=== PATIENT | female | born 1960 | race Caucasian/White ===

== ENCOUNTER 2024-12-25 13:05 | Outpatient (AMB) | payer OTHER, SELFPAY ==
--- OUTSIDE RECORDS SUMMARY | 2024-12-25 13:39 | XMS_ITS ---
Author Organization [facility] Address [address] [place] [address] Care Team Providers Care Screening Technician Name Role Phone Mirian Richey MD Primary Care Provider Active Problems Problem Noted Date Diagnosed Date Abdominal pain 04/21/2019 Serum potassium elevated 01/09/2019 Elevated serum creatinine 01/09/2019 Acute renal failure (ARF) 01/09/2019 Malignant neoplasm of cervix 05/06/2018 Overview (05/06/2018): Added automatically from request for surgery [id number] Dyspareunia in female 09/11/2017 Hypomagnesemia 10/26/2015 Impaired renal function 10/26/2015 Pre-op testing 08/31/2015 Cancer of cervix 07/29/2015 Cancer Staging:Clinical stage from 06/17/2015:FIGO Stage IIIB- Signed by Chelly White MD on 09/11/2017 Bilateral hydronephrosis 07/29/2015 Current Oncology Plans No current plan information found. Past Plans No past plan information found. Radiation Treatments * No radiation treatments are documented for this patient in [facility]. Treatments may have been administered in another system. Lifetime Dose Tracking * Chemical Lifetime Dose Automatic Entry Manual Entr y Fluoro Time 6 minutes 6 minutes 0 minutes Radiation - mGy 254.974 mGy 254.974 mGy 0 mGy
--- OUTSIDE RECORDS SUMMARY | 2024-12-25 13:39 | XMS_ITS | Referral Summary ---
Author Organization [facility] Address [address] [place] [address] Care Team Providers Care Genetic Supervisor Name Role Phone Mirian Richey MD Primary Care Provider [phone]- [phone] Encounters Date Type Department Care Team Description 12/22/2024 Refill [facility] [address] [place] [address] Meat Stock Clerk: Mirian Kent MD 11/22/2024 Refill [facility] [address] [place] [address] Meat Stock Clerk: Mirian Kent MD 09/27/2024 Refill [facility] [address] [place] [address] Meat Stock Clerk: Mirian Kent MD from Last 3 Months Allergies No known active allergies Medications MULTIVITAMIN (MULTIPLE VITAMINS ORAL) Activ e FLUoxetine (PROzac) 20 mg capsule Take 20 mg by mouth daily. 9 Active amLODIPine (NORVASC) 5 mg tablet Take 5 mg by mouth once a day. 2 Active rosuvastatin (CRESTOR) 40 mg tablet Take 40 mg by mouth once a day. 2 Active chlorthalidone (HYGROTEN) 25 mg tablet TAKE 1 TABLET BY MOUTH ONCE DAILY DIRECTED 3 Active oxybutynin XL (DITROPAN XL) 10 mg tablet Take 1 tablet by mouth once daily 30 tablet 5 Active oxybutynin XL (DITROPAN XL) 10 mg tablet Take 1 tablet by mouth once daily 30 tablet 5 025 Discontinued Active Problems Problem Noted Date Diagnosed Date Abdominal pain 04/21/2019 Serum potassium elevated 01/09/2019 Elevated serum creatinine 01/09/2019 Acute renal failure (ARF) 01/09/2019 Malignant neoplasm of cervix 05/06/2018 Overview (05/06/2018): Added automatically from request for surgery [id number] Dyspareunia in female 09/11/2017 Hypomagnesemia 10/26/2015 Impaired renal function 10/26/2015 Pre-op testing 08/31/2015 Cancer of cervix 07/29/2015 Cancer Staging:Clinical stage from 06/17/2015:FIGO Stage IIIB- Signed by Chelly White MD on 09/11/2017 Bilateral hydronephrosis 07/29/2015 Social History Tobacco Use Types Packs/Day Years Used Date Smoking Tobacco: Never Smokeless Tobacco: Never Tobacco Cessation:Counseling Given: Not Answered Alcohol Use Standard Drinks/Week Comments No 0 (1 standard drink = 0.6 oz pur e alcohol) Comments No Sex and Gender Information Value Date Recorded Sex Assigned at Female 07/01/2018 9:58 AM EDT Legal Sex Female 6:52 PM EDT Gender Identity Female 02/19/2022 2:16 PM EDT Sexual Orientation Straight 02/19/2022 2: 16 PM EDT Last Filed Vital Signs Vital Sign Reading Time Taken Comments Blood Pressure 146/88 08/24/2024 2:57 PM EDT Pulse 80 08/24/2024 2:57 PM EDT Temperature 36.6 ??C (97.8 ??F) 08/24/2024 2:57 PM ED T Respiratory Rate 16 06/11/2019 1:28 PM EDT Oxygen Saturation 94% 08/24/2024 2:57 PM EDT Inhaled Oxygen Concentration - - Weight 83.9 kg (185 lb) 08/24/2024 2:57 PM EDT Height 157.5 cm (5' 2 ) 03/21/2022 2:06 PM EDT Body Mass Index 33.84 03/21/2022 2:06 PM EDT Plan of Treatment Upcoming Encounters Date Type Department Care Team (Late st Contact Info) Description 02/11/2025 4:30 PM EDT Telehealth [facility] [address] [place] [phone] Meat Stock Clerk: Priscilla Saez NP [address] [place] [address] [phone] 09/01/2025 4:00 PM EDT Follow-Up [facility] DINING SERVICE SUPERVISOR Oncology [address] [place] [address] Meat Stock Clerk: Chelly Teixeira MD [address] [place] [phone] Medical Devices Implanted Type Area Rug Cutter Device Identifier Shelf Expiration Date Model / Serial / Lot Stent Ureteral Firm Hydroplus Coating 7fr 26cm Percuflex Plus - [id number] Implanted:Qty: 1 on 10/09/2017 by Crissy Pierce MD at [facility] Stent Ureter [employer] 01/28/2020 175-273 / / [id number] Stent Ureteral Firm Hydroplus Coating 6fr 26cm Percuflex Plus - [id number] Implanted:Qty: 1 on 03/20/2018 by Mirian Richey MD at [facility] Stent Left: Ureter [employer] 09/10/2020 175-263 / / [id number] Stent Ureteral Firm Hydroplus Coating 6fr 26cm Percuflex Plus - [id number] Implanted:Qty: 1 on 03/20/2018 by Mirian Richey MD at [facility] Stent Right: Ureter [employer] 09/10/2020 175-263 / / [id number] Stent Ureteral Firm Hydroplus Coating 6fr 26cm Percuflex Plus - [id number] Implanted:Qty: 1 on 07/02/2018 by Mirian Richey MD at [facility] Stent [employer] 04/09/2021 175-263 / / [id number] Stent Ureteral Firm Hydroplus Coating 6fr 26cm Percuflex Plus - [id number] Implanted:Qty: 1 on 07/02/2018 by Mirian Richey MD at [facility] Stent [employer] 03/25/2021 175-263 / / [id number] Stent Ureteral Firm Hydroplus Coating 6fr 26cm Percuflex Plus - [id number] - [id number] Implanted:Qty: 1 on 10/31/2018 by Mirian Richey MD at [facility] Stent Left: Ureter [employer] 09/01/2021 175-263 / [id number] / [id number] Stent Ureteral Firm Hydroplus Coating 6fr 26cm Percuflex Plus - [id number] - [id number] Implanted:Qty: 1 on 10/31/2018 by Mirian Richey MD at [facility] Stent Right: Ureter [employer] 09/01/2021 175-263 / [id number] / [id number] Stent Ureteral Firm Hydroplus Coating 6fr 26cm Percuflex Plus - [id number] Implanted:Qty: 1 on 01/10/2019 by Golden Perry MD at [facility] Stent Right: Ureter [employer] 08/03/2021 175-263 / / [id number] Stent Ureteral Firm Hydroplus Coating 6fr 26cm Percuflex Plus - [id number] Implanted:Qty: 1 on 01/10/2019 by Golden Perry MD at [facility] Stent Left: Ureter [employer] 08/03/2021 175-263 / / [id number] Stent Ureteral Firm Hydroplus Coating 6fr 26cm Percuflex Plus - [id number] - [id number] Implanted:Qty: 1 on 04/09/2019 by Mirian Richey MD at [facility] Stent [employer] 02/01/2022 175-263 / [id number] / Stent Ureteral Firm Hydroplus Coating 6fr 26cm Percuflex Plus - [id number] Implanted:Qty: 1 on 04/16/2019 by Mirian Richey MD at [facility] Stent Left: Ureter [employer] 02/08/2022 175-263 / / [id number] Stent Ureteral Firm Hydroplus Coating 6fr 26cm Percuflex Plus - [id number] Implanted:Qty: 1 on 04/16/2019 by Mirian Richey MD at [facility] Stent Right: Ureter [employer] 02/01/2022 175-956 / / [id number] Procedures * Due to [place] law, this organization might not be sharing negative HIV tests. Procedure Name Priority Date/Time Associated Diagnosis Comments PAP W/HPV, CONVERSION Routine 07/15/2017 10:42 AM EDT from Last 3 Months or Most Recently Relevant to Health Maintenance Results * Due to [place] law, this organization might not be sharing negative HIV tests. * Pap w/HPV (07/15/2017 10:42 AM EDT) Path Procedure TPGS (388708) 1 ?? HPVHR(335191) 1 ?? Edited by: [id number] - 7084 MAHAMED ?? [id number] - 3297 TRISTEN ?? [id number] - 5563 [facility] ANATOMIC PATHOLOGY - BIOTECH THREE Specimen Labeled As: 1 CERVICAL/ENDOCERVI LM CYTO MATERIAL - Edited by: [id number] - 1043 ENRRIQUE [facility] ANATOMIC PATHOLOGY - BIOTECH THREE Additional Test Information Specimens were tested for high risk HPV using the FDA approved Digene Hybrid ?? Capture II kit, in the Diagnostic Molecular Oncology Lab at [facility] ?? Health Care. ??This test can detect HPV high risk types 16, 18, 31, 33, 35, 39, ?? 45, 51, 52, 56, 58, 59 and 68. ? High-risk subtypes of HPV are found in 96% of patients with high grade squamous ?? intraepithelial lesions and cervical squamous cell carcinoma. ??Additional ?? studies may be indicated in spite of a negative HPV test, e.g. in patients with ?? a friable cervix or multiple previous abnormal pap tests. ??HPV testing is not ?? recommended for managing patients with atypical glandular cells. ??Not all ?? high-risk HPV infections are associated with a histologic or cytologic ?? abnormality. ??We endorse the recommendations of the [place] Society for ?? Colposcopy and Cervical Pathology for management of pap test results, available ?? at www.asccp.org. ? ASCCP guidelines also recommend HPV 16/18 genotyping in patients over the age ?? of 30 who have had positive high risk HPV testing, but have a negative ?? morphologic Pap test (http://www.asccp. org/consensus.shtm l). ? The performance characteristics of this test have been validated by the ?? Laboratory of Diagnostic Molecular Oncology. ??They have not been cleared or ?? approved by the U.S. ??Food and Drug Administration (FDA). ??The FDA has ?? determined that such clearance or approval is not necessary. ??The laboratory is ?? certified (CLIA-88) to perform high complexity clinical laboratory testing. ?? Edited by: [id number] STCYRM ?? [id number] STCYRM ?? [id number] STCYRM [facility] ANATOMIC PATHOLOGY - BIOTECH THREE Diagnosis ThinPrep Pap Test ?Adequacy: Specimen processed and examined but unsatisfactory for evaluation ?of epithelial cell abnormalities because of scant epithelial ?cellularity and obscuring blood. ? This Pap test could not be examined by the ThinPrep Imaging System, [employer] [facility] [employer], [place], [place], and required a full manual screening. ? This case was screened and diagnosed by the Cytology Laboratory at [facility] ?? Diagnostics, [place], [place] ?- High risk HPV DNA subtypes: NEGATIVE ?? Edited by: [id number] STCYRM ?? [id number] STCYRM ?? [id number] 160 STCYRM ?? [id number] - 1700 [facility] ANATOMIC PATHOLOGY - BIOTECH THREE Gynecologic Clinical Data Specimen source:, THINPREP (CERVICAL AND ENDOCERVICAL) [facility] ANATOMIC PATHOLOGY - BIOTECH THREE Gynecologic Clinical Data First date of LMP:, NOT GIVEN [facility] ANATOMIC PATHOLOGY - BIOTECH THREE Pathology Codes Client Order Code:, TPHS3 [facility] ANATOMIC PATHOLOGY - BIOTECH THREE Pathology Codes Bill Type:, 3RD DEMOCRAT BILLING [facility] ANATOMIC PATHOLOGY - BIOTECH THREE Completed Report [id number] HPV, HIGH RISK TYPES 1 [facility] ANATOMIC PATHOLOGY - BIOTECH THREE Marker 1 MD LAURA NEGATIVE [facility] ANATOMIC PATHOLOGY - BIOTECH THREE Marker 2 MSTITOARAM [facility] ANATOMIC PATHOLOGY - BIOTECH THREE Marker 3 OMRPT,MOLECULAR REPEAT [facility] ANATOMIC PATHOLOGY - BIOTECH THREE Marker 4 RIM,RECEIVED IN MOLECULAR [facility] ANATOMIC PATHOLOGY - BIOTECH THREE Marker 5 STQ,SENT TO [facility] ANATOMIC PATHOLOGY - BIOTECH THREE Marker 6 UNSAT,Unsatisfacto ry [facility] ANATOMIC PATHOLOGY - BIOTECH THREE Cc Results To HALLIE Queen DINING SERVICE SUPERVISOR ??[id number] ?? MACIEL Goyal DINING SERVICE SUPERVISOR ??[id number] [facility] ANATOMIC PATHOLOGY - BIOTECH THREE Signature REPORT SIGNED: PAMELA SOLER 08/01/17 [facility] ANATOMIC PATHOLOGY - BIOTECH THREE Sign Out Audit PAMELA SOLER [id number] FINAL NEW RYDER [id number] [facility] ANATOMIC PATHOLOGY - BIOTECH THREE Cytology / Unknown 7 10:42 AM EDT 07/16/2017 10:42 AM EDT us Susana Fernandez MD LAB HISTORICAL RESULTS Fin al Result [facility] ANATOMIC PATHOLOGY - BIOTECH THREE [address] [place] [address] from Last 3 Months or Most Recently Relevant to Health Maintenance Insurance Advance Directives Documents on File Type Date Recorded Patient Security Manager Expl [facility] Health Care Proxy 01/10/2019 8:18 AM 2018 Health Care Proxy 08/08/2017 1:34 PM Health Care Proxy 08/08/2017 8:14 AM Health Care Proxy 01/09/2017 12:00 AM Heal th Care Proxy Healthcare Agents on File Name Relationship Healthcare Agent Relationshi p Communication Leon Jean Baptiste Spouse Next of Kin [phone] ( Home) Care Teams Genetic Supervisor Relationship Specialty Start Date End Date Mirian Richey MD [address] [place] [id number] PCP - General Urology 01/31/24
--- OUTSIDE RECORDS SUMMARY | 2024-12-25 13:39 | XMS_ITS | Clinical Summary ---
Author Organization [facility] Address [address] [place] [address] Care Team Providers Care Cardio Clinician Name Role Phone Mirian Richey MD Primary Care Provider +1- [phone] Allergies No known active allergies Medications MULTIVITAMIN [...] (05/06/2018): Added automatically from request for surgery [id number] Dyspareunia in female 09/11/2017 Hypomagnesemia 10/26/2015 Impaired renal function 10/26/2015 Pre-op testing 08/31/2015 Cancer of cervix 07/29/2015 Cancer Staging:Clinical stage from 06/17/2015:FIGO Stage IIIB- Signed by Chelly White MD on 09/11/2017 Bilateral hydronephrosis 07/29/2015 Encounters Date Type Department Care Team Description 12/22/2024 Refill [facility] [address] [place] [address] Windows Architect: Mirian Kent MD 11/22/2024 Refill [facility] [address] [place] [address] Windows Architect: Mirian Kent MD 09/27/2024 Refill [facility] Urology [address] [address] Windows Architect: Mirian Kent MD from Last 3 Months Family History Medical History Relation Name Comments Heart disease Brother Cancer Father Spinal cancer p er patient No Known Problems Mother No Known Problems Sister No Known Problems Son Relation Name Status Comments Brother Alive Daughter Father Mother Alive Sister Alive Son Alive Social History Tobacco Use Types Packs/Day Years [...] Info) Description 02/11/2025 4:30 PM EDT Telehealth [facility] [address] [place] [address] Windows Architect: Priscilla Saez NP [address] [place] [phone] 09/01/2025 4:00 PM EDT Follow-Up [facility] BEAN SNIPPER Oncology [address] [place] [phone] Windows Architect: Chelly Teixeira MD [address] [place] [phone] Health Maintenance Due Date Last Done Comments Cologuard 1961 Colon Cancer Screening 1961 Colonoscopy 1961 FOBT / Fit Test 1961 HIV Screening 1961 Hepatitis C Screening 1961 Sigmoidoscopy 1961 Pneumococcal Vaccine: Pediatric (0-5 Years) and At-Risk Patients (6-64 Years) (1 of 2 - PCV) 1967 Zoster Vaccines (1 of 2) 1980 Mammogram 2001 DTaP,Tdap,and Td Vaccines (2 - Td or Tdap) 02/21/2019 02/21/2009 Pap Smear 07/15/2020 07/15/2017 Cervical Cancer Screening 07/15/2022 HPV and Pap Smear 07/15/2022 07/15/2017 COVID-19 Vaccine (2023-2 5 season) 2024 11/28/2021, 02/25/2021, 02/04/2021 Influenza Vaccine (#1) 2024 Alcohol/Substance Use Screening 11/18/2024 Depression Screening and Follow-Up 11/18/2024 Social Drivers of Health Annual Screening 11/18/2024 RSV Vaccine (60+ years old a nd patients) (1 - 1-dose 75+ series) 2036 Hepatitis B Vaccines Aged Out No long er eligible based on patient's age to complete this topic Medical Devices Implanted Type Area Claims Correspondence Clerk Device Identifier Shelf Expiration Date Model / Serial / Lot Stent Ureteral Firm Hydroplus Coating 7fr 26cm Percuflex Plus - [id number] Implanted:Qty: 1 on 10/09/2017 by Crissy Pierce MD at [facility] Stent Ureter [employer] 01/28/2020 175-273 / / [id number] Stent Ureteral Firm Hydroplus Coating 6fr 26cm Percuflex Plus - [id number] Implanted:Qty: 1 on 03/20/2018 by Mirian Richey MD at [facility] Stent Left: Ureter [employer] 09/10/2020 175-263 / / [id number] Stent Ureteral Firm Hydroplus Coating 6fr 26cm Percuflex Plus - [id number] Implanted:Qty: 1 on 03/20/2018 by Mirian Richey MD at [facility] Stent Right: Ureter [employer] 09/10/2020 175-263 / / [id number] Stent Ureteral Firm Hydroplus Coating 6fr 26cm Percuflex Plus - [id number] Implanted:Qty: 1 on 07/02/2018 by Mirian Richey MD at [facility] Stent [employer] 04/09/2021 175-263 / / [id number] Stent Ureteral Firm Hydroplus Coating 6fr 26cm Percuflex Plus - [id number] Implanted:Qty: 1 on 07/02/2018 by Mirian Richey MD at [facility] Stent [employer] 03/25/2021 175-263 / / [id number] Stent Ureteral Firm Hydroplus Coating 6fr 26cm Percuflex Plus - [id number] - [id number] Implanted:Qty: 1 on 10/31/2018 by Mirian Richey MD at [facility] Stent Left: Ureter [employer] 09/01/2021 175-263 / [id number] / [id number] Stent Ureteral Firm Hydroplus Coating 6fr 26cm Percuflex Plus - [id number] - [id number] Implanted:Qty: 1 on 10/31/2018 by Mirian Richey MD at [facility] Stent Right: Ureter [employer] 09/01/2021 175-263 / [id number] / [id number] Stent Ureteral Firm Hydroplus Coating 6fr 26cm Percuflex Plus - [id number] Implanted:Qty: 1 on 01/10/2019 by Golden Perry MD at [facility] Stent Right: Ureter [employer] 08/03/2021 175-263 / / [id number] Stent Ureteral Firm Hydroplus Coating 6fr 26cm Percuflex Plus - [id number] Implanted:Qty: 1 on 01/10/2019 by Golden Perry MD at [facility] Stent Left: Ureter [employer] 08/03/2021 175-263 / / [id number] Stent Ureteral Firm Hydroplus Coating 6fr 26cm Percuflex Plus - [id number] - [id number] Implanted:Qty: 1 on 04/09/2019 by Mirian Richey MD at [facility] Stent [employer] 02/01/2022 175-263 / [id number] / Stent Ureteral Firm Hydroplus Coating 6fr 26cm Percuflex Plus - [id number] Implanted:Qty: 1 on 04/16/2019 by Mirian Richey MD at [facility] Stent Left: Ureter [employer] 02/08/2022 175-263 / / [id number] Stent Ureteral Firm Hydroplus Coating 6fr 26cm Percuflex Plus - [id number] Implanted:Qty: 1 on 04/16/2019 by Mirian Richey MD at [facility] Stent Right: Ureter [employer] 02/01/2022 175-263 / / [id number] Procedures * Due to [place] state law, this organization might not be sharing negative HIV tests. Procedure Name Priority Date/Time Associated Diagnosis Comments PAP W/HPV, CONVERSION Routine 07/15/2017 10:42 AM EDT from Last 3 Months or Most Recently Relevant to Health Maintenance Results * Due to [place] state law, this organization might not be sharing negative HIV tests. * Pap w/HPV (07/15/2017 10:42 AM EDT) Path Procedure TPGS ([id number]) 1 ?? HPVHR([id number]) 1 ?? Edited by: [id number] MAHAMED ?? [id number] - 2330 TRISTEN ?? [id number] - 5790 STCYRM [facility] ANATOMIC PATHOLOGY - BIOTECH THREE Specimen Labeled As: 1 CERVICAL/ENDOCERVI LM CYTO MATERIAL - Edited by: [id number] ENRRIQUE [facility] ANATOMIC PATHOLOGY - BIOTECH THREE Additional Test Information Specimens were tested for high risk HPV using the FDA approved Digene Hybrid ?? Capture II kit, in the Diagnostic Molecular Oncology Lab at [facility] ?? Health Care. ??This test can [...] abnormality. ??We endorse the recommendations of the [place] Society for ?? Colposcopy and Cervical Pathology [...] complexity clinical laboratory testing. ?? Edited by: [id number] STCYRM ?? [id number] - 145 STCYRM ?? [id number] - 1605 STCYRM [facility] ANATOMIC PATHOLOGY - BIOTECH THREE Diagnosis ThinPrep Pap Test ?Adequacy: Specimen processed and examined but unsatisfactory for evaluation ?of epithelial cell abnormalities because of scant epithelial ?cellularity and obscuring blood. ? This Pap test could not be examined by the ThinPrep Imaging System, [email or web address], [place], [place], and required a full manual screening. ? This case was screened and diagnosed by the Cytology Laboratory at [facility] ?? Diagnostics, [place], [place] ?- High risk HPV DNA subtypes: NEGATIVE ?? Edited by: [id number] STCYRM ?? [id number] 145 STCYRM ?? [id number] 160 STCYRM ?? [id number] - 170 [facility] ANATOMIC PATHOLOGY - BIOTECH THREE Gynecologic Clinical Data Specimen source:, THINPREP (CERVICAL AND ENDOCERVICAL) [facility] ANATOMIC PATHOLOGY - BIOTECH THREE Gynecologic Clinical Data First date of LMP:, NOT GIVEN [facility] ANATOMIC PATHOLOGY - BIOTECH THREE Pathology Codes Client Order Code:, TPHS3 [facility] ANATOMIC PATHOLOGY - BIOTECH THREE Pathology Codes Bill Type:, 3RD [employer]EN [employer]Y BILLING [facility] ANATOMIC PATHOLOGY - BIOTECH THREE Completed Report [id number] HPV, HIGH RISK TYPES 1 [facility] ANATOMIC PATHOLOGY - BIOTECH THREE Marker 1 LAURA, NEGATIVE [facility] ANATOMIC PATHOLOGY - BIOTECH THREE Marker [address] ANATOMIC PATHOLOGY - BIOTECH THREE Marker 3 OMRPT,MOLECULAR REPEAT [facility] ANATOMIC PATHOLOGY - BIOTECH THREE Marker 4 RIM,RECEIVED IN MOLECULAR [facility] ANATOMIC PATHOLOGY - BIOTECH THREE Marker 5 STQ,SENT TO [employer] [facility] ANATOMIC PATHOLOGY - BIOTECH THREE Marker 6 UNSAT,Unsatisfacto ry [facility] ANATOMIC PATHOLOGY - BIOTECH THREE Cc Results To HALLIE GARCES S BEAN SNIPPER ??[id number] ?? MACIEL Goyal BEAN SNIPPER ??[id number] [facility] ANATOMIC PATHOLOGY - BIOTECH THREE Signature REPORT SIGNED: PAMELA SOLER 08/01/17 [facility] ANATOMIC PATHOLOGY - BIOTECH THREE Sign Out Audit ABHILASH SOLERSERGIO [id number] FINAL NEW TRISTEN [id number] [facility] ANATOMIC PATHOLOGY - BIOTECH THREE Cytology / Unknown 7 10:42 AM EDT 07/16/2017 10:42 AM EDT us Susana Fernandez MD LAB HISTORICAL RESULTS Fin al Result [facility] ANATOMIC PATHOLOGY - BIOTECH THREE [address] [place] [address] from Last 3 Months or Most Recently Relevant to Health Maintenance Insurance Advance Directives Documents on File Type Date Recorded Patient Printed Circuit Boards Stripper Etcher Expl anation Health Care Proxy 01/10/2019 8:18 AM 2018 Health Care Proxy 08/08/2017 1:34 PM Health Care Proxy 08/08/2017 8:14 AM Health Care Proxy 01/09/2017 12:00 AM Heal th Care Proxy Healthcare Agents on File Name Relationship Healthcare Agent Relationshi p Communication Leon Jean Baptiste Spouse Next of Kin [phone] ( Home) Care Teams Cardio Clinician Relationship Specialty Start Date End Date Mirian Richey MD [address] [place] [address] PCP - General Urology 01/31/24
--- OUTSIDE RECORDS SUMMARY | 2024-12-25 13:39 | XMS_ITS | Encounter Summary ---
Author Organization [facility] Address [address] [place] [address] Care Team Providers Care Medical Sales Name Role Phone Mirian Richey MD Primary Care Provider +1- [phone] Encounter Details Date Type Department Care Team (Late st Contact Info) Description 07/08/2020 Orders Only [facility] Interventional Radiology [address] [place] [phone] Finn Manley MD [address] [place] [phone] Social History Tobacco Use Types Packs/Day Years Used Date Smoking Tobacco: Never Smokeless Tobacco: Never Alcohol Use Standard Drinks/Week Comments No 0 (1 standard drink = 0.6 oz pur e alcohol) Comments No Sex and Gender Information Value Date Recorded Sex Assigned at Female 07/01/2018 9:58 AM EDT Legal Sex Female 6:52 PM EDT Gender Identity Female 02/19/2022 2:16 PM EDT Sexual Orientation Straight 02/19/2022 2: 16 PM EDT documented as of this encounter Plan of Treatment Upcoming Encounters Date Type Department Care Team (Late st Contact Info) Description 02/11/2025 4:30 PM EDT Telehealth [facility] Urology Clinic [address] [place] [address] [phone] Chocolate Temperer: Priscilla Saez NP [address] [place] [address] [phone] 09/01/2025 4:00 PM EDT Follow-Up [facility] RECONCILIATION ACCOUNTANT Oncology [address] [place] [address] - [place], [place] [phone] Chocolate Temperer: Chelly Teixeira MD [address] [place] [address] [phone] documented as of this encounter Visit Diagnoses Not on filedocumented in this encounter Care Teams Medical Sales Relationship Specialty Start Date End Date Mirian Richey MD [address] [place] [address] [phone] PCP - General Urology 01/31/24 documented as of this encounter
--- OUTSIDE RECORDS SUMMARY | 2024-12-25 13:39 | XMS_ITS | Encounter Summary ---
Author Organization [facility] Address [address] [place] [address] Care Team Providers Care Medical Concierge Name Role Phone Mirian Richey MD Primary Care Provider [phone]- [phone] Reason for Visit * Reason Comments Med Refill Encounter Details Date Type Department Care Team (Late Contact Info) Description 12/22/2024 Refill [facility] Urology Clinic [address] [place] [address] [phone] Statistical Secretary: Mirian Kent MD [address] [place] [address] [phone] Social History Tobacco Use Types Packs/Day Years [...] Encounters Date Type Department Care Team (Late Contact Info) Description 02/11/2025 4:30 PM EDT Telehealth [facility] Urology Clinic [address] [place] [address] [phone] Statistical Secretary: Priscilla Saez NP [address] [place] [address] [phone] 09/01/2025 4:00 PM EDT Follow-Up [facility] LEGAL AIDE Oncology [address] [place] [address] [place] [address] Statistical Secretary: Chelly Teixeira MD [address] [place] [address] [phone] documented as of this encounter Visit Diagnoses Not on filedocumented in this encounter Care Teams Medical Concierge Relationship Specialty Start Date End Date Mirian Richey MD [address] [place] [address] [phone] PCP - General Urology 01/31/24 documented as of this encounter
--- OUTSIDE RECORDS SUMMARY | 2024-12-25 13:39 | XMS_ITS | Encounter Summary ---
Author Organization [facility] Address [address] [place] [address] Care Team Providers Care Threading Machine Setter Name Role Phone Mirian Richey MD Primary Care Provider [phone]- [phone] Encounter Details Date Type Department Care Team (Late st Contact Info) Description 07/27/2020 Orders Only [facility] Nuclear Medicine [address] [place] [address] [phone] Alfredo Cedeno MD PhD [address] [place] [address] Social History Tobacco Use Types Packs/Day Years [...] EDT Telehealth [facility] Urology Clinic [address] [place] [phone] Overlock Collar Setter: Priscilla Saez NP [address] [place] [phone] 09/01/2025 4:00 PM EDT Follow-Up [facility] COMMERCIAL LOAN PROCESSOR Oncology [address] [place] [address] - First [place], [place] [phone] Overlock Collar Setter: Chelly Teixeira MD [address] [place] [address] [phone] documented as of this encounter Visit Diagnoses Not on filedocumented in this encounter Care Teams Threading Machine Setter Relationship Specialty Start Date End Date Mirian Richey MD [address] [place] [phone] PCP - General Urology 01/31/24 documented as of this encounter
--- NOTE | 2024-12-25 13:40 | MHC.PC.OV ---
Vital Signs 12/25/24 13:43 Height 5 ft 3 in Weight 185 lb BMI 32.8 BP 136/88 Blood Pressure Location Lt brachial Position Sitting Pulse 77 Pulse Source Pulse Oximeter Temp 96.4 F L Temp Source Temporal Artery Scan Pulse Oximetry (%) 97 Oxygen Delivery Method Room Air Intake Visit Reasons: establish care Intake Note: Patient is a new patient here to establish care for HTN. Transferring care from Dr. Vinita Villegas from [facility]. Medical records have been received. Malted Milk Supervisor Required: No Accompanied by: Spouse Is last menstrual period known: Yes (has not had for years.) Last menstrual period: 11/22/22 Allergies No Known Allergies Allergy (Verified 12/25/24 14:03) Medication List - Last Reconciled 12/25/24 by Catrachita Jenkins PA-C amlodipine 5 mg PO DAILY chlorthalidone 25 mg PO DAILY fluoxetine 20 mg PO DAILY oxybutynin chloride ER 10 mg PO DAILY rosuvastatin 40 mg PO DAILY Tobacco use date assessed: 12/25/24 Dental Screening Dental Screen Date: 12/25/24 Did you have a dental visit in the last 12 months?: No Did you have a dental problem in the last 6 months where you did not have access to dental care?: No Was dental information given to patient?: Patient has dentist HPI establish care HPI Details 64-year-old female coming to the office for the 1st time. Patient is not known to [place]. Patient was last seen by [facility] in [place] by nurse practitioner Vinita villegas. She follows with through [facility] in [place] twice yearly for history of cervical cancer. Patient underwent reconstructive surgery for her history of cervical cancer and had to have her fallopian tubes reconstructed. She has been on fluoxetine for several years and does not feel it was helpful for her depression and anxiety and would like to try something else. She has not taken her fluoxetine in several months because she was out of the medication. She is interested in weight loss medication. She has not had a mammogram or colonoscopy and does not want to have this testing done. [facility] Medical History Cervical cancer Impaired fasting glucose Renal failure syndrome Chronic kidney disease, stage 3 Essential hypertension Retinal artery occlusion Mixed hyperlipidemia Social History Housing: House Patient Tobacco Use Status: Never used Tobacco e-Cigarette/Vaping Use: Never Used service: No Current occupational status: employed Cognitive needs: No Hearing needs: No Vision needs: Yes Female Reproductive History Menstrual Date of last menstrual period: 11/22/22 Total pregnancies: 2 Full term: 2 Questionnaire PHQ-9 Over the last 2 weeks, how often have you been bothered by any of the following problems? 1. Little interest or pleasure in doing things: not at all 2. Feeling down, depressed, or hopeless: not at all 3. Trouble falling or staying asleep, or sleeping too much: not at all 4. Feeling tired or having little energy: not at all 5. Poor appetite or overeating: not at all 6. Feeling bad about yourself - or that you are a failure or have let yourself or your family down: not at all 7. Trouble concentrating on things, such as reading the newspaper or watching television: not at all 8. Moving or speaking so slowly that other people could have noticed. Or the opposite - being so fidgety or restless that you have been moving around a lot more than usual: not at all 9. Thoughts that you would be better off or of hurting yourself in some way: not at all Total score: 0 Depression Screening Interpretation: Negative Depression Screening Done: Yes 93910 - PHQ-9 Billing: Yes Source: Developed by Drs. Nigel Ramirez, Jaz Bass, Mannie Zimmerman and colleagues, with an educational pool from [employer]. Thrive Questionnaire Date Thrive assessed: 12/25/24 I am a: Patient What is your living situation today?: I have a steady place to live Within the past 12 months, did the food you bought not last and you didn't have the money to get more?: Never true Within the past 12 months, did you worry whether your food would run out before you got money to buy more?: Never true Do you have trouble paying for medicines?: No Do you have trouble getting transportation to medical appointments?: No Do you have trouble paying your heating and electricity bill?: No Do you have trouble taking care of your child, family member or friend?: No Do you have trouble with day-to-day activities such as bathing, preparing meals, shopping, managing finances, etc.?: No Are you currently unemployed and looking for a job?: No Are you interested in more education?: No Please select the resources that you would like help with: None Currently or been in a relationship where the following occur: No concerns reported THRIVE Score: 0 AUDIT C Alcohol Use Questionnaire (AUDIT-C) 1. How often do you have a drink containing alcohol?: 2-3 times a week 2. How many drinks containing alcohol do you have on a typical day when you are drinking?: 1 or 2 3. How often do you have six or more drinks on one occasion?: Never Total Score: 3 LIBORIO-7 AMB Questionnaire LIBORIO-7 Date LIBORIO - 7 assessed: 12/25/24 Feeling nervous, anxious, or on edge: 0 = Not at all Not being able to stop or control worryin = Not at all Worrying too much about different things: 0 = Not at all Trouble relaxin = Not at all Being so restless that it is hard to sit still: 0 = Not at all Becoming easily annoyed or irritable: 0 = Not at all Feeling afraid as if something awful might happen: 0 = Not at all Total LIBORIO-7 score (0-4 normal; 5-9 mild; 10-14 moderate; 15-21 severe): 0 Source: Developed by Drs. Nigel Ramirez, Jaz Bass, Mannie Zimmerman and colleagues, with an educational pool from [employer]. LIBORIO-7 Assessment Billing LIBORIO-7 Assessment Tool: LIBORIO-7 Assessment 62836 Review of Systems Const Denies body aches, Denies chills, Denies fever(s), Denies headache(s) and Denies poor appetite Eyes Reports no additional complaints ENT Denies dysphagia, Denies dizziness, Denies headache(s) and Denies odynophagia Card Denies chest pain, Denies syncope, Denies edema, Denies irregular heart rhythm, Denies lightheadedness and Denies dyspnea Resp Denies cough and Denies dyspnea GI Denies abdominal pain, Denies constipation, Denies dysphagia, Denies diarrhea, Denies nausea, Denies odynophagia and Denies vomiting Reports no additional complaints Musc Reports no additional complaints and Denies abnormal gait Skin/Breast Reports system reviewed and no additional complaints, except as documented Neuro Denies abnormal gait, Denies dizziness, Denies syncope and Denies headache(s) Psych Reports no additional complaints Physical exam (Primary Care) Vital Signs: Last Vital Signs Temp 96.4 F L 12/25/24 13:43 Pulse 77 12/25/24 13:43 BP 136/88 12/25/24 13:43 Pulse Ox 97 12/25/24 13:43 Oxygen Delivery Method Room Air 12/25/24 13:43 BMI result Body Mass Index 32.8 Tobacco/Smoking Status: Tobacco use Status Tobacco use date assessed 12/25/24 12/25/24 13:54 Patient Tobacco Use Status Never used Tobacco 12/25/24 13:54 e-Cigarette/Vaping Use Never Used 12/25/24 13:54 PHQ-9: PHQ-9 Score PHQ-9: Total score 0 12/25/24 13:47 Depression Screening Interpretation: Negative Thrive Assessment: Date of Thrive Assessment Date Thrive assessed 12/25/24 12/25/24 13:41 Currently or been in a relationship where the following occur: No concerns reported Const General: cooperative, healthy appearing, comfortable and no acute distress Orientation/consciousness: patient oriented x3 HENMT Head: Yes normocephalic Ears: hearing grossly normal bilaterally General nose exam: Normal external nose present Eyes General: appearance normal, both eyes and all related structures Conjunctivae: conjunctivae normal Neck Neck: Yes full ROM and Yes no lymphadenopathy Resp Effort & Inspection: normal respiratory effort Auscultation: clear to auscultation bilaterally, no crackles, no rales, no rhonchi and no wheezes Cardio Rate: regular rate Rhythm: regular rhythm Skin General skin exam: no rashes or lesions noted Neuro General: patient oriented x3 Gait exam (Neuro): Normal gait present Extrem General: Yes normal to inspection, Yes full ROM and No edema Psych Affect: normal affect Attitude: cooperative Insight: Good insight present (Psych) Judgement: Good judgement present (Psych) Office Procedures Flu Questionnaire Does the patient have a severe egg allergy?: No Does the patient have severe life threatening allergies?: No Does the patient have a fever or illness today?: No Has the patient ever had Guillain-Mcalpin Syndrome?: No Has the patient ever had any past reaction to a flu shot?: No Immunizations Fluarix Triv [id number] (PF) 45 mcg (15 mcg x 3)/0.5 mL IM syringe Performing Provider: Catrachita Jenkins PA-C Performing Location: [facility] Documented (not given) by: HERB Fenton on 12/25/24 13:55 Reason Not Given: Patient Refused Coding Level of Care Code New Pt Level 4 (92215) Diagnoses Impaired fasting glucose R73.01 Chronic kidney disease, stage 3 N18.30 Mixed hyperlipidemia E78.2 Essential hypertension I10 Overactive bladder N32.81 Colonoscopy refused Z53.20 Obesity (BMI 30.0-34.9) E66.811 Depression F32.A Additional Codes LIBORIO-7 Assessment Billing - LIBORIO-7 Assessment Tool: LIBORIO-7 Assessment 44426 ([id number]) PHQ-9 - 44171 - PHQ-9 Billing: Yes ([id number]) Assessment & Plan Assessment & Plan (1) Impaired fasting glucose: Code(s): R73.01 - Impaired fasting glucose Category: Medical Plan: Decrease the amount of carbohydrates such as pasta, bread, rice, and potatoes and limit the amount of sweets. Although fruits are generally healthy they should be eaten in moderation as they are still high in sugar. Ordered for updated A1c (2) Chronic kidney disease, stage 3: Comment: onset: 10/15/2022- GFR=51.8, 04/19/22 Code(s): N18.30 - Chronic kidney disease, stage 3 unspecified Category: Medical Plan: Ordered for repeat kidney function testing. Advised patient to stay well hydrated and avoid kidney irritants such as NSAIDs (3) Mixed hyperlipidemia: Comment: onset:04/19/2022 Code(s): E78.2 - Mixed hyperlipidemia Category: Medical Plan: Avoid foods that are high in cholesterol such as red meat, fried foods, eggs and baked goods. Triglyceride goal of less than 150 and LDL goal of less than 130. On rosuvastatin 40 mg ordered for updated cholesterol labs. (4) Essential hypertension: Comment: onset: 03/03/2021 Code(s): I10 - Essential (primary) hypertension Category: Medical Plan: Continue on current blood pressure medication. Avoid salt intake and encourage healthy diet and regular exercise. (5) Overactive bladder: Code(s): N32.81 - Overactive bladder Category: Medical Plan: Currently on oxybutynin given by her oncologist Dr. Richey through [facility] (6) Colonoscopy refused: Code(s): Z53.20 - Procedure and treatment not carried out because of patient's decision for unspecified reasons Category: Medical Plan: Patient states she has not had a colonoscopy and is refusing colonoscopy or Cologuard testing. She states she has not wish to have this testing done. I strongly advised patient to undergo this testing as it can detect cancer very early on and patient understands the risk of not having this procedure. I will discuss again at next appointment. (7) Obesity (BMI 30.0-34.9): Code(s): E66.811 - Obesity, class 1 Category: Medical Plan: Healthy diet and regular exercise is encouraged. Patient interested in injections advised that she would have to have blood work done prior to starting these injections and blood work ordered. Patient was counseled today on the risks and benefits of GLP-1 injections as well as the dosing schedule. She has no family history or personal history of thyroid disease and no gallbladder disease. Discussed with the patient the potential GI side effects of this medication. Plan to have repeat blood work after one month of therapy to monitor kidney and liver function before increasing the dose of this medication. Follow up in 2 months. (8) Depression: Comment: Declines counseling 12/2024 Code(s): F32.A - Depression, unspecified Category: Medical Plan: Patient states she struggles with anxiety and depression primarily depression. She was previously on fluoxetine and did not find this helpful. Counseled on side effects of citalopram and we will trial this medication and follow up in 2 months. Declines counseling referral Plan This note was constructed using voice recognition software. While every effort has been made to ensure accuracy and community fundraiser, still areas may have been included sometimes these areas may affect the content or meeting of the given symptoms. Total time spent caring for the patient today was 30 minutes. This includes time spent before the visit reviewing the chart, time spent during the visit, and time spent after the visit and documentation. Orders: Orders Influenza [id number] Immunization Today Z23 - Encounter for immunization Complete Blood Count Auto Diff Today Z00.00 - Encounter for general adult medical examination without abnormal findings Lipid Panel Today E78.00 - Pure hypercholesterolemia, unspecified TSH reflex Free T4 Today Z00.00 - Encounter for general adult medical examination without abnormal findings Hemoglobin A1c Today E78.2 - Mixed hyperlipidemia Free T4 (Free Thyroxine) Today Z00.00 - Encounter for general adult medical examination without abnormal findings Comprehensive Met. Panel Today Z00.00 - Encounter for general adult medical examination without abnormal findings Vitamin B12 and Folate Today Z00.00 - Encounter for general adult medical examination without abnormal findings Vitamin D 25-OH Total Today Z00.00 - Encounter for general adult medical examination without abnormal findings Medications: New rosuvastatin 40 mg PO DAILY 90 tabs 1RF chlorthalidone 25 mg PO DAILY 90 tabs 2RF citalopram 10 mg PO DAILY 90 tabs 0RF amlodipine 5 mg PO DAILY 90 tabs 0RF
[2024-12-25 13:43] VITALS: BP 136/88; PULSE 77; TEMP 35.8; O2SAT 97; BMI 32.8
== END 2024-12-25 14:27 | disposition home or self-care (01) ==
DX: R73.01 Impaired fasting glucose (principal); N18.30 Chronic kidney disease, stage 3 unspecified; E78.2 Mixed hyperlipidemia; I10 Essential (primary) hypertension; N32.81 Overactive bladder; Z53.20 Procedure and treatment not carried out because of patient's decision for unspecified reasons; E66.811 Obesity, class 1; Z68.32 Body mass index [BMI] 32.0-32.9, adult; F32.A Depression, unspecified

== ENCOUNTER → 2024-12-25 13:05 | Outpatient (BNVA) | payer OTHER, SELFPAY | DX: R73.01 Impaired fasting glucose (principal); I12.9 Hypertensive chronic kidney disease with stage 1 through stage 4 chronic kidney disease, or unspecified chronic kidney disease; N18.30 Chronic kidney disease, stage 3 unspecified; E78.2 Mixed hyperlipidemia; N32.81 Overactive bladder; E66.811 Obesity, class 1; Z68.32 Body mass index [BMI] 32.0-32.9, adult; F32.A Depression, unspecified; Z79.899 Other long term (current) drug therapy | CPT/HCPCS: 96127 ==

== ENCOUNTER 2025-01-09 07:40 | Outpatient (REF) | payer OTHER, SELFPAY ==
--- OUTSIDE RECORDS SUMMARY | 2025-01-09 07:42 | XMS_ITS | Encounter Summary ---
Author Organization [facility] Address [address] [place] [address] Care Team Providers Care Assistant Director Name Role Phone Mirian Richey MD Primary Care Provider +1- [phone] Reason for Visit * Reason Comments Med Refill Encounter Details Date Type Department Care Team (Late Contact Info) Description 12/22/2024 Refill [facility] Urology Clinic [address] [place] [phone] Risk And Insurance Consultant: Mirian Kent MD [address] [place] [address] [phone] Social History Tobacco Use Types Packs/Day Years [...] Info) Description 02/11/2025 4:30 PM EDT Telehealth [facility] Urology Clinic [address] [place] [phone] Risk And Insurance Consultant: Priscilla aSez NP [address] [place] [address] [phone] 09/01/2025 4:00 PM EDT Follow-Up [facility] PETROL TANKER DRIVER Oncology [address] [place] [address] [place] [address] Risk And Insurance Consultant: Chelly Teixeira MD [address] [place] [phone] documented as of this encounter Visit Diagnoses Not on filedocumented in this encounter Care Teams Assistant Director Relationship Specialty Start Date End Date Mirian Richey MD [address] [place] [phone] PCP - General Urology 01/31/24 documented as of this encounter
--- OUTSIDE RECORDS SUMMARY | 2025-01-09 07:42 | XMS_ITS | Referral Summary ---
Author Organization [facility] Address [address] [place] [address] Care Team Providers Care Lumber Kiln Operator Name Role Phone Mirian Richey MD Primary Care Provider +1- [phone] Encounters Date Type Department Care Team Description 12/22/2024 Refill [facility] [address] [place] [address] 09488 Terrazzo Tile Setter: Mirian Kent MD 11/22/2024 Refill [facility] [address] [place] [address] 17278 Terrazzo Tile Setter: Mirian Kent MD from Last 3 Months [...] tablet by mouth once daily 30 tablet 025 Discontinued Active Problems Problem Noted Date Diagnosed Date Abdominal pain 04/21/2019 Serum potassium elevated 01/09/2019 Elevated serum creatinine 01/09/2019 Acute renal failure (ARF) 01/09/2019 Malignant neoplasm of cervix 05/06/2018 Overview (05/06/2018): Added automatically from request for surgery [id number] Dyspareunia in female 09/11/2017 Hypomagnesemia 10/26/2015 Impaired [...] Info) Description 02/11/2025 4:30 PM EDT Telehealth [facility] [address] [place] [address] 84579 Terrazzo Tile Setter: Priscilla Saez NP [address] [place] [address] 66644 09/01/2025 4:00 PM EDT Follow-Up [facility] WOOD MACHINE CARVER Oncology [address] [place] [address] 18324 Terrazzo Tile Setter: Chelly Teixeira MD [address] [place] [address] [phone] Medical Devices Implanted Type Area Radiology Tech Device Identifier Shelf Expiration Date Model / Serial / Lot Stent Ureteral Firm Hydroplus Coating 7fr 26cm Percuflex Plus - [id number] Implanted:Qty: 1 on 10/09/2017 by Crissy Pierce MD at [facility] Stent Ureter [employer] 01/28/2020 175-273 / / [id number] Stent Ureteral Firm Hydroplus Coating 6fr 26cm Percuflex Plus - [id number] Implanted:Qty: 1 on 03/20/2018 by Mirian Richey MD at [facility] Stent Left: Ureter [employer] 09/10/2020 175-263 / / [id number] Stent Ureteral Firm Hydroplus Coating 6fr 26cm Percuflex Plus - [id number] Implanted:Qty: 1 on 03/20/2018 by Mirian Richey MD at [facility] Stent Right: Ureter [employer] 09/10/2020 175-263 / / [id number] Stent Ureteral Firm Hydroplus Coating 6fr 26cm Percuflex Plus - [id number] Implanted:Qty: 1 on 07/02/2018 by Mirian Richey MD at [facility] Stent [employer] 04/09/2021 175-263 / / [id number] Stent Ureteral Firm Hydroplus Coating 6fr 26cm Percuflex Plus - [id number] Implanted:Qty: 1 on 07/02/2018 by Mirian Richey MD at [facility] Stent [employer] 03/25/2021 175-263 / / [id number] Stent Ureteral Firm Hydroplus Coating 6fr 26cm Percuflex Plus - [id number] - [id number] Implanted:Qty: 1 on 10/31/2018 by Mirian Richey MD at [facility] Stent Left: Ureter [employer] 09/01/2021 175-263 / [id number] / [id number] Stent Ureteral Firm Hydroplus Coating 6fr 26cm Percuflex Plus - [id number] - [id number] Implanted:Qty: 1 on 10/31/2018 by Mirian Richey MD at [facility] Stent Right: Ureter [employer] 09/01/2021 175-263 / [id number] / [id number] Stent Ureteral Firm Hydroplus Coating 6fr 26cm Percuflex Plus - [id number] Implanted:Qty: 1 on 01/10/2019 by Golden Perry MD at [facility] Stent Right: Ureter [employer] 08/03/2021 175-263 / / [id number] Stent Ureteral Firm Hydroplus Coating 6fr 26cm Percuflex Plus - [id number] Implanted:Qty: 1 on 01/10/2019 by Golden Perry MD at [facility] Stent Left: Ureter [employer] 08/03/2021 175-263 / / [id number] Stent Ureteral Firm Hydroplus Coating 6fr 26cm Percuflex Plus - [id number] - [id number] Implanted:Qty: 1 on 04/09/2019 by Mirian Richey MD at [facility] Stent [employer] 02/01/2022 175-263 / [id number] / Stent Ureteral Firm Hydroplus Coating 6fr 26cm Percuflex Plus - [id number] Implanted:Qty: 1 on 04/16/2019 by Mirian Richey MD at [facility] Stent Left: Ureter [employer] 02/08/2022 175-263 / / [id number] Stent Ureteral Firm Hydroplus Coating 6fr 26cm Percuflex Plus - [id number] Implanted:Qty: 1 on 04/16/2019 by Mirian Richey MD at [facility] Stent Right: Ureter [employer] 02/01/2022 175-263 / / [id number] Procedures * Due to [place] state law, this organization might not be sharing negative HIV tests. Procedure Name Priority Date/Time Associated Diagnosis Comments PAP W/HPV, CONVERSION Routine 07/15/2017 10:42 AM EDT from Last 3 Months or Most Recently Relevant to Health Maintenance Results * Due to [facility] law, this organization might not be sharing negative HIV tests. * Pap w/HPV (07/15/2017 10:42 AM EDT) Path Procedure TPGS (663457) 1 ?? HPVHR(678165) 1 ?? Edited by: [id number] - 1043 MAHAMED ?? [id number] - 6967 TRISTEN ?? [id number] - 3476 [facility] ANATOMIC PATHOLOGY - BIOTECH THREE Specimen Labeled As: 1 CERVICAL/ENDOCERVI LM CYTO MATERIAL - Edited by: [id number] - 1043 ENRRIQUE [facility] ANATOMIC PATHOLOGY - BIOTECH THREE Additional Test Information Specimens were tested for high risk HPV using the FDA approved Digene Hybrid ?? Capture II kit, in the Diagnostic Molecular Oncology Lab at [facility] ?? Health Care. ??This test can detect [...] abnormality. ??We endorse the recommendations of the [place] Society for ?? Colposcopy and Cervical Pathology [...] complexity clinical laboratory testing. ?? Edited by: [id number] 1446 STCYRM ?? [id number] 145 STCYRM ?? [id number] 160 STCYRM [facility] ANATOMIC PATHOLOGY - BIOTECH THREE Diagnosis ThinPrep Pap Test ?Adequacy: Specimen processed and examined but unsatisfactory for evaluation ?of epithelial cell abnormalities because of scant epithelial ?cellularity and obscuring blood. ? This Pap test could not be examined by the ThinPrep Imaging System, [email or web address], [place], [place], and required a full manual screening. ? This case was screened and diagnosed by the Cytology Laboratory at [facility] ?? Diagnostics, [place], [place] ?- High risk HPV DNA subtypes: NEGATIVE ?? Edited by: [id number] 1446 STCYRM ?? [id number] 145 STCYRM ?? [id number] 160 STCYRM ?? [id number] - 1700 [facility] ANATOMIC PATHOLOGY - BIOTECH THREE Gynecologic Clinical Data Specimen source:, THINPREP (CERVICAL AND ENDOCERVICAL) [facility] ANATOMIC PATHOLOGY - BIOTECH THREE Gynecologic Clinical Data First date of LMP:, NOT GIVEN [facility] ANATOMIC PATHOLOGY - BIOTECH THREE Pathology Codes Client Order Code:, TPHS3 [facility] ANATOMIC PATHOLOGY - BIOTECH THREE Pathology Codes Bill Type:, 3RD [employer] BILLING [facility] ANATOMIC PATHOLOGY - BIOTECH THREE Completed Report [id number] HPV, HIGH RISK TYPES 1 [facility] ANATOMIC PATHOLOGY - BIOTECH THREE Marker 1 MDNEG,MD NEGATIVE [facility] ANATOMIC PATHOLOGY - BIOTECH THREE Marker [address] ANATOMIC PATHOLOGY - BIOTECH THREE Marker 3 OMRPT,MOLECULAR REPEAT [facility] ANATOMIC PATHOLOGY - BIOTECH THREE Marker 4 RIM,RECEIVED IN MOLECULAR [facility] ANATOMIC PATHOLOGY - BIOTECH THREE Marker 5 STQ,SENT TO [facility] ANATOMIC PATHOLOGY - BIOTECH THREE Marker 6 UNSAT,Unsatisfacto ry [facility] ANATOMIC PATHOLOGY - BIOTECH THREE Cc Results To HALLIE Queen WOOD MACHINE CARVER ??[id number] ?? MACIEL Goyal WOOD MACHINE CARVER ??[id number] [facility] ANATOMIC PATHOLOGY - BIOTECH THREE Signature REPORT SIGNED: PAMELA SOLER 08/01/17 [facility] ANATOMIC PATHOLOGY - BIOTECH THREE Sign Out Audit PAMELA SOLER [id number] FINAL NEW TRISTEN [id number] [facility] ANATOMIC PATHOLOGY - BIOTECH THREE Cytology / Unknown 10:42 AM EDT 07/16/2017 10:42 AM EDT us Susana Fernandez MD LAB HISTORICAL RESULTS Fin al Result [facility] ANATOMIC PATHOLOGY - BIOTECH THREE [address] [place] [address] from Last 3 Months or Most Recently Relevant to Health Maintenance Insurance Advance Directives Documents on File Type Date Recorded Patient Environmental Specialist Expl anation Health Care Proxy 01/10/2019 8:18 AM 2018 Health Care Proxy 08/08/2017 1:34 PM Health Care Proxy 08/08/2017 8:14 AM Health Care Proxy 01/09/2017 12:00 AM Heal th Care Proxy Healthcare Agents on File Name Relationship Healthcare Agent Relationshi p Communication Leon Jean Baptiste Spouse Next of Kin [phone] ( Home) Care Teams Lumber Kiln Operator Relationship Specialty Start Date End Date Mirian Richey MD [address] [place] [address] PCP - General Urology 01/31/24
--- OUTSIDE RECORDS SUMMARY | 2025-01-09 07:42 | XMS_ITS | Encounter Summary ---
Author Organization [facility] Address [address] [place] [address] Care Team Providers Care Veterans Service Representative Name Role Phone Mirian Richey MD Primary Care Provider +1- [phone] Encounter Details Date Type Department Care Team (Late st Contact Info) Description 07/08/2020 Orders Only [facility] Interventional Radiology [address] [place] [address] 14981 Finn Manley MD [address] [place] [address] 79703 Social History Tobacco Use Types Packs/Day Years [...] Info) Description 02/11/2025 4:30 PM EDT Telehealth [facility] Urology Clinic [address] [place] [address] 6[address]20 Dock Or Pier Laborer: Priscilla Saez NP [address] [place] [address] 70560 09/01/2025 4:00 PM EDT Follow-Up [facility] ADVANCED QUALITY ENGINEER Oncology [address] [place] [address] - [place], [place] [phone] Dock Or Pier Laborer: Chelly Teixeira MD [address] [place] [address] [phone] documented as of this encounter Visit Diagnoses Not on filedocumented in this encounter Care Teams Veterans Service Representative Relationship Specialty Start Date End Date Mirian Richey MD [address] [place] [address] [phone] PCP - General Urology 01/31/24 documented as of this encounter
--- OUTSIDE RECORDS SUMMARY | 2025-01-09 07:42 | XMS_ITS | Encounter Summary ---
Author Organization [facility] Address [address] [place] [address] Care Team Providers Care Vest Busheler Name Role Phone Mirian Richey MD Primary Care Provider +1- [phone] Encounter Details Date Type Department Care Team (Late st Contact Info) Description 07/27/2020 Orders Only [facility] Nuclear Medicine [address] [place] [address] 11550 Alfredo Cedeno MD PhD [address] [place] [address] 57165 Social History Tobacco Use Types Packs/Day Years [...] Info) Description 02/11/2025 4:30 PM EDT Telehealth [facility] Urology Clinic [address] [place] [address] 24919 Well Control Instructor: Priscilla Saez NP [address] [place] [address] 63092 09/01/2025 4:00 PM EDT Follow-Up [facility] WAIST CUTTER Oncology [address] [place] [address] - First floor [place], [place] [phone] Well Control Instructor: Chelly Teixeira MD [address] [place] [address] [phone] documented as of this encounter Visit Diagnoses Not on filedocumented in this encounter Care Teams Vest Busheler Relationship Specialty Start Date End Date Mirian Richey MD [address] [place] [address] 04680 PCP - General Urology 01/31/24 documented as of this encounter
--- OUTSIDE RECORDS SUMMARY | 2025-01-09 07:42 | XMS_ITS | Clinical Summary ---
Author Organization [facility] Address [address] [place] [address] Care Team Providers Care Developing Machine Operator Name Role Phone Mirian Richey MD Primary Care Provider +1- [phone] Allergies No known active allergies Medications MULTIVITAMIN [...] (05/06/2018): Added automatically from request for surgery [id number] Dyspareunia in female 09/11/2017 Hypomagnesemia 10/26/2015 Impaired renal function 10/26/2015 Pre-op testing 08/31/2015 Cancer of cervix 07/29/2015 Cancer Staging:Clinical stage from 06/17/2015:FIGO Stage IIIB- Signed by Chelly White MD on 09/11/2017 Bilateral hydronephrosis 07/29/2015 Encounters Date Type Department Care Team Description 12/22/2024 Refill [facility] Clinic [address] [place] [address] 04105 Metallurgical Laboratory Assistant: Mirian Kent MD 11/22/2024 Refill [facility] [address] [place] [address] 11282 Metallurgical Laboratory Assistant: Mirian Kent MD from Last 3 Months [...] Info) Description 02/11/2025 4:30 PM EDT Telehealth [facility]rology [facility] [address] [place] [address] 03768 Metallurgical Laboratory Assistant: Priscilla Saez NP [address] [place] [address] 78329 09/01/2025 4:00 PM EDT Follow-Up [facility] KICK PRESS OPERATOR Oncology [address] [place] [address] [phone] Metallurgical Laboratory Assistant: Chelly Teixeira MD [address] [place] [address] 26888 Health Maintenance Due Date Last Done Comments Cologuard 1961 Colon Cancer Screening 1961 Colonoscopy 1961 FOBT / Fit Test 1961 HIV Screening 1961 Hepatitis C Screening 1961 Sigmoidoscopy 1961 Pneumococcal Vaccine: 50+ Years (1 of 2 - PCV) 1980 Zoster Vaccines (1 of 2) 1980 Mammogram 2001 DTaP,Tdap,and Td Vaccines (2 - Td or Tdap) 02/21/2019 02/21/2009 Pap Smear 07/15/2020 07/15/2017 Cervical Cancer Screening 07/15/2022 HPV and Pap Smear 07/15/2022 07/15/2017 COVID-19 Vaccine (4 - 2023-2 5 season) 2024 11/28/2021, 02/25/2021, 02/04/2021 Influenza Vaccine (#1) 2024 Alcohol/Substance Use Screening 11/18/2024 Depression Screening and Follow-Up 11/18/2024 Social Drivers of Health Annual Screening 11/18/2024 RSV Vaccine (60+ years old a nd patients) (1 - 1-dose 75+ series) 2036 Hepatitis B Vaccines Aged Out No long er eligible based on patient's age to complete this topic Medical Devices Implanted Type Area Hydrochloric Area Supervisor Device Identifier Shelf Expiration Date Model / Serial / Lot Stent Ureteral Firm Hydroplus Coating 7fr 26cm Percuflex Plus - [id number] Implanted:Qty: 1 on 10/09/2017 by Crissy Pierce MD at [facility] Stent Ureter [employer] 01/28/2020 175-273 / / [id number] Stent Ureteral Firm Hydroplus Coating 6fr 26cm Percuflex Plus - [id number] Implanted:Qty: 1 on 03/20/2018 by Mirian Richey MD at [facility] Stent Left: Ureter [employer] 09/10/2020 175-263 / / [id number] Stent Ureteral Firm Hydroplus Coating 6fr 26cm Percuflex Plus - [id number] Implanted:Qty: 1 on 03/20/2018 by Mirian Richey MD at [facility] Stent Right: Ureter [employer] 09/10/2020 175-263 / / [id number] Stent Ureteral Firm Hydroplus Coating 6fr 26cm Percuflex Plus - [id number] Implanted:Qty: 1 on 07/02/2018 by Mirian Richey MD at [facility] Stent [employer] 04/09/2021 175-263 / / [id number] Stent Ureteral Firm Hydroplus Coating 6fr 26cm Percuflex Plus - [id number] Implanted:Qty: 1 on 07/02/2018 by Mirian Richey MD at [facility] Stent [employer] 03/25/2021 175-263 / / [id number] Stent Ureteral Firm Hydroplus Coating 6fr 26cm Percuflex Plus - [id number] - [id number] Implanted:Qty: 1 on 10/31/2018 by Mirian Richey MD at [facility] Stent Left: Ureter [employer] 09/01/2021 175-263 / [id number] / [id number] Stent Ureteral Firm Hydroplus Coating 6fr 26cm Percuflex Plus - [id number] - [id number] Implanted:Qty: 1 on 10/31/2018 by Mirian Richey MD at [facility] Stent Right: Ureter [employer] 09/01/2021 175-263 / [id number] / [id number] Stent Ureteral Firm Hydroplus Coating 6fr 26cm Percuflex Plus - [id number] Implanted:Qty: 1 on 01/10/2019 by Golden Perry MD at [facility] Stent Right: Ureter [employer] 08/03/2021 175-263 / / [id number] Stent Ureteral Firm Hydroplus Coating 6fr 26cm Percuflex Plus - [id number] Implanted:Qty: 1 on 01/10/2019 by Golden Perry MD at [facility] Stent Left: Ureter [employer] 08/03/2021 175-263 / / [id number] Stent Ureteral Firm Hydroplus Coating 6fr 26cm Percuflex Plus - [id number] - [id number] Implanted:Qty: 1 on 04/09/2019 by Mirian Richey MD at [facility] Stent [employer] 02/01/2022 175-263 / [id number] / Stent Ureteral Firm Hydroplus Coating 6fr 26cm Percuflex Plus - [id number] Implanted:Qty: 1 on 04/16/2019 by Mirian Richey MD at [facility] Stent Left: Ureter [employer] 02/08/2022 175-263 / / [id number] Stent Ureteral Firm Hydroplus Coating 6fr 26cm Percuflex Plus - [id number] Implanted:Qty: 1 on 04/16/2019 by Mirian Richey MD at [facility] Stent Right: Ureter [employer] 02/01/2022 175-263 / / [id number] Procedures * Due to [place] state law, this organization might not be sharing negative HIV tests. Procedure Name Priority Date/Time Associated Diagnosis Comments PAP W/HPV, CONVERSION Routine 07/15/2017 10:42 AM EDT from Last 3 Months or Most Recently Relevant to Health Maintenance Results * Due to [place] state law, this organization might not be sharing negative HIV tests. * Pap w/HPV (07/15/2017 10:42 AM EDT) Path Procedure TPGS ([id number]) 1 ?? HPVHR(129932) 1 ?? Edited by: [id number] - 5702 MAHAMED ?? [id number] - 0178 TRISTEN ?? [id number] 2109 [facility] ANATOMIC PATHOLOGY - BIOTECH THREE Specimen Labeled As: 1 CERVICAL/ENDOCERVI LM CYTO MATERIAL - Edited by: [id number] - 1731 CHRISTIANOLADYLetty [facility] ANATOMIC PATHOLOGY - BIOTECH THREE Additional Test Information Specimens were tested for high risk HPV using the FDA approved Digene Hybrid ?? Capture II kit, in the Diagnostic Molecular Oncology Lab at [facility] ?? Health Care. ??This test can detect [...] abnormality. ??We endorse the recommendations of the [place] Society for ?? Colposcopy and Cervical Pathology [...] complexity clinical laboratory testing. ?? Edited by: [id number] - 9263 [facility] ?? [id number] - 1296 STCOUNT INCLUDES [facility] ?? [id number] - 3226 [facility] AN[facility] - BIOTECH THREE Diagnosis ThinPrep Pap Test ?Adequacy: Specimen processed and examined but unsatisfactory for evaluation ?of epithelial cell abnormalities because of scant epithelial ?cellularity and obscuring blood. ? This Pap test could not be examined by the ThinPrep Imaging System, [employer] ?? [employer], [place], [place], and required a full manual screening. ? This case was screened and diagnosed by the Cytology Laboratory at [facility] ?? Diagnostics, [place], [place] ?- High risk HPV DNA subtypes: NEGATIVE ?? Edited by: [id number] - 9165 STCYRM ?? [id number] - 2416 STCYRM ?? [id number] - 8163 STCYRM ?? [id number] - 9321 TRISTEN [facility] ANATOMIC PATHOLOGY - BIOTECH THREE Gynecologic Clinical Data Specimen source:, THINPREP (CERVICAL AND ENDOCERVICAL) [facility] ANATOMIC PATHOLOGY - BIOTECH THREE Gynecologic Clinical Data First date of LMP:, NOT GIVEN [facility] ANATOMIC PATHOLOGY - BIOTECH THREE Pathology Codes Client Order Code:, TPHS3 [facility] ANATOMIC PATHOLOGY - BIOTECH THREE Pathology Codes Bill Type:, 3RD [employer] BILL[employer] [facility] ANATOMIC PATHOLOGY - BIOTECH THREE Completed Report [id number] HPV, HIGH RISK TYPES 1 [facility] ANATOMIC PATHOLOGY - BIOTECH THREE Marker 1 MD LAURA NEGATIVE [facility] ANATOMIC PATHOLOGY - BIOTECH THREE Marker [address] ANATOMIC PATHOLOGY - BIOTECH THREE Marker 3 OMRPT,MOLECULAR REPEAT [facility] ANATOMIC PATHOLOGY - BIOTECH THREE Marker 4 RIM,RECEIVED IN MOLECULAR [facility] ANATOMIC PATHOLOGY - BIOTECH THREE Marker 5 STQ,SENT TO [employer] ANATOMIC PATHOLOGY - BIOTECH THREE Marker 6 UNSAT,Unsatisfacto ry [facility] ANATOMIC PATHOLOGY - BIOTECH THREE Cc Results To HALLIE Queen KICK PRESS OPERATOR ??[id number] ?? MACIEL Goyal KICK PRESS OPERATOR ??[phone] [facility] ANATOMIC PATHOLOGY - BIOTECH THREE Signature REPORT SIGNED: PAMELA SOLER 08/01/17 [facility] ANATOMIC PATHOLOGY - BIOTECH THREE Sign Out Audit PAMELA SOLER [id number] FINAL [place] [id number] [facility] ANATOMIC PATHOLOGY - BIOTECH THREE Cytology / Unknown 7 10:42 AM EDT 07/16/2017 10:42 AM EDT us Susana Fernandez MD LAB HISTORICAL RESULTS Fin al Result [facility] ANATOMIC PATHOLOGY - BIOTECH THREE [address] [place] [address], [place] from Last 3 Months or Most Recently Relevant to Health Maintenance Insurance [id number] Advance Directives Documents on File Type Date Recorded Patient Digital Sales Planner Expl anation Health Care Proxy 01/10/2019 8:18 AM 2018 Health Care Proxy 08/08/2017 1:34 PM Health Care Proxy 08/08/2017 8:14 AM Health Care Proxy 01/09/2017 12:00 AM [facility] th Care Proxy Healthcare Agents on File Name Relationship Healthcare Agent Relationshi p Communication Leon Jean Baptiste Spouse Next of Kin [phone] ( Home) Care Teams Developing Machine Operator Relationship Specialty Start Date End Date Mirian Richey MD [address] [place] [address] 80367 PCP - General Urology 01/31/24
--- OUTSIDE RECORDS SUMMARY | 2025-01-09 07:42 | XMS_ITS ---
Author Organization [facility] Address [address] [place] [address] Care Team Providers Care Dynamometer Repairer Name Role Phone Mirian Richey MD Primary Care Provider +1- [phone] Active Problems Problem Noted Date Diagnosed Date Abdominal pain 04/21/2019 Serum potassium elevated 01/09/2019 Elevated serum creatinine 01/09/2019 Acute renal failure (ARF) 01/09/2019 Malignant neoplasm of cervix 05/06/2018 Overview (05/06/2018): Added automatically from request for surgery [id number] Dyspareunia in female 09/11/2017 Hypomagnesemia 10/26/2015 Impaired renal function 10/26/2015 Pre-op testing 08/31/2015 Cancer of cervix 07/29/2015 Cancer Staging:Clinical stage from 06/17/2015:FIGO Stage IIIB- Signed by Chelly White MD on 09/11/2017 Bilateral hydronephrosis 07/29/2015 Current Treatment and Therapy Plans No current plan information found. Past Treatment and Therapy Plans No past plan information found. Lifetime Dose Tracking * Chemical Lifetime Dose Automatic Entry Manual Entr y Fluoro Time 6 minutes 6 minutes 0 minutes Radiation - mGy 254.974 mGy 254.974 mGy 0 mGy
[2025-01-09 11:18] LABS: MANUAL DIFF FLAG NO
[2025-01-09 11:25] LABS: Basophils Percent Auto 0.4 % (0-2); Eosinophils Absolute Auto 0.1 X10*3/uL (0.0-0.4); Eosinophils Percent Auto 1.7 % (0-4); Hematocrit 40.8 % (37.0-47.0); Hemoglobin 13.9 g/dl (12.0-16.0); Imm Gran Abs Auto 0.01 X10*3/uL (0.00-0.03); Imm Gran Pct Auto 0.2 % (0.0-0.4); Lymphocytes Absolute Auto 1.3 X10*3/uL (1.2-4.9); Lymphocytes Percent Auto 23.3 % (20-40); Mean Corpuscular HGB Conc 34.1 g/dl (31.0-35.0); Mean Corpuscular Hemoglobin 29.6 pg (27.0-33.0); Mean Corpuscular Volume 86.8 fL (80.0-98.0); Mean Platelet Volume 9.5 fL (9.4-12.3); Monocytes Absolute Auto 0.4 X10*3/uL (0.1-1.2); Monocytes Percent Auto 7.2 % (2-11); Neutrophils Absolute Auto 3.6 x10*3/uL (2.0-8.3); Neutrophils Percent Auto 67.2 % (45-73); Platelet Count 239 X10*3/uL (160-400); Red Cell Distribution Width 12.6 % (11.0-16.0); White Blood Count 5.4 X10*3/uL (4.8-10.8)
[2025-01-09 11:39] LABS: Estimated Average Glucose 111 mg/dL; Hemoglobin A1C 132.4589 umol/L; Hemoglobin A1c % 5.5 % (<6.0); Total Hemoglobin (HGBA1C) 3621.3414 umol/L
[2025-01-09 11:59] LABS: Alanine Aminotransferase 17 U/L (0-31); Albumin Level 4.4 g/dL (3.5-5.0); Alkaline Phosphatase 65 U/L (39-117); Anion Gap 15 (12-20); Aspartate Amino Transferase 26 U/L (5-31); Bilirubin Total 0.4 mg/dL (0.0-1.0); Blood Urea Nitrogen 24 mg/dL (9-16); Calcium 9.9 mg/dL (8.4-10.2); Carbon Dioxide 27 mmol/L (22-29); Chloride 104 mmol/L (96-108); Cholesterol 184 mg/dL (<200); Estimated Glomerular Filt Rate 55; Glucose Random 91 mg/dL (60-115); HDL Cholesterol 85 mg/dL (>40); LDL Cholesterol Calculated 89 mg/dL (<100); Potassium 3.5 mmol/L (3.3-5.1); Sodium 142 mmol/L (135-145); Total Protein 7.9 g/dL (6.5-8.0); Triglycerides 54 mg/dL (<150)
[2025-01-09 12:01] LABS: Free T4 (Free Thyroxine) 1.17 ng/dL (0.71-1.85); TSH reflex Free T4 0.62 uIU/mL (0.32-4.0); Vitamin D 25-OH Total 18.9 ng/mL (>30)
[2025-01-09 12:10] LABS: Folate 14.4 ng/mL (> or = 4.0); Vitamin B12 394 pg/mL (200-900)
== END 2025-01-09 07:41 | disposition home or self-care (01) ==
LOC: HO.HMGCLDS 07:40
DX: Z00.00 Encounter for general adult medical examination without abnormal findings (principal); E78.2 Mixed hyperlipidemia; E78.00 Pure hypercholesterolemia, unspecified; Z13.1 Encounter for screening for diabetes mellitus
CPT/HCPCS: 36415; 80053; 80061; 82306; 82607; 82746; 83036; 84439; 84443; 85025

== ENCOUNTER 2025-02-22 15:36 | Outpatient (AMB) | payer OTHER, SELFPAY ==
--- NOTE | 2025-02-22 15:43 | A.OFFPC_ITS ---
Vital Signs 02/22/25 15:54 Height 5 ft 3 in Weight 173 lb BMI 30.6 BP 120/70 Blood Pressure Location Lt brachial Position Sitting Pulse 83 Pulse Source Pulse Oximeter Temp 97.1 F Temp Source Temporal Artery Scan Pulse Oximetry (%) 96 Oxygen Delivery Method Room Air Intake Visit Reasons: f/u obesity and lab work Intake Note: Patient is here to follow up on Obesity and lab results. Mangle Feeder Required: No Metal Drilling Machine Operator: Present Accompanied by: Spouse Allergies No Known Allergies Allergy (Verified 02/22/25 15:54) Medication List - Last Reconciled 02/22/25 by Catrachita Jenkins PA-C amlodipine 5 mg PO DAILY chlorthalidone 25 mg PO DAILY cholecalciferol (vitamin D3) 25 mcg PO DAILY citalopram 20 mg PO DAILY oxybutynin chloride ER 10 mg PO DAILY rosuvastatin 40 mg PO DAILY Tobacco use date assessed: 02/22/25 Dental Screening Dental Screen Date: 12/25/24 HPI f/u obesity and lab work HPI Details 64-year-old female with past medical his tory of impaired glucose tolerance, chronic kidney disease, hypertension, hyperlipidemia, overactive bladder, obesity and depression last seen 12/2024 coming in for follow up. Presenting with a follow-up on blood work and medication management. She presented with satisfactory blood work results; HbA1c at 5.5, excluding diabetes, and acceptable triglyceride, LDL, and HDL cholesterol levels. Essential hypertension and hyperlipidemia are well managed on rosuvastatin, amlodipine, and chlorthalidone. The patient's depressive symptoms were not alleviated by citalopram 10 mg; she expresses a desire to increase dosage. She previously tolerated fluoxetine well. Weight loss due to Ozempic is 12 lbs. She seeks further psoriasis management with a service or work dispatcher for age spots, having had successful cryotherapy previously. [facility] Medical History Cervical cancer Impaired fasting glucose Renal failure syndrome Chronic kidney disease, stage 3 Essential hypertension Retinal artery occlusion Mixed hyperlipidemia Social History Housing: House Patient Tobacco Use Status: Never used Tobacco e-Cigarette/Vaping Use: Never Used Second Hand Smoke Exposure: No service: No Current occupational status: employed Cognitive needs: No Hearing needs: No Vision needs: Yes Questionnaire Thrive Questionnaire Date Thrive assessed: 12/25/24 I am a: Patient What is your living situation today?: I have a steady place to live Within the past 12 months, did the food you bought not last and you didn't have the money to get more?: Never true Within the past 12 months, did you worry whether your food would run out before you got money to buy more?: Never true Do you have trouble paying for medicines?: No Do you have trouble getting transportation to medical appointments?: No Do you have trouble paying your heating and electricity bill?: No Do you have trouble taking care of your child, family member or friend?: No Do you have trouble with day-to-day activities such as bathing, preparing meals, shopping, managing finances, etc.?: No Are you currently unemployed and looking for a job?: No Are you interested in more education?: No Please select the resources that you would like help with: None Currently or been in a relationship where the following occur: No concerns reported THRIVE Score: 0 LIBORIO-7 AMB Questionnaire LIBORIO-7 Date LIBORIO - 7 assessed: 12/25/24 Source: Developed by Drs. Nigel Ramirez, Jaz Bass, Mannie Zimmerman and colleagues, with an educational pool from [employer]. Review of Systems Const Denies body aches, Denies chills, Denies fever(s), Denies headache(s) and Denies poor appetite Eyes Reports no additional complaints ENT Denies dysphagia, Denies dizziness, Denies headache(s) and Denies odynophagia Card Denies chest pain, Denies syncope, Denies edema, Denies irregular heart rhythm, Denies lightheadedness and Denies dyspnea Resp Denies cough and Denies dyspnea GI Denies abdominal pain, Denies constipation, Denies dysphagia, Denies diarrhea, Denies nausea, Denies odynophagia and Denies vomiting Reports no additional complaints Musc Reports no additional complaints and Denies abnormal gait Skin/Breast Reports system reviewed and no additional complaints, except as documented Neuro Denies abnormal gait, Denies dizziness, Denies syncope and Denies headache(s) Psych Reports no additional complaints Physical exam (Primary Care) Vital Signs: Last Vital Signs Temp 97.1 F 02/22/25 15:54 Oxygen Delivery Method Room Air 02/22/25 15:54 BMI result Body Mass Index 30.6 Tobacco/Smoking Status: Tobacco use Status Tobacco use date assessed 12/25/24 02/22/25 15:44 Patient Tobacco Use Status Never used Tobacco 02/22/25 15:44 e-Cigarette/Vaping Use Never Used 02/22/25 15:44 Thrive Assessment: Date of Thrive Assessment Date Thrive assessed 12/25/24 02/22/25 15:44 Currently or been in a relationship where the following occur: No concerns reported Const General: cooperative, healthy appearing, comfortable and no acute distress Orientation/consciousness: patient oriented x3 HENMT Head: Yes normocephalic Ears: hearing grossly normal bilaterally General nose exam: Normal external nose present Eyes General: appearance normal, both eyes and all related structures Conjunctivae: conjunctivae normal Neck Neck: Yes full ROM and Yes no lymphadenopathy Resp Effort & Inspection: normal respiratory effort Auscultation: clear to auscultation bilaterally, no crackles, no rales, no rhonchi and no wheezes Cardio Rate: regular rate Rhythm: regular rhythm Skin General skin exam: no rashes or lesions noted Neuro General: patient oriented x3 Gait exam (Neuro): Normal gait present Extrem General: Yes normal to inspection, Yes full ROM and No edema Psych Affect: normal affect Attitude: cooperative Insight: Good insight present (Psych) Judgement: Good judgement present (Psych) Coding Level of Care Code Est Pt Level 3 (48732) Diagnoses Obesity (BMI 30.0-34.9) E66.811 Mixed hyperlipidemia E78.2 Essential hypertension I10 Chronic kidney disease, stage 3 N18.30 Impaired fasting glucose R73.01 Depression F32.A Atypical nevi D22.9 Assessment & Plan Assessment & Plan (1) Obesity (BMI 30.0-34.9): Code(s): E66.811 - Obesity, class 1 Category: Medical Plan: Healthy diet and regular exercise is encouraged. Patient has previously been using Ozempic from outside source and has lost 12 lb on this medication. Plan to send prescription for 0.25 mg and increase as tolerated. (2) Mixed hyperlipidemia: Comment: onset:04/19/2022 Code(s): E78.2 - Mixed hyperlipidemia Category: Medical Plan: Avoid foods that are high in cholesterol such as red meat, fried foods, eggs and baked goods. Triglyceride goal of less than 150 and LDL goal of less than 130. Continue on rosuvastatin. Most recent cholesterol at goal (3) Essential hypertension: Comment: onset: 03/03/2021 Code(s): I10 - Essential (primary) hypertension Category: Medical Plan: Continue on current blood pressure medication. Avoid salt intake and encourage healthy diet and regular exercise. (4) Chronic kidney disease, stage 3: Comment: onset: 10/15/2022- GFR=51.8, 04/19/22 Code(s): N18.30 - Chronic kidney disease, stage 3 unspecified Category: Medical Plan: Advised patient to stay well hydrated and avoid kidney irritants such as NSAIDs (5) Impaired fasting glucose: Code(s): R73.01 - Impaired fasting glucose Category: Medical Plan: Decrease the amount of carbohydrates such as pasta, bread, rice, and potatoes and limit the amount of sweets. Although fruits are generally healthy they should be eaten in moderation as they are still high in sugar. Last A1c 5.5% (6) Depression: Comment: Declines counseling 12/2024 Code(s): F32.A - Depression, unspecified Category: Medical Plan: Patient states she struggles with anxiety and depression primarily depression. She was previously on fluoxetine and did not find this helpful. Recently start ed on citalopram did not find this medication beneficial plan to increase to 20 mg advised patient to reach out in 3-4 weeks if symptoms are not well managed and can increase further to 40 mg (7) Atypical nevi: Code(s): D22.9 - Melanocytic nevi, unspecified Category: Medical Plan: Referral placed to Dermatology for further evaluation and possible removal. Plan I will continue current treatment for hyperlipidemia and hypertension. I plan to increase citalopram to 20 mg to enhance therapeutic effects on depressive symptoms, monitoring the patient's progress. I advised obtaining Wegovy for obes ity management due to prior efficacy, pending insurance approval. Dermatological referral for age spot management will be arranged. Patient was informed and verbally consented to the use of an ambient scribe for clinic note documentation during this visit. This note was constructed using voice recognition software. While every effort has been made to ensure accuracy and middle school guidance counselor, still areas may have been included sometimes these areas may affect the content or meeting of the given symptoms. Total time spent caring for the patient today was 30 minutes. This includes time spent before the visit reviewing the chart, time spent during the visit, and time spent after the visit and documentation. Medications: New citalopram 20 mg PO DAILY 30 tabs 1RF semaglutide (weight loss) (Olu) administer weeks 1 through 4 of therapy 0.25 mg (0.5 mL) subcut QWEEK 2 mL 0RF Discontinued citalopram Discontinued Reason: Patient no longer taking 10 mg PO DAILY 90 tabs 0RF
[2025-02-22 15:54] VITALS: BP 120/70; PULSE 83; TEMP 36.2; O2SAT 96; BMI 30.6
--- OUTSIDE RECORDS SUMMARY | 2025-02-22 18:22 | XMS_ITS | Encounter Summary ---
Author Organization [facility] Address [address] [place] [address] Care Team Providers Care Marzipan Molder Name Role Phone Mirian Richey MD Primary Care Provider [phone]- [phone] Encounter Details Date Type Department Care Team (Late st Contact Info) Description 07/08/2020 Orders Only [facility] Interventional Radiology [address] [place] [address] Finn Manley MD [address] [place] [address] Social History Tobacco Use Types Packs/Day Years [...] Care Team (Late st Contact Info) Description 03/22/2025 7:00 PM EDT Appointment [facility] Ultrasound [address] [place] [address] Mirian Richey MD [address] [place] [address] 04/05/2025 4:30 PM EDT Telehealth [facility] Urology Clinic [address] [place] [phone] Police Or Patrol Park Officer: Priscilla Saez NP [address] [place] [address] 09/01/2025 4:00 PM EDT Follow-Up [facility] SUSTAINABILITY MANAGER Oncology [address] [place] [phone] Police Or Patrol Park Officer: Chelly Teixeira MD [address] [place] [address] documented as of this encounter Visit Diagnoses Not on filedocumented in this encounter Care Teams Marzipan Molder Relationship Specialty Start Date End Date Mirian Richey MD [address] [place] [phone] PCP - General Urology 01/31/24 documented as of this encounter
--- OUTSIDE RECORDS SUMMARY | 2025-02-22 18:22 | XMS_ITS ---
Author Organization [facility] Address [address] [place] [address] Care Team Providers Care Car Rental Clerk Name Role Phone Mirian Richey MD Primary Care Provider [phone]- [phone] Active Problems Problem Noted Date Diagnosed Date Abdominal pain 04/21/2019 Serum potassium elevated 01/09/2019 Elevated serum creatinine 01/09/2019 Acute renal failure (ARF) 01/09/2019 Malignant neoplasm of cervix 05/06/2018 Overview (05/06/2018): Added automatically from request for surgery [id number] Dyspareunia in female 09/11/2017 Hypomagnesemia 10/26/2015 Impaired [...]
--- OUTSIDE RECORDS SUMMARY | 2025-02-22 18:22 | XMS_ITS | Referral Summary ---
Author Organization [facility] Address [address] [place] [address] Care Team Providers Care Rn Medication Name Role Phone Mirian Richey MD Primary Care Provider [phone]- [phone] Encounters Date Type Department Care Team Description 02/11/2025 Telephone [facility] Urology Clinic [address] [place] [address] Pool Coordinator: Priscilla Saez NP 01/21/2025 Refill [facility] [address] [place] [address] Pool Coordinator: Mirian Kent MD 12/22/2024 Refill [facility] [address] [place] [address] Pool Coordinator: Mirian Kent MD from Last 3 Months [...] (05/06/2018): Added automatically from request for surgery [id number] Dyspareunia in female 09/11/2017 Hypomagnesemia 10/26/2015 Impaired [...] Info) Description 03/22/2025 7:00 PM EDT Appointment [facility] Ultrasound [address] [place] [address] Mirian Richey MD [address] [place] [address] [phone] 04/05/2025 4:30 PM EDT Telehealth [facility] Urology Clinic [address] [place] [address] Pool Coordinator: Priscilla Saez NP [address] [place] [address] [phone] 09/01/2025 4:00 PM EDT Follow-Up [facility] RETIREMENT MANAGER Oncology [address] [place] [address] Pool Coordinator: Chelly Teixeira MD [address] [place] [address] [id number] Medical Devices Implanted Type Area Seal Extrusion Operator Device Identifier Shelf Expiration Date Model / Serial / Lot Stent Ureteral Firm Hydro[employer] Coating 7fr 26cm Percuflex Plus - [id number] Implanted:Qty: 1 on 10/09/2017 by Crissy Pierce MD at [facility] Stent Ureter [employer] 01/28/2020 175-273 / / [id number] Stent Ureteral Firm Hydroplus Coating 6fr 26cm Percuflex Plus - [id number] Implanted:Qty: 1 on 03/20/2018 by Mirian Richey MD at [facility] Stent Left: Ureter [employer] 09/10/2020 175-263 / / [id number] Stent Ureteral Firm Hydroplus Coating 6fr 26cm Percuflex Plus - [id number] Implanted:Qty: 1 on 03/20/2018 by Mirian Richey MD at [facility] Stent Right: Ureter [employer] 09/10/2020 175-263 / / [id number] Stent Ureteral Firm Hydroplus Coating 6fr 26cm Percuflex Plus - [id number] Implanted:Qty: 1 on 07/02/2018 by Mirian Richey MD at [facility] Stent [employer] 04/09/2021 175-263 / / [id number] Stent Ureteral Firm Hydroplus Coating 6fr 26cm Percuflex Plus - [id number] Implanted:Qty: 1 on 07/02/2018 by Mirian Richey MD at [facility] Stent [employer] 03/25/2021 175-263 / / [id number] Stent Ureteral Firm Hydroplus Coating 6fr 26cm Percuflex Plus - [id number] - [id number] Implanted:Qty: 1 on 10/31/2018 by Mirian Richey MD at [facility] Stent Left: Ureter [employer] 09/01/2021 175-263 / [id number] / [id number] Stent Ureteral Firm Hydroplus Coating 6fr 26cm Percuflex Plus - [id number] - [id number] Implanted:Qty: 1 on 10/31/2018 by Mirian Richey MD at [facility] Stent Right: Ureter [employer] 09/01/2021 175-263 / [id number] / [id number] Stent Ureteral Firm Hydroplus Coating 6fr 26cm Percuflex Plus - [id number] Implanted:Qty: 1 on 01/10/2019 by Golden Perry MD at [facility] Stent Right: Ureter [employer] 08/03/2021 175-263 / / [id number] Stent Ureteral Firm Hydroplus Coating 6fr 26cm Percuflex Plus - [id number] Implanted:Qty: 1 on 01/10/2019 by Golden Perry MD at [facility] Stent Left: Ureter [employer] 08/03/2021 175-263 / / [id number] Stent Ureteral Firm Hydroplus Coating 6fr 26cm Percuflex Plus - [id number] - [id number] Implanted:Qty: 1 on 04/09/2019 by Mirian Richey MD at [facility] Stent [employer] 02/01/2022 175-263 / [id number] / Stent Ureteral Firm Hydroplus Coating 6fr 26cm Percuflex Plus - [id number] Implanted:Qty: 1 on 04/16/2019 by Mirian Richey MD at [facility] Stent Left: Ureter [employer] 02/08/2022 175-263 / / [id number] Stent Ureteral Firm Hydroplus Coating 6fr 26cm Percuflex Plus - [id number] Implanted:Qty: 1 on 04/16/2019 by Mirian Richey MD at [facility] Stent Right: Ureter [employer] 02/01/2022 [id number] / / [id number] Procedures * Due to [facility] law, this organization might not be sharing negative HIV tests. Procedure Name Priority Date/Time Associated Diagnosis Comments PAP W/HPV, CONVERSION Routine 07/15/2017 10:42 AM EDT from Last 3 Months or Most Recently Relevant to Health Maintenance Results * Due to [facility] law, this organization might not be sharing negative HIV tests. * Pap w/HPV (07/15/2017 10:42 AM EDT) Path Procedure TPGS (197500) 1 ?? HPVHR(974500) 1 ?? Edited by: [id number] - 4682 MAHAMED ?? [id number] - 6373 TRISTEN ?? [id number] - 3964 [facility] ANATOMIC PATHOLOGY - BI[facility]CH THREE Specimen Labeled As: 1 CERVICAL/ENDOCERVI LM CYTO MATERIAL - Edited by: [id number] - 9 ENRRIQUE [facility] ANATOMIC PATHOLOGY - [facility] THREE Additional Test Information Specimens were tested for high risk HPV using the FDA approved Digene Hybrid ?? Capture II kit, in the Diagnostic Molecular Oncology Lab at [facility] ?? [facility] Care. ??This test can [...] abnormality. ??We endorse the recommendations of the [place] [employer] for ?? Colposcopy and Cervical Pathology [...] complexity clinical laboratory testing. ?? Edited by: [id number] - 1446 STCYRM ?? [id number] 1450 STCYRM ?? [id number] 160 STCYRM [facility] ANATOMIC PATHOLOGY - [facility] THREE Diagnosis ThinPrep Pap Test ?Adequacy: Specimen processed and examined but unsatisfactory for evaluation ?of epithelial cell abnormalities because of scant epithelial ?cellularity and obscuring blood. ? This Pap test could not be examined by the ThinPrep Imaging System, [employer], [place], [place], and required a full manual screening. ? This case was screened and diagnosed by the Cytology Laboratory at [facility], [place], [place] ?- High risk HPV DNA subtypes: NEGATIVE ?? Edited by: [id number] - 1446 STCYRM ?? [id number] 145 STCYRM ?? [id number] 160 STCYRM ?? [id number] - 1701 [facility] ANATOMIC PATHOLOGY - BI[facility]CH THREE Gynecologic Clinical Data Specimen source:, THINPREP (CERVICAL AND ENDOCERVICAL) [facility] ANATOMIC PATHOLOGY - [facility] Gynecologic Clinical Data First date of LMP:, NOT GIVEN [facility] ANATOMIC PATHOLOGY - [facility] Pathology Codes Client Order Code:, TPHS3 [facility]ATOM[facility] PATHOLOG[facility] - [facility] Pathology Codes Bill Type:, 3RD LIBERTARIAN BILLING [facility] ANATOM[facility] PATHOLOGY - [facility] Completed Report [id number] HPV, HIGH RISK TYPES 1 [facility] ANATOM[facility] PATHOLOGY - [facility] Marker 1 MDNEG,MD NEGATIVE [facility] ANATOMIC PATHOLOGY - BI[facility] THREE Marker [address] ANATOMIC PATHOLOGY - [facility] THREE Marker 3 OMRPT,MOLECULAR REPEAT [facility] ANATOMIC PATHOLOGY - [facility] Marker 4 RIM,RECEIVED IN MOLECULAR [facility] ANATOMIC PATHOLOGY - [facility] Marker 5 STQ,SENT TO [place] ANATOMIC PATHOLOGY - BI[facility]CH THREE Marker 6 UNSAT,Unsatisfacto ry [facility]ATOM[facility] PATHOLOG[facility] - [facility] Cc Results To HALLIE Queen RETIREMENT MANAGER ??[id number] ?? MACIEL Goyal RETIREMENT MANAGER ??[phone] [facility] ANATOMIC PATHOLOG[facility] - [facility] Signature REPORT SIGNED: PAMELA SOLER 08/01/17 [facility]ATOM[facility] PATHOLOG[facility] - [facility] Sign Out Audit PAMELA SOLER [id number] [place] [id number] [facility] ANATOMIC PATHOLOGY - [facility] Cytology / Unknown 7 10:42 AM EDT 07/16/2017 10:42 AM EDT us Susana Fernandez MD LAB HISTORICAL RESULTS Fin al Result [facility] ANATOMIC PATHOLOGY - [facility] [place] [address], from Last 3 Months or Most Recently Relevant to Health Maintenance Insurance Advance Directives Documents on File Type Date Recorded Patient Cement Finisher Helper Expl anation Health Care Proxy 01/10/2019 8:18 AM 2018 Health Care Proxy 08/08/2017 1:34 PM Health Care Proxy 08/08/2017 8:14 AM Health Care Proxy 01/09/2017 12:00 AM Heal th Care Proxy Healthcare Agents on File Name Relationship Healthcare Agent Relationshi p Communication Leon Jean Baptiste Spouse Next of Kin [phone] ( Home) Care Teams Rn Medication Relationship Specialty Start Date End Date Mirian Richey MD [address] [place] [id number] PCP - General Urology 01/31/24
--- OUTSIDE RECORDS SUMMARY | 2025-02-22 18:22 | XMS_ITS | Clinical Summary ---
Author Organization [facility] Address [address] [place] [address] Care Team Providers Care Auto Design Detailer Name Role Phone Mirian Richey MD Primary Care Provider [phone]- [phone] Allergies No known active allergies Medications MULTIVITAMIN [...] (05/06/2018): Added automatically from request for surgery [id number] Dyspareunia in female 09/11/2017 Hypomagnesemia 10/26/2015 Impaired renal function 10/26/2015 Pre-op testing 08/31/2015 Cancer of cervix 07/29/2015 Cancer Staging:Clinical stage from 06/17/2015:FIGO Stage IIIB- Signed by Chelly White MD on 09/11/2017 Bilateral hydronephrosis 07/29/2015 Encounters Date Type Department Care Team Description 02/11/2025 Telephone [facility] [address] [place] [address] Burrer Operator: Priscilla Saez NP 01/21/2025 Refill [facility] [address] [place] [address] Burrer Operator: Mirian Kent MD 12/22/2024 Refill [facility] Urology [address] [address] Burrer Operator: Mirian Kent MD from Last 3 Months [...] Info) Description 03/22/2025 7:00 PM EDT Appointment [facility] Ultrasound [address] [place] [address] Mirian Richey MD [address] [place] [address] 04/05/2025 4:30 PM EDT Telehealth [facility] [address] [place] [address] Burrer Operator: Priscilla Saez NP [address] [place] [address] 09/01/2025 4:00 PM EDT Follow-Up [facility] PIN BALL MACHINE MECHANIC Oncology [address] [place] [address] Burrer Operator: Chelly Teixeira MD [address] [place] [address] Health Maintenance Due Date Last Done Comments [...] (2023-2 5 season) 2024 11/28/2021, 02/25/2021, 02/04/2021 Alcohol/Substance Use Screening 11/18/2024 Depression Screening and Follow-Up 11/18/2024 Social Drivers of Health Annual Screening 11/18/2024 Influenza Vaccine (Season Ended) 2025 RSV Vaccine (60+ years old a nd patients) (1 - 1-dose 75+ series) 2036 Hepatitis B Vaccines Aged Out No long er eligible based on patient's age to complete this topic Medical Devices Implanted Type Area [id number] Armor Crewman Device Identifier Shelf Expiration Date Model / Serial / Lot Stent Ureteral Firm Hydroplus Coating 7fr 26cm Percuflex Plus - [id number] Implanted:Qty: 1 on 10/09/2017 by Crissy Pierce MD at [facility] Stent Ureter [employer] 01/28/2020 175-273 / / [id number] Stent Ureteral Firm Hydroplus Coating 6fr 26cm Percuflex Plus - [id number] Implanted:Qty: 1 on 03/20/2018 by Mirian Richey MD at [facility] Stent Left: Ureter [employer] 09/10/2020 175-263 / / [id number] Stent Ureteral Firm Hydroplus Coating 6fr 26cm Percuflex Plus - [id number] Implanted:Qty: 1 on 03/20/2018 by Mirian Richey MD at [facility] Stent Right: Ureter [employer] 09/10/2020 175-263 / / [id number] Stent Ureteral Firm Hydroplus Coating 6fr 26cm Percuflex Plus - [id number] Implanted:Qty: 1 on 07/02/2018 by Mirian Richey MD at [facility] Stent [employer] 04/09/2021 175-263 / / [id number] Stent Ureteral Firm Hydroplus Coating 6fr 26cm Percuflex Plus - [id number] Implanted:Qty: 1 on 07/02/2018 by Mirian Richey MD at [facility] Stent [employer] 03/25/2021 175-263 / / [id number] Stent Ureteral Firm Hydroplus Coating 6fr 26cm Percuflex Plus - [id number] - [id number] Implanted:Qty: 1 on 10/31/2018 by Mirian Richey MD at [facility] Stent Left: Ureter [employer] 09/01/2021 175-263 / [id number] / [id number] Stent Ureteral Firm Hydroplus Coating 6fr 26cm Percuflex Plus - [id number] - [id number] Implanted:Qty: 1 on 10/31/2018 by Mirian Richey MD at [facility] Stent Right: Ureter [employer] 09/01/2021 175-263 / [id number] / [id number] Stent Ureteral Firm Hydroplus Coating 6fr 26cm Percuflex Plus - [id number] Implanted:Qty: 1 on 01/10/2019 by Golden Perry MD at [facility] Stent Right: Ureter [employer] 08/03/2021 175-263 / / [id number] Stent Ureteral Firm Hydroplus Coating 6fr 26cm Percuflex Plus - [id number] Implanted:Qty: 1 on 01/10/2019 by Golden Perry MD at [facility] Stent Left: Ureter [employer] 08/03/2021 175-263 / / [id number] Stent Ureteral Firm Hydroplus Coating 6fr 26cm Percuflex Plus - [id number] - [id number] Implanted:Qty: 1 on 04/09/2019 by Mirian Richey MD at [facility] Stent [employer] 02/01/2022 175-263 / [id number] / Stent Ureteral Firm Hydroplus Coating 6fr 26cm Percuflex Plus - [id number] Implanted:Qty: 1 on 04/16/2019 by Mirian Richey MD at [facility] Stent Left: Ureter [employer] 02/08/2022 175-263 / / [id number] Stent Ureteral Firm Hydroplus Coating 6fr 26cm Percuflex Plus - [id number] Implanted:Qty: 1 on 04/16/2019 by Mirian Richey MD at [facility] Stent Right: Ureter [employer] 02/01/2022 175-263 / / [id number] Procedures * Due to [place] state law, this organization might not be sharing negative HIV tests. Procedure Name Priority Date/Time Associated Diagnosis Comments PAP W/HPV, CONVERSION Routine 07/15/2017 10:42 AM EDT from Last 3 Months or Most Recently Relevant to Health Maintenance Results * Due to [place] state law, this organization might not be sharing negative HIV tests. * Pap w/HPV (07/15/2017 10:42 AM EDT) Path Procedure TPGS (095006) 1 ?? HPVHR(723366) 1 ?? Edited by: [id number] - 1043 MAHAMED ?? [id number] - 5631 TRISTEN ?? [id number] - 3041 [facility] ANATOMIC PATHOLOGY - BIOTECH THREE Specimen Labeled As: 1 CERVICAL/ENDOCERVI LM CYTO MATERIAL - Edited by: [id number] - 1043 ENRRIQUE [facility] ANATOMIC PATHOLOGY - BIOTECH THREE Additional Test Information Specimens were tested for high risk HPV using the FDA approved Digene Hybrid ?? Capture II kit, in the Diagnostic Molecular Oncology Lab at [facility] ?? Health Care. ??This test can detect [...] abnormality. ??We endorse the recommendations of the [place] Society for ?? Colposcopy and Cervical Pathology [...] complexity clinical laboratory testing. ?? Edited by: [id number] 1446 STCYRM ?? [id number] 145 STCYRM ?? [id number] 160 STCYRM [facility] ANATOMIC PATHOLOGY - BIOTECH THREE Diagnosis ThinPrep Pap Test ?Adequacy: Specimen processed and examined but unsatisfactory for evaluation ?of epithelial cell abnormalities because of scant epithelial ?cellularity and obscuring blood. ? This Pap test could not be examined by the ThinPrep Imaging System, [employer] ?? [place], [place], and required a full manual screening. ? This case was screened and diagnosed by the Cytology Laboratory at [facility] [place] ?- High risk HPV DNA subtypes: NEGATIVE ?? Edited by: [id number] 1446 STCYRM ?? [id number] 145 STCYRM ?? [id number] 160 STCYRM ?? [id number] - 1700 [facility] ANATOMIC PATHOLOGY - BIOTECH THREE Gynecologic Clinical Data Specimen source:, THINPREP (CERVICAL AND ENDOCERVICAL) [facility] ANATOMIC PATHOLOGY - BIOTECH THREE Gynecologic Clinical Data First date of LMP:, NOT GIVEN [facility] ANATOMIC PATHOLOGY - BIOTECH THREE Pathology Codes Client Order Code:, TPHS3 [facility] ANATOMIC PATHOLOGY - BIOTECH THREE Pathology Codes Bill Type:, 3RD [employer] [facility] ANATOMIC PATHOLOGY - BIOTECH THREE Completed Report [id number] HPV, HIGH RISK TYPES 1 [facility] ANATOMIC PATHOLOGY - BIOTECH THREE Marker 1 MD LAURA NEGATIVE [facility] ANATOMIC PATHOLOGY - BIOTECH THREE Marker 2 TITO DURAN.ARAM [facility] ANATOMIC PATHOLOGY - BIOTECH THREE Marker 3 OMRPT,MOLECULAR REPEAT [facility] ANATOMIC PATHOLOGY - BIOTECH THREE Marker 4 RIM,RECEIVED IN MOLECULAR [facility] ANATOMIC PATHOLOGY - BIOTECH THREE Marker 5 STQ,SENT TO [facility] ANATOMIC PATHOLOGY - BIOTECH THREE Marker 6 UNSAT,Unsatisfacto ry [facility] ANATOMIC PATHOLOGY - BIOTECH THREE Cc Results To HALLEI Queen PIN BALL MACHINE MECHANIC ??[id number] ?? MACIEL Goyal PIN BALL MACHINE MECHANIC ??[id number] [facility] ANATOMIC PATHOLOGY - BIOTECH THREE Signature REPORT SIGNED: PAMELA SOLER 08/01/17 [facility] ANATOMIC PATHOLOGY - BIOTECH THREE Sign Out Audit PAMELA SOLER [id number] FINAL NEW TRISTEN [id number] 172 [facility] ANATOMIC PATHOLOGY - BIOTECH THREE Cytology / Unknown 7 10:42 AM EDT 07/16/2017 10:42 AM EDT us Susana Fernandez MD LAB HISTORICAL RESULTS Fin al Result [facility] ANATOMIC PATHOLOGY - BIOTECH THREE [address] [place] [address] from Last 3 Months or Most Recently Relevant to Health Maintenance Insurance Advance Directives Documents on File Type Date Recorded Patient Automation Consultant Expl anation Health Care Proxy 01/10/2019 8:18 AM 2018 Health Care Proxy 08/08/2017 1:34 PM Health Care Proxy 08/08/2017 8:14 AM Health Care Proxy 01/09/2017 12:00 AM [facility] Proxy Healthcare Agents on File Name Relationship Healthcare Agent Relationshi p Communication Leon Jean Baptiste Spouse Next of Kin [phone] ( Home) Care Teams Auto Design Detailer Relationship Specialty Start Date End Date Mirian Richey MD [address] [place] [address] PCP - General Urology 01/31/24
--- OUTSIDE RECORDS SUMMARY | 2025-02-22 18:22 | XMS_ITS | Encounter Summary ---
Author Organization [facility] Address [address] [place] [address] Care Team Providers Care Bevel Face Stoner And Polisher Name Role Phone Mirian Richey MD Primary Care Provider [phone]- [phone] Encounter Details Date Type Department Care Team (Late st Contact Info) Description 07/27/2020 Orders Only [facility] Nuclear Medicine [address] [place] [address] Alfredo Cedeno MD PhD [address] [place] [address] Social History Tobacco Use Types Packs/Day Years [...] Info) Description 03/22/2025 7:00 PM EDT Appointment [facility] Ultrasound [address] [place] [address] Mirian Richey MD [address] [place] [address] 04/05/2025 4:30 PM EDT Telehealth [facility] [address] [place] [address] Principle Industrial Hygienist: Priscilla Saez NP [address] [place] [address] 09/01/2025 4:00 PM EDT Follow-Up [facility] FORM WORKER Oncology [address] [place] [address] Principle Industrial Hygienist: Chelly Teixeira MD [address] [place] [address] documented as of this encounter Visit Diagnoses Not on filedocumented in this encounter Care Teams Bevel Face Stoner And Polisher Relationship Specialty Start Date End Date Mirian Richey MD [address] [place] [address] PCP - General Urology 01/31/24 documented as of this encounter
== END 2025-02-22 16:45 | disposition home or self-care (01) ==
LOC: HO.HMCH 15:36
DX: I12.9 Hypertensive chronic kidney disease with stage 1 through stage 4 chronic kidney disease, or unspecified chronic kidney disease (principal); N18.30 Chronic kidney disease, stage 3 unspecified; E66.811 Obesity, class 1; Z68.30 Body mass index [BMI] 30.0-30.9, adult; E78.2 Mixed hyperlipidemia; R73.01 Impaired fasting glucose; F32.A Depression, unspecified; D22.9 Melanocytic nevi, unspecified

== ENCOUNTER → 2025-02-22 15:36 | Outpatient (BNVA) | payer OTHER, SELFPAY | DX: Z13.89 Encounter for screening for other disorder (principal) ==

== ENCOUNTER 2025-06-02 14:59 | Outpatient (AMB) | payer OTHER, SELFPAY ==
--- NOTE | 2025-06-02 15:07 | AM.OFFWIN_ITS ---
Intake Vital Signs 06/02/25 15:08 Height 5 ft 3 in Weight 174 lb 6 oz BMI 30.9 BP 106/66 Blood Pressure Location Rt brachial Position Sitting Pulse 88 Pulse Source Pulse Oximeter Temp 98.9 F Temp Source Oral Pulse Oximetry (%) 96 Oxygen Delivery Method Room Air Intake Visit Reasons: EP pain on LT leg Intake Note: Patient presents with pain in the left leg times 3 weeks, feels like its getting worse Patient Tobacco Use Status: Never used Tobacco Air Valve Repairer Required: No Is last menstrual period known: No Post menopausal: Yes Patient : No Allergies No Known Allergies Allergy (Verified 06/02/25 15:17) Do you need a note to return to daycare/school/sports/work: No HPI HPI Comments History of Present Illness Details History - The patient is a 64-year-old female pr esenting with left leg pain. - The leg pain began approximately three weeks ago, worsening over time. - Pain is located behind the left knee, extending from the calf to the thigh, with associated swelling. - Numbness is present in the leg, but no weakness or tingling. - Difficulty lifting left leg, takes chica f an hour to get out of the car, hard time walking stairs, needs to put two feet on the same step - Topical analgesics similar to Icy Hot have been used, providing temporary relief. - patient tells me she did have a recent long plane ride when she went to [place], returning March 29 - The patient denies any history of bloo d clots, pulmonary embolism, or osteoarthritis. - The patient has a history of cancer in 2016, does not smoke. Physical Exam General: Cooperative, healthy appearing, comfortable, no acute distress and well developed Orientation: Patient oriented x3 Limitations: none Head: Normal to inspection Ears: Hearing grossly normal bilaterally Nose: Normal External nose present Face and sinus: Normal facial exam Mouth: normal, moist oral mucosa Eyes: Appearance normal, both eyes and all related structures Neck: Normal visual inspection and Yes full ROM Respiratory: Normal respiratory effort and able to speak in complete sentences. Skin: no rashes or lesions noted, no skin color changes in the leg Neuro: Patient oriented x3, limping gait Extremities: Left lower extremity is visibly more edematous than the right lower extremity, no skin color changes when comparing the 2, negative Homans, tenderness to palpation posterior left knee, full range of motion in the left lower extremity [facility] Medical History Cervical cancer Impaired fasting glucose Renal failure syndrome Chronic kidney disease, stage 3 Essential hypertension Retinal artery occlusion Mixed hyperlipidemia Social History Housing: House Patient Tobacco Use Status: Never used Tobacco e-Cigarette/Vaping Use: Never Used Second Hand Smoke Exposure: No service: No Current occupational status: employed Cognitive needs: No Hearing needs: No Vision needs: Yes Review of Systems Const All systems reviewed & are unremarkable except as noted in HPI and below Physical Exam Vital Signs: Last Vital Signs Temp 98.9 F 06/02/25 15:08 Pulse 88 06/02/25 15:08 BP 106/66 06/02/25 15:08 Pulse Ox 96 06/02/25 15:08 Oxygen Delivery Method Room Air 06/02/25 15:08 BMI result Body Mass Index 30.9 Assessment & Plan Assessment & Plan (1) Leg pain, left: Code(s): M79.605 - Pain in left leg Plan: Plan Patient was informed and verbally consented to the use of an ambient scribe for clinic note documentation during this visit - An ultrasound of the left leg is recommended to rule out deep vein thrombosis. - Could be Bakers cyst, management will depend on the underlying cause, likely arthritis. Consider RX for diclofenac if this is found. Orders: Orders US venous duplex LE LT Today M79.605 - Pain in left leg Coding Level of Care Code Est Pt Level 4 (92043) Diagnoses Leg pain, left M79.605
[2025-06-02 15:08] VITALS: BP 106/66; PULSE 88; TEMP 37.2; O2SAT 96; BMI 30.9
--- OUTSIDE RECORDS SUMMARY | 2025-06-02 15:27 | XMS_ITS | Encounter Summary ---
Author Organization [facility] Address [address] [place] [address] Care Team Providers Care Screw Machine Hand Name Role Phone Mirian Richey MD Primary Care Provider [phone] Encounter Details Date Type Department Care Team (Late st Contact Info) Description 07/27/2020 Orders Only [facility] Nuclear Medicine [address] [place] [address] Alfredo Cedeno MD PhD [address] [place] [address] Social History Tobacco Use Types Packs/Day Years [...] Care Team (Late st Contact Info) Description 09/01/2025 4:00 PM EDT Follow-Up [facility] CUFF TURNER Oncology [address] [place] [address] Cable Operator: Chelly Teixeira MD [address] [place] [address] 04/05/2026 10:15 AM EDT Appointment [facility] Ultrasound [address] [place] [address] documented as of this encounter Visit Diagnoses Not on filedocumented in this encounter Care Teams Screw Machine Hand Relationship Specialty Start Date End Date Mirian Richey MD [address] [place] [address] PCP - General Urology 01/31/24 documented as of this encounter
== END 2025-06-02 15:54 | disposition home or self-care (01) ==
PROVIDERS: Visit Provider Physician Assistant
DX: M79.605 Pain in left leg (principal)

== ENCOUNTER 2025-06-03 09:08 | Outpatient (REF) | payer OTHER, SELFPAY ==
--- NOTE | ~2025-06-03 | US_ITS ---
EXAMINATION: US LOWER EXTREMITY VEINS LIMITED FOLLOW UP LEFT HISTORY: M79.605 - Pain in left leg COMPARISON: There are no prior studies available for comparison. TECHNIQUE: Duplex and color Doppler sonographic examination of the deep venous system of the left lower extremity was performed. FINDINGS: The common femoral, superficial femoral, and popliteal veins are patent demonstrating normal compressibility, spontaneous flow, and augmentation. There is a normal color and spectral Doppler waveform appearance of the visualized deep venous system above the knee. The posterior tibial and peroneal veins are patent. US/US venous duplex LE LT IMPRESSION: No evidence of acute DVT in the left lower extremity. Electronically signed by: Nigel Diop MD 06/03/2025 09:29 AM EDT
--- OUTSIDE RECORDS SUMMARY | 2025-06-03 09:29 | XMS_ITS | Encounter Summary ---
Author Organization [facility] Address [address] [place] [address] Care Team Providers Care Director Sanitation Bureau Name Role Phone Mirian Richey MD Primary Care Provider [phone] Encounter Details Date Type Department Care Team (Late st Contact Info) Description 07/27/2020 Orders Only [facility] Nuclear Medicine [address] [place] [address] Alfredo Cedeno MD PhD [address] [place] [address] Social History Tobacco Use Types Packs/Day Years [...] Info) Description 09/01/2025 4:00 PM EDT Follow-Up [facility] TAXATION ACCOUNTANT Oncology [address] [place] [address] Bass Viol Repairer: Chelly Teixeira MD [address] [place] [address] 04/05/2026 10:15 AM EDT Appointment [facility] Ultrasound [address] [place] [address] documented as of this encounter Visit Diagnoses Not on filedocumented in this encounter Care Teams Director Sanitation Bureau Relationship Specialty Start Date End Date Mirian Richey MD [address] [place] [address] PCP - General Urology 01/31/24 documented as of this encounter
== END 2025-06-03 09:09 | disposition home or self-care (01) ==
LOC: HO.HMGCX 09:08
PROVIDERS: Visit Provider Physician Assistant
DX: M79.605 Pain in left leg (principal)
CPT/HCPCS: 93971

== ENCOUNTER → 2025-06-03 09:10 | Outpatient (BNV) | payer OTHER, SELFPAY | PROVIDERS: Visit Provider Radiology Diagnostic Radiology | DX: M79.605 Pain in left leg (principal) | CPT/HCPCS: 93971 ==

== ENCOUNTER 2025-06-21 15:03 | Outpatient (AMB) | payer OTHER, SELFPAY ==
--- OUTSIDE RECORDS SUMMARY | 2025-06-21 15:08 | XMS_ITS | Encounter Summary ---
Author Organization [facility] Address [address] [place] [address] Care Team Providers Care Display Specialist Name Role Phone Mirian Richey MD Primary Care Provider [phone]- [phone] Encounter Details Date Type Department Care Team (Late st Contact Info) Description 07/27/2020 Orders Only [facility] Nuclear Medicine [address] [place] [address] Alfredo Cedeno MD PhD [address] [place] [address] Social History Tobacco Use Types Packs/Day Years [...] Info) Description 09/01/2025 4:00 PM EDT Follow-Up [facility] CONCRETE PAVER Oncology [address] [place] [address] Bank Compliance Officer: Chelly Teixeira MD [address] [place] [address] 04/05/2026 10:15 AM EDT Appointment [facility] Ultrasound [address] [place] [address] documented as of this encounter Visit Diagnoses Not on filedocumented in this encounter Care Teams Display Specialist Relationship Specialty Start Date End Date Mirian Richey MD [address] [place] [address] PCP - General Urology 01/31/24 documented as of this encounter
--- OUTSIDE RECORDS SUMMARY | 2025-06-21 15:08 | XMS_ITS | Encounter Summary ---
Author Organization [facility] Address [address] [facility] [address] [place] [address] Phone Care Team Providers Care Plan Nurse Name Role Phone Dorita Ruiz MD Unavailable [email or web address] Silvia Martin RN Unavailable [phone] Oliva Lopez RN Unavailable [phone] Levi Jones MD Unavailable [phone] Susana Fernandez MD Unavailable [phone] Vinita Dumont NP Unavailable [phone] Hemanth Atkins MD Primary Care Provider + [phone] Encounter Details Date Type Department Care Team (Late st Contact Info) Description 11/10/2020 Procedure Pass Non-Invasive Cardiology [address] [place] [address] Social History Tobacco Use Types Packs/Day Years Used Date Smoking Tobacco: Never Alcohol Use Standard Drinks/Week Comments Yes 0 (1 standard drink = 0.6 oz pur e alcohol) Rare, social Comments No Sex and Gender Information Value Date Recorded Sex Assigned at Not on file Legal Sex Female 9:51 AM EDT Gender Identity Not on file Sexual Orientation Not on file documented as of this encounter Functional Status * Patient is deaf or has serious difficulty with hearing Answer Date of Assessment Author No 10/04/2015 9:24 AM Preethi Andre PA-C * Patient is blind or has serious difficulty with seeing, even when wearing glasses Answer Date of Assessment Author No 10/04/2015 9:24 AM Preethi Andre PA-C * Patient has serious difficulty walking or climbing stairs (5yr old or older) Answer Date of Assessment Author No 10/04/2015 9:24 AM Preethi Andre PA-C * Patient has serious difficulty dressing or bathing (5yr old or older) Answer Date of Assessment Author No 10/04/2015 9:24 AM Preethi Andre PA-C * Patient has serious difficulty doing errands alone such as visiting a doctor???s office or shopping, due to physical, mental, or emotional condition (15 years old or older) Answer Date of Assessment Author Yes 10/04/2015 9:24 AM Preethi Andre PA-C documented as of this encounter Mental Status * Patient has serious difficulty concentrating, remembering, or making decisions due to physical, mental, or emotional condition Answer Entry Date Author No 10/04/2015 9:24 AM Preethi Andre PA-C documented in this encounter Plan of Treatment Not on file documented as of this encounter Visit Diagnoses Not on filedocumented in this encounter Care Teams Plan Nurse Relationship Specialty Start Date End Date Hemanth Atkins MD [address] [place] [address] [email or web address] PCP - General Family Medicine 01/08/19 Dorita Ruiz MD [email or web address] Radiation Oncology 07/11/15 Silvia Martin RN [address] [place] [phone] [email or web address] Registered Nurse 09/22/15 Oliva Lopez RN [address] [place] [phone] [email or web address] Registered Nurse 09/22/15 Levi Jones MD [address] [place] [address] Department of Obstetric[place] [address] [email or web address] Gynecologic Oncology 09/22/15 Susana Fernandez MD [address] [place] [address] Department of Obstetrics [place] [address] Gynecologic Oncology 10/27/15 Vinita Dumont NP [address] [place] [address] Referring Physician Family Medicine 03/02/16 documented as of this encounter Additional Source Comments The information contained in this document represents components of the legal health record. It is not the complete legal health record.[facility]
[2025-06-21 16:10] VITALS: BP 132/74; PULSE 86; TEMP 36.8; O2SAT 97; BMI 31.4
--- NOTE | 2025-06-21 16:10 | AM.OFFWIN_ITS ---
Intake Vital Signs 06/21/25 16:10 Height 5 ft 3 in Weight 177 lb 8 oz BMI 31.4 BP 132/74 Blood Pressure Location Rt brachial Position Sitting Pulse 86 Pulse Source Pulse Oximeter Temp 98.3 F Temp Source Oral Pulse Oximetry (%) 97 Oxygen Delivery Method Room Air Intake Visit Reasons: EP LT leg pain Patient Tobacco Use Status: Never used Tobacco Laboratory Specialist Required: No Allergies No Known Allergies Allergy (Verified 06/21/25 16:16) Do you need a note to return to daycare/school/sports/work: Yes HPI HPI Comments History of Present Illness Details History - The patient is a 64-year-old female pr esenting with left leg pain and swelling. - Left leg pain for six weeks, worsening over time, with swelling and numbness, cramping and fatigue. - Difficulty with leg movement and stair s, minimal to no relief from diclofenac. - Previous ultrasound showed no clot or Berg's cyst a month ago. - History of cancer in 2016, no vascular disease or varicose veins. - Denies PAD Physical Exam General: Cooperative, healthy appearing, comfortable, no acute distress and well developed Orientation: Patient oriented x3 Limitations: Difficulty lifting the left leg Head: Normal to inspection Ears: Hearing grossly normal bilaterally Nose: Normal External nose present Face and sinus: Normal facial exam Mouth: normal, moist oral mucosa Eyes: Appearance normal, both eyes and all related structures Neck: Normal visual inspection and Yes full ROM Respiratory: Normal respiratory effort and able to speak in complete sentences. Skin: No rashes or lesions noted Neuro: Patient oriented x3 Extremities: left leg with edema and ttp posterior left leg, no skin changes, full ROM, no TTP left knee orleft ankle or left foot. [facility] Medical History Cervical cancer Impaired fasting glucose Renal failure syndrome Chronic kidney disease, stage 3 Essential hypertension Retinal artery occlusion Mixed hyperlipidemia Social History Housing: House Patient Tobacco Use Status: Never used Tobacco e-Cigarette/Vaping Use: Never Used Second Hand Smoke Exposure: No service: No Current occupational status: employed Cognitive needs: No Hearing needs: No Vision needs: Yes Review of Systems Const All systems reviewed & are unremarkable except as noted in HPI and below Physical Exam Vital Signs: Last Vital Signs Temp 98.3 F 06/21/25 16:10 Pulse 86 06/21/25 16:10 BP 132/74 06/21/25 16:10 Pulse Ox 97 06/21/25 16:10 Oxygen Delivery Method Room Air 06/21/25 16:10 BMI result Body Mass Index 31.4 Assessment & Plan Assessment & Plan (1) Left leg claudication: Code(s): I73.9 - Peripheral vascular disease, unspecified Plan: Plan Patient was informed and verbally consented to the use of an ambient scribe for clinic note documentation during this visit 1. Left Leg Pain/claudication - Evaluate vascular causes, consult primary care for further testing. - Discontinue ineffective medication. Coding Level of Care Code Est Pt Level 4 (21348) Diagnoses Left leg claudication I73.9
== END 2025-06-21 16:36 | disposition home or self-care (01) ==
PROVIDERS: Visit Provider Physician Assistant
DX: I73.9 Peripheral vascular disease, unspecified (principal)

== ENCOUNTER 2025-07-16 14:56 | Outpatient (AMB) | payer OTHER, SELFPAY ==
--- OUTSIDE RECORDS SUMMARY | 2025-07-16 14:59 | XMS_ITS | Encounter Summary ---
Author Organization [facility] Address [address] [facility] [address] [place] [address] Phone Care Team Providers Care Him Clerk Name Role Phone Vinita Dumont NP Primary Care Provider [phone] Dorita Ruiz MD Unavailable [email or web address] Silvia Martin RN Unavailable [phone] Oliva Lopez RN Unavailable [phone] Levi Jones MD Unavailable [phone] Susana Fernandez MD Unavailable [phone] Vinita Dumont CHOIR SINGER Unavailable [phone] Hemanth Atkins MD Primary Care Provider [phone] Reason for Referral * Outpatient Procedure - Closed Specialty Diagnoses / Procedures Referred By Contac t Referred To Contact Radiology Diagnoses Hydronephrosis, unspecified hydronephrosis type Procedures NM Renal Study with Mirian Akins MD Phone: tel: fax: Referral ID Status Reason Start Date Expiration Date Visits Re quested Visits Authorized [id number] Closed 10/21/2017 10/21/2018 1 1 Encounter Details Date Type Department Care Team (Latest Contact Info) Description 10/21/2017 Ancillary Orders Virtual Department [address] [place] [address] Richey, Mirian Alvarenga MD [address] [place] [address] Hydronephrosis, unspecified hydronephrosis type Social History Tobacco Use Types Packs/Day Years [...] on file documented as of this encounter Results * NM Renal Study with Lasix (11/01/2017 12:17 PM EST) Anatomical Region Laterality Modality Abdomen, Kidney Nuclear Medicine 11/01/2017 12:5 2 PM EST Impressions 11/01/2017 12:59 PM EST Dominant function by the left kidney relative to the right. No evidence of obstruction is seen after Lasix is given. S/S: Follow-up hydronephrosis, status post ureteral stenting POS - [id number] Narrative 11/01/2017 12:59 PM EST DOSE: 10.6 mCi technetium 9M labeled MAG3, 39.4 mg Lasix COMPARISON: Renal ultrasound October 14, 2017 FINDINGS: On flow images there is increased relative flow to the left kidney with a diminutive right kidney. Bilateral renal function is evident. On initial imaging there is 72% function in the left and 28% function in the right kidney. Washout of activity occurs bilaterally into the ureters. After Lasix is given there is normal washout of activity present bilaterally without evidence of obstruction. Procedure Note Ramin Suh MD - 11/01/2017 DOSE: 10.6 mCi technetium 9M labeled MAG3, 39.4 mg Lasix COMPARISON: Renal ultrasound October 14, 2017 FINDINGS: On flow images there is increased relative flow to the left kidney with adiminutive right kidney. Bilateral renal function is evident. On initial imaging there is 72% function in the left and 28% function inthe right kidney. Washout of activity occurs bilaterally into theureters. After Lasix is given there is normal washout of activity presentbilaterally without evidence of obstruction. IMPRESSION: Dominant function by the left kidney relative to the right. No evidence ofobstruction is seen after Lasix is given. S/S: Follow-up hydronephrosis, status post ureteral stenting POS - [id number] Mirian Richey MD IMG NM ABDOMEN Final Result documented in this encounter Visit Diagnoses Diagnosis Hydronephrosis, unspecified hydronephrosis type Hydronephrosis, unspecified hydronephrosis type documented in this encounter Care Teams Him Clerk Relationship Specialty Start Date End Date Vinita Dumont NP [address] [place] [address] PCP - General Family Medicine 07/01/15 01/07/19 Hemanth Atkins MD [address] [place] [address] [email or web address] PCP - General Family Medicine 01/08/19 Dorita Ruiz MD [email or web address] Radiation Oncology 07/11/15 Silvia Martin, RN [address] [place] [phone] [email or web address] Registered Nurse 09/22/15 Oliva Lopez, JANNA [address] [place] [phone] [email or web address] Registered Nurse 09/22/15 Levi Jones MD [address] [place] [address] [email or web address] Gynecologic Oncology 09/22/15 Susana Fernandez MD [address] [place] [address] Gynecologic Oncology 10/27/15 Vinita Dumont NP [address] [place] [address] Referring Physician Family Medicine 03/02/16 documented as of this encounter Additional Source Comments The information contained in this document represents components of the legal health record. It is not the complete legal health record.[facility]
--- OUTSIDE RECORDS SUMMARY | 2025-07-16 14:59 | XMS_ITS | Encounter Summary ---
Author Organization [facility] Address [address] [facility] [address] [place] [address] Phone Care Team Providers Care International Marketing Manager Name Role Phone Dorita Ruiz MD Unavailable [email or web address] Silvia Martin RN Unavailable [phone] Oliva Lopez RN Unavailable [phone] Levi Jones MD Unavailable [phone] Susana Fernandez MD Unavailable [phone] Vinita Dumont NP Unavailable [phone] Hemanth Atkins MD Primary Care Provider [phone] Encounter Details Date Type Department Care Team (Late st Contact Info) Description 11/09/2020 Procedure Pass [facility] [address] [place] [address] Social History Tobacco Use Types Packs/Day Years [...] Yes 10/04/2015 9:24 AM Preethi Andre PA-C * Calculated C-SSRS Risk Score (Lifetime/Recent) Answer Date of Assessment Author No Risk Indicated 11/09/2020 2:30 PM Abdi Denson, JANNA * [place] Suicide Severity Rating Scale (Screener/Recent Self-Report) Question Answer Date of Assessment Author 1. Wish to be (Past 1 Month) No 11/09/2020 2:30 PM Abdi Quiros, JANNA 2. Non-Specific Active Suicidal Thoughts (Past 1 Month) No 11/09/2020 2:30 PM Abdi Quiros, JANNA 6. Suicidal Behavior (Lifetime) No 11/09/2020 2:30 PM Abdi Quiros, JANNA documented as of this encounter Mental Status * Patient has serious difficulty concentrating, remembering, or making decisions due to physical, mental, or emotional condition Answer Entry Date Author No 10/04/2015 9:24 AM Preethi Andre PA-C documented in this encounter Plan of Treatment Not on file documented as of this encounter Visit Diagnoses Not on filedocumented in this encounter Care Teams International Marketing Manager Relationship Specialty Start Date End Date Hemanth Atkins MD [address] [place] [address] [email or web address] PCP - General Family Medicine 01/08/19 Dorita Ruiz MD [email or web address] Radiation Oncology 07/11/15 Silvia Martin RN [address] [place] [address] [email or web address] Registered Nurse 09/22/15 Oliva Lopez RN [address] [place] [phone] [email or web address] U Registered Nurse 09/22/15 Levi Jones MD [address] [place] [address] [email or web address] Gynecologic Oncology 09/22/15 Susana Fernandez MD [address] [place] [address] Gynecologic Oncology 10/27/15 Vinita Dumont NP [address] [place] [address] Referring Physician Family Medicine 03/02/16 documented as of this encounter Additional Source Comments The information contained in this document represents components of the legal health record. It is not the complete legal health record.[facility]
--- OUTSIDE RECORDS SUMMARY | 2025-07-16 14:59 | XMS_ITS | Encounter Summary ---
Author Organization [facility] Address [address] [facility] [address] [place] [address] Phone Care Team Providers Care Damper Fitter Name Role Phone Vinita Dumont NP Primary Care Provider [phone] Dorita Ruiz MD Unavailable [email or web address] Silvia Martin RN Unavailable [phone] Oliva Lopez RN Unavailable [phone] Levi Jones MD Unavailable [phone] Susana Fernandez MD Unavailable [phone] Vinita Dumont SAND BLASTER Unavailable [phone] Hemanth Atkins MD Primary Care Provider [phone] Encounter Details Date Type Department Care Team (Latest Contact Info) Description 12/24/2017 Ancillary Orders [facility] External Provider Virtual Department [address] [place] [address] Mirian Richey MD [address] [place] [address] Malignant neoplasm of cervix, unspecified site; Hydronephrosis, unspecified hydronephrosis type Social History Tobacco [...] documented as of this encounter Results * US Kidneys (12/30/2017 4:06 PM EST) Anatomical Region Laterality Modality Abdomen, Kidney Ultrasound 12/30/2017 4:08 PM EST Impressions 12/30/2017 4:11 PM EST Chronic and grossly stable left hydroureteronephrosis. No renal parenchymal pathology, right-sided hydronephrosis, or other significant interval change from 10/14/2017. POS [id number] Narrative 12/30/2017 4:11 PM EST COMPARISON: 10/14/2017 FINDINGS: The right kidney is again noted to be smaller than the left currently measuring 9.6 x 3.8 cm versus 11.9 x 6.5 cm in a longitudinal plane. There is chronic left hydroureteronephrosis with the proximal ureter measuring approximately 7 mm in diameter. No right-sided hydronephrosis apparent. No solid or cystic parenchymal lesions or shadowing intrarenal calculi are demonstrated. Procedure Note Haritha Romano MD - 12/30/2017 COMPARISON: 10/14/2017 FINDINGS: The right kidney is again noted to be smaller than the left currentlymeasuring 9.6 x 3.8 cm versus 11.9 x 6.5 cm in a longitudinal plane.There is chronic left hydroureteronephrosis with the proximal uretermeasuring approximately 7 mm in diameter. No right-sided hydronephrosisapparent. No solid or cystic parenchymal lesions or shadowing intrarenalcalculi are demonstrated. IMPRESSION: Chronic and grossly stable left hydroureteronephrosis. No renalparenchymal pathology, right-sided hydronephrosis, or other significantinterval change from 10/14/2017. POS [id number] Mirian Colette Richey MD [facility] Final Result documented in this encounter Visit Diagnoses Diagnosis Malignant neoplasm of cervix, unspecified site Hydronephrosis, unspecified hydronephrosis type Malignant neoplasm of cervix, unspecified site Hydronephrosis, unspecified hydronephrosis type documented in this encounter Care Teams Damper Fitter Relationship Specialty Start Date End Date Vinita Dumont NP [address] [place] [address] PCP - General Family Medicine 07/01/15 01/07/19 Hemanth Atkins MD [address] [place] [address] [email or web address] PCP - General Family Medicine 01/08/19 Dorita Ruiz MD [email or web address] Radiation Oncology 07/11/15 Silvia Martin, RN [address] [place] [phone] [email or web address] Registered Nurse 09/22/15 Oliva Lopez RN [address] [place] [phone] [email or web address] U Registered Nurse 09/22/15 Levi Jones MD [address] [place] [address] [email or web address] Gynecologic Oncology 09/22/15 Susana Fernandez MD [address] [place] [address] Gynecologic Oncology 10/27/15 Vinita Dumont NP [address] [place] [address] Referring Physician Family Medicine 03/02/16 documented as of this encounter Additional Source Comments The information contained in this document represents components of the legal health record. It is not the complete legal health record.[facility]
--- OUTSIDE RECORDS SUMMARY | 2025-07-16 14:59 | XMS_ITS | Encounter Summary ---
Author Organization [facility] Address [address] [facility] [address] [place] [address] Phone Care Team Providers Care Agriculture Laborer Name Role Phone Dorita Ruiz MD Unavailable [email or web address] Silvia Martin RN Unavailable [phone] Oliva Lopez RN Unavailable [phone] Levi Jones MD Unavailable [phone] Susana Fernandez MD Unavailable [phone] Vinita Dumont NP Unavailable [phone] Hemanth Atkins MD Primary Care Provider + [phone] Encounter Details Date Type Department Care Team (Late st Contact Info) Description 11/09/2020 Procedure Pass [facility], Ct Scan - [address] [address] Social History Tobacco Use Types Packs/Day Years [...] No Risk Indicated 11/09/2020 2:30 PM Abdi Denson RN * [place] Suicide Severity Rating Scale (Screener/Recent Self-Report) Question [...] on filedocumented in this encounter Care Teams Agriculture Laborer Relationship Specialty Start Date End Date Hemanth Atkins MD [address] [place] [address] [email or web address] PCP - General Family Medicine 2/21/19 Dorita Ruiz MD [email or web address] Radiation Oncology 07/11/15 Silvia Martin RN [address] [place] [address] [email or web address] Registered Nurse 09/22/15 Oliva Lopez RN [address] [place] [phone] [email or web address] Registered Nurse 09/22/15 Levi Jones MD [address] [place] [address] [email or web address] Gynecologic Oncology 09/22/15 Susana Fernandez MD [address] [place] [address] Gynecologic Oncology 10/27/15 Vinita Dumont NP [address] [place] [address] Referring Physician Family Medicine 03/02/16 documented as of this encounter Additional Source Comments The information contained in this document represents components of the legal health record. It is not the complete legal health record.[facility]
--- OUTSIDE RECORDS SUMMARY | 2025-07-16 14:59 | XMS_ITS | Encounter Summary ---
Author Organization [facility] Address [address] [facility] [address] [place] [address] Phone Care Team Providers Care Staff Rn Name Role Phone Dorita Ruiz MD Unavailable [email or web address] Silvia Martin RN Unavailable [phone] Oliva Lopez RN Unavailable [phone] Levi Jones MD Unavailable [phone] Susana Fernandez MD Unavailable [phone] Vinita Dumont NP Unavailable [phone] Hemanth Atkins MD Primary Care Provider + [phone] Encounter Details Date Type Department Care Team (Latest Contact Info) Description 01/08/2019 Ancillary Orders Virtual Department [address] [place] [address] Mirian Richey MD [address] [place] [address] Hydronephrosis, unspecified hydronephrosis type Social History Tobacco [...] of this encounter Results * US Kidneys and Bladder (10/29/2019 8:43 AM EST) Anatomical Region Laterality Modality Abdomen, Kidney Ultrasound 10/29/2019 4:45 PM EST Impressions 10/29/2019 4:57 PM EST Compared with 12/30/2017 ultrasound, slight interval decrease in chronic LEFT hydronephrosis. No renal calculi. RIGHT kidney is significantly smaller than the LEFT. POS - [id number] Narrative 10/29/2019 4:57 PM EST EXAM: US KIDNEYS AND BLADDER HISTORY: STENTS REMOVED 01/07/19 H/O & R/O HYDRONEPHROSIS TECHNIQUE: Ultrasound imaging of the kidneys and bladder, grayscale and color Doppler. COMPARISON: 12/30/2017. FINDINGS: RIGHT KIDNEY: Measures 8.0 x 2.9 cm, appears even smaller than on the to 12/30/2017 ultrasound. There is diffuse thinning of the cortex and increased cortical echogenicity. There is no hydronephrosis or calculus. Interpolar anechoic cysts measure 1.1 x 0.9 x 0.7 cm and 1.2 x 0.7 x 0.9 cm. LEFT KIDNEY: Measures 12.2 x 5.9 cm. Normal cortical thickness. Mildly increased cortical echogenicity. Compared with 12/30/2017, slight interval decrease in chronic LEFT hydronephrosis. Hydronephrosis now appears mild. BLADDER: Prevoid bladder volume is 485.5 mL. Post void bladder residual is 66.3 mL (14 % PVR). There is no bladder wall thickening or mass. URETERAL JETS: Not visualized. Procedure Note Susana Durham MD - 10/29/2019 EXAM: US KIDNEYS AND BLADDER HISTORY: STENTS REMOVED 01/07/19 H/O & R/O HYDRONEPHROSIS TECHNIQUE: Ultrasound imaging of the kidneys and bladder, grayscale andcolor Doppler. COMPARISON: 12/30/2017. FINDINGS: RIGHT KIDNEY: Measures 8.0 x 2.9 cm, appears even smaller than on the to12/30/2017 ultrasound. There is diffuse thinning of the cortex andincreased cortical echogenicity. There is no hydronephrosis or calculus.Interpolar anechoic cysts measure 1.1 x 0.9 x 0.7 cm and 1.2 x 0.7 x 0.9cm. LEFT KIDNEY: Measures 12.2 x 5.9 cm. Normal cortical thickness. Mildlyincreased cortical echogenicity. Compared with 12/30/2017, slight intervaldecrease in chronic LEFT hydronephrosis. Hydronephrosis now appearsmild. BLADDER: Prevoid bladder volume is 485.5 mL. Post void bladder residualis 66.3 mL (14 % PVR). There is no bladder wall thickening or mass. URETERAL JETS: Not visualized. IMPRESSION: Compared with 12/30/2017 ultrasound, slight interval decrease in chronicLEFT hydronephrosis. No renal calculi. RIGHT kidney is significantly smaller than the LEFT. POS - [id number] Mirian Richey MD [facility] Final Result documented in this encounter Visit Diagnoses Diagnosis Hydronephrosis, unspecified hydronephrosis type Hydronephrosis, unspecified hydronephrosis type documented in this encounter Care Teams Staff Rn Relationship Specialty Start Date End Date Hemanth Atkins MD [address] [place] [address] [email or web address] PCP - General Family Medicine 01/08/19 Dorita Ruiz MD [email or web address] Radiation Oncology 07/11/15 Silvia Martin RN [address] [place] [phone] [email or web address] Registered Nurse 09/22/15 Oliva Lopez RN [address] [place] [phone] [email or web address] U Registered Nurse 09/22/15 Levi Jones MD [address] [place] [address] [email or web address] Gynecologic Oncology 09/22/15 Susana Fernandez MD [address] [place] [address] Gynecologic Oncology 10/27/15 Vinita Dumont NP [address] [place] [address] Referring Physician Family Medicine 03/02/16 documented as of this encounter Additional Source Comments The information contained in this document represents components of the legal health record. It is not the complete legal health record.[facility]
--- OUTSIDE RECORDS SUMMARY | 2025-07-16 14:59 | XMS_ITS | Encounter Summary ---
Author Organization [facility] Address [address] [place] [address] Care Team Providers Care Site Physician Name Role Phone Mirian Richey MD Primary Care Provider [phone] Encounter Details Date Type Department Care Team (Late st Contact Info) Description 07/08/2020 Orders Only [facility] Interventional Radiology [address] [place] [address] Finn Manley MD [address] [place] [address] Social History Tobacco Use Types Packs/Day Years [...] Info) Description 09/01/2025 4:00 PM EDT Follow-Up [facility] FULLER BRUSH WORKER Oncology [address] [place] [address] Human Resource Intern: Chelly Teixeira MD [address] [place] [address] 04/05/2026 10:15 AM EDT Appointment [facility] Ultrasound [address] [place] [address] documented as of this encounter Visit Diagnoses Not on filedocumented in this encounter Care Teams Site Physician Relationship Specialty Start Date End Date Mirian Richey MD [address] [place] [address] PCP - General Urology 01/31/24 documented as of this encounter
--- OUTSIDE RECORDS SUMMARY | 2025-07-16 14:59 | XMS_ITS | Encounter Summary ---
Author Organization [facility] Address [address] [facility] [address] [place] [address] Phone Care Team Providers Care Tip Puncher Name Role Phone Vinita Dumont NP Primary Care Provider [phone] Dorita Ruiz MD Unavailable [email or web address] Silvia Martin RN Unavailable [phone] Oliva Lopez RN Unavailable [phone] Levi Jones MD Unavailable [phone] Susana Fernandez MD Unavailable [phone] Vinita Dumont PRINT PRODUCER Unavailable [phone] Hemanth Atkins MD Primary Care Provider [phone]- [phone] Encounter Details Date Type Department Care Team (Late st Contact Info) Description 09/27/2015 Transcribe Orders [facility] [address] [place] [address] Princess Olmedo [address] [place] [address] [email or web address] Social History Tobacco Use Types Packs/Day Years [...] on file documented as of this encounter Plan of Treatment Not on file documented as of this encounter Results * MRI Abdomen Outside (No Interpretation) (09/27/2015 3:50 PM EST) Narrative ANYA - 09/27/2015 3:49 PM EST This study is for PACS storage only and not for interpretation. us Doirta Ruiz MD IMG OUTSIDE IMAGING W/OUT INTER PRETATION Final Result ANYA documented in this encounter Visit Diagnoses Not on filedocumented in this encounter Care Teams Tip Puncher Relationship Specialty Start Date End Date Vinita Dumont NP [address] [place] [address] PCP - General Family Medicine 07/01/15 01/07/19 Hemanth Atkins MD [address] [place] [address] [email or web address] PCP - General Family Medicine 01/08/19 Dorita Ruiz MD [email or web address] Radiation Oncology 07/11/15 Silvia Martin RN [address] [place] [address] [phone] KERA@[email or web address] Registered Nurse 09/22/15 Oliva Lopez RN [address] [place] [phone] [email or web address] U Registered Nurse 09/22/15 Levi Jones MD [address] [place] [address] [email or web address] Gynecologic Oncology 09/22/15 Susana Fernandez MD [address] [place] [address] Gynecologic Oncology 10/27/15 Vinita Dumont NP [address] [place] [address] Referring Physician Family Medicine 03/02/16 documented as of this encounter Additional Source Comments The information contained in this document represents components of the legal health record. It is not the complete legal health record.[facility]
--- OUTSIDE RECORDS SUMMARY | 2025-07-16 14:59 | XMS_ITS | Encounter Summary ---
Author Organization [facility] Address [address] [facility] [address] [place] [address] Phone Care Team Providers Care Campaign Associate Name Role Phone Dorita Ruiz MD Unavailable [email or web address] Silvia Martin RN Unavailable [phone] Oliva Lopez RN Unavailable [phone] Levi Jones MD Unavailable [phone] Susana Fernandez MD Unavailable [phone] Vinita Dumont NP Unavailable [phone] Hemanth Atkins MD Primary Care Provider + [phone] Encounter Details Date Type Department Care Team (Late st Contact Info) Description 11/10/2020 Procedure Pass Non-Invasive Cardiology [address] [place] [address] Social History Tobacco Use Types Packs/Day Years [...] on filedocumented in this encounter Care Teams Campaign Associate Relationship Specialty Start Date End Date Hemanth Atkins MD [address] [place] [address] [email or web address] PCP - General Family Medicine 01/08/19 Dorita Ruiz MD [email or web address] Radiation Oncology 07/11/15 Silvia Martin RN [address] [place] [phone] KERA@[facility] Registered Nurse 09/22/15 Oliva Lopez RN [address] [place] [phone] [email or web address] U Registered Nurse 09/22/15 Levi Jones MD [address] [place] [address] [email or web address] Gynecologic Oncology 09/22/15 Susana Fernandez MD [address] [place] [address] Gynecologic Oncology 10/27/15 Vinita Dumont NP [address] [place] [address] Referring Physician Family Medicine 03/02/16 documented as of this encounter Additional Source Comments The information contained in this document represents components of the legal health record. It is not the complete legal health record.[facility]
--- OUTSIDE RECORDS SUMMARY | 2025-07-16 14:59 | XMS_ITS ---
Author Organization [facility] Address [address] [place] [address] Care Team Providers Care Federal District Clerk Name Role Phone Mirian Richey MD Primary Care Provider [phone] Active Problems Problem Noted Date Diagnosed Date Abdominal pain 04/21/2019 Serum potassium elevated 01/09/2019 Elevated serum creatinine 01/09/2019 Acute renal failure (ARF) 01/09/2019 Malignant neoplasm of cervix 05/06/2018 Overview (05/06/2018): Added automatically from request for surgery [id number] Dyspareunia in female 09/11/2017 Hypomagnesemia 10/26/2015 Impaired [...]
--- OUTSIDE RECORDS SUMMARY | 2025-07-16 14:59 | XMS_ITS | Encounter Summary ---
Author Organization [facility] Address [address] [facility] [address] [place] [address] Phone Care Team Providers Care Behavioral Health Specialist Name Role Phone Vinita Dumont NP Primary Care Provider [phone] Dorita Ruiz MD Unavailable [email or web address] Silvia Martin RN Unavailable [phone] Oliva Lopez RN Unavailable [phone] Levi Jones MD Unavailable [phone] Susana Fernandez MD Unavailable [phone] Vinita Dumont PAPER CONTROL CLERK Unavailable [phone] Hemanth Atkins MD Primary Care Provider [phone] Encounter Details Date Type Department Care Team (Late st Contact Info) Description 03/14/2018 Ancillary Orders Virtual Department [address] [place] [address] Mirian Richey MD [address] [place] [address] Other hydronephrosis Social History Tobacco Use Types Packs/Day Years [...] documented as of this encounter Visit Diagnoses Diagnosis Other hydronephrosis documented in this encounter Care Teams Behavioral Health Specialist Relationship Specialty Start Date End Date Vinita Dumont NP [address] [place] [address] PCP - General Family Medicine 07/01/15 01/07/19 Hemanth Atkins MD [address] [place] [address] [email or web address] PCP - General Family Medicine 01/08/19 Dorita Ruiz MD [email or web address] Radiation Oncology 07/11/15 Silvia Martin, RN [address] [place] [phone] [email or web address] Registered Nurse 09/22/15 Oliva Lopez RN [address] [place] [phone] [email or web address] U Registered Nurse 09/22/15 Levi Jones MD [address] [place] [address] [email or web address] u Gynecologic Oncology 09/22/15 Susana Fernandez MD [address] [place] [address] Gynecologic Oncology 10/27/15 Vinita Dumont NP [address] [place] [address] Referring Physician Family Medicine 03/02/16 documented as of this encounter Additional Source Comments The information contained in this document represents components of the legal health record. It is not the complete legal health record.[facility]
--- OUTSIDE RECORDS SUMMARY | 2025-07-16 14:59 | XMS_ITS | Encounter Summary ---
Author Organization [facility] Address [address] [facility] [address] [place] [address] Phone Care Team Providers Care White Mixing Operator Name Role Phone Dorita Ruiz MD Unavailable [email or web address] Silvia Martin RN Unavailable [phone] Oliva Lopez RN Unavailable [phone] Levi Jones MD Unavailable [phone] Susana Fernandez MD Unavailable [phone] Vinita Dumont NP Unavailable [phone] Hemanth Atkins MD Primary Care Provider + [phone] Encounter Details Date Type Department Care Team (Late st Contact Info) Description 02/05/2023 Procedure Pass [facility], Ct Scan - [address] [address] Social History Tobacco Use Types Packs/Day Years [...] Assessment Author No 10/04/2015 9:24 AM Preethi nAdre PA-C * Patient is blind or has [...] on filedocumented in this encounter Care Teams White Mixing Operator Relationship Specialty Start Date End Date Hemanth Atkins MD [address] [place] [address] [email or web address] PCP - General Family Medicine 01/08/19 Dorita Ruiz MD ANGELICA@[email or web address] Radiation Oncology 07/11/15 Silvia Martin RN [address] [place] [phone] KERA@[facility] Registered Nurse 09/22/15 Oliva Lopez RN [address] [place] [phone] [email or web address]. U Registered Nurse 09/22/15 Levi Jones MD [address] [place] [address] [email or web address] u Gynecologic Oncology 09/22/15 Susana Fernandez MD [address] [place] [address] Gynecologic Oncology 10/27/15 Vinita Dumont NP [address] [place] [address] Referring Physician Family Medicine 03/02/16 documented as of this encounter Additional Source Comments The information contained in this document represents components of the legal health record. It is not the complete legal health record.[facility]
--- OUTSIDE RECORDS SUMMARY | 2025-07-16 14:59 | XMS_ITS | Encounter Summary ---
Author Organization [facility] Address [address] [facility] [address] [place] [address] Phone Care Team Providers Care Wood Shingle Roofer Name Role Phone Vinita Dumont NP Primary Care Provider [phone] Dorita Ruiz MD Unavailable [email or web address] Silvia Martin RN Unavailable [phone] Oliva Lopez RN Unavailable [phone] Levi Jones MD Unavailable [phone] Susana Fernandez MD Unavailable [phone] Vinita Dumont TARIFF PUBLISHING AGENT Unavailable [phone] Hemanth Atkins MD Primary Care Provider + [phone] Encounter Details Date Type Department Care Team (Latest Contact Info) Description 03/03/2018 Ancillary Orders Virtual Department [address] [place] [address] Mirian Richey MD [address] [place] [address] Hydronephrosis, unspecified hydronephrosis type Social History Tobacco [...] as of this encounter Visit Diagnoses Diagnosis Hydronephrosis, unspecified hydronephrosis type documented in this encounter Care Teams Wood Shingle Roofer Relationship Specialty Start Date End Date Vinita Dumont NP [address] [place] [address] PCP - General Family Medicine 07/01/15 01/07/19 Hemanth Atkins MD [address] [place] [address] [email or web address] PCP - General Family Medicine 01/08/19 Dorita Ruiz MD [email or web address] Radiation Oncology 07/11/15 Silvia Martin, RN [address] [place] [phone] [email or web address] Registered Nurse 09/22/15 Oliva Lopez RN [address] [place] [phone] [email or web address] U Registered Nurse 09/22/15 Levi Jones MD [address] [place] [address] [email or web address] u Gynecologic Oncology 09/22/15 Susana Fernandez MD [address] [place] [address] Gynecologic Oncology 10/27/15 Vinita Dumont NP [address] [place] [address] Referring Physician Family Medicine 03/02/16 documented as of this encounter Additional Source Comments The information contained in this document represents components of the legal health record. It is not the complete legal health record.[facility]
--- OUTSIDE RECORDS SUMMARY | 2025-07-16 14:59 | XMS_ITS | Encounter Summary ---
Author Organization [facility] Address [address] [facility] [address] [place] [address] Phone Care Team Providers Care Nuclear Design Engineer Name Role Phone Vinita Dumont NP Primary Care Provider [phone] Dorita Ruiz MD Unavailable [email or web address] Silvia Martin RN Unavailable [phone] Oliva Lopez RN Unavailable [phone] Levi Jones MD Unavailable [phone] Susana Fernandez MD Unavailable [phone] Vinita Dumont CERTIFIED ALCOHOL DRUG COUNSELOR Unavailable [phone] Hemanth Atkins MD Primary Care Provider + [phone] Encounter Details Date Type Department Care Team (Latest Contact Info) Description 10/09/2017 Ancillary Orders Virtual Department [address] [place] [address] Mirian Richey MD [address] [place] [address] Hydronephrosis, unspecified hydronephrosis type Social History Tobacco [...] of this encounter Results * US Kidneys (10/14/2017 8:27 AM EST) Anatomical Region Laterality Modality Abdomen, Kidney Ultrasound 10/14/2017 9:15 AM EST Impressions 10/14/2017 9:26 AM EST 1. Moderate chronic left pelvocaliectasis. Status post removal of left ureteral stent. 2. No evidence of significant pelvocaliectasis/obstructive uropathy on the right. A right ureteral stent remains in place. POS [id number] Narrative 10/14/2017 9:26 AM EST HISTORY: Renal insufficiency, previous hydronephrosis on left, abnormal previous ultrasound. According to the patient there has been very recent removal of a left ureteral stent. COMPARISON: CT abdomen 10/02/2016 and ultrasound kidneys 01/13/2016. FINDINGS: Right kidney: Kidney essentially stable in size measuring 10.4 cm in the long axis. Proximal portion of a stent is visible within the region of the renal pelvis. No significant caliectasis. The proximal ureter and renal pelvis are mildly dilated. Mild diffuse cortical thinning appears very similar. No new masses. No visible calculi. Left kidney: Kidney is mildly larger than the right but essentially stable in size measuring 12.8 cm in the long axis. Moderate degree of pelvocaliectasis which appears very similar to ultrasound of 01/13/2016. It is likely similar to the degree of pelvocaliectasis demonstrated on CT of 10/02/2016. Dilated extra-renal pelvis is very similar in appearance. Proximal left ureter appears mildly dilated. No visible masses or calculi. Procedure Note Ten Robledo MD - 10/14/2017 HISTORY: Renal insufficiency, previous hydronephrosis on left, abnormalprevious ultrasound. According to the patient there has been very recentremoval of a left ureteral stent. COMPARISON: CT abdomen 10/02/2016 and ultrasound kidneys 01/13/2016. FINDINGS: Right kidney: Kidney essentially stable in size measuring 10.4 cm in thelong axis. Proximal portion of a stent is visible within the region ofthe renal pelvis. No significant caliectasis. The proximal ureter andrenal pelvis are mildly dilated. Mild diffuse cortical thinning appearsvery similar. No new masses. No visible calculi. Left kidney: Kidney is mildly larger than the right but essentiallystable in size measuring 12.8 cm in the long axis. Moderate degree ofpelvocaliectasis which appears very similar to ultrasound of 01/13/2016.It is likely similar to the degree of pelvocaliectasis demonstrated on CTof 10/02/2016. Dilated extra-renal pelvis is very similar in appearance.Proximal left ureter appears mildly dilated. No visible masses orcalculi. IMPRESSION: 1. Moderate chronic left pelvocaliectasis. Status post removal of leftureteral stent. 2. No evidence of significant pelvocaliectasis/obstructive uropathy onthe right. A right ureteral stent remains in place. POS [id number] Mirian Richey MD [facility] Final Result documented in this encounter Visit Diagnoses Diagnosis Hydronephrosis, unspecified hydronephrosis type Hydronephrosis, unspecified hydronephrosis type documented in this encounter Care Teams Nuclear Design Engineer Relationship Specialty Start Date End Date Vinita Dumont NP [address] [place] [address] PCP - General Family Medicine 07/01/15 01/07/19 Hemanth Atkins MD [address] [place] [address] [email or web address] PCP - General Family Medicine 01/08/19 Dorita Ruiz MD [email or web address] Radiation Oncology 07/11/15 Silvia Martin RN [address] [place] [phone] [email or web address]@[email or web address] Registered Nurse 09/22/15 Oliva Lopez RN [address] [place] [phone] [email or web address] U Registered Nurse 09/22/15 Levi Jones MD [address] [place] [address] [email or web address] u Gynecologic Oncology 09/22/15 Susana Fernandez MD [address] [place] [address] Gynecologic Oncology 10/27/15 Vinita Dumont NP [address] [place] [address] Referring Physician Family Medicine 03/02/16 documented as of this encounter Additional Source Comments The information contained in this document represents components of the legal health record. It is not the complete legal health record.[facility]
--- OUTSIDE RECORDS SUMMARY | 2025-07-16 14:59 | XMS_ITS | Clinical Summary ---
Author Organization [facility] Address [address] [place] [address] Care Team Providers Care Prestressed Concrete Laborer Name Role Phone Mirian Richey MD Primary Care Provider [phone] Allergies No known active allergies Medications FLUoxetine (PROzac) 20 mg capsule Take 20 [...] (05/06/2018): Added automatically from request for surgery [id number] Dyspareunia in female 09/11/2017 Hypomagnesemia 10/26/2015 Impaired renal function 10/26/2015 Pre-op testing 08/31/2015 Cancer of cervix 07/29/2015 Cancer Staging:Clinical stage from 06/17/2015:FIGO Stage IIIB- Signed by Chelly White MD on 09/11/2017 Bilateral hydronephrosis 07/29/2015 Encounters Date Type Department Care Team Description 06/21/2025 Refill [facility] [address] [place] [address] Sampler Ovens: Priscilla Saez NP 05/25/2025 Refill [facility] [address] [place] [address] Sampler Ovens: Mirian Kent MD from Last 3 Months [...] 80 08/24/2024 2:57 PM EDT Temperature 36.6 C (97.8 F) 08/24/2024 2:57 PM EDT Respiratory Rate 16 06/11/2019 1:28 PM EDT [...] Info) Description 09/01/2025 4:00 PM EDT Follow-Up [facility] PUPPY TRAINER Oncology [address] [facility] [place] [address] Sampler Ovens: Chelly Teixeira MD [address] [place] [address] 04/05/2026 10:15 AM EDT Appointment [facility] Ultrasound [address] [place] [address] Health Maintenance Due Date Last Done Comments [...] 2023-2 5 season) 2024 11/28/2021, 02/25/2021, 02/04/2021 Alcohol/Substance Use Screening 11/18/2024 Depression Screening and Follow-Up 11/18/2024 Social Drivers of Health Annual Screening 11/18/2024 Influenza Vaccine (#1) 2025 RSV Vaccine (60+ years old a nd patients) (1 - 1-dose 75+ series) 2036 Hepatitis B Vaccines Aged Out No long er eligible based on patient's age to complete this topic Medical Devices Implanted Type Area Reservoir Engineering Advisor Device Identifier Shelf Expiration Date Model / Serial / Lot Stent Ureteral Firm Hydroplus Coating 7fr 26cm Percuflex Plus - [id number] Implanted:Qty: 1 on 10/09/2017 by Crissy Pierce MD at [facility] Stent Ureter [employer] 01/28/2020 175-273 / / [id number] Stent Ureteral Firm Hydroplus Coating 6fr 26cm Percuflex Plus - [id number] Implanted:Qty: 1 on 03/20/2018 by Mirian Richey MD at [facility] Stent Left: Ureter [employer] 09/10/2020 175-263 / / [id number] Stent Ureteral Firm Hydroplus Coating 6fr 26cm Percuflex Plus - [id number] Implanted:Qty: 1 on 03/20/2018 by Mirian Richey MD at [facility] Stent Right: Ureter [employer] 09/10/2020 175-263 / / [id number] Stent Ureteral Firm Hydroplus Coating 6fr 26cm Percuflex Plus - [id number] Implanted:Qty: 1 on 07/02/2018 by Mirian Richey MD at [facility] Stent [employer] 04/09/2021 175-263 / / [id number] Stent Ureteral Firm Hydroplus Coating 6fr 26cm Percuflex Plus - [id number] Implanted:Qty: 1 on 07/02/2018 by Mirian Richey MD at [facility] Stent [employer] 03/25/2021 175-263 / / [id number] Stent Ureteral Firm Hydroplus Coating 6fr 26cm Percuflex Plus - [id number] - [id number] Implanted:Qty: 1 on 10/31/2018 by Mirian Richey MD at [facility] Stent Left: Ureter [employer] 09/01/2021 175-263 / [id number] / [id number] Stent Ureteral Firm Hydroplus Coating 6fr 26cm Percuflex Plus - [id number] - [id number] Implanted:Qty: 1 on 10/31/2018 by Mirian Richey MD at [facility] Stent Right: Ureter [employer] 09/01/2021 175-263 / [id number] / [id number] Stent Ureteral Firm Hydroplus Coating 6fr 26cm Percuflex Plus - [id number] Implanted:Qty: 1 on 01/10/2019 by Golden Perry MD at [facility] Stent Right: Ureter [employer] 08/03/2021 175-263 / / [id number] Stent Ureteral Firm Hydroplus Coating 6fr 26cm Percuflex Plus - [id number] Implanted:Qty: 1 on 01/10/2019 by Golden Perry MD at [facility] Stent Left: Ureter [employer] 08/03/2021 175-263 / / [id number] Stent Ureteral Firm Hydroplus Coating 6fr 26cm Percuflex Plus - [id number] - [id number] Implanted:Qty: 1 on 04/09/2019 by Miiran Richey MD at [facility] Stent [employer] 02/01/2022 175-263 / [id number] / Stent Ureteral Firm Hydroplus Coating 6fr 26cm Percuflex Plus - [id number] Implanted:Qty: 1 on 04/16/2019 by Mirian Richey MD at [facility] Stent Left: Ureter [employer] 02/08/2022 175-263 / / [id number] Stent Ureteral Firm Hydroplus Coating 6fr 26cm Percuflex Plus - [id number] Implanted:Qty: 1 on 04/16/2019 by Mirian Richey MD at [facility] Stent Right: Ureter [employer] 02/01/2022 175-263 / / [id number] Procedures * Due to [place] [employer] law, this organization might not be sharing negative HIV tests. Procedure Name Priority Date/Time Associated Diagnosis Comments PAP W/HPV, CONVERSION Routine 07/15/2017 10:42 AM EDT from Last 3 Months or Most Recently Relevant to Health Maintenance Results * Due to [place] [employer] law, this organization might not be sharing negative HIV tests. * Pap w/HPV (07/15/2017 10:42 AM EDT) Path Procedure TPGS (653867) 1 HPVHR(291675) 1 Edited by: [id number] - 5223 MAHAMED [id number] - 6706 TRISTEN [id number] - 0533 [facility] ANATOMIC PATHOLOG[facility] - [facility] Specimen Labeled As: 1 CERVICAL/ENDOCERVI LM CYTO MATERIAL - Edited by: [id number] ENRRIQUE [facility] - [facility] Additional Test Information Specimens were tested for high risk HPV using the FDA approved Digene Hybrid Capture II kit, in the Diagnostic Molecular Oncology Lab at [facility]. This test can detect HPV high risk types 16, 18, 31, 33, 35, 39, 45, 51, 52, 56, 58, 59 and 68. High-risk subtypes of HPV are found in 96% of patients with high grade squamous intraepithelial lesions and cervical squamous cell carcinoma. Additional studies may be indicated in spite of a negative HPV test, e.g. in patients with a friable cervix or multiple previous abnormal pap tests. HPV testing is not recommended for managing patients with atypical glandular cells. Not all high-risk HPV infections are associated with a histologic or cytologic abnormality. We endorse the recommendations of the [place] Society for Colposcopy and Cervical Pathology for management of pap test results, available at www.asccp.org. ASCCP guidelines also recommend HPV 16/18 genotyping in patients over the age of 30 who have had positive high risk HPV testing, but have a negative morphologic Pap test (http://www.asccp. org/consensus.shtm l). The performance characteristics of this test have been validated by the Laboratory of Diagnostic Molecular Oncology. They have not been cleared or approved by the U.S. Food and Drug Administration (FDA). The FDA has determined that such clearance or approval is not necessary. The laboratory is certified (CLIA-88) to perform high complexity clinical laboratory testing. Edited by: [id number] - 1447 [facility] [id number] - 145 [facility] [id number] - 160 [facility] - [facility] Diagnosis ThinPrep Pap Test Adequacy: Specimen processed and examined but unsatisfactory for evaluation of epithelial cell abnormalities because of scant epithelial cellularity and obscuring blood. This Pap test could not be examined by the ThinPrep Imaging System, [facility], [place], [place], and required a full manual screening. This case was screened and diagnosed by the Cytology Laboratory at [facility], [place], [place] - High risk HPV DNA subtypes: NEGATIVE Edited by: [id number] - 1447 [facility] [id number] - 145 [facility] [id number] - 160 [facility] [id number] - 1701 [facility] ANATOMIC PATHOLOGY - [facility] THREE Gynecologic Clinical Data Specimen source:, THINPREP (CERVICAL AND ENDOCERVICAL) [facility] Gynecologic Clinical Data First date of LMP:, NOT GIVEN [facility] Pathology Codes Client Order Code:, TPHS3 [facility] Pathology Codes Bill Type:, 3RD REPUBLICAN BILLING [facility] Completed Report [id number] HPV, HIGH RISK TYPES 1 [facility] Marker 1 MDLISA,MD NEGATIVE [facility] ANATOMIC PATHOLOGY - [facility] THREE Marker 2 MSTITO.ARAM [facility] ANATOMIC PATHOLOGY - [facility] THREE Marker 3 OMRPT,MOLECULAR REPEAT [facility] Marker 4 RIM,RECEIVED IN MOLECULAR [facility] Marker 5 STQ,SENT TO [facility] ANATOMIC PATHOLOGY - [facility] THREE Marker 6 UNSAT,Unsatisfacto ry [facility] Cc Results To HALLIE Queen PUPPY TRAINER [phone] MACIEL Goyal PUPPY TRAINER [phone] [facility] Signature REPORT SIGNED: PAMELA SOLER 08/01/17 [facility] Sign Out Audit PAMELA SOLER [id number] [place] [place] [id number] [facility] Cytology / Unknown 10:42 AM EDT 07/16/2017 10:42 AM EDT us Susana Fernandez MD LAB HISTORICAL RESULTS Fin al Result [facility] [address] [place] [address] from Last 3 Months or Most Recently Relevant to Health Maintenance Insurance Advance Directives Documents on File Type Date Recorded Patient Clinical Technician Expl anation Health Care Proxy 01/10/2019 8:18 AM 2018 Health Care Proxy 08/08/2017 1:34 PM Health Care Proxy 08/08/2017 8:14 AM Health Care Proxy 01/09/2017 12:00 AM Heal th Care Proxy Healthcare Agents on File Name Relationship Healthcare Agent Relationshi p Communication Leon Jean Baptiste Spouse Next of Kin [phone] ( Home) Care Teams Prestressed Concrete Laborer Relationship Specialty Start Date End Date Mirian Richey MD [address] [place] [address] PCP - General Urology 01/31/24
--- OUTSIDE RECORDS SUMMARY | 2025-07-16 14:59 | XMS_ITS | Encounter Summary ---
Author Organization [facility] Address [address] [place] [address] Care Team Providers Care Facilities Planner Name Role Phone Mirian Richey MD Primary Care Provider [phone] Encounter Details Date Type Department Care Team (Late st Contact Info) Description 07/27/2020 Orders Only [facility] Nuclear Medicine [address] [place] [address] Alfredo Cedeno MD PhD [address] [place] [address] Social History Tobacco Use Types Packs/Day Years [...] Info) Description 09/01/2025 4:00 PM EDT Follow-Up [facility] MANUFACTURING PROCESS ENGINEER Oncology [address] [place] [address] Sole Stainer: Chelly Teixeira MD [address] [place] [address] 04/05/2026 10:15 AM EDT Appointment [facility] Ultrasound [address] [place] [address] documented as of this encounter Visit Diagnoses Not on filedocumented in this encounter Care Teams Facilities Planner Relationship Specialty Start Date End Date Mirian Richey MD [address] [place] [address] PCP - General Urology 01/31/24 documented as of this encounter
--- OUTSIDE RECORDS SUMMARY | 2025-07-16 14:59 | XMS_ITS | Clinical Summary ---
Author Organization [facility] Address [address] [facility] [address] [place] [address] Phone Care Team Providers Care Palliative Medicine Physician Name Role Phone Dorita Ruiz MD Unavailable [email or web address] Silvia Martin RN Unavailable [phone] Oliva Lopez RN Unavailable [phone] Levi Jones MD Unavailable [phone] Susana Fernandez MD Unavailable [phone] Vinita Dumont NP Unavailable [phone] Hemanth Atkins MD Primary Care Provider + [phone] Allergies No known active allergies Medications amLODIPine (NORVASC) 2.5 MG tablet Take 1 tablet (2.5 mg total) by mouth daily. 30 tablet 11/11/2020 Active atorvastatin (LIPITOR) 80 MG tablet Take 1 tablet (80 mg total) by mouth every evening. 30 tablet 11/10/2020 Active clopidogrel (PLAVIX) 75 mg tablet Take 1 tablet (75 mg total) by mouth daily. 21 tablet 11/11/2020 Active aspirin 81 mg chewable tablet Take 1 tablet (81 mg total) by mouth daily. 11/11/2020 Active Active Problems Problem Noted Date Diagnosed Date Central retinal artery occlusion of right eye Assessment & Plan (11/09/2020 7:47 PM EST): Risk factors for CVA include hypertension. She denies any history of hyperlipidemia or diabetes. No significant family history. Currently she states her vision in the right eye has improved, and she does not have any other focal neurologic deficits. NIHSS score 0. CT of the head without acute pathology, and CT angiogram without any large vessel stenosis or thrombus. No significant elevated inflammatory markers. 1. Observation on the medical floor, continuous EKG monitoring, neurochecks every 4 hours 2. MRI of the brain to evaluate for acute ischemia 3. Echocardiogram with bubble study to evaluate for thrombus, cardiomyopathy, or PFO 4. Continue aspirin 81 mg daily, Plavix 75 mg daily 5. Start atorvastatin 80 mg nightly, check lipid panel 6. Monitor blood pressure, goal systolic blood pressure less than 180 7. Check TSH, troponin, and hemoglobin A1c 8. The patient has passed a nursing bedside swallow evaluation and will be allowed to have a cardiac prudent diet 9. PT/OT evaluations prior to discharge Cervical cancer 07/11/2015 Hypertension Overview (11/09/2020): controlled off medication currently Assessment & Plan (11/09/2020 7:38 PM EST): Goal systolic blood pressure less than 180 per neurology. We will monitor blood pressure trend, patient states her blood pressure at her PCPs office has been well controlled recently. Family History Medical History Relation Comments Cancer Father Spine cancer NOS Relation Status Comments Father Social History Tobacco Use Types Packs/Day Years Used Date Smoking Tobacco: Never Alcohol Use Standard Drinks/Week Comments Yes 0 (1 standard drink = 0.6 oz pur e alcohol) Rare, social Education Answer Date Recorded Are you interested in more education? Not on sapna e 03/15/2023 Are you concerned about learning? Not on file 03/15/2023 No 03/15/2023 No 03/15/2023 Digital Access Answer Date Recorded No 04/15/2023 No 04/15/2023 No 04/15/2023 Reliable internet access at home? Not on file 04/15/2023 Device with a working camera? Not on file Comments No Sex and Gender Information Value Date Recorded Sex Assigned at Not on file Legal Sex Female 9:51 AM EDT Gender Identity Not on file Sexual Orientation Not on file Last Filed Vital Signs Vital Sign Reading Time Taken Comments Blood Pressure 175/103 11/10/2020 4:18 PM EST Pulse 84 11/10/2020 4:18 PM EST Temperature 37.1 C (98.8 F) 11/10/2020 4:18 PM EST Respiratory Rate 16 11/10/2020 4:18 PM EST Oxygen Saturation 93% 11/10/2020 4:18 PM EST Inhaled Oxygen Concentration - - Weight 83.2 kg (183 lb 6.8 oz) 11/09/2020 8:44 P M EST Height 160 cm (5' 3 ) 11/09/2020 8:44 PM EST Body Mass Index 32.49 11/09/2020 8:44 PM EST Plan of Treatment Health Maintenance Due Date Last Done Comments Adult Td,Tdap Booster 1961 BLOOD PRESSURE 1961 DEPRESSION SCREENING 1973 HEPATITIS C SCREENING 1979 HIV ONE-TIME SCREENING (18-6 5 YEARS) 1979 PNEUMOCOCCAL VACCINES (50+ years) (1 of 2 - PCV) 1980 ZOSTER VACCINES (1 of 2) 1980 PAP SMEAR 1982 MAMMOGRAM 2001 COLOGUARD 2006 COLONOSCOPY 2006 COLORECTAL CANCER SCREENING 2006 FIT TEST 2006 FOBT 2006 SIGMOIDOSCOPY 2006 VIRTUAL COLONOSCOPY 2006 COVID-19 VACCINE (4 - 2023-2 5 season) 2024 11/28/2021, 02/25/2021, 02/04/2021 LIPID PANEL 11/10/2025 11/10/2020 RSV VACCINE (1 - 1-dose 75+ series) 2036 SMOKING STATUS SCREENING (On ce After 26 Yrs) Completed 10/05/2015 HEPATITIS A VACCINES Aged Out No long er eligible based on patient's age to complete this topic HIB VACCINES Aged Out No longer eligi ble based on patient's age to complete this topic MENINGOCOCCAL VACCINES (ACWY) Aged Out No longer eligible based on patient's age to complete this topic MENINGOCOCCAL VACCINES (B) Aged Out N o longer eligible based on patient's age to complete this topic Medical Devices Not on file Procedures Procedure Name Priority Date/Time Associated Diagnosis Comments LIPID PANEL Routine 11/10/2020 5:45 AM EST from Last 3 Months or Most Recently Relevant to Health Maintenance Results * (ABNORMAL) Lipid panel (11/10/2020 5:45 AM EST) HDL 96 mg/dL [facility] Comment: Interpretation <40 mg/dL: Low HDL cholesterol (major risk factor for CHD) Greater than or equal to 60 mg/dL: High HDL cholesterol ( negative risk factor for CHD) HDL - cholesterol is affected by a number of factors, e.g. smoking, excerise, hormones, sex and age. CHOLESTEROL 290(H) 0 - 240 mg/dL [facility] TRIGLYCERIDES 94 30 - 160 mg/dL [facility] LDL 175(H) 50 - 129 mg/dL [facility] Comment: LDL levels in terms of risk for coronary heart disease: <100 mg/dL: Optimal 100-129 mg/dL: Near or above optimal 130-159 mg/dL: Borderline high 160-189 mg/dL: High >190 mg/dL: Very High CARDIAC RISK RATIO 3.0(L) 3.3 - 4.4 C [facility] Blood 11/10/2020 5:45 AM EST 11/10/2020 6:32 AM EST us Asaf Robles MD LAB BLOOD ORDERABLES Fin al Result Performing Organization Address City/State/[facility] Co de Phone Number [facility] [address] [place] [address] from Last 3 Months or Most Recently Relevant to Health [place] [phone] [facility] [address] [place] [address] [facility] Advance Directives For more information, please contact: [phone] (9AM - 5PM [place], Saturday-Saturday) * Full Code (Latest Code Status on File) Date Activated Date Inactivated Comments 11/09/2020 8:49 PM Question Answer Comments Code Status Confirmed With: Patient * Full Code (Presumed) Date Activated Date Inactivated Comments 10/03/2015 3:47 PM 10/06/2015 12:44 PM Care Teams Palliative Medicine Physician Relationship Specialty Start Date End Date Hemanth Atkins MD [address] [place] [address] [email or web address] PCP - General Family Medicine 01/08/19 Dorita Ruiz MD [email or web address] [email or web address] Oncology 07/11/15 Silvia Martin, RN [address] [place] [phone] [email or web address] Registered Nurse 09/22/15 Oliva Lopez RN [address] [place] [phone] [email or web address] Registered Nurse 09/22/15 Levi oJnes MD [address] [place] [address] [email or web address] Gynecologic Oncology 09/22/15 Susana Fernandez MD [address] [place] [address] Gynecologic Oncology 10/27/15 Vinita Dumont NP [address] [place] [address] Referring Physician Family Medicine 03/02/16 Additional Source Comments The information contained in this document represents components of the legal health record. It is not the complete legal health record.[facility]
--- OUTSIDE RECORDS SUMMARY | 2025-07-16 14:59 | XMS_ITS | Encounter Summary ---
Author Organization [facility] Address [address] [facility] [address] [place] [phone] Phone Care Team Providers Care Mathematics Faculty Member Name Role Phone Dorita Ruiz MD Unavailable [email or web address] Silvia Martin RN Unavailable [phone] Oliva Lopez RN Unavailable [phone] Levi Jones MD Unavailable [phone] Susana Fernandez MD Unavailable [phone] Vinita Dumont NP Unavailable [phone] Hemanth Atkins MD Primary Care Provider [phone] Reason for Referral * MRI/CAT Scan - Closed Specialty Diagnoses / Procedures Referred By Contac t Referred To Contact Radiology Diagnoses Pelvic and perineal pain Procedures CT Abdomen/Pelvis CHG CT SCAN,ABDOMENT AND PELVIS,W CONTRAST Lenore Posadas PA Phone: tel: fax: [email or web address] Referral ID Status Reason Start Date Expiration Date Visits Re quested Visits Authorized [id number] Closed 02/05/2023 04/06/2023 1 1 Encounter Details Date Type Department Care Team (Latest Contact Info) Description 02/05/2023 Transcribe Orders Virtual Department [address] [place] [address] Lenore Posadas PA [address] [place] [address] [email or web address] Pelvic and perineal pain (Primary Dx) Social History Tobacco Use Types Packs/Day Years [...] documented as of this encounter Results * CT ABDOMEN/PELVIS WITH CONTRAST (02/07/2023 12:41 PM EDT) Anatomical Region Laterality Modality Abdomen, Pelvis Computed Tomogra phy 02/07/2023 4:34 PM EDT Impressions 02/07/2023 10:41 PM EDT No cause for the reported symptoms identified in the abdomen/pelvis. No evidence of abdominopelvic metastasis. Narrative 02/07/2023 10:[address] ABDOMEN/PELVIS WITH CONTRAST TECHNIQUE: Multidetector-row CT of the abdomen and pelvis was performed after administration of intravenous contrast using tailored dose modulation techniques. Images were reconstructed in the axial, coronal, and sagittal planes. COMPARISON: CT abdomen/pelvis 10/02/2016. FINDINGS: Lower Chest: Normal. No consolidation or pleural effusions. Liver: No suspicious focal liver lesion. Biliary: No biliary ductal dilatation. Spleen: Normal. No splenomegaly or focal lesions. Pancreas: Normal. No masses or ductal dilatation. Adrenal Glands: Normal. No nodules. Kidneys/Ureters: Multiple subcentimeter renal hypodensities are too small to characterize but most likely benign. No solid renal mass or hydronephrosis. Multifocal bilateral renal cortical scarring, with diffuse asymmetric volume loss on the right. Evidence of prior bilateral ureteral reimplantation. Bowel: No bowel obstruction or wall thickening. Peritoneum/Retroperitoneum: Normal. No masses, pneumoperitoneum, or fluid. Lymph Nodes: Normal. No lymphadenopathy. Pelvic Organs/Bladder: Normal. No mass. Vessels: No abdominal aortic aneurysm. Bones/Soft Tissues: No suspicious focal osseous lesion. Procedure Note Joseph West MD - 02/07/2023 CT ABDOMEN/PELVIS WITH CONTRAST TECHNIQUE: Multidetector-row CT of the abdomen and pelvis was performedafter administration of intravenous contrast using tailored dosemodulation techniques. Images were reconstructed in the axial, coronal,and sagittal planes. COMPARISON: CT abdomen/pelvis 10/02/2016. FINDINGS: Lower Chest: Normal. No consolidation or pleural effusions. Liver: No suspicious focal liver lesion. Biliary: No biliary ductal dilatation. Spleen: Normal. No splenomegaly or focal lesions. Pancreas: Normal. No masses or ductal dilatation. Adrenal Glands: Normal. No nodules. Kidneys/Ureters: Multiple subcentimeter renal hypodensities are too smallto characterize but most likely benign. No solid renal mass orhydronephrosis. Multifocal bilateral renal cortical scarring, with diffuseasymmetric volume loss on the right. Evidence of prior bilateral ureteralreimplantation. Bowel: No bowel obstruction or wall thickening. Peritoneum/Retroperitoneum: Normal. No masses, pneumoperitoneum, orfluid. Lymph Nodes: Normal. No lymphadenopathy. Pelvic Organs/Bladder: Normal. No mass. Vessels: No abdominal aortic aneurysm. Bones/Soft Tissues: No suspicious focal osseous lesion. IMPRESSION: No cause for the reported symptoms identified in the abdomen/pelvis. No evidence of abdominopelvic metastasis. Lenore SAWYER IMG CT ABD/PELVIS Final Result documented in this encounter Visit Diagnoses Diagnosis Pelvic and perineal pain- Primary Pelvic and perineal pain documented in this encounter Care Teams Mathematics Faculty Member Relationship Specialty Start Date End Date Hemanth Atkins MD [address] [place] [id number] [email or web address] PCP - General Family Medicine 01/08/19 Dorita Ruiz MD [email or web address] Radiation Oncology 07/11/15 Silvia Martin RN [address] [place] [phone] [email or web address] Registered Nurse 09/22/15 Oliva Lopez RN [address] [place] [phone] [email or web address] Registered Nurse 09/22/15 Levi Jones MD [address] [place] [phone] [email or web address] Gynecologic Oncology 09/22/15 Susana Fernandez MD [address] [place] [phone] Gynecologic Oncology 10/27/15 Vinita Dumont NP [address] [place] [phone] Referring Physician Family Medicine 03/02/16 documented as of this encounter Additional Source Comments The information contained in this document represents components of the legal health record. It is not the complete legal health record.[facility]
--- OUTSIDE RECORDS SUMMARY | 2025-07-16 14:59 | XMS_ITS | Encounter Summary ---
Author Organization [facility] Address [address] [facility] [address] [place] [address] Phone Care Team Providers Care Predatory Animal Hunter Name Role Phone Vinita Dumont NP Primary Care Provider [phone] Dorita Ruiz MD Unavailable [email or web address] Silvia Martin RN Unavailable [phone] Oliva Lopez RN Unavailable [phone] Levi Jones MD Unavailable [phone] Susana Fernandez MD Unavailable [phone] Vinita Dumont SR ACCOUNT EXECUTIVE Unavailable [phone] Hemanth Atkins MD Primary Care Provider [phone] Encounter Details Date Type Department Care Team (Late st Contact Info) Description 07/29/2015 Transcribe Orders [facility] [address] [place] [phone] Ryanne Lee [email or web address] Social History Tobacco Use Types Packs/Day Years Used Date Smoking Tobacco: Never Alcohol Use Standard Drinks/Week Comments No 0 (1 standard drink = 0.6 oz pur e alcohol) Comments Unknown Sex and Gender Information Value Date Recorded Sex Assigned at Not on file Legal Sex Female 9:51 AM EDT Gender Identity Not on file Sexual Orientation Not on file documented as of this encounter Plan of Treatment Not on file documented as of this encounter Results * MRI Abdomen Outside (No Interpretation) (07/29/2015 3:04 PM EDT) Narrative ANYA - 07/29/2015 3:04 PM EDT This study is for PACS storage only and not for interpretation. us Dorita Ruiz MD IMG OUTSIDE IMAGING W/OUT INTER PRETATION Final Result ANYA documented in this encounter Visit Diagnoses Not on filedocumented in this encounter Care Teams Predatory Animal Hunter Relationship Specialty Start Date End Date Vinita Dumont NP [address] [place] [phone] PCP - General Family Medicine 07/01/15 01/07/19 Hemanth Atkins MD [address] [place] [phone] [email or web address] PCP - General Family Medicine 01/08/19 Dorita Ruiz MD [email or web address] Radiation Oncology 07/11/15 Silvia Martin RN [address] [place] [phone] [email or web address] Registered Nurse 09/22/15 Oliva Lopez RN [address] [place] [phone] [email or web address] Registered Nurse 09/22/15 Levi Jones MD [address] [place] [phone] [email or web address] Gynecologic Oncology 09/22/15 Susana Fernandez MD [address] [place] [phone] Gynecologic Oncology 10/27/15 Vinita Dumont NP [address] [place] [address] Referring Physician Family Medicine 03/02/16 documented as of this encounter Additional Source Comments The information contained in this document represents components of the legal health record. It is not the complete legal health record.[facility]
[2025-07-16 15:07] VITALS: BP 112/70; PULSE 86; O2SAT 95; BMI 31.0
--- NOTE | 2025-07-16 15:07 | MHC.PC.OV ---
Vital Signs 07/16/25 15:07 Height 5 ft 3 in Weight 175 lb 4 oz BMI 31.0 BP 112/70 Blood Pressure Location Lt brachial Pulse 86 Pulse Oximetry (%) 95 Intake Visit Reasons: 3 month f/u Clinical Informatics Physician Required: No Accompanied by: Spouse Allergies No Known Allergies Allergy (Verified 07/16/25 15:36) Medication List - Last Reconciled 07/16/25 by Catrachita Jenkins PA-C amlodipine 5 mg PO DAILY chlorthalidone 25 mg PO DAILY cholecalciferol (vitamin D3) 25 mcg PO DAILY citalopram 20 mg PO DAILY oxybutynin chloride ER 10 mg PO DAILY rosuvastatin 40 mg PO DAILY Tobacco use date assessed: 07/16/25 Dental Screening Dental Screen Date: 07/16/25 Did you have a dental visit in the last 12 months?: No Did you have a dental problem in the last 6 months where you did not have access to dental care?: No Was dental information given to patient?: No HPI 3 month f/u HPI Details 64 year old female with past medical history of impaired fasting glucose, CKD, hypertension, hyperlipidemia, depression, and claudication last seen 02/2025 coming in for follow up. Patient tells us today she continues to have left lower extremity swelling and DVT was ruled out at that time. She also mentions her depression is not well managed on escitalopram at this time and is looking for a change in medication. [facility] Medical History Cervical cancer Impaired fasting glucose Renal failure syndrome Chronic kidney disease, stage 3 Essential hypertension Retinal artery occlusion Mixed hyperlipidemia Social History Housing: House Patient Tobacco Use Status: Never used Tobacco e-Cigarette/Vaping Use: Never Used Second Hand Smoke Exposure: No service: No Current occupational status: employed Cognitive needs: No Hearing needs: No Vision needs: Yes Questionnaire PHQ-9 Over the last 2 weeks, how often have you been bothered by any of the following problems? 1. Little interest or pleasure in doing things: not at all 2. Feeling down, depressed, or hopeless: not at all 3. Trouble falling or staying asleep, or sleeping too much: not at all 4. Feeling tired or having little energy: not at all 5. Poor appetite or overeating: not at all 6. Feeling bad about yourself - or that you are a failure or have let yourself or your family down: not at all 7. Trouble concentrating on things, such as reading the newspaper or watching television: not at all 8. Moving or speaking so slowly that other people could have noticed. Or the opposite - being so fidgety or restless that you have been moving around a lot more than usual: not at all 9. Thoughts that you would be better off or of hurting yourself in some way: not at all Total score: 0 Depression Screening Interpretation: Negative Depression Screening Done: Yes Source: Developed by Drs. Nigel Ramirez, Jaz Bass, Mannie Zimmerman and colleagues, with an educational pool from [employer]. Thrive Questionnaire Date Thrive assessed: 12/25/24 I am a: Patient What is your living situation today?: I have a steady place to live Within the past 12 months, did the food you bought not last and you didn't have the money to get more?: Never true Within the past 12 months, did you worry whether your food would run out before you got money to buy more?: Never true Do you have trouble paying for medicines?: No Do you have trouble getting transportation to medical appointments?: No Do you have trouble paying your heating and electricity bill?: No Do you have trouble taking care of your child, family member or friend?: No Do you have trouble with day-to-day activities such as bathing, preparing meals, shopping, managing finances, etc.?: No Are you currently unemployed and looking for a job?: No Are you interested in more education?: No Please select the resources that you would like help with: None Currently or been in a relationship where the following occur: No concerns reported THRIVE Score: 0 AUDIT C Alcohol Use Questionnaire (AUDIT-C) 1. How often do you have a drink containing alcohol?: 2-3 times a week 2. How many drinks containing alcohol do you have on a typical day when you are drinking?: 1 or 2 3. How often do you have six or more drinks on one occasion?: Never Total Score: 3 LIBORIO-7 AMB Questionnaire LIBORIO-7 Date LIBORIO - 7 assessed: 12/25/24 Feeling nervous, anxious, or on edge: 0 = Not at all Not being able to stop or control worryin = Not at all Worrying too much about different things: 0 = Not at all Trouble relaxin = Not at all Being so restless that it is hard to sit still: 0 = Not at all Becoming easily annoyed or irritable: 0 = Not at all Feeling afraid as if something awful might happen: 0 = Not at all Total LIBORIO-7 score (0-4 normal; 5-9 mild; 10-14 moderate; 15-21 severe): 0 Source: Developed by Drs. Nigel Ramirez, Jaz Bass, Mannie Zimmerman and colleagues, with an educational pool from [employer]. LIBORIO-7 Assessment Billing LIBORIO-7 Assessment Tool: LIBORIO-7 Assessment 01756 Review of Systems Const Denies body aches, Denies chills, Denies fever(s), Denies headache(s) and Denies poor appetite Eyes Reports no additional complaints ENT Denies dizziness and Denies headache(s) Card Denies chest pain, Denies syncope, Denies lightheadedness and Denies dyspnea Resp Denies cough and Denies dyspnea GI Denies abdominal pain, Denies nausea and Denies vomiting Reports no additional complaints Musc Reports no additional complaints and Denies abnormal gait Skin/Breast Reports system reviewed and no additional complaints, except as documented Neuro Denies abnormal gait, Denies dizziness, Denies syncope and Denies headache(s) Psych Reports no additional complaints Physical exam (Primary Care) Vital Signs: Last Vital Signs Pulse 86 07/16/25 15:07 BP 112/70 07/16/25 15:07 Pulse Ox 95 07/16/25 15:07 BMI result Body Mass Index 31.0 Tobacco/Smoking Status: Tobacco use Status Tobacco use date assessed 07/16/25 07/16/25 15:12 Patient Tobacco Use Status Never used Tobacco 07/16/25 15:12 e-Cigarette/Vaping Use Never Used 07/16/25 15:12 PHQ-9: PHQ-9 Score PHQ-9: Total score 0 07/16/25 16:07 Depression Screening Interpretation: Negative Thrive Assessment: Date of Thrive Assessment Date Thrive assessed 02/07/25 08/29/25 15:12 Currently or been in a relationship where the following occur: No concerns reported Const General: cooperative, healthy appearing, comfortable and no acute distress Orientation/consciousness: patient oriented x3 HENMT Head: Yes normocephalic Ears: hearing grossly normal bilaterally General nose exam: Normal external nose present Eyes General: appearance normal, both eyes and all related structures Conjunctivae: conjunctivae normal Neck Neck: Yes full ROM and Yes no lymphadenopathy Resp Effort & Inspection: normal respiratory effort Auscultation: clear to auscultation bilaterally, no crackles, no rales, no rhonchi and no wheezes Cardio Rate: regular rate Rhythm: regular rhythm Skin General skin exam: no rashes or lesions noted Neuro General: patient oriented x3 Gait exam (Neuro): Normal gait present Extrem Other: Mild left lower extremity swelling with intact pulses without overlying skin changes or erythema. Very mild tenderness to palpation over lateral aspect of left lower leg General: Yes normal to inspection, Yes full ROM and No edema Psych Affect: normal affect Attitude: cooperative Insight: Good insight present (Psych) Judgement: Good judgement present (Psych) Coding Level of Care Code Est Pt Level 3 (86297) Diagnoses Obesity (BMI 30.0-34.9) E66.811 Mixed hyperlipidemia E78.2 Essential hypertension I10 Impaired fasting glucose R73.01 Depression F32.A Left leg claudication I73.9 Additional Codes LIBORIO-7 Assessment Billing - LIBORIO-7 Assessment Tool: LIBORIO-7 Assessment 83847 ([id number]) Assessment & Plan Assessment & Plan (1) Obesity (BMI 30.0-34.9): Code(s): E66.811 - Obesity, class 1 Category: Medical Plan: Healthy diet and regular exercise is encouraged. Wegovy was denied by insurance and patient will continue with exercise and dietary changes. (2) Mixed hyperlipidemia: Comment: onset:04/19/2022 Code(s): E78.2 - Mixed hyperlipidemia Category: Medical Plan: Avoid foods that are high in cholesterol such as red meat, fried foods, eggs and baked goods. Triglyceride goal of less than 150 and LDL goal of less than 130. Continue on rosuvastatin. Most recent cholesterol at goal (3) Essential hypertension: Comment: onset: 03/03/2021 Code(s): I10 - Essential (primary) hypertension Category: Medical Plan: Continue on current blood pressure medication. Avoid salt intake and encourage healthy diet and regular exercise. Plan to discontinue amlodipine at this time as she is having leg swelling and blood pressure is mildly low at 112/70. She agrees to take the blood pressure daily for the next week and send log through the portal. Consider different medication if blood pressure becomes elevated. (4) Impaired fasting glucose: Code(s): R73.01 - Impaired fasting glucose Category: Medical Plan: Decrease the amount of carbohydrates such as pasta, bread, rice, and potatoes and limit the amount of sweets. Although fruits are generally healthy they should be eaten in moderation as they are still high in sugar. Last A1c 5.5% (5) Depression: Comment: Declines counseling 12/2024 Code(s): F32.A - Depression, unspecified Category: Medical Plan: Patient is currently on citalopram and does not find it helpful at this time. Plan to start on Wellbutrin 100 mg daily and taper up to b.i.d. after 2 weeks if tolerated well. She will slowly taper the citalopram and this was discussed with the visit. (6) Left leg claudication: Code(s): I73.9 - Peripheral vascular disease, unspecified Category: Medical Plan: Patient has suspected left leg claudication in his awaiting vascular surgery referral at this time. Discussed red flag symptoms and when to present for re-evaluation advised good control of blood pressure at this time. DVT was ruled out by walk-in clinic Plan During the visit, we discussed the suspected claudication and the upcoming vascular surgery consultation. I explained the potential causes of the leg swelling and the plan to discontinue amlodipine to assess its impact on the edema. We also reviewed the patient's current hypertension management and the decision to monitor blood pressure at home after stopping amlodipine. For depression, we discussed transitioning from citalopram to Wellbutrin, including the tapering process and initiation of the new medication. The patient's cholesterol management with rosuvastatin was also reviewed, confirming that levels are well-controlled. Patient was informed and verbally consented to the use of an ambient scribe for clinic note documentation during this visit. This note was constructed using voice recognition software. While every effort has been made to ensure accuracy and cogeneration operator, still areas may have been included sometimes these areas may affect the content or meeting of the given symptoms. Total time spent caring for the patient today was 20 minutes. This includes time spent before the visit reviewing the chart, time spent during the visit, and time spent after the visit and documentation. Medications: New bupropion HCl 100 mg PO BID 60 tabs 1RF Discontinued amlodipine Discontinued Reason: Patient no longer taking 5 mg PO DAILY 90 tabs 0RF citalopram Discontinued Reason: Patient no longer taking 20 mg PO DAILY 30 tabs 1RF
== END 2025-07-16 16:11 | disposition home or self-care (01) ==
LOC: HO.HMCH 14:57
DX: E78.2 Mixed hyperlipidemia (principal); I10 Essential (primary) hypertension; E66.811 Obesity, class 1; Z68.31 Body mass index [BMI] 31.0-31.9, adult; R73.01 Impaired fasting glucose; F32.A Depression, unspecified; I73.9 Peripheral vascular disease, unspecified

== ENCOUNTER → 2025-07-16 14:56 | Outpatient (BNVA) | payer OTHER, SELFPAY | DX: I12.9 Hypertensive chronic kidney disease with stage 1 through stage 4 chronic kidney disease, or unspecified chronic kidney disease (principal); E66.811 Obesity, class 1; E78.2 Mixed hyperlipidemia; R73.01 Impaired fasting glucose; N18.30 Chronic kidney disease, stage 3 unspecified; F32.A Depression, unspecified; I73.9 Peripheral vascular disease, unspecified; Z68.31 Body mass index [BMI] 31.0-31.9, adult | CPT/HCPCS: 96127 ==

== ENCOUNTER 2025-08-10 13:55 | Outpatient (AMB) | payer OTHER, SELFPAY ==
--- NOTE | 2025-08-10 13:59 | MHC.OFFVIS ---
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 Left LE cramping. 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 She is a nonsmoker nondiabetic. Over the past month or so she has been experiencing significant pain left more so than right. It has been a persistent pain often causing pain at night. Of note she works as a assembly machine operator at [employer] and it has been affecting her work. Also she has a prior history of cervical cancer dating back to 2016 and she was treated by Dr. Richey at [facility]. She now presents to us for evaluation of this lower extremity pain. [facility] Medical History Cervical cancer Impaired fasting glucose Renal failure syndrome Chronic kidney disease, stage 3 Essential hypertension Retinal artery occlusion Mixed hyperlipidemia Social History Housing: House Patient Tobacco Use Status: Never used Tobacco e-Cigarette/Vaping Use: Never Used Second Hand Smoke Exposure: No service: No Current occupational status: employed Cognitive needs: No Hearing needs: No Vision needs: Yes Review of Systems Const All systems reviewed & are unremarkable except as noted in HPI and below Reports no additional complaints ENT Reports Normal hearing present Card Denies chest pain, Denies chest pain at rest, Denies chest pain with activity and Denies pedal edema Resp Denies cough GI Denies abdominal pain Musc Denies abnormal gait, Denies muscle cramps and Denies radiating pain into limb Skin/Breast Denies skin ulcer and Denies wounds Neuro Reports Normal hearing present and Denies abnormal gait Psych Reports no additional complaints Physical Exam Vital Signs: BMI result Body Mass Index 31.0 Const General: cooperative, healthy appearing and comfortable Orientation/consciousness: oriented to person, oriented to place and oriented to time HEENT Head: Yes normal to inspection Neck Neck: Yes normal visual inspection Carotids: no bruits Chest Chest palpation & inspection: normal inspection of the chest Resp Effort & Inspection: normal respiratory effort and able to speak in complete sentences Auscultation: clear to auscultation bilaterally, no crackles, no rales, no rhonchi and no wheezes Cardio Other: Faintly palpable dorsalis pedis pulses Rate: regular rate Rhythm: regular rhythm Heart sounds: S1 normal heart sound present and S2 normal heart sound present Bruits: no carotid bruits Peripheral pulses: Peripheral pulses 2+ throughout GI Inspection: Yes normal to inspection Skin Wounds: no wounds Hair: normal Neuro General: oriented to person, oriented to place and oriented to time Cranial nerves: Yes CN's II-XII intact bilaterally and Yes Normal hearing present Cognition (Neuro): normal cognition Motor exam (neuro): 5/5 motor strength present throughout Extrem Other: venous exam: +1 edema General: No clubbing, No cyanosis and No edema Psych Appearance: grossly normal Mental Status: mental status grossly normal Speech and movement: Normal speech and movement present Assessment & Plan Assessment & Plan (1) PAD (peripheral artery disease): Code(s): I73.9 - Peripheral vascular disease, unspecified Category: Medical Plan: In short patient has lower extremity pain. Unclear etiology of this it does not appear to be vascular in nature. I have taken the liberty of ordering noninvasive arterial testing to rule that out. Should this prove to be negative would begin extensive workup of the abdomen pelvis and lower extremities as this may be neurogenic in nature. In addition she does have a prior history of cancer. Thank you for allowing us to assist in her care. If there are any questions or concerns please do not hesitate to contact us. (2) Lymphedema: Code(s): I89.0 - Lymphedema, not elsewhere classified Category: Medical Plan: Patient does have a mild element of lymphedema. Stands to reason as she does have significant prior abdominal surgery. In addition the history of cancer. We will workup her lower extremity pain and should it be required we will workup for lymphedema as well. Thank you for allowing us to assist in her care. Coding Level of Care Code Est Pt Level 4 (05418) Diagnoses PAD (peripheral artery disease) I73.9 Lymphedema I89.0
[2025-08-10 14:01] VITALS: BMI 31.0
--- OUTSIDE RECORDS SUMMARY | 2025-08-10 17:09 | XMS_ITS | Encounter Summary ---
Author Organization [facility] Address [address] [facility] [address] [place] [address] Phone Care Team Providers Care Elementary School Professional Name Role Phone Dorita Ruiz MD Unavailable [email or web address] Silvia Martin RN Unavailable [phone] Oliva Loepz RN Unavailable [phone] Levi Jones MD Unavailable [phone] Susana Fernandez MD Unavailable [phone] Vinita Dumont NP Unavailable [phone] Hemanth Atkins MD Primary Care Provider [phone] Reason for Referral * MRI/CAT Scan - Closed Specialty Diagnoses / Procedures Referred By Contac t Referred To Contact Radiology Diagnoses Pelvic and perineal pain Procedures CT Abdomen/Pelvis CHG CT SCAN,ABDOMENT AND PELVIS,W CONTRAST Lenore Posadas PA Phone: tel: fax: mailto:[email or web address] Referral ID Status Reason Start Date Expiration Date Visits Re quested Visits Authorized [id number] Closed 02/05/2023 04/06/2023 1 1 Encounter Details Date Type Department Care Team (Latest Contact Info) Description 02/05/2023 Transcribe Orders Virtual Department [address] [place] [address] Lenore Posadas PA [address] [place] [address] [email or web address] Pelvic and perineal pain (Primary Dx) Social [...] pain documented in this encounter Care Teams Elementary School Professional Relationship Specialty Start Date End Date Hemanth Atkins MD [address] [place] [address] [email or web address] PCP - General Family Medicine 01/08/19 Dorita Ruiz MD [email or web address] Radiation Oncology 07/11/15 Silvia Martin RN [address] [place] [phone] KERA@[email or web address] Registered Nurse 09/22/15 Oliva Lopez RN [address] [place] [phone] [email or web address] U Registered Nurse 09/22/15 Levi Jones MD [address] [place] [address] Department of Obstetric[place] [address] [email or web address] u Gynecologic Oncology 09/22/15 Susana Fernandez MD [address] [place] [address] Department of Obstetric[place] [address] Gynecologic Oncology 10/27/15 Vinita Dumont NP [address] [place] [address] Referring Physician Family Medicine 03/02/16 documented as of this encounter Additional Source Comments The information contained in this document represents components of the legal health record. It is not the complete legal health record.[facility]
--- OUTSIDE RECORDS SUMMARY | 2025-08-10 17:09 | XMS_ITS | Encounter Summary ---
Author Organization [facility] Address [address] [facility] [address] [place] [address] Phone Care Team Providers Care Sexologist Name Role Phone Dorita Ruiz MD Unavailable [email or web address] Silvia Martin RN Unavailable [phone] Oliva Lopez RN Unavailable [phone] Levi Jones MD Unavailable [phone] Susana Fernandez MD Unavailable [phone] Vinita Dumont NP Unavailable [phone] Hemanth Atkins MD Primary Care Provider + [phone] Encounter Details Date Type Department Care Team (Late st Contact Info) Description 11/10/2020 Procedure Pass Non-Invasive Cardiology [address] [place] [address] Social History Tobacco Use Types Packs/Day Years [...] on filedocumented in this encounter Care Teams Sexologist Relationship Specialty Start Date End Date Hemanth Atkins MD [address] [place] [address] [email or web address] PCP - General Family Medicine 01/08/19 Dorita Ruiz MD [email or web address] Radiation Oncology 07/11/15 Silvia Martin RN [address] [place] [phone] [email or web address] Registered Nurse 09/22/15 Oliva Lopez RN [address] [place] [phone] [email or web address] U Registered Nurse 09/22/15 Levi Jones MD [address] [place] [address] Department of Obstetrics [place] [address] [email or web address] u Gynecologic Oncology 09/22/15 Susana Fernandez MD [address] [place] [address] Department of Obstetrics [place] [address] Gynecologic Oncology 10/27/15 Vinita Dumont NP [address] [place] [address] Referring Physician Family Medicine 03/02/16 documented as of this encounter Additional Source Comments The information contained in this document represents components of the legal health record. It is not the complete legal health record.[facility]
--- OUTSIDE RECORDS SUMMARY | 2025-08-10 17:09 | XMS_ITS | Encounter Summary ---
Author Organization [facility] Address [address] [facility] [address] [place] [address] Phone Care Team Providers Care Lab Systems Analyst Name Role Phone Dorita Ruiz MD Unavailable [email or web address] Silvia Martin RN Unavailable [phone] Oliva Lopez RN Unavailable [phone] Levi Jones MD Unavailable [phone] Susana Fernandez MD Unavailable [phone] Vinita Dumont NP Unavailable [phone] Hemanth Atkins MD Primary Care Provider + [phone] Encounter Details Date Type Department Care Team (Late st Contact Info) Description 11/09/2020 Procedure Pass [facility], Ct Scan - [address] [address] Social History Tobacco Use Types Packs/Day Years [...] 11/09/2020 2:30 PM Abdi Denson RN * [place] Suicide Severity Rating Scale (Screener/Recent Self-Report) Question [...] on filedocumented in this encounter Care Teams Lab Systems Analyst Relationship Specialty Start Date End Date Hemanth Atkins MD [address] [place] [address] [email or web address] PCP - General Family Medicine 01/08/19 Dorita Ruiz MD [email or web address] Radiation Oncology 07/11/15 Silvia Martin RN [address] [place] [phone] KERA@[facility] Registered Nurse 09/22/15 Oliva Lopez RN [address] [place] [phone] [email or web address] U Registered Nurse 09/22/15 Levi Jones MD [address] [place] [address] Department of Obstetrics [place] [address] [email or web address] u Gynecologic Oncology 09/22/15 Susana Fernandez MD [address] [place] [address] Department of Obstetrics [place] [address] Gynecologic Oncology 10/27/15 Vinita Dumont NP [address] [place] [address] Referring Physician Family Medicine 03/02/16 documented as of this encounter Additional Source Comments The information contained in this document represents components of the legal health record. It is not the complete legal health record.[facility]
--- OUTSIDE RECORDS SUMMARY | 2025-08-10 17:09 | XMS_ITS | Encounter Summary ---
Author Organization [facility] Address [address] [facility] [address] [place] [address] Phone Care Team Providers Care Supply Chain Specialist Name Role Phone Dorita Ruiz MD Unavailable [email or web address] Silvia Martin RN Unavailable [phone] Oliva Lopez RN Unavailable [phone] Levi Jones MD Unavailable [phone] Susana Fernandez MD Unavailable [phone] Vinita Dumont NP Unavailable [phone] Hemanth Atkins MD Primary Care Provider + [phone] Encounter Details Date Type Department Care Team (Late st Contact Info) Description 02/05/2023 Procedure Pass [facility], Ct Scan - [address] [address] Social History Tobacco Use Types Packs/Day Years [...] on filedocumented in this encounter Care Teams Supply Chain Specialist Relationship Specialty Start Date End Date Hemanth Atkins MD [address] [place] [address] [email or web address] PCP - General Family Medicine 01/08/19 Dorita Ruiz MD [email or web address] Radiation Oncology 07/11/15 Silvia Martin RN [address] [place] [phone] [email or web address]@[email or web address] Registered Nurse 09/22/15 Oliva Lopez RN [address] [place] [phone] [email or web address]. U Registered Nurse 09/22/15 Levi Jones MD [address] [place] [address] Department of Obstetrics [place] [address] [email or web address] u Gynecologic Oncology 09/22/15 Susana Fernandez MD [address] [place] [address] Department of Obstetrics [place] [address] Gynecologic Oncology 10/27/15 Vinita Dumont NP [address] [place] [address] Referring Physician Family Medicine 03/02/16 documented as of this encounter Additional Source Comments The information contained in this document represents components of the legal health record. It is not the complete legal health record.[facility]
--- OUTSIDE RECORDS SUMMARY | 2025-08-10 17:10 | XMS_ITS | Clinical Summary ---
Author Organization [facility] Address [address] [facility] [address] [place] [address] Phone Care Team Providers Care Acute Care Nursing Assistant Name Role Phone Dorita Ruiz MD Unavailable [email or web address] Silvia Martin RN Unavailable [phone] Oliva Lopez RN Unavailable [phone] Levi Jones MD Unavailable [phone] Susana Fernandez MD Unavailable [phone] Vinita Dumont NP Unavailable [phone] Hemanth Atkins MD Primary Care Provider + [phone] Allergies No known active allergies Medications amLODIPine [...] 2023-2 5 season) 2024 11/28/2021, 02/25/2021, 02/04/2021 INFLUENZA VACCINE (#1) 2025 LIPID PANEL 11/10/2025 11/10/2020 RSV VACCINE (1 [...] (11/10/2020 5:45 AM EST) HDL 96 mg/dL [facility] Comment: Interpretation <40 mg/dL: Low HDL cholesterol (major risk factor for CHD) Greater than or equal to 60 mg/dL: High HDL cholesterol ( negative risk factor for CHD) HDL - cholesterol is affected by a number of factors, e.g. smoking, excerise, hormones, sex and age. CHOLESTEROL 290(H) 0 - 240 mg/dL [facility] TRIGLYCERIDES 94 30 - 160 mg/dL [facility] LDL 175(H) 50 - 129 mg/dL [facility] Comment: LDL levels in terms of risk for coronary heart disease: <100 mg/dL: Optimal 100-129 mg/dL: Near or above optimal 130-159 mg/dL: Borderline high 160-189 mg/dL: High >190 mg/dL: Very High CARDIAC RISK RATIO 3.0(L) 3.3 - 4.4 C [facility] Blood 11/10/2020 5:45 AM EST 11/10/2020 6:32 AM EST us Asaf Robles MD LAB BLOOD ORDERABLES Fin al Result Performing Organization Address City/State/[facility] Co de Phone Number [facility] [address] [place] [address] from Last 3 Months or Most Recently Relevant to Health Maintenance Insurance [facility] [address] [place] [phone] [facility] [address] [place] [phone] [facility] [address] [place] [phone] [facility] [address] [place] [address] [facility] Advance Directives For more information, please contact: [phone] (9AM - 5PM [facility], Saturday-Saturday) * Full Code (Latest Code Status on File) Date Activated Date Inactivated Comments 11/09/2020 8:49 PM Question Answer Comments Code Status Confirmed With: Patient * Full Code (Presumed) Date Activated Date Inactivated Comments 10/03/2015 3:47 PM 10/06/2015 12:44 PM Care Teams Acute Care Nursing Assistant Relationship Specialty Start Date End Date Hemanth Atkins MD [address] [place] [address] [email or web address] PCP - General Family Medicine 01/08/19 Dorita Ruiz MD [email or web address] Radiation Oncology 07/11/15 Silvia Martin RN [address] [place] [phone] [email or web address]@[email or web address] Registered Nurse 09/22/15 Oliva Lopez RN [address] [place] [phone] [email or web address] U Registered Nurse 09/22/15 Levi Jones MD [address] [place] [address] Department of Obstetrics [place] [address] [email or web address] u Gynecologic Oncology 09/22/15 Susana Fernandez MD [address] [place] [address] Department of Obstetrics [place] [address] Gynecologic Oncology 10/27/15 Vinita Dumont NP [address] [place] [address] Referring Physician Family Medicine 03/02/16 Additional Source Comments The information contained in this document represents components of the legal health record. It is not the complete legal health record.[facility]
--- OUTSIDE RECORDS SUMMARY | 2025-08-10 17:10 | XMS_ITS | Encounter Summary ---
Author Organization [facility] Address [address] [facility] [address] [place] [address] Phone Care Team Providers Care Slot Editor Name Role Phone Vinita Dmuont NP Primary Care Provider [phone] Dorita Ruiz MD Unavailable [email or web address] Silvia Martin RN Unavailable [phone] Oliva Lopez RN Unavailable [phone] Levi Jones MD Unavailable [phone] Susana Fernandez MD Unavailable [phone] Vinita Dumont [employer]AR[employer] SCI[employer] FACULT[employer] MEMBER Unavailable [phone] Hemanth Atkins MD Primary Care Provider [phone] Encounter Details Date Type Department Care Team (Latest Contact Info) Description 12/24/2017 Ancillary Orders [facility] External Provider Virtual Department [address] [place] [address] Mirian Richey MD [address] [place] [address] Malignant neoplasm of cervix, unspecified site; Hydronephrosis, [...] Assessment Author No 10/04/2015 9:24 AM Preethi Adnre PA-C * Patient has serious difficulty dressing [...] 10/14/2017. POS [id number] Mirian Colette Richey MD [facility] Final Result documented in this encounter Visit Diagnoses Diagnosis Malignant neoplasm of cervix, unspecified site Hydronephrosis, unspecified hydronephrosis type Malignant neoplasm of cervix, unspecified site Hydronephrosis, unspecified hydronephrosis type documented in this encounter Care Teams Slot Editor Relationship Specialty Start Date End Date Vinita Dumont NP [address] [place] [address] PCP - General Family Medicine 07/01/15 01/07/19 Hemanth Atkins MD [address] [place] [address] [email or web address] PCP - General Family Medicine 01/08/19 Dorita Ruiz MD [email or web address] Radiation Oncology 07/11/15 Silvia Martin, JANNA [address] [place] [phone] [email or web address] Registered Nurse 09/22/15 Oliva Lopez RN [address] [place] [phone] [email or web address] U Registered Nurse 09/22/15 Levi Jones MD [address] [place] [address] Department of Obstetrics [place] [address] [email or web address] u Gynecologic Oncology 09/22/15 Susana Fernandez MD [address] [place] [address] Department of Obstetrics [place] [address] Gynecologic Oncology 10/27/15 Vinita Dumont NP [address] [place] [address] Referring Physician Family Medicine 03/02/16 documented as of this encounter Additional Source Comments The information contained in this document represents components of the legal health record. It is not the complete legal health record.[facility]
--- OUTSIDE RECORDS SUMMARY | 2025-08-10 17:10 | XMS_ITS | Encounter Summary ---
Author Organization [facility] Address [address] [facility] [address] [place] [address] Phone Care Team Providers Care Bait Tier Name Role Phone Vinita Dumont NP Primary Care Provider [phone] Dorita Ruiz MD Unavailable [email or web address] Silvia Martin RN Unavailable [phone] Oliva Lopez RN Unavailable [phone] Levi Jones MD Unavailable [phone] Susana Fernandez MD Unavailable [phone] Vinita Dumont BRAKE TESTER Unavailable [phone] Hemanth Atkins MD Primary Care Provider [phone] Encounter Details Date Type Department Care Team (Late st Contact Info) Description 07/29/2015 Transcribe Orders [facility] [address] [place] [address] Ryanne Lee [email or web address] Social History Tobacco Use Types Packs/Day [...] on filedocumented in this encounter Care Teams Bait Tier Relationship Specialty Start Date End Date Vinita Dumont NP [address] [place] [address] PCP - General Family Medicine 07/01/15 01/07/19 Hemanth Atkins MD [address] [place] [address] [email or web address] PCP - General Family Medicine 01/08/19 Dorita Ruiz MD [email or web address] Radiation Oncology 07/11/15 Silvia Martin RN [address] [place] [phone] [email or web address] Registered Nurse 09/22/15 Oliva Lopez RN [address] [place] [phone] [email or web address] U Registered Nurse 09/22/15 Levi Jones MD [address] [place] [address] Department of Obstetrics [place] [address] [email or web address] u Gynecologic Oncology 09/22/15 Susana Fernandez MD [address] [place] [address] Department of Obstetrics [place] [address] Gynecologic Oncology 10/27/15 Vinita Dumont NP [address] [place] [address] Referring Physician Family Medicine 03/02/16 documented as of this encounter Additional Source Comments The information contained in this document represents components of the legal health record. It is not the complete legal health record.[facility]
--- OUTSIDE RECORDS SUMMARY | 2025-08-10 17:10 | XMS_ITS | Encounter Summary ---
Author Organization [facility] Address [address] [facility] [address] [place] [address] Phone Care Team Providers Care Dopster Name Role Phone Vinita Dumont NP Primary Care Provider [phone] Dorita Ruiz MD Unavailable [email or web address] Silvia Martin RN Unavailable [phone] Oliva Lopez RN Unavailable [phone] Levi Jones MD Unavailable [phone] Susana Fernandez MD Unavailable [phone] Vinita Dumont LANDFILL GRADER Unavailable [phone] Hemanth Atkins MD Primary Care Provider + [phone] Encounter Details Date Type Department Care Team (Latest Contact Info) Description 10/09/2017 Ancillary Orders Virtual Department 30 [place] [address] Mirian Richey MD [address] [place] [address] Hydronephrosis, unspecified hydronephrosis type Social History Tobacco [...] in place. POS [id number] Mirian Richey MD [facility] Final Result documented in this encounter Visit Diagnoses Diagnosis Hydronephrosis, unspecified hydronephrosis type Hydronephrosis, unspecified hydronephrosis type documented in this encounter Care Teams Dopster Relationship Specialty Start Date End Date Vinita Dumont NP [address] [place] [address] PCP - General Family Medicine 07/01/15 01/07/19 Hemanth Atkins MD [address] [place] [address] [email or web address] PCP - General Family Medicine 01/08/19 Dorita Ruiz MD [email or web address] Radiation Oncology 07/11/15 Silvia Martin RN [address] [place] [phone] [email or web address] Registered Nurse 09/22/15 Oliva Lopez RN [address] [place] [phone] [email or web address] U Registered Nurse 09/22/15 Levi Jones MD [address] [place] [address] Department of Obstetric[place] [address] [email or web address] Gynecologic Oncology 09/22/15 Susana Fernandez MD [address] [place] [address] Department of Obstetrics [place] [address] Gynecologic Oncology 10/27/15 Vinita Dumont NP [address] [place] [address] Referring Physician Family Medicine 03/02/16 documented as of this encounter Additional Source Comments The information contained in this document represents components of the legal health record. It is not the complete legal health record.[facility]
--- OUTSIDE RECORDS SUMMARY | 2025-08-10 17:10 | XMS_ITS | Encounter Summary ---
Author Organization [facility] Address [address] [facility] [address] [place] [address] Phone Care Team Providers Care Date Night Sitter Name Role Phone Vinita Dumont NP Primary Care Provider [phone] Dorita Ruiz MD Unavailable [email or web address] Silvia Martin RN Unavailable [phone] Oliva Lopez RN Unavailable [phone] Levi Jones MD Unavailable [phone] Susana Fernandez MD Unavailable [phone] Vinita Dumont SOUND CUTTER Unavailable [phone] Hemanth Atkins MD Primary Care Provider [phone] Encounter Details Date Type Department Care Team (Late st Contact Info) Description 03/14/2018 Ancillary Orders Virtual Department [address] [place] [address] Mirian Richey MD [address] [place] [address] Other hydronephrosis Social History Tobacco Use Types [...] hydronephrosis documented in this encounter Care Teams Date Night Sitter Relationship Specialty Start Date End Date Vinita Dumont NP [address] [place] [address] PCP - General Family Medicine 07/01/15 01/07/19 Hemanth Atkins MD 70 [place] [address] [email or web address] PCP - General Family Medicine 01/08/19 Dorita Ruiz MD [email or web address] Radiation Oncology 07/11/15 Silvia Martin, RN [address] [place] [address] [phone] [email or web address] Registered Nurse 09/22/15 Oliva Lpoez RN [address] [place] [phone] [email or web address] U Registered Nurse 09/22/15 Levi Jones MD [address] [place] [address] Department of Obstetrics [place] [address] [email or web address] Gynecologic Oncology 09/22/15 Susana Fernandez MD [address] [place] [address] Department of Obstetrics [place] [address] Gynecologic Oncology 10/27/15 Vinita Dumont NP [address] [place] [address] Referring Physician Family Medicine 03/02/16 documented as of this encounter Additional Source Comments The information contained in this document represents components of the legal health record. It is not the complete legal health record.[facility]
--- OUTSIDE RECORDS SUMMARY | 2025-08-10 17:10 | XMS_ITS | Encounter Summary ---
Author Organization [facility] Address [address] [facility] [address] [place] [address] Phone Care Team Providers Care Debrander Name Role Phone Vinita Dumont NP Primary Care Provider [phone] Dorita Ruiz MD Unavailable [email or web address] Silvia Martin RN Unavailable [phone] Oliva Lopez RN Unavailable [phone] Levi Jones MD Unavailable [phone] Susana Fernandez MD Unavailable [phone] Vinita Dumont SLEEVE SETTER SAFETY STITCH Unavailable [phone] Hemanth Atkins MD Primary Care Provider + [phone] Encounter Details Date Type Department Care Team (Latest Contact Info) Description 03/03/2018 Ancillary Orders Virtual Department [address] [place] [address] Mirian Richey MD [address] [place] [address] Hydronephrosis, unspecified hydronephrosis type Social History Tobacco [...] type documented in this encounter Care Teams Debrander Relationship Specialty Start Date End Date Vinita Dumont NP [address] [place] [address] PCP - General Family Medicine 07/01/15 01/07/19 Hemanth Atkins MD [address] [place] [address] [email or web address] PCP - General Family Medicine 01/08/19 Dorita Ruiz MD [email or web address] Radiation Oncology 07/11/15 Silvia Martin RN [address] [place] [phone] [email or web address] Registered Nurse 09/22/15 Oliva Lopez RN [address] [place] [phone] [email or web address] U Registered Nurse 09/22/15 Levi Jones MD [address] [place] [address] Department of Obstetrics [place] [address] [email or web address] Gynecologic Oncology 09/22/15 Susana Fernandez MD [address] [place] [address] Department of Obstetrics [place] [address] Gynecologic Oncology 10/27/15 Vinita Dumont NP [address] [place] [address] Referring Physician Family Medicine 03/02/16 documented as of this encounter Additional Source Comments The information contained in this document represents components of the legal health record. It is not the complete legal health record.[facility]
--- OUTSIDE RECORDS SUMMARY | 2025-08-10 17:10 | XMS_ITS ---
Author Organization [facility] Address [address] [place] [address] Care Team Providers Care Mechanical Process Engineer Name Role Phone Mirian Richey MD Primary Care Provider [phone] Active Problems Problem Noted Date Diagnosed Date Abdominal pain 04/21/2019 Serum potassium elevated 01/09/2019 Elevated serum creatinine 01/09/2019 Acute renal failure (ARF) 01/09/2019 Malignant neoplasm of cervix 05/06/2018 Overview (05/06/2018): Added automatically from request for surgery [id number] Dyspareunia in female 09/11/2017 Hypomagnesemia 10/26/2015 Impaired [...]
--- OUTSIDE RECORDS SUMMARY | 2025-08-10 17:10 | XMS_ITS | Clinical Summary ---
Author Organization [facility] Address [address] [place] [address] Care Team Providers Care Orthopedic Designer Name Role Phone Mirian Richey MD Primary Care Provider [phone] Allergies No known active allergies Medications FLUoxetine [...] (05/06/2018): Added automatically from request for surgery [id number] Dyspareunia in female 09/11/2017 Hypomagnesemia 10/26/2015 Impaired renal function 10/26/2015 Pre-op testing 08/31/2015 Cancer of cervix 07/29/2015 Cancer Staging:Clinical stage from 06/17/2015:FIGO Stage IIIB- Signed by Chelly White MD on 09/11/2017 Bilateral hydronephrosis 07/29/2015 Encounters Date Type Department Care Team Description 07/20/2025 Refill [facility] Urology [address] [address] Seasonal Sales Associate: Priscilla Saez NP 06/21/2025 Refill [facility] Urology [address] [address] Seasonal Sales Associate: Priscilla Saez NP 05/25/2025 Refill [facility] Urology [address] [address] Seasonal Sales Associate: Mirian Kent MD from Last 3 Months [...] Info) Description 09/01/2025 4:00 PM EDT Follow-Up [facility] LOCAL ANNOUNCER Oncology [address] [facility] - [place] [address] Seasonal Sales Associate: Chelly Teixeira MD [address] [place] [address] 04/05/2026 10:15 AM EDT Appointment [facility] Ultrasound [address] [place] [address] Health Maintenance Due Date Last Done Comments [...] 07/15/2022 HPV and Pap Smear 07/15/2022 07/15/2017 Alcohol/Substance Use Screening 11/18/2024 Depression Screening and Follow-Up 11/18/2024 Social Drivers of Health Annual Screening 11/18/2024 COVID-19 Vaccine (4 - 2024-2 6 season) 2025 11/28/2021, 02/25/2021, 02/04/2021 Influenza Vaccine (#1) 2025 RSV Vaccine (60+ years old a nd patients) (1 - 1-dose 75+ series) 2036 Hepatitis B Vaccines Aged Out No long er eligible based on patient's age to complete this topic Medical Devices Implanted Type Area Reefer Engineer Device Identifier Shelf Expiration Date Model / Serial / Lot Stent Ureteral Firm Hydroplus Coating 7fr 26cm Percuflex Plus - [id number] Implanted:Qty: 1 on 10/09/2017 by Crissy Pierce MD at [facility] Stent Ureter [employer] 01/28/2020 175-273 / / [id number] Stent Ureteral Firm Hydroplus Coating 6fr 26cm Percuflex Plus - [id number] Implanted:Qty: 1 on 03/20/2018 by Mirian Richey MD at [facility] Stent Left: Ureter [employer] 09/10/2020 175-263 / / [id number] Stent Ureteral Firm Hydroplus Coating 6fr 26cm Percuflex Plus - [id number] Implanted:Qty: 1 on 03/20/2018 by Mirian Richey MD at [facility] Stent Right: Ureter [employer] 09/10/2020 175-263 / / [id number] Stent Ureteral Firm Hydroplus Coating 6fr 26cm Percuflex Plus - [id number] Implanted:Qty: 1 on 07/02/2018 by Mirian Richey MD at [facility] Stent [employer] 04/09/2021 175-263 / / [id number] Stent Ureteral Firm Hydroplus Coating 6fr 26cm Percuflex Plus - [id number] Implanted:Qty: 1 on 07/02/2018 by Mirian Richey MD at [facility] Stent [employer] 03/25/2021 175-263 / / [id number] Stent Ureteral Firm Hydroplus Coating 6fr 26cm Percuflex Plus - [id number] - [id number] Implanted:Qty: 1 on 10/31/2018 by Mirian Richey MD at [facility] Stent Left: Ureter [employer] 09/01/2021 175-263 / [id number] / [id number] Stent Ureteral Firm Hydroplus Coating 6fr 26cm Percuflex Plus - [id number] - [id number] Implanted:Qty: 1 on 10/31/2018 by Mirian Richey MD at [facility] Stent Right: Ureter [employer] 09/01/2021 175-263 / [id number] / [id number] Stent Ureteral Firm Hydroplus Coating 6fr 26cm Percuflex Plus - [id number] Implanted:Qty: 1 on 01/10/2019 by Golden Perry MD at [facility] Stent Right: Ureter [employer] 08/03/2021 175-263 / / [id number] Stent Ureteral Firm Hydroplus Coating 6fr 26cm Percuflex Plus - [id number] Implanted:Qty: 1 on 01/10/2019 by Golden Perry MD at [facility] Stent Left: Ureter [employer] 08/03/2021 175-263 / / [id number] Stent Ureteral Firm Hydroplus Coating 6fr 26cm Percuflex Plus - [id number] - [id number] Implanted:Qty: 1 on 04/09/2019 by Mirian Richey MD at [facility] Stent [employer] 02/01/2022 175-263 / [id number] / Stent Ureteral Firm Hydroplus Coating 6fr 26cm Percuflex Plus - [id number] Implanted:Qty: 1 on 04/16/2019 by Mirian Richey MD at [facility] Stent Left: Ureter [employer] 02/08/2022 175-263 / / [id number] Stent Ureteral Firm Hydroplus Coating 6fr 26cm Percuflex Plus - [id number] Implanted:Qty: 1 on 04/16/2019 by Mirian Richey MD at [facility] Stent Right: Ureter [employer] 02/01/2022 175-263 / / [id number] Procedures * Due to [place] state law, this organization might not be sharing negative HIV tests. Procedure Name Priority Date/Time Associated Diagnosis Comments PAP W/HPV, CONVERSION Routine 07/15/2017 10:42 AM EDT from Last 3 Months or Most Recently Relevant to Health Maintenance Results * Due to [place] state law, this organization might not be sharing negative HIV tests. * Pap w/HPV (07/15/2017 10:42 AM EDT) Path Procedure TPGS (357423) 1 HPVHR(851311) 1 Edited by: [id number] - 1090 MAHAMED [id number] - 0745 TRISTEN [id number] - 1130 [facility] ANATOMIC PATHOLOGY - BIOTECH THREE Specimen Labeled As: 1 CERVICAL/ENDOCERVI LM CYTO MATERIAL - Edited by: [id number] - 1568 ENRRIQUE [facility] ANATOMIC PATHOLOGY - BIOTECH THREE Additional Test Information Specimens were tested for high risk HPV using the FDA approved Digene Hybrid Capture II kit, in the Diagnostic Molecular Oncology Lab at [facility]. This test can detect HPV high risk [...] abnormality. We endorse the recommendations of the [place] [employer] for Colposcopy and Cervical Pathology for [...] high complexity clinical laboratory testing. Edited by: [id number] - 1447 [facility] [id number] - 145 [facility] [id number] - 1604 [facility] ANATOMIC PATHOLOGY - BI[facility] THREE Diagnosis ThinPrep Pap Test Adequacy: Specimen processed and examined but unsatisfactory for evaluation of epithelial cell abnormalities because of scant epithelial cellularity and obscuring blood. This Pap test could not be examined by the ThinPrep Imaging System, [employer], [place], [place], and required a full manual screening. This case was screened and diagnosed by the Cytology Laboratory at [place], [place] - High risk HPV DNA subtypes: NEGATIVE Edited by: [id number] - 1447 [facility] [id number] - 145 [facility] [id number] - 5 [facility] [id number] - 1701 TRISTEN [facility] ANATOMIC PATHOLOGY - BI[facility] THREE Gynecologic Clinical Data Specimen source:, THINPREP (CERVICAL AND ENDOCERVICAL) [facility] ANATOMIC PATHOLOGY - [facility] Gynecologic Clinical Data First date of LMP:, NOT GIVEN [facility] ANATOMIC PATHOLOGY - [facility] Pathology Codes Client Order Code:, TPHS3 [facility] ANATOMIC PATHOLOGY - [facility] THREE Pathology Codes Bill Type:, 3RD [employer] [facility] ANATOMIC PATHOLOGY - BI[facility] THREE Completed Report [id number] HPV, HIGH RISK TYPES 1 [facility] ANATOMIC PATHOLOGY - [facility] THREE Marker 1 MDNEG,MD NEGATIVE [facility] ANATOMIC PATHOLOGY - BIOTECH THREE Marker 2 MSTITO.ARAM [facility] ANATOMIC PATHOLOGY - BIOTECH THREE Marker 3 OMRPT,MOLECULAR REPEAT [facility] ANATOMIC PATHOLOGY - [facility] THREE Marker 4 RIM,RECEIVED IN MOLECULAR [facility] ANATOMIC PATHOLOGY - BI[facility] THREE Marker 5 STQ,SENT TO [facility] ANATOMIC PATHOLOGY - BIOTECH THREE Marker 6 UNSAT,Unsatisfacto ry [facility] ANATOMIC PATHOLOGY - [facility] THREE Cc Results To HALLIE Queen LOCAL ANNOUNCER [id number] MACIEL Goyal LOCAL ANNOUNCER [id number] [facility] ANATOMIC PATHOLOGY - [facility] THREE Signature REPORT SIGNED: PAMELA SOLER 08/01/17 [facility] ANATOMIC [facility]OLOG[facility] - [facility] Sign Out Audit PAMELA SOLER [id number] FINAL NEW TRISTEN [id number] [facility] ANATOMIC PATHOLOGY - BI[facility] THREE Cytology / Unknown 7 10:42 AM EDT 07/16/2017 10:42 AM EDT us Susana Fernandez MD LAB HISTORICAL RESULTS Fin al Result [facility] ANATOMIC PATHOLOGY - [facility] [address] from Last 3 Months or Most Recently Relevant to Health Maintenance Insurance Advance Directives Documents on File Type Date Recorded Patient Etcher Apprentice Expl anation Health Care Proxy 01/10/2019 8:18 AM 2018 Health Care Proxy 08/08/2017 1:34 PM Health Care Proxy 08/08/2017 8:14 AM Health Care Proxy 01/09/2017 12:00 AM Heal th Care Proxy Healthcare Agents on File Name Relationship Healthcare Agent Relationshi p Communication Leon Jean Baptiste Spouse Next of Kin [phone] ( Home) Care Teams Orthopedic Designer Relationship Specialty Start Date End Date Mirian Richey MD [address] [place] [address] PCP - General Urology 01/31/24
--- OUTSIDE RECORDS SUMMARY | 2025-08-10 17:10 | XMS_ITS | Encounter Summary ---
Author Organization [facility] Address [address] [facility] [address] [place] [address] Phone Care Team Providers Care Bilingual Speech Therapist Name Role Phone Vinita Dumont NP Primary Care Provider [phone] Dorita Ruiz MD Unavailable [email or web address] Silvia Martin RN Unavailable [phone] Oliva Lopez RN Unavailable [phone] Levi Jones MD Unavailable [phone] Susana Fernandez MD Unavailable [phone] Vinita Dumont CAUSTICISER Unavailable [phone] Hemanth Atkins MD Primary Care Provider [phone] Encounter Details Date Type Department Care Team (Late st Contact Info) Description 09/27/2015 Transcribe Orders [facility] [address] [place] [address] Princess Olmedo [address] [place] [address] [email or web address] Social History Tobacco Use Types Packs/Day [...] on filedocumented in this encounter Care Teams Bilingual Speech Therapist Relationship Specialty Start Date End Date Vinita Dumont NP [address] [place] [address] PCP - General Family Medicine 07/01/15 01/07/19 Hemanth Atkins MD [address] [place] [address] [email or web address] PCP - General Family Medicine 01/08/19 Dorita Ruiz MD [email or web address] Radiation Oncology 07/11/15 Silvia Martin RN [address] [place] [phone] [email or web address] Registered Nurse 09/22/15 Oliva Lopez RN [address] [place] [phone] [email or web address] U Registered Nurse 09/22/15 Levi Jones MD [address] [place] [address] Department of Obstetrics [place] [address] [email or web address] u Gynecologic Oncology 09/22/15 Susana Fernandez MD [address] [place] [address] Department of Obstetrics [place] [address] Gynecologic Oncology 10/27/15 Vinita Dumont NP [address] [place] [address] Referring Physician Family Medicine 03/02/16 documented as of this encounter Additional Source Comments The information contained in this document represents components of the legal health record. It is not the complete legal health record.[facility]
--- OUTSIDE RECORDS SUMMARY | 2025-08-10 17:10 | XMS_ITS | Encounter Summary ---
Author Organization [facility] Address [address] [facility] [address] [place] [address] Phone Care Team Providers Care Hourly Sign Language Interpreter Name Role Phone Dorita Ruiz MD Unavailable [email or web address] Silvia Martin RN Unavailable [phone] Oliva Lopez RN Unavailable [phone] Levi Jones MD Unavailable [phone] Susana Fernandez MD Unavailable [phone] Vinita Dumont NP Unavailable [phone] Hemanth Atkins MD Primary Care Provider [phone] Encounter Details Date Type Department Care Team (Late st Contact Info) Description 11/09/2020 Procedure Pass [facility] [address] [place] [address] Social History Tobacco Use Types Packs/Day Years [...] 11/09/2020 2:30 PM Abdi Denson, JANNA * [place] Suicide Severity Rating Scale (Screener/Recent Self-Report) Question [...] on filedocumented in this encounter Care Teams Hourly Sign Language Interpreter Relationship Specialty Start Date End Date Hemanth Atkins MD [address] [place] [address] [email or web address] PCP - General Family Medicine 01/08/19 Dorita Ruiz MD [email or web address] Radiation Oncology 07/11/15 Silvia Martin RN [address] [place] [phone] [email or web address] Registered Nurse 09/22/15 Oliva Lopez RN [address] [place] [phone] [email or web address] Registered Nurse 09/22/15 Levi Jones MD [address] [place] [address] Department of Obstetric[place] [address] [email or web address] Gynecologic Oncology 09/22/15 Susana Fernandez MD [address] [place] [address] Department of Obstetric[place] [address] Gynecologic Oncology 10/27/15 Vinita Dumont NP [address] [place] [address] Referring Physician Family Medicine 03/02/16 documented as of this encounter Additional Source Comments The information contained in this document represents components of the legal health record. It is not the complete legal health record.[facility]
--- OUTSIDE RECORDS SUMMARY | 2025-08-10 17:10 | XMS_ITS | Encounter Summary ---
Author Organization [facility] Address [address] [place] [address] Care Team Providers Care Board Writer Name Role Phone Mirian Richey MD Primary Care Provider [phone] Encounter Details Date Type Department Care Team (Late st Contact Info) Description 07/27/2020 Orders Only [facility] Nuclear Medicine [address] [place] [address] Alfredo Cedeno MD PhD [address] [place] [address] Social History Tobacco Use Types Packs/Day Years [...] Info) Description 09/01/2025 4:00 PM EDT Follow-Up [facility] VISUAL COMMUNICATIONS INSTRUCTOR Oncology [address] [place] [address] Mine Inspector: Chelly Teixeira MD [address] [place] [address] 04/05/2026 10:15 AM EDT Appointment [facility] Ultrasound [address] [place] [address] documented as of this encounter Visit Diagnoses Not on filedocumented in this encounter Care Teams Board Writer Relationship Specialty Start Date End Date Mirian Richey MD [address] [place] [address] PCP - General Urology 01/31/24 documented as of this encounter
--- OUTSIDE RECORDS SUMMARY | 2025-08-10 17:10 | XMS_ITS | Encounter Summary ---
Author Organization [facility] Address [address] [facility] [address] [place] [id number] Phone Care Team Providers Care Grinder Set Up Operator Jig Name Role Phone Dorita Ruiz MD Unavailable [email or web address] Silvia Martin RN Unavailable [phone] Oliva Lopez RN Unavailable [phone] Levi Jones MD Unavailable [phone] Susana Fernandez MD Unavailable [phone] Vinita Dumont NP Unavailable [phone] Hemanth Atkins MD Primary Care Provider [phone] Encounter Details Date Type Department Care Team (Latest Contact Info) Description 01/08/2019 Ancillary Orders Virtual Department [address] [place] [address] Mirian Richey MD [address] [place] [address] Hydronephrosis, unspecified hydronephrosis type Social History Tobacco [...] significantly smaller than the LEFT. POS - [id number] Narrative 10/29/2019 4:57 PM EST EXAM: US [...] significantly smaller than the LEFT. POS - [id number] Mirian Richey MD [facility] RENAL Final Result documented in this encounter Visit Diagnoses Diagnosis Hydronephrosis, unspecified hydronephrosis type Hydronephrosis, unspecified hydronephrosis type documented in this encounter Care Teams Grinder Set Up Operator Jig Relationship Specialty Start Date End Date Hemanth Atkins MD [address] [place] [address] [email or web address] PCP - General Family Medicine 01/08/19 Dorita Ruiz MD [email or web address] Oncology 07/11/15 Silvia Martin RN [address] [place] [phone] [email or web address] Registered Nurse 09/22/15 Oliva Lopez RN [address] [place] [phone] [email or web address] Registered Nurse 09/22/15 Levi Jones MD [address] [place] [address] Department of Obstetrics [place] [address] [email or web address] Gynecologic Oncology 09/22/15 Susana Fernandez MD [address] [place] [address] Department of Obstetrics [place] [address] Gynecologic Oncology 10/27/15 Vinita Dumont NP [address] [place] [phone] Referring Physician Family Medicine 03/02/16 documented as of this encounter Additional Source Comments The information contained in this document represents components of the legal health record. It is not the complete legal health record.[facility]
--- OUTSIDE RECORDS SUMMARY | 2025-08-10 17:10 | XMS_ITS | Encounter Summary ---
Author Organization [facility] Address [address] [place] [address] Care Team Providers Care Community Program Assistant Name Role Phone Mirian Richey MD Primary Care Provider [phone] Encounter Details Date Type Department Care Team (Late st Contact Info) Description 07/08/2020 Orders Only [facility] Interventional Radiology [address] [place] [phone] iFnn Manley MD [address] [place] [phone] Social History Tobacco Use Types Packs/Day Years [...] Info) Description 09/01/2025 4:00 PM EDT Follow-Up [facility] RISK OFFICER Oncology [address] [place] [phone] Sign Letterer: Chelly Teixeira MD [address] [place] [phone] 04/05/2026 10:15 AM EDT Appointment [facility] Ultrasound [address] [place] [address] documented as of this encounter Visit Diagnoses Not on filedocumented in this encounter Care Teams Community Program Assistant Relationship Specialty Start Date End Date Mirian Richey MD [address] [place] [address] PCP - General Urology 01/31/24 documented as of this encounter
== END 2025-08-10 14:39 | disposition home or self-care (01) ==
LOC: HO.HVS 13:56
PROVIDERS: Visit Provider Surgery Vascular Surgery
DX: I73.9 Peripheral vascular disease, unspecified (principal); I89.0 Lymphedema, not elsewhere classified
CPT/HCPCS: 99214

== ENCOUNTER 2025-08-26 03:30 | Inpatient (IN) | payer OTHER, SELFPAY ==
--- NOTE | ~2025-08-26 | XR_ITS ---
EXAMINATION: XR CHEST CLINICAL INFORMATION: chest pain COMPARISON: None available. TECHNIQUE: 2 views of the chest were obtained. FINDINGS: The cardiomediastinal silhouette is within normal limits. The lungs are well expanded. There is no focal consolidation, edema, or effusion. No pneumothorax. No acute osseous abnormality. XR/XR chest 2V IMPRESSION: No acute pulmonary process. Electronically signed by: Perico Robison MD 08/26/2025 07:39 AM EDT
--- NOTE | ~2025-08-26 | CT_ITS ---
EXAMINATION: CT ABDOMEN PELVIS ANGIOGRAPHY WITH IV CONTRAST HISTORY: mid abdominal pain COMPARISON: There are no prior studies for available comparison. TECHNIQUE: CT angiogram of the abdomen and pelvis was performed following administration of 85 mL Omnipaque 350 using standard departmental protocol. Coronal and sagittal reformatted images were generated and reviewed. This CT exam was performed with one or more of the following dose reduction techniques: automated exposure control, adjustment of the mA and/or kV according to patient size, use of iterative reconstruction technique. DLP: 391 mGy-cm FINDINGS: LOWER CHEST: The visualized lung bases are clear. There is no pleural effusion. CARDIOVASCULATURE: The heart is normal in size. There is no pericardial effusion. LIVER: The liver is normal in size and contour. No liver mass is identified. There is hyperemia adjacent to the gallbladder. The hepatic and portal veins are patent. GALLBLADDER / BILE DUCTS: The gallbladder is markedly distended. There is a tiny calculus in the gallbladder fundus. An additional probable calculus is seen in the region of the gallbladder neck. There is no intra or extrahepatic biliary ductal dilatation. SPLEEN: The spleen is normal in size. No focal splenic lesion is identified. PANCREAS: The pancreas is unremarkable in appearance. ADRENAL GLANDS: Within normal limits. KIDNEYS/RETROPERITONEUM: There is marked atrophy of the right kidney. No renal calculi are identified. There is no hydronephrosis. No renal masses are identified. LYMPH NODES: No abdominal or pelvic lymphadenopathy. VASCULATURE: The abdominal aorta is normal in caliber. The celiac axis, superior mesenteric artery, and inferior mesenteric artery are patent. There are 2 diminutive right renal arteries, which are patent. A single patent left renal artery is noted. The iliac arteries are normal in caliber. MESENTERY/PERITONEUM: No free fluid. No masses. There is no free intraperitoneal gas. STOMACH: The stomach is collapsed, limiting evaluation. SMALL BOWEL: The small bowel is normal in caliber. COLON: The colon is unremarkable. APPENDIX: Normal. URINARY BLADDER/PELVIC ORGANS: The urinary bladder is unremarkable. The uterus and ovaries are unremarkable. BONES / SOFT TISSUES: No suspicious bony or soft tissue abnormalities. CT/CT angio abdomen pelvis IMPRESSION: 1. Distended gallbladder with cholelithiasis and a probable calculus in the gallbladder neck. Ultrasound evaluation is recommended to evaluate for acute cholecystitis. 2. Unremarkable CT angiogram of the abdomen and pelvis. 3. Markedly atrophic right kidney. Electronically signed by: Nigel Doip MD 08/26/2025 09:09 AM EDT
--- NOTE | ~2025-08-26 | US_ITS ---
EXAMINATION: US ABDOMEN LIMITED CLINICAL INFORMATION: Question impacted gallstone. COMPARISON: Previous CT of the abdomen and pelvis from earlier the same day TECHNIQUE: Real-time imaging of the gallbladder FINDINGS: GALLBLADDER: The gallbladder is enlarged measuring 13.4 x 4.8 x 4.2 cm. There is a small gallstone in the gallbladder fundus measuring 6 x 3 x 5 mm. No impacted stone in the neck of the gallbladder is seen. Minimally dilated gallbladder wall measuring 4 mm, upper normal 3 mm. No gallbladder wall edema. No pericholecystic fluid. radiographic technologist reports the patient is tender over the gallbladder. COMMON BILE DUCT: Normal in caliber measuring 0.6 cm in diameter. FREE FLUID: None. US/US abdomen limited IMPRESSION: Distended gallbladder with small gallstone in the gallbladder fundus. Minimally thickened gallbladder wall. No impacted stone in the neck of the gallbladder seen by ultrasound. Technologist reports the patient is tender over the gallbladder. Electronically signed by: Abimbola Mendoza MD 08/26/2025 12:16 PM EDT
--- NOTE | 2025-08-26 03:52 | ECG_ITS ---
Test Reason : CP Blood Pressure : */* mmHG Vent. Rate : 80 BPM Atrial Rate : 80 BPM P-R Int : 184 ms QRS Dur : 90 ms QT Int : 372 ms P-R-T Axes : 61 -1 31 degrees QTcB Int : 429 ms Normal sinus rhythm Normal ECG No previous ECGs available Referred By: Rafa Ramires Electronically Signed By: TORY LOJA MD
[2025-08-26 05:50] VITALS: BP 145/80; PULSE 66; RESP 12; TEMP 37.7; O2SAT 94
[2025-08-26 05:53] LABS: Hematocrit 39.9 % (37.0-47.0); Hemoglobin 13.8 g/dl (12.0-16.0); Imm Gran Abs Auto 0.01 X10*3/uL (0.00-0.03); Imm Gran Pct Auto 0.2 % (0.0-0.4); Lymphocytes Absolute Auto 1.2 X10*3/uL (1.2-4.9); MANUAL DIFF FLAG NO; Mean Corpuscular HGB Conc 34.6 g/dl (31.0-35.0); Mean Corpuscular Hemoglobin 30.0 pg (27.0-33.0); Mean Corpuscular Volume 86.7 fL (80.0-98.0); NRBC Abs Auto 0.000 X10*3/uL (0.0-0.012); NRBC Pct Auto 0.0 /100WBC (0.0-0.2); Platelet Count 211 X10*3/uL (160-400); Red Blood Count 4.60 X10*6/uL (4.20-5.50); White Blood Count 6.2 X10*3/uL (4.8-10.8)
--- NOTE | 2025-08-26 06:03 | ED.GENADULT ---
HPI - General Adult General Chief complaint: Chest Pain Stated complaint: CP Time Seen by Provider: 08/26/25 03:54 History of Present Illness ED Provider: Keyla BRAND narrative: The patient is a 64-year-old female who comes to the emergency room because of pain in her epigastrium that she has had 4 days. She says that the pain may have begun on Saturday, 4 days ago. She says that it began gradually and has been getting gradually worse over the last 4 days. She describes a heaviness in her epigastrium that radiates to her back. This pain is not been associated with any fever, sweats, chills. It is not associated with any sense of shortness of breath. The pain does not very with respirations. She has had no cough or sputum. She has had no nausea or vomiting. She has had no change in her appetite. She has been eating normally. She says the pain feels somewhat worse at night. Tonight she was having the pain and she in her took her blood pressure at home. The diastolic was 99. They felt that this was concerning and came to the emergency room. The patient has been having a sense of swelling in her left leg for several months. Says that a ultrasound of the leg was ordered by her regular doctor because of the symptoms. She has a negative DVT ultrasound on June 03. She was then referred to Dr. Mondragon of vascular surgery. She was seen in the office 3 weeks ago. An outpatient noninvasive arterial testing has been ordered. The patient has a remote history of cervical cancer for which she has a lot of surgery. She is very worried that this pain is related to her history of cervical cancer. She is a nonsmoker and nondiabetic. She has a history of hypertension and is on chlorthalidone. She is also on rosuvastatin. Related Data Home Medications ?Medication ?Instructions ?Recorded ?Confirmed oxybutynin chloride 10 mg 10 mg PO DAILY 12/25/24 07/16/25 tablet,extended release 24 hr Previous Rx's ?Medication ?Instructions ?Recorded rosuvastatin 40 mg tablet 40 mg PO DAILY #90 tabs 12/25/24 cholecalciferol (vitamin D3) 25 25 mcg PO DAILY #90 caps 01/11/25 mcg (1,000 unit) capsule chlorthalidone 25 mg tablet 25 mg PO DAILY #90 tabs 05/25/25 bupropion HCl 100 mg tablet 100 mg PO BID #60 tabs 07/16/25 Allergies Allergy/AdvReac Type Severity Reaction Status Date / Time No Known Allergies Allergy Verified 08/10/25 14:04 [facility] Past Medical History Medical History Cervical cancer Impaired fasting glucose Renal failure syndrome Chronic kidney disease, stage 3 Essential hypertension Retinal artery occlusion Mixed hyperlipidemia Social History Social History Housing: House Patient Tobacco Use Status: Never used Tobacco Smoked in Last 30 Days: No e-Cigarette/Vaping Use: Never Used Second Hand Smoke Exposure: No Advance Directives: No Advance Directives Information Provided: Yes service: No Current occupational status: employed Cognitive needs: No Hearing needs: No Vision needs: Yes Physical Exam ED Vital Signs: Vital Signs - 24 hr 08/26/25 05:50 08/26/25 07:58 08/26/25 10:30 Temperature 99.8 F 98.5 F Pulse Rate 66 75 68 Respiratory Rate 12 17 17 Blood Pressure 145/80 H 134/85 127/63 Pulse Oximetry 94 96 94 Oxygen Delivery Method Room Air Room Air Room Air 08/26/25 13:52 Temperature Pulse Rate 66 Respiratory Rate 16 Blood Pressure 139/58 L Pulse Oximetry 93 Oxygen Delivery Method Room Air BMI result Body Mass Index 28.2 Const Other: The patient is awake and alert. She had a very anxious affect. She did not seem in distress otherwise. Orientation/consciousness: patient oriented x3 HENMT Other: The face is symmetrical. ?Mucous membranes moist. Eyes Other: Pupils are round equal, conjunctivae are clear, extraocular movements intact General: appearance normal, both eyes and all related structures Neck Neck: Yes normal visual inspection and Yes full ROM Resp Effort & Inspection: normal respiratory effort Auscultation: clear to auscultation bilaterally Cardio Rate: regular rate Rhythm: regular rhythm Heart sounds: S1 normal heart sound present and S2 normal heart sound present GI Other: The patient had some tenderness in the epigastrium without rebound or guarding. Otherwise the abdomen was soft and nontender without masses. No Mena's sign General: Yes no CVA tenderness Back/Spine/Pelvis Back: no CVA tenderness Skin Other: The skin is dry and unremarkable Neuro Other: The patient has a very anxious affect. Her mental status is otherwise normal. General: patient oriented x3, tone normal, moves all extremities, no focal motor deficits and CN's II-XI intact bilaterally Extrem Other: There is no calf swelling or tenderness. No asymmetry. No peripheral edema. Course Reevaluation(s) Reevaluation #1: Distended gallbladder with small gallstone in the gallbladder fundus. Minimally thickened gallbladder wall. No impacted stone in the neck of the gallbladder seen by ultrasound. Technologist reports the patient is tender over the gallbladder. 12:34 PM 08/26/2025 (Dr. Chente Benitez): will reach out to Dr. Humphreys regarding ultrasound findings, will add LFTs Time: 12:32 Medications Administered Discontinued Medications Generic Name Dose Route Start Last Admin Trade Name Freq PRN Reason Stop Dose Admin Lactated Ringer's 1,000 mls @ 999 mls/hr 08/26/25 09:45 08/26/25 11:34 Lr IV 08/26/25 10:45 Infused .Q1H1M JEAN-CLAUDE Infusion Acetaminophen 1,000 mg in 100 mls @ 400 mls/hr 08/26/25 09:44 08/26/25 10:22 Ofirmev IV 08/26/25 09:58 Infused ONCE ONE Infusion Iohexol 100 ml 08/26/25 08:56 08/26/25 08:56 Iohexol 350 Mg/Ml 100 Ml Infus..Btl IV 08/26/25 08:57 80 ml ONCE ONE Administration Medical Decision Making Medical Decision Making [facility] Narrative: The patient is a 64-year-old woman who presents with an almost 4 day history of epigastric pain that she says has been getting worse. It started gradually. It has been very consistent and persistent and worsening she says. Surprisingly this pain does not have much in the way of associated symptoms. There was no associated nausea or vomiting. She does not feel that her appetite has been affected by the pain. She has been eating normally. She has had no change in her bowel habits.. She feels the pain primarily in her epigastrium, not really in her chest. She has no cough or sputum. The pain is not pleuritic. She does not feel short of breath. She says the pain radiates to her back. The patient seems extremely worried that the pain could represent a recurrence of her cervical cancer (she had pelvic surgery several years ago). Her vital signs are unremarkable in her physical exam is for the most part quite benign. She has been having some problems with pain in her left leg. This has been going on for a few months and she had a left lower extremity ultrasound in May because of this pain and she more recently had a referral to Dr. Mondragon of vascular surgery. I do not think the patient has epigastric pain today represents a pulmonary embolism. She has no shortness of breath and no pleuritic pain. I do not think her pain today represents an acute coronary syndrome. She has had consistent pain for several days and she has a normal EKG and troponin. The patient seems to be located primarily in her epigastrium but surprisingly she has no gastrointestinal symptoms such as nausea or vomiting or loss of appetite. Given the location of the pain this could be gastritis but gastritis with typically have some associated nausea or loss of appetite or other associated gastrointestinal symptom. I do not feel she had significant right upper quadrant tenderness. Given some concern about vascular disease and given the patient has obvious concerned that she has some recurrence of her cervical cancer I felt abdominal imaging as an angiogram would be reasonable. Somewhat to my surprise the CAT scan shows a distended gallbladder with a gallstones and a question of possible gallbladder neck impaction. Recommendation for correlation with the ultrasound. She also has a markedly atrophic right kidney but no other acute findings. Clinically this does not seem to be a case of biliary colic but given these CT findings we will obtain an ultrasound as well. I will be signing the patient out to my colleague at change of shift pending the results of the ultrasound. Lab Data 08/26/25 04:00 08/26/25 04:00 Labs: Lab Results 08/26/25 Range/Units 04:00 WBC 6.2 (4.8-10.8) X10*3/uL RBC 4.60 (4.20-5.50) X10*6/uL Hgb 13.8 (12.0-16.0) g/dl Hct 39.9 (37.0-47.0) % MCV 86.7 (80.0-98.0) fL MCH 30.0 (27.0-33.0) pg MCHC 34.6 (31.0-35.0) g/dl RDW 12.1 (11.0-16.0) % Plt Count 211 (160-400) X10*3/uL MPV 9.3 L (9.4-12.3) fL Immature Gran % (Auto) 0.2 (0.0-0.4) % Neut % (Auto) 70.3 (45-73) % Lymph % (Auto) 19.3 L (20-40) % Mercer % (Auto) 8.1 (2-11) % Eos % (Auto) 1.9 (0-4) % Baso % (Auto) 0.2 (0-2) % Lymph # (Auto) 1.2 (1.2-4.9) X10*3/uL Mercer # (Auto) 0.5 (0.1-1.2) X10*3/uL Eos # (Auto) 0.1 (0.0-0.4) X10*3/uL Baso # (Auto) 0.0 (0.0-0.2) X10*3/uL Abs Immat Gran (auto) 0.01 (0.00-0.03) X10*3/uL Absolute Neuts (auto) 4.3 (2.0-8.3) x10*3/uL Absolute Nucleated RBC 0.000 (0.0-0.012) X10*3/uL Nucleated RBC % (auto) 0.0 (0.0-0.2) /100WBC Sodium 142 (135-145) mmol/L Potassium 3.4 (3.3-5.1) mmol/L Chloride 106 (96-108) mmol/L Carbon Dioxide 25 (22-29) mmol/L Anion Gap 14 (12-20) BUN 23 H (9-16) mg/dL Creatinine 1.21 (0.5-1.4) mg/dL Estim Creat Clear Calc TNP Estimated GFR 45 Random Glucose 125 H (60-115) mg/dL Calcium 9.7 (8.4-10.2) mg/dL Total Bilirubin 0.5 (0.0-1.0) mg/dL Direct Bilirubin 0.2 (0.0-0.5) mg/dL AST 20 (5-31) U/L ALT 13 (0-31) U/L Alkaline Phosphatase 71 (39-117) U/L Troponin I High Sens 9.1 (<3.5-17.0) ng/L Total Protein 7.5 (6.5-8.0) g/dL Albumin 4.6 (3.5-5.0) g/dL Lipase 39 (8-78) U/L Discharge Plan Discharge Clinical Impression: Epigastric pain, Acute cholecystitis Patient Disposition: Admitted As Inpatient
[2025-08-26 06:15] LABS: Anion Gap 14 (12-20); Blood Urea Nitrogen 23 mg/dL (9-16); Calcium 9.7 mg/dL (8.4-10.2); Carbon Dioxide 25 mmol/L (22-29); Chloride 106 mmol/L (96-108); Estimated Glomerular Filt Rate 45; Potassium 3.4 mmol/L (3.3-5.1); Sodium 142 mmol/L (135-145); Troponin-I High Sensitivity 9.1 ng/L (<3.5-17.0)
[2025-08-26 07:58] VITALS: BP 134/85; PULSE 75; RESP 17; TEMP 36.9; O2SAT 96
[2025-08-26] MEDS: iohexoL 350 MG/ML 100 ML INFUS..BTL IV (08:56)
[2025-08-26 10:08] VITALS: BMI 28.2
[2025-08-26] MEDS: Lactated Ringers 1,000 ML 999 ML IV (10:10)
[2025-08-26 10:30] VITALS: BP 127/63; PULSE 68; RESP 17; O2SAT 94
[2025-08-26 13:11] LABS: Alanine Aminotransferase 13 U/L (0-31); Albumin Level 4.6 g/dL (3.5-5.0); Alkaline Phosphatase 71 U/L (39-117); Aspartate Amino Transferase 20 U/L (5-31); Lipase 39 U/L (8-78); Total Protein 7.5 g/dL (6.5-8.0)
[2025-08-26 13:52] VITALS: BP 139/58; PULSE 66; RESP 16; O2SAT 93
--- NOTE | 2025-08-26 14:50 | P.HPGS_ITS ---
History of Present Illness History of Present Illness Date of Service: 08/26/25 Chief complaint: acute cholecystitis Narrative: Gela Jean Baptiste is a 64 year old female with PMH of CKD stage 3, PAD, lymphedema, hx of cervical cancer who presented to the ED with complaints of epigastric abdominal pain. She reports the pain began 4 days prior and has gradually worsened in severity. It became severe and sharp today and felt more in her chest with radiation to her back. Her took her BP at home and she had diastolic in the 90s and this coupled with the chest pain, she became concerned and therefore presented to the ED for evaluation. She denies fevers, chills, difficulty breathing, nausea, vomiting, diarrhea, ibuprofen or significant alcohol use. She has been eating normally. Work up in the ED included CBC, BMP, LFTs which were unremarkable. She does have a slight bump in her Cr. CTA abd pelvis and subsequent ABD US were performed which showed distended gallbladder with small gallstone in the gallbladder fundus, minimally thickened gallbladder wall with tenderness with the US probe. She reports continued pain. She denies prior similar episodes of pain. She has a surgical history for robotic repair of her ureters following treatment for her cervical CA. Review of Systems Review of Systems: Yes all other systems are reviewed and are negative PMFSH Past Medical History Medical History Cervical cancer Impaired fasting glucose Renal failure syndrome Chronic kidney disease, stage 3 Essential hypertension Retinal artery occlusion Mixed hyperlipidemia Social History Social History Housing: House Patient Tobacco Use Status: Never used Tobacco Smoked in Last 30 Days: No e-Cigarette/Vaping Use: Never Used Second Hand Smoke Exposure: No Advance Directives: No Advance Directives Information Provided: Yes service: No Current occupational status: employed Cognitive needs: No Hearing needs: No Vision needs: Yes Meds Allergies Allergy/AdvReac Type Severity Reaction Status Date / Time No Known Allergies Allergy Verified 08/10/25 14:04 Active Medications: Current Medications Calcium Carbonate (Calcium Carbonate 750 Mg Tab.Chew) 750 mg PO Q4H PRN PRN Reason: Heartburn Docusate Sodium (Docusate Sodium 100 Mg Capsule) 100 mg PO BID PRN PRN Reason: constipation Lactated Ringer's (Lr) 1,000 mls @ 100 mls/hr IVCONT .Q10H [facility] Piperacillin Sod/Tazobactam (Sod 3.375 gm/ Sodium Chloride) 50 mls @ 100 mls/hr IV Q6H [facility] Last Admin: 08/26/25 14:48 Dose: 100 mls/hr Magnesium Hydroxide (Milk Of Magnesia 30 Ml Oral.Susp) 30 ml PO DAILY PRN PRN Reason: Constipation Melatonin (Melatonin 3 Mg Tablet) 6 mg PO BEDTIME PRN PRN Reason: Insomnia Morphine Sulfate (Morphine Sulfate 4 Mg/Ml Cartridge) 4 mg IVPUSH Q4H PRN; Protocol PRN Reason: Pain, Severe (Pain Scale 7-10) Last Admin: 08/26/25 14:49 Dose: 4 mg Ondansetron HCl (Ondansetron Hcl 4 Mg/2 Ml Vial) 4 mg IVPUSH Q8H PRN PRN Reason: Nausea and Vomiting Oxycodone HCl (Oxycodone Hcl Immed Release 5 Mg Tablet) 5 mg PO Q6H PRN PRN Reason: Pain, Moderate(Pain Scale 4-6) Sodium Chloride (0.9 % Sodium Chloride Flush 3 Ml Syringe) 3 ml IVFLUSH QSHIFT [facility] Home Medications ?Medication ?Instructions ?Recorded ?Confirmed ?Last Taken ?Type oxybutynin chloride 10 mg 10 mg PO DAILY 12/25/2406/19 Unknown History tablet,extended release 24 hr amlodipine 5 mg tablet 5 mg PO DAILY 08/26/25 Unkn own History Physical Exam Vital Signs: Vital Signs: Last Vital Signs Temp 98.5 F 08/26/25 07:58 Pulse 66 08/26/25 13:52 Resp 16 08/26/25 13:52 BP 139/58 L 08/26/25 13:52 Pulse Ox 93 08/26/25 13:52 O2 Del Method Room Air 08/26/25 13:52 BMI result Body Mass Index 28.2 Const: General: comfortable, no acute distress and alert Orientation/consciousness: patient oriented x3 Resp: Effort & Inspection: normal respiratory effort GI: Inspection: No distended and Yes scar (small well healed surgical scars throughout mid abdomen ) Palpation (GI): Soft to palpation, Tenderness to palpation present (GI) (moderate epigastric and RUQ tenderness) and no guarding Skin: General skin exam: no rashes or lesions noted and no jaundice Neuro: General: patient oriented x3 Results Results Labs: Short CBC 08/26/25 Range/Units 04:00 WBC 6.2 (4.8-10.8) X10*3/uL Hgb 13.8 (12.0-16.0) g/dl Hct 39.9 (37.0-47.0) % Plt Count 211 (160-400) X10*3/uL BMP 08/26/25 04:00 Sodium 142 Potassium 3.4 Chloride 106 Carbon Dioxide 25 BUN 23 H Creatinine 1.21 Calcium 9.7 Liver Function 08/26/25 Range/Units 04:00 Total Bilirubin 0.5 (0.0-1.0) mg/dL Direct Bilirubin 0.2 (0.0-0.5) mg/dL AST 20 (5-31) U/L ALT 13 (0-31) U/L Alkaline Phosphatase 71 (39-117) U/L Albumin 4.6 (3.5-5.0) g/dL Abdomen CT scan report/results: report reviewed and image reviewed Abdominal ultrasound report/results: report reviewed and image reviewed Assessment and Plan (1) Acute cholecystitis: Status: Acute Plan 64 year old female with PMH of CKD stage 3, PAD, lymphedema, hx of cervical cancer presenting with 4 day history of epigastric abdominal pain found to have gallstones and a distended gallbladder. She is moderately tender in the epigastric/RUQ region. Will admit to the surgical service for further treatment of the likely early acute cholecystitis. She was started on IV zosyn, IVF. She will be made NPO at midnight for plan for laparoscopic cholecystectomy, possible open in the morning. Patient and family at bedside comfortable with plan. Quality Stroke Does the patient have a stroke diagnosis?: No VTE Prior VTE?: No VTE Risk Level:: Surgical - moderate VTE Device Contraindication: N/A - Device Ordered VTE Drug Contraindication: Treatment Not Indicated Procedures Date of Service Date of Service: 08/26/25
[2025-08-26] MEDS: Lactated Ringers 1,000 ML 100 ML IVCONT (14:53)
--- NOTE | 2025-08-26 15:19 | PHA.MEDREC ---
Addendum entered by Srinivas Fleming PharmD 08/26/25 15:20: reviewed Original Note: Pharmacy Consult ? Medication Reconciliation Pharmacy has completed the medication reconciliation. Spoke with pt and she confirmed her medications.
[2025-08-26] MEDS: oxyCODONE HCl Immed Release 5 MG TABLET PO (17:03)
[2025-08-26 20:00] VITALS: BP 152/68; PULSE 73; RESP 19; TEMP 36.1; O2SAT 91
[2025-08-27] VITALS (17 sets, daily range): BP systolic 100–245; BP diastolic 52–189; PULSE 62–99; RESP 12–20; TEMP 35.9–37.6; O2SAT 89–99
[2025-08-27] MEDS: Lactated Ringers 1,000 ML 100 ML IVCONT ×2 (01:28→16:12)
--- NOTE | 2025-08-27 07:53 | P.PNGS_ITS ---
Subjective Subjective Date of Service: 08/27/25 <Yulissa Saldivar PA-C - Last Filed: 08/27/25 07:55> 08/27/25 <Leon Humphreys MD - Last Filed: 08/27/25 08:04> Interval history: Has persistent RUQ/epigastric abdominal pain requiring IV analgesics q4 hours. She did vomit last night. Awaiting lap silva today. <Yulissa Saldivar PA-C - Last Filed: 08/27/25 07:55> Physical Exam 2 Vital Signs: Vital Signs: Last Vital Signs Temp 99.6 F 08/27/25 07:09 Pulse 88 08/27/25 07:09 Resp 16 08/27/25 07:09 BP 121/62 08/27/25 07:09 Pulse Ox 92 08/27/25 07:09 O2 Del Method Room Air 08/27/25 07:09 BMI result Body Mass Index 28.2 <Yulissa Saldivra PA-C - Last Filed: 08/27/25 07:55> Const: General: comfortable, no acute distress and alert <Yulissa Saldivar PA-C - Last Filed: 08/27/25 07:55> Orientation/consciousness: patient oriented x3 <CHAD Banuelos Last Filed: 08/27/25 07:55> Resp: Effort & Inspection: normal respiratory effort <Yulissa Saldivar PA-C - Last Filed: 08/27/25 07:55> GI: Other: RUQ/epigastric tenderness <Yulissa Saldivar PA-C - Last Filed: 08/27/25 07:55> Inspection: No distended <Yulissa Saldivar PA-C - Last Filed: 08/27/25 07:55> Palpation (GI): no guarding <CHAD Banuelos Last Filed: 08/27/25 07:55> Percussion: Yes normal to percussion <CHAD Banuelos Last Filed: 08/27/25 07:55> Skin: General skin exam: no rashes or lesions noted and no jaundice < CHAD Banuelos Last Filed: 08/27/25 07:55> Neuro: General: patient oriented x3 and moves all extremities <Yulissa Saldivar PA-C - Last Filed: 08/27/25 07:55> Objective Data Active Medications Calcium Carbonate (Calcium Carbonate 750 Mg Tab.Chew) 750 mg PO Q4H PRN PRN Reason: Heartburn Docusate Sodium (Docusate Sodium 100 Mg Capsule) 100 mg PO BID PRN PRN Reason: constipation Lactated Ringer's (Lr) 1,000 mls @ 100 mls/hr IVCONT .Q10H [facility] Last Infusion: 08/27/25 03:23 Dose: 100 mls/hr Documented By: AKOSUA Piperacillin Sod/Tazobactam (Sod 3.375 gm/ Sodium Chloride) 50 mls @ 100 mls/hr IV Q6H [facility] Last Infusion: 08/27/25 03:23 Dose: Infused Documented By: AKOSUA Magnesium Hydroxide (Milk Of Magnesia 30 Ml Oral.Susp) 30 ml PO DAILY PRN PRN Reason: Constipation Melatonin (Melatonin 3 Mg Tablet) 6 mg PO BEDTIME PRN PRN Reason: Insomnia Morphine Sulfate (Morphine Sulfate 4 Mg/Ml Cartridge) 4 mg IVPUSH Q4H PRN; Protocol PRN Reason: Pain, Severe (Pain Scale 7-10) Last Admin: 08/27/25 04:03 Dose: 4 mg Documented By: AKOSUA Ondansetron HCl (Ondansetron Hcl 4 Mg/2 Ml Vial) 4 mg IVPUSH Q8H PRN PRN Reason: Nausea and Vomiting Oxycodone HCl (Oxycodone Hcl Immed Release 5 Mg Tablet) 5 mg PO Q6H PRN PRN Reason: Pain, Moderate(Pain Scale 4-6) Last Admin: 08/26/25 17:03 Dose: 5 mg Documented By: GERMÁN Sodium Chloride (0.9 % Sodium Chloride Flush 3 Ml Syringe) [facility] Last Admin: 08/27/25 00:16 Dose: Not Given Documented By: AKOSUA Non-Admin Reason: IV Running <Yulissa Saldivar PA-C - Last Filed: 08/27/25 07:55> Labs CBC & Chem 7: 08/26/25 04:00 08/26/25 04:00 <Yulissa Saldivar PA-C - Last Filed: 08/27/25 07:55> Labs: Laboratory Results - last 24 hr 08/26/25 04:00 Total Bilirubin 0.5 Direct Bilirubin 0.2 AST 20 ALT 13 Alkaline Phosphatase 71 Total Protein 7.5 Albumin 4.6 Lipase 39 <Yulissa Saldivar PA-C - Last Filed: 08/27/25 07:55> Procedures Date of Service Date of Service: 08/27/25 <Yulissa Saldivar PA-C - Last Filed: 08/27/25 07:55> 08/27/25 <Leon Humphreys MD - Last Filed: 08/27/25 08:04> Progress Note: A&P Assessment and plan (1) Acute cholecystitis: Status: Acute <Yulissa Saldivar PA-C - Last Filed: 08/27/25 07:55> Assessment and Plan: Risks, benefits, alternatives of laparoscopic possible open cholecystectomy were reviewed with the patient including but not limited to bleeding, infection, numbness, pain, poor healing, injury to the liver, bowel or bile ducts, leak, retained stones and the patient wishes to proceed.? She is on the schedule for today.?All questions were answered. Cont NPO, IVF, IV zosyn. < Yulissa Saldivar PA-C - Last Filed: 08/27/25 07:55> Risks, benefits, alternatives of laparoscopic possible open cholecystectomy were reviewed with the patient including but not limited to bleeding, infection, numbness, pain, poor healing, injury to the liver, bowel or bile ducts, leak, retained stones and the patient wishes to proceed.? She is on the schedule for today.?All questions were answered. Cont NPO, IVF, IV zosyn. Patient seen and examined and agree with the above assessment and plan. I reviewed the procedure, risks, and alternatives in detail and she consents to a laparoscopic or possible open cholecystectomy. She has been added onto the operative schedule for today. She will continue NPO. <Leon Humphreys MD - Last Filed: 08/27/25 08:04> Time Spent With Patient Time: Total time managing care of this patient today ____ minutes. <Yulissa Saldivar PA-C - Last Filed: 08/27/25 07:55> Quality Stroke Does the patient have a stroke diagnosis?: No <Yulissa Saldivar PA-C - Last Filed: 08/27/25 07:55> VTE Prior VTE?: No <Yulissa Saldivar PA-C - Last Filed: 08/27/25 07:55> VTE Risk Level:: Surgical - moderate <Yulissa Saldivar PA-C - Last Filed: 08/27/25 07:55> VTE Device Contraindication: N/A - Device Ordered <Yulissa Saldivar PA-C - Last Filed: 08/27/25 07:55> VTE Drug Contraindication: Treatment Not Indicated <Yulissa Saldivar PA-C - Last Filed: 08/27/25 07:55>
[2025-08-27] MEDS: 0.9 % Sodium Chloride Flush 3 ML SYRINGE IVFLUSH ×2 (08:10→16:14)
[2025-08-27 09:28] LABS: Alanine Aminotransferase 19 U/L (0-31); Albumin Level 4.2 g/dL (3.5-5.0); Alkaline Phosphatase 78 U/L (39-117); Anion Gap 11 (12-20); Aspartate Amino Transferase 28 U/L (5-31); Blood Urea Nitrogen 14 mg/dL (9-16); Calcium 9.6 mg/dL (8.4-10.2); Carbon Dioxide 32 mmol/L (22-29); Chloride 101 mmol/L (96-108); Creatinine Clr Calc Pharmacy 46.8; Estimated Glomerular Filt Rate 47; Potassium 3.9 mmol/L (3.3-5.1); Sodium 140 mmol/L (135-145); Total Protein 7.2 g/dL (6.5-8.0)
--- NOTE | 2025-08-27 11:42 | PC.NURSE ---
Patient's IV assessed; #20 in the left AC. Dressing clean dry intact. Flushes without difficulty, +blood return.
--- NOTE | 2025-08-27 12:10 | HO.ANESPROP2 ---
Documented by User: Kiki Agosto NP 08/27/25 08:33 HPI - Anesthesia Eval Consult details Narrative: 64 yr old female for lap cholecystectomy No CP/SOB or recent illness. Had surgery with anesthesia many time previously, no trouble PMFSH Active Problems Active Problems: All Active Problems (Updated 08/26/25 @ 14:39 by Chente Benitez DO) Acute cholecystitis (Acute) Epigastric pain (Acute) Lymphedema (Acute) PAD (peripheral artery disease) (Acute) Left leg claudication (Acute) Leg pain, left (Acute) Atypical nevi (Acute) Depression (Acute) Obesity (BMI 30.0-34.9) (Acute) Colonoscopy refused (Acute) Overactive bladder (Acute) Mixed hyperlipidemia (Acute) Essential hypertension (Acute) Chronic kidney disease, stage 3 (Acute) Impaired fasting glucose (Acute) Past Medical History Medical History Cervical cancer Impaired fasting glucose Renal failure syndrome Chronic kidney disease, stage 3 Essential hypertension Retinal artery occlusion Mixed hyperlipidemia Social History Social History Household Members: Spouse and Children Housing: House Do you presently have visiting nurse or other home services: No Patient Tobacco Use Status: Never used Tobacco e-Cigarette/Vaping Use: Never Used Second Hand Smoke Exposure: No service: No Current occupational status: employed Cognitive needs: No Hearing needs: No Vision needs: Yes Meds Allergies Allergy/AdvReac Type Severity Reaction Status Date / Time No Known Allergies Allergy Verified 08/10/25 14:04 Active Medications: Current Medications Calcium Carbonate (Calcium Carbonate 750 Mg Tab.Chew) 750 mg PO Q4H PRN PRN Reason: Heartburn Docusate Sodium (Docusate Sodium 100 Mg Capsule) 100 mg PO BID PRN PRN Reason: constipation Lactated Ringer's (Lr) 1,000 mls @ 100 mls/hr IVCONT .Q10H [facility] Last Infusion: 08/27/25 03:23 Dose: 100 mls/hr Piperacillin Sod/Tazobactam (Sod 3.375 gm/ Sodium Chloride) 50 mls @ 100 mls/hr IV Q6H [facility] Last Infusion: 08/27/25 03:23 Dose: Infused Magnesium Hydroxide (Milk Of Magnesia 30 Ml Oral.Susp) 30 ml PO DAILY PRN PRN Reason: Constipation Melatonin (Melatonin 3 Mg Tablet) 6 mg PO BEDTIME PRN PRN Reason: Insomnia Morphine Sulfate (Morphine Sulfate 4 Mg/Ml Cartridge) 4 mg IVPUSH Q4H PRN; Protocol PRN Reason: Pain, Severe (Pain Scale 7-10) Last Admin: 08/27/25 04:03 Dose: 4 mg Ondansetron HCl (Ondansetron Hcl 4 Mg/2 Ml Vial) 4 mg IVPUSH Q8H PRN PRN Reason: Nausea and Vomiting Oxycodone HCl (Oxycodone Hcl Immed Release 5 Mg Tablet) 5 mg PO Q6H PRN PRN Reason: Pain, Moderate(Pain Scale 4-6) Last Admin: 08/26/25 17:03 Dose: 5 mg Sodium Chloride (0.9 % Sodium Chloride Flush 3 Ml Syringe) 3 ml IVFLUSH QSHIFT [facility] Last Admin: 08/27/25 00:16 Dose: Not Given Home Medications ?Medication ?Instructions ?Recorded ?Confirmed ?Last Taken ?Type oxybutynin chloride 10 mg 10 mg PO DAILY 12/25/24 08/26/25 08/26/25 History tablet,extended release 24 hr amlodipine 5 mg tablet 5 mg PO DAILY 08/26/25 08/26/25 08/26/25 History Exam Height,Weight and Vital Signs: Height 5 ft 3 in Weight 72.1 kg Last Vital Signs Temp 99.6 F 08/27/25 07:09 Pulse 88 08/27/25 07:09 Resp 16 08/27/25 07:09 BP 121/62 08/27/25 07:09 Pulse Ox 92 08/27/25 07:09 O2 Del Method Room Air 08/27/25 07:09 Pertinent Lab Results Pertinent Lab Results: Laboratory Tests 08/26/25 04:00 WBC 6.2 RBC 4.60 Hgb 13.8 Hct 39.9 MCV 86.7 MCH 30.0 MCHC 34.6 RDW 12.1 Plt Count 211 MPV 9.3 L Immature Gran % (Auto) 0.2 Neut % (Auto) 70.3 Lymph % (Auto) 19.3 L [place] % (Auto) 8.1 Eos % (Auto) 1.9 Baso % (Auto) 0.2 Lymph # (Auto) 1.2 [place] # (Auto) 0.5 Eos # (Auto) 0.1 Baso # (Auto) 0.0 Abs Immat Gran (auto) 0.01 Absolute Neuts (auto) 4.3 Absolute Nucleated RBC 0.000 Nucleated RBC % (auto) 0.0 Sodium 142 Potassium 3.4 Chloride 106 Carbon Dioxide 25 Anion Gap 14 BUN 23 H Creatinine 1.21 Estim Creat Clear Calc TNP Estimated GFR 45 Random Glucose 125 H Calcium 9.7 Total Bilirubin 0.5 Direct Bilirubin 0.2 AST 20 ALT 13 Alkaline Phosphatase 71 Troponin I High Sens 9.1 Total Protein 7.5 Albumin 4.6 Lipase 39 Narrative Narrative: EKG 08/26/25 Vent. Rate : 80 BPM Atrial Rate : 80 BPM P-R Int : 184 ms QRS Dur : 90 ms QT Int : 372 ms P-R-T Axes : 61 -1 31 degrees QTcB Int : 429 ms Normal sinus rhythm Normal ECG No previous ECGs available Documented by User: Ivanna Alan DO 08/27/25 12:38 [facility] Past Medical History Medical History Cervical cancer Impaired fasting glucose Renal failure syndrome Chronic kidney disease, stage 3 Essential hypertension Retinal artery occlusion Mixed hyperlipidemia Family History Family history of problems with anesthesia: No Surgical History History of Problems with Anesthesia: No Social History Social History Household Members: Spouse and Children Housing: House Do you presently have visiting nurse or other home services: No Patient Tobacco Use Status: Never used Tobacco e-Cigarette/Vaping Use: Never Used Second Hand Smoke Exposure: No service: No Current occupational status: employed Cognitive needs: No Hearing needs: No Vision needs: Yes Meds Allergies Allergy/AdvReac Type Severity Reaction Status Date / Time No Known Allergies Allergy Verified 08/10/25 14:04 Home Medications ?Medication ?Instructions ?Recorded ?Confirmed ?Last Taken ?Type oxybutynin chloride 10 mg 10 mg PO DAILY 12/25/24 08/26/25 08/26/25 History tablet,extended release 24 hr amlodipine 5 mg tablet 5 mg PO DAILY 08/26/25 08/26/25 08/26/25 History Exam Exam Date and Time: 08/27/25 1210 Airway Mallampati Class: II TM Dist: <=3cm Neck ROM: Full Loose/Missing/Broken Teeth: No (patient denies any loose or broken teeth) Heart: S1S2 Lungs: Diminished bilaterally Assessment and Plan Assessment Anesthesia Assessment: Anesthesia Plan Discussed and Chart Reviewed Final Anesthetic Review Family History of Problems with Anesthesia: No History of Problems with Anesthesia: No NPO: Yes ASA Class: II Final Preanesthetic Review: No Changes in Pt Med Stat, Meds/Allgs Chart Reviewed, Consent Obtained/Reviewed and Anes Risks/Benef Reviewed Patient Risk: Low Procedure Risk: Intermediate Anesthetic Plan Anesthetic Plan: GA and Agree w/ Assess. and Plan Disposition: Standard PACU
[2025-08-27] MEDS: cefoTEtan disodium 2 GM VIAL IVPUSH (12:16)
--- NOTE | 2025-08-27 13:59 | P.OP_ITS ---
Operative Note Operative Note Date of Service: 08/27/25 Narrative: Preoperative diagnosis: Acute cholecystitis due to cholelithiasis Postoperative diagnosis: Same Procedure: Laparoscopic converted to open cholecystectomy Surgeon: Leon Humphreys MD [employer] As[employer]er: Asaf Porter PA-C, KENDRA Yost Anesthesia: General endotracheal Indications for procedure: 64-year-old female patient presenting with complaints of right upper quadrant abdominal pain of 5 days' duration found to have evidence of acute cholecystitis due to cholelithiasis. On examination she is tender in the right upper quadrant with a positive Mena sign. Operative findings: Acutely inflamed and distended gallbladder with hydropic and purulence fluid within the gallbladder. Specimen: Gallbladder Estimated blood loss: Complications: Procedure details: The patient was brought to the OR and placed in a supine position. After administering general anesthesia the patient's abdomen was prepped with ChloraPrep and draped in a sterile fashion. A surgical time-out was called the consent confirmed. Patient received preoperative antibiotics and Venodyne boots were in place. Local anesthesia was infiltrated in the umbilicus and a 5 mm incision made with a scalpel. A Veress needle was then inserted and after a drop test, the abdomen was insufflated to a pressure of 15 mmHg. A 12 mm trocar was then placed in the epigastrium and 2 5 mm trocar was placed in the right upper quadrant. The patient was placed in reverse Trendelenburg position and rotated to the left. Gallbladder was identified and found to be acutely inflamed and markedly distended. The gallbladder was subsequently drained using a endoscopic needle. The bile was noted to be purulence and hydropic. The gallbladder was then grasped at the fundus and retracted cephalad. Dense adhesions were noted to the undersurface of the gallbladder. During the dissection of the surrounding omentum visualization of the gallbladder wall was difficult with persistent bleeding from the gallbladder wall and omentum. Because of the poor visualization decision was made to convert to an open procedure. A subcostal incision was then created with a scalpel and carried out through subcutaneous tissue through anterior rectus sheath as well as posterior rectus sheath. Peritoneum was then entered in the abdomen explored. A Bookwalter retractor was then placed. Mi clamp was placed on the gallbladder fundus. Electrocautery was then used to perform a retrograde dissection of the gallbladder. This has further dissected using a tonsil clamp. The dissection was continued on the fundus towards the infundibulum. The cystic artery was identified and doubly clipped with hemoclips and divided. Dissection was continued down past the infundibulum into the cystic duct. A right inguinal clamp was then placed at the junction of the infundibulum and cystic duct in the gallbladder divided above this level. This was then doubly ligated with 2-0 Polysorb ties. The duct was also clipped with hemoclips. Gallbladder was rem gaurav and sent to pathology for further examination. Wounds were then irrigated with saline solution. Wounds were checked for hemostasis. Surgicel was applied to the liver edge to assure adequate hemostasis. A large Tulio-Ramirez drain was placed at the liver bed and brought out through the lateral trocar site. This was secured using a 3-0 nylon suture. The drain was connected to bulb suctioned. The incision was then closed in layers using a running 0 Polysorb suture beginning with the peritoneum followed by posterior sheath and anterior rectus sheath. Dermis was reapproximated using interrupted 3-0 Polysorb sutures. Skin was closed using skin rubén. Sterile dressings were then applied. The patient tolerated the procedure well. Sponge, instrument, needle counts reported as correct. The patient was transferred to PACU in stable condition.
--- NOTE | 2025-08-27 15:01 | MHC.CM.PN ---
CM MET WITH PTS IN ROOM, PT IN [facility] PT IS INDEPENDENT AND LIVES WITH HER AND CHILDREN SHE HAS NO DME OR SERVICES PCP: PETRONA DANIEL DCP: HOME VIA PRIVATE TRANSPORT
[2025-08-28] MEDS: oxyCODONE HCl Immed Release 5 MG TABLET PO ×4 (02:38→23:35)
[2025-08-28 03:01] VITALS: BP 128/69; PULSE 59; RESP 18; TEMP 36.3; O2SAT 97
[2025-08-28] MEDS: Lactated Ringers 1,000 ML 100 ML IVCONT (05:34)
[2025-08-28 07:06] LABS: MANUAL DIFF FLAG NO
[2025-08-28 07:08] LABS: Hematocrit 39.8 % (37.0-47.0); Hemoglobin 13.3 g/dl (12.0-16.0); Imm Gran Abs Auto 0.06 X10*3/uL (0.00-0.03); Imm Gran Pct Auto 0.5 % (0.0-0.4); Lymphocytes Absolute Auto 0.7 X10*3/uL (1.2-4.9); Mean Corpuscular HGB Conc 33.4 g/dl (31.0-35.0); Mean Corpuscular Hemoglobin 29.6 pg (27.0-33.0); Mean Corpuscular Volume 88.6 fL (80.0-98.0); NRBC Abs Auto 0.000 X10*3/uL (0.0-0.012); NRBC Pct Auto 0.0 /100WBC (0.0-0.2); Platelet Count 200 X10*3/uL (160-400); Red Blood Count 4.49 X10*6/uL (4.20-5.50); White Blood Count 12.0 X10*3/uL (4.8-10.8)
[2025-08-28 07:15] VITALS: BP 107/60; PULSE 63; RESP 18; TEMP 36.2; O2SAT 92
[2025-08-28] MEDS: oxyBUTYnin chloride ER 5 MG TAB.ER.24 10 MG PO (08:26)
--- NOTE | 2025-08-28 09:27 | PM.PNGS ---
Subjective Subjective Date of Service: 08/28/25 Interval history: She underwent open cholecystectomy yesterday She describes pain on the incision, appropriate to postop course Denies nausea or vomiting Physical Exam Vital Signs: Vital Signs: Last Vital Signs Temp 97.2 F 08/28/25 07:15 Pulse 63 08/28/25 07:15 Resp 18 08/28/25 07:15 BP 107/60 08/28/25 07:15 Pulse Ox 92 08/28/25 07:15 O2 Del Method Room Air 08/28/25 07:15 O2 Flow Rate 2 08/28/25 03:01 BMI result Body Mass Index 28.2 Const: General: comfortable and no acute distress Eyes: Other: Anicteric sclerae Resp: Effort & Inspection: normal respiratory effort Cardio: Rate: regular rate GI: Other: SHORTY drain in place, scanty, serosanguineous output Palpation (GI): Soft to palpation, not firm, Tenderness to palpation present (GI) (Along incisions) and no guarding Objective Data Active Medications Amlodipine Besylate (Amlodipine Besylate 5 Mg Tablet) 5 mg PO DAILY [facility]; Protocol Last Admin: 08/28/25 08:27 Dose: 5 mg Documented By: ARSH Bupropion HCl (Bupropion Hcl 100 Mg Tablet) 100 mg PO BID [facility] Last Admin: 08/28/25 08:27 Dose: 100 mg Documented By: ARSH Calcium Carbonate (Calcium Carbonate 750 Mg Tab.Chew) 750 mg PO Q4H PRN PRN Reason: Heartburn Docusate Sodium (Docusate Sodium 100 Mg Capsule) 100 mg PO BID PRN PRN Reason: constipation Hydrochlorothiazide (Hydrochlorothiazide 25 Mg Tablet) 25 mg PO DAILY [facility] Last Admin: 08/28/25 08:26 Dose: 25 mg Documented By: ARSH Lactated Ringer's (Lr) 1,000 mls @ 100 mls/hr IVCONT .Q10H [facility] Last Admin: 08/28/25 05:34 Dose: 100 mls/hr Documented By: NEMO Piperacillin Sod/Tazobactam (Sod 3.375 gm/ Sodium Chloride) 50 mls @ 100 mls/hr IV Q6H [facility] Last Infusion: 08/28/25 09:04 Dose: Infused Documented By: ARSH Acetaminophen (Ofirmev) 1,000 mg in 100 mls @ 400 mls/hr IV Q6H [facility] Last Infusion: 08/28/25 03:49 Dose: Infused Documented By: NEMO Magnesium Hydroxide (Milk Of Magnesia 30 Ml Oral.Susp) 30 ml PO DAILY PRN PRN Reason: Constipation Melatonin (Melatonin 3 Mg Tablet) 6 mg PO BEDTIME PRN PRN Reason: Insomnia Morphine Sulfate (Morphine Sulfate 4 Mg/Ml Cartridge) 4 mg IVPUSH Q4H PRN; Protocol PRN Reason: Pain, Severe (Pain Scale 7-10) Last Admin: 08/28/25 05:31 Dose: 4 mg Documented By: NEMO Ondansetron HCl (Ondansetron Hcl 4 Mg/2 Ml Vial) 4 mg IVPUSH Q8H PRN PRN Reason: Nausea and Vomiting Oxybutynin Chloride (Oxybutynin Chloride Er 5 Mg Tab.Er.24) 10 mg PO DAILY [facility] Last Admin: 08/28/25 08:26 Dose: 10 mg Documented By: ARSH Oxycodone HCl (Oxycodone Hcl Immed Release 5 Mg Tablet) 5 mg PO Q4H PRN PRN Reason: Pain, Moderate(Pain Scale 4-6) Last Admin: 08/28/25 08:26 Dose: 5 mg Documented By: ARSH Sodium Chloride (0.9 % Sodium Chloride Flush 3 Ml Syringe) 3 ml IVFLUSH QSHIFT [facility] Last Admin: 08/28/25 08:33 Dose: Not Given Documented By: ARSH Non-Admin Reason: IV Running Labs 08/28/25 05:55 08/27/25 08:57 Labs: Laboratory Results - last 24 hr 08/27/25 08/28/25 08:57 05:55 MCV 88.6 MCH 29.6 MCHC 33.4 RDW 12.0 Plt Count 200 MPV 9.6 Immature Gran % (Auto) 0.5 H Neut % (Auto) 87.7 H Lymph % (Auto) 6.0 L [place] % (Auto) 5.6 Eos % (Auto) 0.0 Baso % (Auto) 0.2 Lymph # (Auto) 0.7 L [place] # (Auto) 0.7 Eos # (Auto) 0.0 Baso # (Auto) 0.0 Abs Immat Gran (auto) 0.06 H Absolute Neuts (auto) 10.5 H Absolute Nucleated RBC 0.000 Nucleated RBC % (auto) 0.0 Anion Gap 11 L Estim Creat Clear Calc 46.8 Estimated GFR 47 Random Glucose 140 H Calcium 9.6 Total Bilirubin 1.0 AST 28 ALT 19 Alkaline Phosphatase 78 Total Protein 7.2 Albumin 4.2 Procedures Date of Service Date of Service: 08/28/25 Progress Note: A&P Assessment and plan (1) Acute cholecystitis: Status: Acute Assessment and Plan: Status post open cholecystectomy Doing well postop Describes pain appropriate to postop course Pain management She does not want to advance her diet yet we will stay with clear liquids for today Encouraged to ambulate Incentive spirometry SHORTY drain care Time Spent With Patient Time: Total time managing care of this patient today ____ minutes. Quality Stroke Does the patient have a stroke diagnosis?: No VTE Prior VTE?: No VTE Risk Level:: Surgical - moderate VTE Device Contraindication: N/A - Device Ordered VTE Drug Contraindication: Treatment Not Indicated
[2025-08-28 12:00] VITALS: BP 115/59; PULSE 68; RESP 18; TEMP 36.2; O2SAT 92
[2025-08-28 15:59] VITALS: BP 130/57; PULSE 75; RESP 14; TEMP 36.1; O2SAT 92
[2025-08-28 19:48] VITALS: BP 119/62; PULSE 65; RESP 14; TEMP 36; O2SAT 97
[2025-08-28] MEDS: 0.9 % Sodium Chloride Flush 3 ML SYRINGE IVFLUSH (20:02)
[2025-08-28 23:20] VITALS: BP 112/59; PULSE 66; RESP 16; TEMP 36.6; O2SAT 95
[2025-08-29 03:13] VITALS: BP 115/56; PULSE 68; RESP 18; TEMP 36.3; O2SAT 96
--- NOTE | 2025-08-29 03:49 | PC.NURSE ---
Pt ambulated with this RN in the hallway to the nursing station and back to room. SBA, steady gait observed, no assistive devices required. Pt tolerated ambulation very well.
[2025-08-29 08:04] VITALS: BP 116/60; PULSE 72; RESP 18; TEMP 36.1; O2SAT 94
[2025-08-29] MEDS: oxyBUTYnin chloride ER 5 MG TAB.ER.24 10 MG PO (08:42)
[2025-08-29] MEDS: 0.9 % Sodium Chloride Flush 3 ML SYRINGE IVFLUSH ×2 (08:48→21:12)
--- NOTE | 2025-08-29 09:51 | PM.PNGS ---
Subjective Subjective Date of Service: 08/29/25 Interval history: Says she has pain her incisions although this seems to be improving Tolerating clear liquids She has been able to ambulate and is on the recliner No nausea or vomiting SHORTY drain with scanty output Physical Exam Vital Signs: Vital Signs: Last Vital Signs Temp 96.9 F 08/29/25 08:04 Pulse 72 08/29/25 08:04 Resp 18 08/29/25 08:04 BP 116/60 08/29/25 08:04 Pulse Ox 94 08/29/25 08:04 O2 Del Method Room Air 08/29/25 08:04 O2 Flow Rate 2 08/29/25 03:13 BMI result Body Mass Index 28.2 Const: General: comfortable and no acute distress Eyes: Other: Anicteric Resp: Effort & Inspection: normal respiratory effort Cardio: Rate: regular rate GI: Other: Incisions clean and dry, SHORTY drain with very minimal output, nonbilious Palpation (GI): Soft to palpation Objective Data Active Medications Amlodipine Besylate (Amlodipine Besylate 5 Mg Tablet) 5 mg PO DAILY [facility]; Protocol Last Admin: 08/29/25 08:42 Dose: 5 mg Documented By: ARSH Bupropion HCl (Bupropion Hcl 100 Mg Tablet) 100 mg PO BID [facility] Last Admin: 08/29/25 08:42 Dose: 100 mg Documented By: ARSH Calcium Carbonate (Calcium Carbonate 750 Mg Tab.Chew) 750 mg PO Q4H PRN PRN Reason: Heartburn Docusate Sodium (Docusate Sodium 100 Mg Capsule) 100 mg PO BID PRN PRN Reason: constipation Hydrochlorothiazide (Hydrochlorothiazide 25 Mg Tablet) 25 mg PO DAILY [facility] Last Admin: 08/29/25 08:42 Dose: 25 mg Documented By: ARSH Piperacillin Sod/Tazobactam (Sod 3.375 gm/ Sodium Chloride) 50 mls @ 100 mls/hr IV Q6H [facility] Last Infusion: 08/29/25 09:24 Dose: Infused Documented By: ARSH Acetaminophen (Ofirmev) 1,000 mg in 100 mls @ 400 mls/hr IV Q6H [facility] Last Infusion: 08/29/25 03:16 Dose: Infused Documented By: NEMO Magnesium Hydroxide (Milk Of Magnesia 30 Ml Oral.Susp) 30 ml PO DAILY PRN PRN Reason: Constipation Melatonin (Melatonin 3 Mg Tablet) 6 mg PO BEDTIME PRN PRN Reason: Insomnia Morphine Sulfate (Morphine Sulfate 4 Mg/Ml Cartridge) 4 mg IVPUSH Q4H PRN; Protocol PRN Reason: Pain, Severe (Pain Scale 7-10) Last Admin: 08/29/25 03:20 Dose: 4 mg Documented By: NEMO Ondansetron HCl (Ondansetron Hcl 4 Mg/2 Ml Vial) 4 mg IVPUSH Q8H PRN PRN Reason: Nausea and Vomiting Oxybutynin Chloride (Oxybutynin Chloride Er 5 Mg Tab.Er.24) 10 mg PO DAILY [facility] Last Admin: 08/29/25 08:42 Dose: 10 mg Documented By: ARSH Oxycodone HCl (Oxycodone Hcl Immed Release 5 Mg Tablet) 5 mg PO Q4H PRN PRN Reason: Pain, Moderate(Pain Scale 4-6) Last Admin: 08/28/25 23:35 Dose: 5 mg Documented By: NEMO Sodium Chloride (0.9 % Sodium Chloride Flush 3 Ml Syringe) [facility] Last Admin: 08/29/25 08:48 Dose: 3 ml Documented By: ARSH Labs 08/28/25 05:55 08/27/25 08:57 Procedures Date of Service Date of Service: 08/29/25 Progress Note: A&P Assessment and plan (1) Acute cholecystitis: Status: Acute Assessment and Plan: Status post open cholecystectomy Clinically doing well Diet as tolerated Pain management Dressings removed Encouraged ambulation Possible DC home tomorrow once with good pain control on oral meds Time Spent With Patient Time: Total time managing care of this patient today ____ minutes. Quality Stroke Does the patient have a stroke diagnosis?: No VTE Prior VTE?: No VTE Risk Level:: Surgical - moderate VTE Device Contraindication: N/A - Device Ordered VTE Drug Contraindication: Treatment Not Indicated
[2025-08-29] MEDS: oxyCODONE HCl Immed Release 5 MG TABLET PO ×2 (10:15→14:30)
[2025-08-29 12:00] VITALS: BP 121/67; PULSE 68; TEMP 36.4; O2SAT 93
[2025-08-29 15:43] VITALS: BP 101/75; PULSE 68; RESP 18; TEMP 36.8; O2SAT 92
[2025-08-29 19:26] VITALS: BP 118/63; PULSE 68; RESP 16; TEMP 36.2; O2SAT 90
[2025-08-29 23:14] VITALS: BP 101/53; PULSE 71; RESP 15; TEMP 36.1; O2SAT 92
[2025-08-30 03:24] VITALS: BP 109/61; PULSE 72; RESP 16; TEMP 36.8
--- NOTE | 2025-08-30 05:29 | PC.NURSE ---
Per pt, had BM at 0430. Pt slept well for the majority of the night, did not verbalize any pain. During the night pain management was adequate with scheduled IV Tylenol. No prns requested by pt.
[2025-08-30] MEDS: oxyCODONE HCl Immed Release 5 MG TABLET PO (07:03)
[2025-08-30 07:43] VITALS: BP 121/71; PULSE 71; RESP 18; TEMP 36.5; O2SAT 94
[2025-08-30] MEDS: oxyCODONE HCl Immed Release 5 MG TABLET 10 MG PO ×3 (07:46→14:47)
[2025-08-30] MEDS: oxyBUTYnin chloride ER 5 MG TAB.ER.24 10 MG PO (07:46)
--- NOTE | 2025-08-30 08:45 | MHC.CM.PN ---
Patient medically cleared for dc home self care via private transport
--- NOTE | 2025-08-30 08:46 | P.PNGS_ITS ---
Subjective Subjective Date of Service: 08/30/25 Interval history: Patient complains mainly of pain from the incision and SHORTY drain. She is tolerating regular diet without nausea or vomiting. Physical Exam 2 Vital Signs: Vital Signs: Last Vital Signs Temp 97.7 F 08/30/25 07:43 Pulse 71 08/30/25 07:43 Resp 18 08/30/25 07:43 BP 121/71 08/30/25 07:43 Pulse Ox 94 08/30/25 07:43 O2 Del Method Room Air 08/30/25 07:43 O2 Flow Rate 2 08/30/25 03:24 BMI result Body Mass Index 28.2 Eyes: Other: Nonicteric Resp: Other: Breathing comfortably on room air, no respiratory distress GI: Other: Soft, nondistended, nontender except at the incision. SHORTY with serous fluid approximately 30 cc over the last 24 hours. Skin: Other: Warm, dry, no rash, normal color without jaundice Extrem: Other: No pedal edema Objective Data Active Medications Amlodipine Besylate (Amlodipine Besylate 5 Mg Tablet) 5 mg PO DAILY [facility]; Protocol Last Admin: 08/30/25 07:46 Dose: 5 mg Documented By: DANDY Bupropion HCl (Bupropion Hcl 100 Mg Tablet) 100 mg PO BID [facility] Last Admin: 08/30/25 07:48 Dose: 100 mg Documented By: DANDY Calcium Carbonate (Calcium Carbonate 750 Mg Tab.Chew) 750 mg PO Q4H PRN PRN Reason: Heartburn Docusate Sodium (Docusate Sodium 100 Mg Capsule) 100 mg PO BID PRN PRN Reason: constipation Hydrochlorothiazide (Hydrochlorothiazide 25 Mg Tablet) 25 mg PO DAILY [facility] Last Admin: 08/30/25 07:46 Dose: 25 mg Documented By: DANDY Piperacillin Sod/Tazobactam (Sod 3.375 gm/ Sodium Chloride) 50 mls @ 100 mls/hr IV Q6H [facility] Last Admin: 08/30/25 07:50 Dose: 100 mls/hr Documented By: DANDY Acetaminophen (Ofirmev) 1,000 mg in 100 mls @ 400 mls/hr IV Q6H [facility] Last Infusion: 08/30/25 03:25 Dose: Infused Documented By: NEMO Magnesium Hydroxide (Milk Of Magnesia 30 Ml Oral.Susp) 30 ml PO DAILY PRN PRN Reason: Constipation Melatonin (Melatonin 3 Mg Tablet) 6 mg PO BEDTIME PRN PRN Reason: Insomnia Ondansetron HCl (Ondansetron Hcl 4 Mg/2 Ml Vial) 4 mg IVPUSH Q8H PRN PRN Reason: Nausea and Vomiting Oxybutynin Chloride (Oxybutynin Chloride Er 5 Mg Tab.Er.24) 10 mg PO DAILY [facility] Last Admin: 08/30/25 07:46 Dose: 10 mg Documented By: DANDY Oxycodone HCl (Oxycodone Hcl Immed Release 5 Mg Tablet) 5 mg PO Q4H PRN PRN Reason: Pain, Moderate(Pain Scale 4-6) Last Admin: 08/30/25 07:03 Dose: 5 mg Documented By: DANDY Oxycodone HCl (Oxycodone Hcl Immed Release 5 Mg Tablet) 10 mg PO Q4H PRN PRN Reason: Pain, Severe (Pain Scale 7-10) Last Admin: 08/30/25 07:46 Dose: 10 mg Documented By: DANDY Sodium Chloride (0.9 % Sodium Chloride Flush 3 Ml Syringe) 3 ml IVFLUSH QSHIFT [facility] Last Admin: 08/30/25 07:05 Dose: Not Given Documented By: DANDY Non-Admin Reason: IV Running Labs 08/28/25 05:55 08/27/25 08:57 Procedures Date of Service Date of Service: 08/30/25 Progress Note: A&P Assessment and plan (1) Acute cholecystitis: Status: Acute Plan Overall patient is much improved following laparoscopic converted to open cholecystectomy. Her abdomen is soft with incisional tenderness only. SHORTY was removed the patient tolerated this well. Wounds are clean, dry, and intact without redness or discharge. She will be discharged to home today. She should remain on a low-fat diet avoid lifting greater than 10 lb for the next month. She should follow up my office in approximately 1 week for staple removal and wound check. She expressed understanding and agrees with the plan. Time Spent With Patient Time: Total time managing care of this patient today ____ minutes. No Severe Sepsis: No Severe Sepsis Quality Stroke Does the patient have a stroke diagnosis?: No VTE Prior VTE?: No VTE Risk Level:: Surgical - moderate VTE Device Contraindication: N/A - Device Ordered VTE Drug Contraindication: Treatment Not Indicated
--- NOTE | 2025-08-30 08:50 | P.DS_ITS ---
DS: Providers Provider Date of Service: 08/30/25 Date of admission: 08/26/25 14:24 Date of discharge: 08/30/25 Primary care physician: Akua Physician Admitting clinician: Leon Humphreys Discharging clinician: Leon Humphreys DS: Diagnosis Discharge Diagnosis (1) Acute cholecystitis: Status: Acute DS: Summary Hospital Course Hospital Course: 64-year-old female patient with a previous history of chronic kidney disease stage 3, CAD, lymphedema, cervical cancer, presented to the emergency department with complaints of abdominal pain mainly in the epigastrium and right upper quadrant. The pain began approximately 4 days prior and increased in severity over the last 24 hours. Pain radiated into the chest and back as well. She denies fever, chills, shortness of breath, nausea, vomiting, or diarrhea. She subsequently presented to the emergency department and was noted to have a CT showing of distended gallbladder with small gallstones within the gallbladder. Ultrasound revealed distended gallbladder with small gallstones in the gallbladder fundus, minimally thickened gallbladder wall with tenderness with the ultrasound probe. On examination the patient was noted to be tender in the right upper quadrant with a positive Mena sign. She had no rebound, guarding or rigidity. Several trocar sites were noted throughout the abdomen with no evidence of hernias. Patient was admitted to the surgical service for treatment of the acute cholecystitis due to cholelithiasis. She was subsequently taken to the OR on hospital day 2 (08/27/2025). She underwent a laparoscopic converted to open cholecystectomy. An acutely inflamed and obstructed gallbladder was identified with purulent bile noted. Because of the difficulty with visualization of the infundibulum and cystic duct the decision was made to convert to an open procedure. A Tulio-Ramirez drain was left in place postoperatively. The patient's postoperative course was uneventful. She was started on clear liquids on postoperative day 1 and then gradually advanced to a regular diet over the next several days. She mainly complains of incisional pain but otherwise is tolerating her diet and is reasonably comfortable with the current pain medications. Plan is for discharge to home today (08/30/2025) with follow up in the office in approximately 1 week for staple removal. She may shower as usual. Tulio-Ramirez drain was removed today and a small bandage applied which can be removed later today. She was instructed to avoid lifting greater than 10 lb for the next month and avoid fatty/fried foods for one-month as well. She expressed understanding and agrees with the plan. Status at Discharge Functional status at discharge: independent ambulation Overall status at discharge: patient is back to baseline Time Attestation Discharge Coordination Time (in mins): 25 Quality: Safe Use of Opioids Does Pt have an Active Cancer Diagnosis on the Problem List?: No Quality: Stroke Does the patient have a stroke diagnosis?: No Physical Exam Vital Signs: Vital Signs: Last Vital Signs Temp 97.7 F 08/30/25 07:43 Pulse 71 08/30/25 07:43 Resp 18 08/30/25 07:43 BP 121/71 08/30/25 07:43 Pulse Ox 94 08/30/25 07:43 O2 Del Method Room Air 08/30/25 07:43 O2 Flow Rate 2 08/30/25 03:24 BMI result Body Mass Index 28.2 Eyes: Other: Nonicteric Resp: Other: Breathing comfortably on room air, no respiratory distress GI: Other: Soft, nondistended, nontender except at the incision. SHORTY with serous fluid approximately 30 cc over the last 24 hours. Skin: Other: Warm, dry, no rash, normal color without jaundice Extrem: Other: No pedal edema DS: Data Data Completed and Pending Pending studies at discharge: Pending at discharge 08/27/25 13:36 Surgical [PTH] Routine Discharge Plan Discharge Anticipated Discharge Date/Time: 08/30/25 08:22 Patient Disposition: Home, Self-Care Discharge Diagnosis: acute cholecystitis, s/p cholecystectomy Referrals: Catrachita Jenkins PA-C [Physician Crusher Assembler, Internal Medicine] Leon Humphreys MD [Physician, General Surgery] - 1 Week Discharge Medications: New docusate sodium [Colace] 100 mg capsule 100 mg PO BID PRN (Reason: constipation) Qty: 30 0RF oxycodone 5 mg tablet 5 mg PO Q4H PRN (Reason: pain (scale score 7-10)) Qty: 24 0RF Rx Instructions: Partial Fill upon patient request. Continued cholecalciferol (vitamin D3) 25 mcg (1,000 unit) capsule 25 mcg PO DAILY Qty: 90 3RF chlorthalidone 25 mg tablet 25 mg PO DAILY Qty: 90 2RF amlodipine 5 mg tablet 5 mg PO DAILY oxybutynin chloride 10 mg tablet extended release 24hr 10 mg PO DAILY rosuvastatin 40 mg tablet 40 mg PO DAILY Qty: 90 1RF bupropion HCl 100 mg tablet 100 mg PO BID Qty: 60 1RF Discharge Orders: Discharge Order (Routine); Ordered 08/30/25 Ordered By: Leon Humphreys Diet: Low fat, low cholesterol Activity on Discharge: No heavy lifting Stand Alone Forms: Patient Portal Discharge page Print Language: Kyrgyz Activity Restrictions/Additional Instructions: If the incision area is tender, you may apply an ice pack for short intervals (No more than 20 minutes on, followed by at least 20 minutes off). Do not apply heat. Do not use creams, lotions, or topical antibiotics. Ok to shower. Remove clear dressings 3 days following your procedure. You have steri strips (small white strips) covering your incision- these will fall off ~1 week. SHORTY drain care- empty drain BID and as needed. Record output. Bring record to follow up appointment. No heavy lifting (>10lbs) or strenuous activity! Take Tylenol Extra-strength 1-2 tabs every 6 hours for the first day, then as needed. Oxycodone every 6-8 hours as needed for pain. Colace 100 mg every day as needed for constipation. Follow up in office with Dr. Humphreys in 1 week. ([phone]) Call Your Doctor If: -Your temperature exceeds 101.5? F -You experience excessive pain or swelling -You have an unexpected reaction to medication -You have excessive bleeding -You experience continued vomiting/nausea -Your incision begins to separate -Your incision shows signs of infection such as increased redness, swelling, excessive pain, drainage (light blood or clear fluid is normal) or heat Care Plan Goals: Return to baseline health and resume normal activities following recovery period. Health Concerns: acute cholecystitis CKD stage 3 PAD Plan of Treatment: s/p open cholecystectomy drain care pain control Follow up in the office in 1 week Assessment: Doing well post op.
[2025-08-30 11:30] VITALS: BP 122/75; PULSE 84; RESP 18; TEMP 36.2; O2SAT 95
== END 2025-08-30 14:47 | disposition home or self-care (01) | DRG 263 ==
LOC: HO.ED 06:03 → HO.EDOVER 14:33 → HO.S3 14:57
PROVIDERS: Emergency Medicine; Surgery; Admitting Provider Physician Assistant Surgical; Emergency Provider Emergency Medicine; Visit Provider Physician Assistant Surgical
PROC: 0FT44ZZ Resection of Gallbladder, Percutaneous Endoscopic Approach (ICD-10-PCS; CPT 47562; principal; 2025-08-27 12:00)
DX: K80.00 Calculus of gallbladder with acute cholecystitis without obstruction (principal); K82.1 Hydrops of gallbladder; I73.9 Peripheral vascular disease, unspecified; N18.30 Chronic kidney disease, stage 3 unspecified; Z85.41 Personal history of malignant neoplasm of cervix uteri; Z79.899 Other long term (current) drug therapy
CPT/HCPCS: 36415; 71046; 74174; 76705; 80048; 80053; 80076; 83690; 84484; 85025; 88304; 93005; 99285; J0131; J0525; J1100; J1171; J2003; J2270; J2371; J2405; J2543; J2704; J2795; J3010; J7120; Q9967

== ENCOUNTER → 2025-08-26 03:52 | Outpatient (BNV) | payer OTHER, SELFPAY | PROVIDERS: Emergency Provider Emergency Medicine; Visit Provider Internal Medicine Cardiovascular Disease | DX: R07.9 Chest pain, unspecified (principal) | CPT/HCPCS: 93010 ==

== ENCOUNTER → 2025-08-26 06:22 | Outpatient (BNV) | payer OTHER, SELFPAY | PROVIDERS: Emergency Provider Emergency Medicine; Visit Provider Radiology Diagnostic Ultrasound | DX: K80.20 Calculus of gallbladder without cholecystitis without obstruction (principal); K82.8 Other specified diseases of gallbladder; N26.1 Atrophy of kidney (terminal); R07.9 Chest pain, unspecified | CPT/HCPCS: 71046; 74174; 76705 ==

== ENCOUNTER → 2025-08-26 14:24 | Outpatient (BNV) | payer OTHER, SELFPAY | PROVIDERS: Admitting Provider Physician Assistant Surgical; Emergency Provider Emergency Medicine; Visit Provider Physician Assistant Surgical | DX: K81.0 Acute cholecystitis (principal) | CPT/HCPCS: 47600; 99024; 99222; 99232; 99499 ==

== ENCOUNTER 2025-09-06 08:56 | Outpatient (AMB) | payer OTHER, SELFPAY ==
--- NOTE | 2025-09-06 08:59 | MHC.OFFVIS ---
Vital Signs 09/06/25 09:08 Height 5 ft 3 in Weight 165 lb 8 oz BMI 29.3 BP 124/74 Blood Pressure Location Lt brachial Position Sitting Pulse 84 Intake Visit Reasons: open cholecystectomy(08/27/25) Intake Note: Patient is seen in office for post op assessment post open cholecystectomy. Pt c/o: admits to pain, worse on the right side surgery:08/27/25 Meteorologist In Charge Required: No Accompanied by: Self / Same As Patient Allergies No Known Allergies Allergy (Verified 09/06/25 09:08) HPI Comments Details: 64-year-old female patient returning 1 week following discharge from the hospital following laparoscopic converted to open cholecystectomy for acute cholecystitis due to cholelithiasis. She reports pain in the right upper quadrant along the incision and reports that her appetite is still not back to normal. She denies any nausea or vomiting. Her bowels are moving on a daily basis. She denies any bleeding or discharge from the incisions. [facility] Medical History Cervical cancer Impaired fasting glucose Renal failure syndrome Chronic kidney disease, stage 3 Essential hypertension Retinal artery occlusion Mixed hyperlipidemia Surgical History Hx of cholecystectomy (08/27/25) Social History Household Members: Spouse and Children Housing: House Do you presently have visiting nurse or other home services: No Patient Tobacco Use Status: Never used Tobacco e-Cigarette/Vaping Use: Never Used Second Hand Smoke Exposure: No service: No Current occupational status: employed Cognitive needs: No Hearing needs: No Vision needs: Yes Physical Exam Const General: no acute distress Nutritional Appearance: well nourished Orientation/consciousness: patient oriented x3 Resp Effort & Inspection: normal respiratory effort GI Other: Soft and nondistended, Kayla incision is clean, dry and intact. Intact rubén. Trocar incisions were also clean and intact. Rubén removed and Steri-Strips applied. Patient tolerated this well. Neuro General: patient oriented x3 Extrem Other: No edema. Assessment & Plan Assessment & Plan (1) Acute cholecystitis: Code(s): K81.0 - Acute cholecystitis Category: Medical Plan 64-year-old female patient status post cholecystectomy for cholecystitis. Her clean and intact without evidence of infection or hernia formation. She should continue to avoid lifting greater than 10 lb and return in 1 month for wound examination. She should continue to avoid fatty/fried foods for the next month. Coding Level of Care Code Global (33851) Diagnoses Acute cholecystitis K81.0
[2025-09-06 09:08] VITALS: BP 124/74; PULSE 84; BMI 29.3
--- OUTSIDE RECORDS SUMMARY | 2025-09-06 10:03 | XMS_ITS | Encounter Summary ---
Author Organization [facility] Address [address] [place] [phone] Phone Care Team Providers Care Chute Feeder Name Role Phone Dorita Ruiz MD Unavailable [email or web address] Silvia Martin RN Unavailable [phone] Oliva Lopez RN Unavailable [phone] Levi Jones MD Unavailable [phone] Susana Fernandez MD Unavailable [phone] Vinita Dumont NP Unavailable [phone] Hemanth Atkins MD Primary Care Provider + [phone] Encounter Details Date Type Department Care Team (Late st Contact Info) Description 11/10/2020 Procedure Pass Non-Invasive Cardiology [address] [place] [address] Social History Tobacco Use Types Packs/Day Years [...] on filedocumented in this encounter Care Teams Chute Feeder Relationship Specialty Start Date End Date Hemanth Atkins MD [address] [place] [id number] [email or web address] PCP - General Family Medicine 01/08/19 Dorita Ruiz MD [email or web address] Radiation Oncology 07/11/15 Silvia Martin RN [address] [place] [id number] [email or web address] Registered Nurse 09/22/15 Oliva Lopez RN [address] [place] [id number] [email or web address] Registered Nurse 09/22/15 Levi Jones MD [address] [place] [address] Department of Obstetric[place] [address] [email or web address] Gynecologic Oncology 09/22/15 Susana Fernandez MD [address] [place] [address] Department of Obstetric[place] [address] Gynecologic Oncology 10/27/15 Vinita Dmuont NP [address] [place] [address] Referring Physician Family Medicine 03/02/16 documented as of this encounter Additional Source Comments The information contained in this document represents components of the legal health record. It is not the complete legal health record.[facility]
--- OUTSIDE RECORDS SUMMARY | 2025-09-06 10:04 | XMS_ITS | Encounter Summary ---
Author Organization [facility] Address [address] [facility] [address] [place] [phone] Phone Care Team Providers Care Log Pond Worker Name Role Phone Dorita Ruiz MD Unavailable [email or web address] Silvia Martin RN Unavailable [phone] Oliva Lopez RN Unavailable [phone] Levi Jones MD Unavailable [phone] Susana Fernandez MD Unavailable [phone] Vinita Dumont NP Unavailable [phone] Hemanth Atkins MD Primary Care Provider [phone] Reason for Referral * MRI/CAT Scan - Closed Specialty Diagnoses / Procedures Referred By Contac t Referred To Contact Radiology Diagnoses Pelvic and perineal pain Procedures CT Abdomen/Pelvis CHG CT SCAN,ABDOMENT AND PELVIS,W CONTRAST Lenore Posadas PA Phone: tel: fax: mailto:[email or web address] Referral ID Status Reason Start Date Expiration Date Visits Re quested Visits Authorized [id number] Closed 02/05/2023 04/06/2023 1 1 Encounter Details Date Type Department Care Team (Latest Contact Info) Description 02/05/2023 Transcribe Orders Virtual Department [address] [place] [address] Lenore Posadas PA [address] [place] [address] [email or web address] Pelvic and perineal pain (Primary Dx) Social [...] Assessment Author Yes 10/04/2015 9:24 AM Preethi Anrde PA-C documented as of this encounter Mental [...] abdomen/pelvis. No evidence of abdominopelvic metastasis. Lenore SAWYRE IMG CT ABD/PELVIS Final Result documented in this encounter Visit Diagnoses Diagnosis Pelvic and perineal pain- Primary Pelvic and perineal pain documented in this encounter Care Teams Log Pond Worker Relationship Specialty Start Date End Date Hemanth Atkins MD [address] [place] [id number] [email or web address] PCP - General Family Medicine 01/08/19 Dorita Ruiz MD [email or web address] Radiation Oncology 07/11/15 Silvia Martin RN [address] [place] [phone] [email or web address] Registered Nurse 09/22/15 Oliva Lopez RN [address] [place] [phone] [email or web address] U Registered Nurse 09/22/15 Levi Jones MD [address] [place] [address] Department of Obstetrics [place] [address] [email or web address] Gynecologic Oncology 09/22/15 Susana Fernandez MD [address] [place] [address] Department of Obstetrics [place] [address] Gynecologic Oncology 10/27/15 Vinita Dumont NP [address] [place] [id number] Referring Physician Family Medicine 03/02/16 documented as of this encounter Additional Source Comments The information contained in this document represents components of the legal health record. It is not the complete legal health record.[facility]
--- OUTSIDE RECORDS SUMMARY | 2025-09-06 10:05 | XMS_ITS | Encounter Summary ---
Author Organization [facility] Address [address] [facility] [address] [place] [address] Phone Care Team Providers Care Calibration Technician Name Role Phone Dorita Ruiz MD Unavailable [email or web address] Silvia Martin RN Unavailable [phone] Oliva Lopez RN Unavailable [phone] Levi Jones MD Unavailable [phone] Susana Fernandez MD Unavailable [phone] Vinita Dumont NP Unavailable [phone] Hemanth Atkins MD Primary Care Provider [phone]- [phone] Encounter Details Date Type Department Care Team (Late st Contact Info) Description 11/09/2020 Procedure Pass [facility] [address] [place] [address] Social History Tobacco Use Types Packs/Day Years [...] 11/09/2020 2:30 PM Abdi Denson, JANNA * [place] Suicide Severity Rating Scale (Screener/Recent Self-Report) Question [...] on filedocumented in this encounter Care Teams Calibration Technician Relationship Specialty Start Date End Date Hemanth Atkins MD [address] [place] [address] [email or web address] PCP - General Family Medicine 01/08/19 Dorita Ruiz MD [email or web address] Radiation Oncology 07/11/15 Silvia Martin RN [address] [place] [phone] [email or web address] Registered Nurse 09/22/15 Oliva Lopez RN [address] [place] [phone] [email or web address] U Registered Nurse 09/22/15 Levi Jones MD [address] [place] [address] Department of Obstetrics [place] [address] [email or web address] u Gynecologic Oncology 09/22/15 Susana Fernandez MD [address] [place] [address] Department of Obstetrics [place] [address] Gynecologic Oncology 10/27/15 Vinita Dumont NP [address] [place] [address] Referring Physician Family Medicine 03/02/16 documented as of this encounter Additional Source Comments The information contained in this document represents components of the legal health record. It is not the complete legal health record.[facility]
--- OUTSIDE RECORDS SUMMARY | 2025-09-06 10:05 | XMS_ITS | Encounter Summary ---
Author Organization [facility] Address [address] [facility] [address] [place] [address] Phone Care Team Providers Care Project Engineer Chemicals Name Role Phone Dorita Ruiz MD Unavailable [email or web address] Silvia Martin RN Unavailable [phone] Oliva Lopez RN Unavailable [phone] Levi Jones MD Unavailable [phone] Susana Fernandez MD Unavailable [phone] Vinita Dumont NP Unavailable [phone] Hemanth Atkins MD Primary Care Provider + [phone] Encounter Details Date Type Department Care Team (Late st Contact Info) Description 11/09/2020 Procedure Pass [facility], Ct Scan - [address] [address] Social History Tobacco Use Types Packs/Day Years [...] 11/09/2020 2:30 PM Abdi Denson RN * [place] Suicide Severity Rating Scale (Screener/Recent Self-Report) Question [...] on filedocumented in this encounter Care Teams Project Engineer Chemicals Relationship Specialty Start Date End Date Hemanth Atkins MD [address] [place] [address] [email or web address] PCP - General Family Medicine 01/08/19 Dorita Ruiz MD [email or web address] Radiation Oncology 07/11/15 Silvia Martin RN [address] [place] [phone] [email or web address]@[email or web address] Registered Nurse 09/22/15 Oliva Lopez RN [address] [place] [phone] [email or web address]. U Registered Nurse 09/22/15 Levi Jones MD [address] [place] [address] Department of Obstetrics [place] [address] [email or web address] Gynecologic Oncology 09/22/15 Susana Fernandez MD [address] [place] [address] Department of Obstetrics [place] [address] Gynecologic Oncology 10/27/15 Vinita Dumont NP [address] [place] [address] Referring Physician Family Medicine 03/02/16 documented as of this encounter Additional Source Comments The information contained in this document represents components of the legal health record. It is not the complete legal health record.[facility]
--- OUTSIDE RECORDS SUMMARY | 2025-09-06 10:05 | XMS_ITS | Encounter Summary ---
Author Organization [facility] Address [address] [facility] [address] [place] [address] Phone Care Team Providers Care Bottle Washer Machine Name Role Phone Dorita Ruiz MD Unavailable [email or web address] Silvia Martin RN Unavailable [phone] Oliva Lopez RN Unavailable [phone] Levi Jones MD Unavailable [phone] Susana Fernandez MD Unavailable [phone] Vinita Dumont NP Unavailable [phone] Hemanth Atkins MD Primary Care Provider + [phone] Encounter Details Date Type Department Care Team (Late st Contact Info) Description 02/05/2023 Procedure Pass [facility], Ct Scan - [address] [address] Social History Tobacco Use Types Packs/Day Years [...] Assessment Author Yes 10/04/2015 9:24 AM Preethi nAdre PA-C documented as of this encounter Mental Status * Patient has serious difficulty concentrating, remembering, or making decisions due to physical, mental, or emotional condition Answer Entry Date Author No 10/04/2015 9:24 AM Preethi Andre PA-C documented in this encounter Plan of Treatment Not on file documented as of this encounter Visit Diagnoses Not on filedocumented in this encounter Care Teams Bottle Washer Machine Relationship Specialty Start Date End Date Hemanth Atkins MD [address] [place] [address] [email or web address] PCP - General Family Medicine 01/08/19 Dorita Ruiz MD [email or web address] Radiation Oncology 07/11/15 Silvia Martin RN [address] [place] [phone] [email or web address]@[facility] Registered Nurse 09/22/15 Oliva Lopez RN [address] [place] [phone] [email or web address]. U Registered Nurse 09/22/15 Levi Jones MD [address] [place] [address] Department of Obstetrics [place] [address] [email or web address] u Gynecologic Oncology 09/22/15 Susana Fernandez MD [address] [place] [address] Department of Obstetric[place] [address] Gynecologic Oncology 10/27/15 Vinita Dumont NP [address] [place] [address] Referring Physician Family Medicine 03/02/16 documented as of this encounter Additional Source Comments The information contained in this document represents components of the legal health record. It is not the complete legal health record.[facility]
--- OUTSIDE RECORDS SUMMARY | 2025-09-06 10:05 | XMS_ITS | Encounter Summary ---
Author Organization [facility] Address [address] [place] [address] Care Team Providers Care Commercial Retoucher Name Role Phone Mirian Richey MD Primary Care Provider [phone] Encounter Details Date Type Department Care Team (Late st Contact Info) Description 07/27/2020 Orders Only [facility] Nuclear Medicine [address] [place] [address] Alfredo Cedeno MD PhD [address] [place] [address] Social History Tobacco Use Types Packs/Day Years [...] Care Team (Late st Contact Info) Description 12/09/2025 3:30 PM EST Office Visit [facility] MAGAZINE JOURNALIST Oncology [address] [place] [address] Aircraft Charter Dispatcher: Chelly Teixeira MD [address] [place] [address] 04/05/2026 10:15 AM EDT Appointment [facility] Ultrasound [address] [place] [address] documented as of this encounter Visit Diagnoses Not on filedocumented in this encounter Care Teams Commercial Retoucher Relationship Specialty Start Date End Date Mirian Richey MD [address] [place] [address] PCP - General Urology 01/31/24 documented as of this encounter
--- OUTSIDE RECORDS SUMMARY | 2025-09-06 10:05 | XMS_ITS | Encounter Summary ---
Author Organization [facility] Address [address] [place] [address] Care Team Providers Care Department Director Name Role Phone Mirian Richey MD Primary Care Provider [phone] Encounter Details Date Type Department Care Team (Late st Contact Info) Description 07/08/2020 Orders Only [facility] Interventional Radiology [address] [place] [address] Finn Manley MD [address] [place] [address] Social History Tobacco Use Types Packs/Day Years [...] Description 12/09/2025 3:30 PM EST Office Visit [facility] REGULAR SENIOR CARE PROVIDER Oncology [address] [place] [address] Rubber Insulator: Chelly Teixeira MD [address] [place] [address] 04/05/2026 10:15 AM EDT Appointment [facility] Ultrasound [address] [place] [address] documented as of this encounter Visit Diagnoses Not on filedocumented in this encounter Care Teams Department Director Relationship Specialty Start Date End Date Mirian Richey MD [address] [place] [address] PCP - General Urology 01/31/24 documented as of this encounter
--- OUTSIDE RECORDS SUMMARY | 2025-09-06 10:06 | XMS_ITS | Encounter Summary ---
Author Organization [facility] Address [address] [facility] [address] [place] [address] Phone Care Team Providers Care Senior Technical Architect Name Role Phone Dorita Ruiz MD Unavailable [email or web address] Silvia Martin RN Unavailable [phone] Oliva Lopez RN Unavailable [phone] Levi Jones MD Unavailable [phone] Susana Fernandez MD Unavailable [phone] Vinita Dumont NP Unavailable [phone] Hemanth Atkins MD Primary Care Provider + [phone] Encounter Details Date Type Department Care Team (Latest Contact Info) Description 01/08/2019 Ancillary Orders Virtual Department [address] [place] [address] Mirian Richey MD [address] [place] [address] Hydronephrosis, unspecified hydronephrosis type Social History Tobacco [...] significantly smaller than the LEFT. POS - [id number] Narrative 10/29/2019 4:57 PM EST EXAM: US [...] significantly smaller than the LEFT. POS - [id number] Mirian Richey MD [facility] Final Result documented in this encounter Visit Diagnoses Diagnosis Hydronephrosis, unspecified hydronephrosis type Hydronephrosis, unspecified hydronephrosis type documented in this encounter Care Teams Senior Technical Architect Relationship Specialty Start Date End Date Hemanth Atkins MD [address] [place] [address] [email or web address] PCP - General Family Medicine 01/08/19 Dorita Ruiz MD [email or web address] Radiation Oncology 07/11/15 Silvia Martin RN [address] [place] [phone] [email or web address]@[email or web address] Registered Nurse 09/22/15 Oliva Lopez RN [address] [place] [phone] [email or web address] U Registered Nurse 09/22/15 Levi Jones MD [address] [place] [address] Department of Obstetrics [place] [address] [email or web address] u Gynecologic Oncology 09/22/15 Susana Fernandez MD [address] [place] [address] Department of Obstetrics [place] [address] Gynecologic Oncology 10/27/15 Vinita Dumont NP [address] [place] [address] Referring Physician Family Medicine 03/02/16 documented as of this encounter Additional Source Comments The information contained in this document represents components of the legal health record. It is not the complete legal health record.[facility]
--- OUTSIDE RECORDS SUMMARY | 2025-09-06 10:08 | XMS_ITS | Encounter Summary ---
Author Organization [facility] Address [address] [facility] [address] [place] [address] Phone Care Team Providers Care Marketing Education Teacher Name Role Phone Vinita Dumont NP Primary Care Provider [phone] Dorita Riuz MD Unavailable [email or web address] Silvia Martin RN Unavailable [phone] Oliva Lopez RN Unavailable [phone] Levi Jones MD Unavailable [phone] Susana Fernandez MD Unavailable [phone] Vinita Dumont CENTRAL STER[employer] SUPPLY TECHNICIAN Unavailable [phone] Hemanth Atkins MD Primary Care Provider + [phone] Encounter Details Date Type Department Care Team (Latest Contact Info) Description 03/03/2018 Ancillary Orders Virtual Department [address] [place] [address] Mirian Richey MD [address] [place] [address] Hydronephrosis, unspecified hydronephrosis type Social History Tobacco [...] type documented in this encounter Care Teams Marketing Education Teacher Relationship Specialty Start Date End Date Vinita Dumont NP [address] [place] [address] PCP - General Family Medicine 07/01/15 01/07/19 Hemanth Atkins MD [address] [place] [address] [email or web address] PCP - General Family Medicine 01/08/19 Dorita Ruiz MD [email or web address] Radiation Oncology 07/11/15 Silvia Martin RN [address] [place] [phone] [email or web address] Registered Nurse 09/22/15 Oliva Lopez RN [address] [place] [phone] [email or web address] U Registered Nurse 09/22/15 Levi Jones MD [address] [place] [address] Department of Obstetrics [place] [address] [email or web address] u Gynecologic Oncology 09/22/15 Susana Fernandez MD [address] [place] [address] Department of Obstetrics [place] [address] Gynecologic Oncology 10/27/15 Vinita Dumont NP [address] [place] [address] Referring Physician Family Medicine 03/02/16 documented as of this encounter Additional Source Comments The information contained in this document represents components of the legal health record. It is not the complete legal health record.[facility]
--- OUTSIDE RECORDS SUMMARY | 2025-09-06 10:08 | XMS_ITS | Encounter Summary ---
Author Organization [facility] Address [address] [facility] [address] [place] [address] Phone Care Team Providers Care Ios Programmer Name Role Phone Vinita Dumont NP Primary Care Provider [phone] Dorita Ruiz MD Unavailable [email or web address] Silvia Martin RN Unavailable [phone] Oliva Lopez RN Unavailable [phone] Levi Jones MD Unavailable [phone] Susana Fernandez MD Unavailable [phone] Vinita Dumont SAVE ALL OPERATOR Unavailable [phone] Hemanth Atkins MD Primary Care Provider [phone] Encounter Details Date Type Department Care Team (Late st Contact Info) Description 03/14/2018 Ancillary Orders Virtual Department [address] [place] [address] Mirian Richey MD [address] [place] [address] Other hydronephrosis Social History Tobacco Use Types [...] hydronephrosis documented in this encounter Care Teams Ios Programmer Relationship Specialty Start Date End Date Vinita Dumont NP [address] [place] [address] PCP - General Family Medicine 07/01/15 01/07/19 Hemanth Atkins MD [address] [place] [address] PCP - General Family Medicine 01/08/19 Dorita Ruiz MD [email or web address] Radiation Oncology 07/11/15 Silvia Martin, RN [address] [place] [phone] [email or web address] Registered Nurse 09/22/15 Oliva Lopez RN [address] [place] [phone] [email or web address] U Registered Nurse 09/22/15 Levi Jones MD [address] [place] [address] Department of Obstetrics [place] [address] [email or web address] u Gynecologic Oncology 09/22/15 Susana Fernandez MD [address] [place] [address] Department of Obstetrics [place] [address] Gynecologic Oncology 10/27/15 Vinita Dumont NP [address] [place] [address] Referring Physician Family Medicine 03/02/16 documented as of this encounter Additional Source Comments The information contained in this document represents components of the legal health record. It is not the complete legal health record.[facility]
--- OUTSIDE RECORDS SUMMARY | 2025-09-06 10:08 | XMS_ITS | Encounter Summary ---
Author Organization [facility] Address [address] [facility] [address] [place] [address] Phone Care Team Providers Care Tipple Operator Name Role Phone Vinita Dumont NP Primary Care Provider [phone] Dorita Ruiz MD Unavailable [email or web address] Silvia Martin RN Unavailable [phone] Oliva Lopez RN Unavailable [phone] Levi Jones MD Unavailable [phone] Susana Fernandez MD Unavailable [phone] Vinita Dumont SYSTEM ADMINISTRATION MANAGER Unavailable [phone] Hemanth Atkins MD Primary Care Provider [phone]- [phone] Encounter Details Date Type Department Care Team (Latest Contact Info) Description 12/24/2017 Ancillary Orders [facility] External Provider Virtual Department [address] [place] [address] Mirian Richey MD [address] [place] [address] Malignant neoplasm of cervix, unspecified site; Hydronephrosis, [...] 10/14/2017. POS [id number] Mirian Colette Richey MD [facility] Final Result documented in this encounter Visit Diagnoses Diagnosis Malignant neoplasm of cervix, unspecified site Hydronephrosis, unspecified hydronephrosis type Malignant neoplasm of cervix, unspecified site Hydronephrosis, unspecified hydronephrosis type documented in this encounter Care Teams Tipple Operator Relationship Specialty Start Date End Date Vinita Dumont NP [address] [place] [address] PCP - General Family Medicine 07/01/15 01/07/19 Hemanth Atkins MD [address] [place] [address] [email or web address] PCP - General Family Medicine 01/08/19 Dorita Ruiz MD [email or web address] Radiation Oncology 07/11/15 Silvia Martin, JANNA [address] [place] [phone] [email or web address] Registered Nurse 09/22/15 Oliva Lopez RN [address] [place] [phone] [email or web address] U Registered Nurse 09/22/15 Levi Jones MD [address] [place] [address] Department of Obstetrics [place] [address] [email or web address] u Gynecologic Oncology 09/22/15 Susana Fernandez MD [address] [place] [address] Department of Obstetrics [place] [address] Gynecologic Oncology 10/27/15 Vinita Dumont NP [address] [place] [address] Referring Physician Family Medicine 03/02/16 documented as of this encounter Additional Source Comments The information contained in this document represents components of the legal health record. It is not the complete legal health record.[facility]
--- OUTSIDE RECORDS SUMMARY | 2025-09-06 10:10 | XMS_ITS | Encounter Summary ---
Author Organization [facility] Address [address] [facility] [address] [place] [address] Phone Care Team Providers Care Project Geophysicist Name Role Phone Vinita Dumont NP Primary Care Provider [phone] Dorita Ruiz MD Unavailable [email or web address] Silvia Martin RN Unavailable [phone] Oliva Lopez RN Unavailable [phone] Levi Jones MD Unavailable [phone] Susana Fernandez MD Unavailable [phone] Vinita Dumont SERVICE AIDE Unavailable [phone] Hemanth Atkins MD Primary Care Provider [phone] Reason for Referral * Outpatient Procedure - Closed Specialty Diagnoses / Procedures Referred By Contac t Referred To Contact Radiology Diagnoses Hydronephrosis, unspecified hydronephrosis type Procedures NM Renal Study with Mirian Akins MD Phone: tel: fax: Referral ID Status Reason Start Date Expiration Date Visits Re quested Visits Authorized [id number] Closed 10/21/2017 10/21/2018 1 1 Encounter Details Date Type Department Care Team (Latest Contact Info) Description 10/21/2017 Ancillary Orders Virtual Department [address] [place] [address] Richey, Mirian Alvarenga MD [address] [place] [address] Hydronephrosis, unspecified hydronephrosis type Social History Tobacco [...] type documented in this encounter Care Teams Project Geophysicist Relationship Specialty Start Date End Date Vinita Dumont NP [address] [place] [address] PCP - General Family Medicine 07/01/15 01/07/19 Hemanth Atkins MD [address] [place] [address] [email or web address] PCP - General Family Medicine 01/08/19 Dorita Ruiz MD [email or web address] Radiation Oncology 07/11/15 Silvia Martin, RN [address] [place] [phone] [email or web address]@[email or web address] Registered Nurse 09/22/15 Oliva Lopez RN [address] [place] [phone] [email or web address] U Registered Nurse 09/22/15 Levi Jones MD [address] [place] [address] Department of Obstetrics [place] [address] [email or web address] u Gynecologic Oncology 09/22/15 Susana Fernandez MD [address] [place] [address] Department of Obstetrics [place] [address] Gynecologic Oncology 10/27/15 Vinita Dumont NP [address] [place] [address] Referring Physician Family Medicine 03/02/16 documented as of this encounter Additional Source Comments The information contained in this document represents components of the legal health record. It is not the complete legal health record.[facility]
--- OUTSIDE RECORDS SUMMARY | 2025-09-06 10:10 | XMS_ITS | Encounter Summary ---
Author Organization [facility] Address [address] [facility] [address] [place] [address] Phone Care Team Providers Care Cargo Surveyor Name Role Phone Vinita Dumont NP Primary Care Provider [phone] Dorita Ruiz MD Unavailable [email or web address] Silvia Martin RN Unavailable [phone] Oliva Lopez RN Unavailable [phone] Levi Jones MD Unavailable [phone] Susana Fernandez MD Unavailable [phone] Vinita Duomnt CORPORATE EXECUTIVE Unavailable [phone] Hemanth Atkins MD Primary Care Provider [phone] Encounter Details Date Type Department Care Team (Late st Contact Info) Description 07/29/2015 Transcribe Orders [facility] and Women[facility] Radiology [address] [place] [address] Ryanne Lee [email or web address] Social History Tobacco Use Types Packs/Day [...] on filedocumented in this encounter Care Teams Cargo Surveyor Relationship Specialty Start Date End Date Vinita Dumont NP [address] [place] [address] PCP - General Family Medicine 07/01/15 01/07/19 Hemanth Atkins MD [address] [place] [address] [email or web address] PCP - General Family Medicine 01/08/19 Dorita Ruiz MD [email or web address] Radiation Oncology 07/11/15 Silvia Martin RN [address] [place] [phone] [email or web address] Registered Nurse 09/22/15 Oliva Lopez RN [address] [place] [phone] [email or web address] U Registered Nurse 09/22/15 Levi Jones MD [address] [place] [address] Department of Obstetrics [place] [address] [email or web address] Gynecologic Oncology 09/22/15 Susana Fernandez MD [address] [place] [address] Department of Obstetrics [place] [address] Gynecologic Oncology 10/27/15 Vinita Dumont NP [address] [place] [address] Referring Physician Family Medicine 03/02/16 documented as of this encounter Additional Source Comments The information contained in this document represents components of the legal health record. It is not the complete legal health record.[facility]
--- OUTSIDE RECORDS SUMMARY | 2025-09-06 10:10 | XMS_ITS | Encounter Summary ---
Author Organization [facility] Address [address] [facility] [address] [place] [address] Phone Care Team Providers Care Director Day Care Center Name Role Phone Vinita Dumont NP Primary Care Provider [phone] Dorita Ruiz MD Unavailable [email or web address] Silvia Martin RN Unavailable [phone] Oliva Lopez RN Unavailable [phone] Levi Jones MD Unavailable [phone] Susana Fernandez MD Unavailable [phone] Vinita Dumont MECHANICAL METER TESTER Unavailable [phone] Hemanth Atkins MD Primary Care Provider [phone] Encounter Details Date Type Department Care Team (Late st Contact Info) Description 09/27/2015 Transcribe Orders [facility] Women[facility] Radiology [address] [place] [address] Princess Olmedo [address] [place] [address] [email or web address] Social History Tobacco Use Types Packs/Day Years [...] filedocumented in this encounter Care Teams Director Day Care Center Relationship Specialty Start Date End Date Vinita Dumont NP [address] [place] [address] PCP - General Family Medicine 07/01/15 01/07/19 Hemanth Atkins MD [address] [place] [address] [email or web address] PCP - General Family Medicine 01/08/19 Dorita Ruiz MD [email or web address] Radiation Oncology 07/11/15 Silvia Martin RN [address] [place] [phone] [email or web address] Registered Nurse 09/22/15 Oliva Lopez RN [address] [place] [phone] [email or web address] U Registered Nurse 09/22/15 Levi Jones MD [address] [place] [address] Department of Obstetrics [place] [address] [email or web address] u Gynecologic Oncology 09/22/15 Susana Fernandez MD [address] [place] [address] Department of Obstetrics [place] [address] Gynecologic Oncology 10/27/15 Vinita Dumont NP [address] [place] [address] Referring Physician Family Medicine 03/02/16 documented as of this encounter Additional Source Comments The information contained in this document represents components of the legal health record. It is not the complete legal health record.[facility]
--- OUTSIDE RECORDS SUMMARY | 2025-09-06 10:10 | XMS_ITS | Encounter Summary ---
Author Organization [facility] Address [address] [facility] [address] [place] [address] Phone Care Team Providers Care Venue Coordinator Name Role Phone Vinita Dumont NP Primary Care Provider [phone] Dorita Ruiz MD Unavailable [email or web address] Silvia Martin RN Unavailable [phone] Oliva Lopez RN Unavailable [phone] Levi Jones MD Unavailable [phone] Susana Fernandez MD Unavailable [phone] Vinita Dumont CHILD & ADOLESCENT PSYCHIATRIST Unavailable [phone] Hemanth Atkins MD Primary Care Provider [phone] Encounter Details Date Type Department Care Team (Latest Contact Info) Description 10/09/2017 Ancillary Orders Virtual Department [address] [place] [address] Mirian Richey MD [address] [place] [address] Hydronephrosis, unspecified hydronephrosis type Social History Tobacco [...] in place. POS [id number] Mirian Richey MD [facility] RENAL Final Result documented in this encounter Visit Diagnoses Diagnosis Hydronephrosis, unspecified hydronephrosis type Hydronephrosis, unspecified hydronephrosis type documented in this encounter Care Teams Venue Coordinator Relationship Specialty Start Date End Date Vinita Dumont NP [address] [place] [address] PCP - General Family Medicine 07/01/15 01/07/19 Hemanth Atkins MD [address] [place] [address] [email or web address] PCP - General Family Medicine 01/08/19 Dorita Riuz MD [email or web address] Radiation Oncology 07/11/15 Silvia Martin RN [address] [place] [phone] [email or web address] Registered Nurse 09/22/15 Oliva Lopez RN [address] [place] [phone] [email or web address] U Registered Nurse 09/22/15 Levi Jones MD [address] [place] [address] Department of Obstetrics [place] [address] [email or web address] Gynecologic Oncology 09/22/15 Susana Fernandez MD [address] [place] [address] Department of Obstetrics [place] [address] Gynecologic Oncology 10/27/15 Vinita Dumont NP [address] [place] [address] Referring Physician Family Medicine 03/02/16 documented as of this encounter Additional Source Comments The information contained in this document represents components of the legal health record. It is not the complete legal health record.[facility]
--- OUTSIDE RECORDS SUMMARY | 2025-09-06 10:11 | XMS_ITS | Clinical Summary ---
Author Organization [facility] Address [address] [place] [address] Care Team Providers Care Belt Picker Name Role Phone Mirian Richey MD Primary Care Provider [phone] Allergies No known active allergies Medications FLUoxetine (PROzac) 20 mg capsule Take 20 mg by mouth daily. 12/29/2018 Active amLODIPine (NORVASC) 5 mg tablet Take 5 mg by mouth once a day. 02/01/2022 Active rosuvastatin (CRESTOR) 40 mg tablet Take 40 mg by mouth once a day. 02/01/2022 Active chlorthalidone (HYGROTEN) 25 mg tablet TAKE 1 TABLET BY MOUTH ONCE DAILY DIRECTED 05/31/2023 Active oxybutynin XL (DITROPAN XL) 10 mg tablet Take 1 tablet by mouth once daily 30 tablet 07/21/2025 Active Active Problems Problem Noted Date Diagnosed Date Abdominal pain 04/21/2019 Serum potassium elevated 01/09/2019 Elevated serum creatinine 01/09/2019 Acute renal failure (ARF) 01/09/2019 Malignant neoplasm of cervix 05/06/2018 Overview (05/06/2018): Added automatically from request for surgery [id number] Dyspareunia in female 09/11/2017 Hypomagnesemia 10/26/2015 Impaired renal function 10/26/2015 Pre-op testing 08/31/2015 Cancer of cervix 07/29/2015 Cancer Staging:Clinical stage from 06/17/2015:FIGO Stage IIIB- Signed by Chelly White MD on 09/11/2017 Bilateral hydronephrosis 07/29/2015 Encounters Date Type Department Care Team Description 07/20/2025 Refill [facility] [address] [place] [address] Certified Legal Investigator: Priscilla Saez NP 06/21/2025 Refill [facility] [address] [place] [address] Certified Legal Investigator: Priscilla Saez NP from Last 3 Months Family History Medical [...] Description 12/09/2025 3:30 PM EST Office Visit [facility] OPERATOR [employer] Oncology [address] [place] [address] Certified Legal Investigator: Chelly Teixeira MD [address] [place] [address] 04/05/2026 10:15 AM EDT Appointment [facility] Ultrasound [address] [place] [address] Health Maintenance Due Date Last Done Comments [...] this topic Medical Devices Implanted Type Area Yarder Puncher Device Identifier Shelf Expiration Date Model / Serial / Lot Stent Ureteral Firm Hydroplus Coating 7fr 26cm Percuflex Plus - [id number] Implanted:Qty: 1 on 10/09/2017 by Crissy Pierce MD at [facility] Stent Ureter [employer] 01/28/2020 175-273 / / [id number] Stent Ureteral Firm Hydroplus Coating 6fr 26cm Percuflex Plus - [id number] Implanted:Qty: 1 on 03/20/2018 by Mirian Richey MD at [facility] Stent Left: Ureter [employer] 09/10/2020 175-263 / / [id number] Stent Ureteral Firm Hydroplus Coating 6fr 26cm Percuflex Plus - [id number] Implanted:Qty: 1 on 03/20/2018 by Mirian Richey MD at [facility] Stent Right: Ureter [employer] 09/10/2020 175-263 / / [id number] Stent Ureteral Firm Hydroplus Coating 6fr 26cm Percuflex Plus - [id number] Implanted:Qty: 1 on 07/02/2018 by Mirian Richey MD at [facility] Stent [employer] 04/09/2021 175-263 / / [id number] Stent Ureteral Firm Hydroplus Coating 6fr 26cm Percuflex Plus - [id number] Implanted:Qty: 1 on 07/02/2018 by Mirian Richey MD at [facility] Stent [employer] 03/25/2021 175-263 / / [id number] Stent Ureteral Firm [employer] Coating 6fr 26cm Percuflex Plus - [id number] - [id number] Implanted:Qty: 1 on 10/31/2018 by Mirian Richey MD at [facility] Stent Left: Ureter [employer] 09/01/2021 175-263 / [id number] / [id number] Stent Ureteral Firm Hydroplus Coating 6fr 26cm Percuflex Plus - [id number] - [id number] Implanted:Qty: 1 on 10/31/2018 by Mirian Richey MD at [facility] Stent Right: Ureter [employer] 09/01/2021 175-263 / [id number] / [id number] Stent Ureteral Firm Hydroplus Coating 6fr 26cm Percuflex Plus - [id number] Implanted:Qty: 1 on 01/10/2019 by Golden Perry MD at [facility] Stent Right: Ureter [employer] 08/03/2021 175-263 / / [id number] Stent Ureteral Firm Hydroplus Coating 6fr 26cm Percuflex Plus - [id number] Implanted:Qty: 1 on 01/10/2019 by Golden Perry MD at [facility] Stent Left: Ureter [employer] 08/03/2021 175-263 / / [id number] Stent Ureteral Firm Hydroplus Coating 6fr 26cm Percuflex Plus - [id number] - [id number] Implanted:Qty: 1 on 04/09/2019 by Mirian Richey MD at [facility] Stent [employer] 02/01/2022 175-263 / [id number] / Stent Ureteral Firm Hydroplus Coating 6fr 26cm Percuflex Plus - [id number] Implanted:Qty: 1 on 04/16/2019 by Mirian Richey MD at [facility] Stent Left: Ureter [employer] 02/08/2022 175-263 / / [id number] Stent Ureteral Firm Hydroplus Coating 6fr 26cm Percuflex Plus - [id number] Implanted:Qty: 1 on 04/16/2019 by Mirian Richey MD at [facility] Stent Right: Ureter [employer] 02/01/2022 175-263 / / [id number] Procedures * Due to [place] [employer] law, this organization might not be sharing negative HIV tests. Procedure Name Priority Date/Time Associated Diagnosis Comments PAP W/HPV, CONVERSION Routine 07/15/2017 10:42 AM EDT from Last 3 Months or Most Recently Relevant to Health Maintenance Results * Due to [place] state law, this organization might not be sharing negative HIV tests. * Pap w/HPV (07/15/2017 10:42 AM EDT) Path Procedure TPGS (092464) 1 HPVHR(817344) 1 Edited by: [id number] - 4 MAHAMED [id number] - 1247 TRISTEN [id number] - 6740 [facility] ANATOMIC PATHOLOGY - BIOTECH THREE Specimen Labeled As: 1 CERVICAL/ENDOCERVI LM CYTO MATERIAL - Edited by: [id number] - 1042 ENRRIQUE [facility] ANATOMIC PATHOLOGY - BIOTECH THREE Additional Test Information Specimens were tested for high risk HPV using the FDA approved Digene Hybrid Capture II kit, in the Diagnostic Molecular Oncology Lab at [facility]. This test can detect HPV high risk [...] abnormality. We endorse the recommendations of the [place] Society for Colposcopy and Cervical Pathology for [...] high complexity clinical laboratory testing. Edited by: [id number] - 1447 [facility] [id number] - 145 [facility] [id number] - 1605 [facility] ANATOMIC PATHOLOGY - BIOTECH THREE Diagnosis ThinPrep Pap Test Adequacy: Specimen processed and examined but unsatisfactory for evaluation of epithelial cell abnormalities because of scant epithelial cellularity and obscuring blood. This Pap test could not be examined by the ThinPrep Imaging System, [facility], [place], [place], and required a full manual screening. This case was screened and diagnosed by the Cytology Laboratory at [place] - High risk HPV DNA subtypes: NEGATIVE Edited by: [id number] - 1447 [facility] [id number] - 1451 [facility] [id number] - 160 [facility] [id number] - 1701 [facility] ANATOMIC PATHOLOGY - BIOTECH THREE Gynecologic Clinical Data Specimen source:, THINPREP (CERVICAL AND ENDOCERVICAL) [facility] ANATOMIC PATHOLOGY - BIOTECH THREE Gynecologic Clinical Data First date of LMP:, NOT GIVEN [facility] ANATOMIC PATHOLOGY - BIOTECH THREE Pathology Codes Client Order Code:, TPHS3 [facility] ANATOMIC PATHOLOGY - BIOTECH THREE Pathology Codes Bill Type:, 3RD DEMOCRAT BILLING [facility] ANATOMIC PATHOLOGY - BIOTECH THREE Completed Report [id number] HPV, HIGH RISK TYPES 1 [facility] ANATOMIC PATHOLOGY - BIOTECH THREE Marker 1 LAURA,MD NEGATIVE [facility] ANATOMIC PATHOLOGY - BIOTECH THREE Marker 2 TITO DURANARAM [facility] ANATOMIC PATHOLOGY - BIOTECH THREE Marker 3 OMRPT,MOLECULAR REPEAT [facility] ANATOMIC PATHOLOGY - BIOTECH THREE Marker 4 RIM,RECEIVED IN MOLECULAR [facility] ANATOMIC PATHOLOGY - BIOTECH THREE Marker 5 STQ,[facility] TO [facility] ANATOMIC PATHOLOGY - BIOTECH THREE Marker 6 UNSAT,Unsatisfacto ry [facility] ANATOMIC PATHOLOGY - BIOTECH THREE Cc Results To HALLIE Queen [employer]PERATOR [employer] [phone] MACIEL Goyal OPERATOR [employer] [phone] [facility] ANATOMIC PATHOLOGY - BIOTECH THREE Signature REPORT SIGNED: PAMELA SOLER 08/01/17 [facility] ANATOMIC PATHOLOGY - BIOTECH THREE Sign Out Audit PAMELA SOLER [id number] FINAL [facility] [id number] [facility] ANATOMIC PATHOLOGY - BIOTECH THREE Cytology / Unknown 7 10:42 AM EDT 07/16/2017 10:42 AM EDT us Susana Fernandez MD LAB HISTORICAL RESULTS Fin al Result [facility] ANATOMIC PATHOLOGY - BIOTECH THREE [address] [place] [address], from Last 3 Months or Most Recently Relevant to Health Maintenance Insurance [facility] Advance Directives Documents on File Type Date Recorded Patient Section Weaver Expl anation Health Care Proxy 01/10/2019 8:18 AM 2018 Health Care Proxy 08/08/2017 1:34 PM Health Care Proxy 08/08/2017 8:14 AM Health Care Proxy 01/09/2017 12:00 AM Heal th Care Proxy Healthcare Agents on File Name Relationship Healthcare Agent Relationshi p Communication Leon Jean Baptiste Spouse Next of Kin [phone] ( Home) Care Teams Belt Picker Relationship Specialty Start Date End Date Mirian Richey MD [address] [place] [address] PCP - General Urology 01/31/24
--- OUTSIDE RECORDS SUMMARY | 2025-09-06 10:11 | XMS_ITS | Clinical Summary ---
Author Organization [facility] Address [address] [facility] [address] [place] [address] Phone Care Team Providers Care Rn Occupational Health Name Role Phone Dorita Ruiz MD Unavailable [email or web address] Silvia Martin RN Unavailable [phone] Oliva Lopez RN Unavailable [phone] Levi Jones MD Unavailable [phone] Susana Fernandez MD Unavailable [phone] Vinita Dumont NP Unavailable [phone] Hemanth Atkins MD Primary Care Provider + [phone] Allergies No known active allergies Medications amLODIPine [...] FOBT 2006 SIGMOIDOSCOPY 2006 VIRTUAL COLONOSCOPY 2006 INFLUENZA VACCINE (#1) 2025 COVID-19 VACCINE (4 - 2024-2 6 season) 2025 11/28/2021, 02/25/2021, 02/04/2021 LIPID PANEL 11/10/2025 11/10/2020 [...] (11/10/2020 5:45 AM EST) HDL 96 mg/dL [facility] Comment: Interpretation <40 mg/dL: Low HDL cholesterol (major risk factor for CHD) Greater than or equal to 60 mg/dL: High HDL cholesterol ( negative risk factor for CHD) HDL - cholesterol is affected by a number of factors, e.g. smoking, excerise, hormones, sex and age. CHOLESTEROL 290(H) 0 - 240 mg/dL [facility] TRIGLYCERIDES 94 30 - 160 mg/dL [facility] LDL 175(H) 50 - 129 mg/dL [facility] Comment: LDL levels in terms of risk for coronary heart disease: <100 mg/dL: Optimal 100-129 mg/dL: Near or above optimal 130-159 mg/dL: Borderline high 160-189 mg/dL: High >190 mg/dL: Very High CARDIAC RISK RATIO 3.0(L) 3.3 - 4.4 C [facility] Blood 11/10/2020 5:45 AM EST 11/10/2020 6:32 AM EST us Asaf Robles MD LAB BLOOD ORDERABLES Fin al Result Performing Organization Address City/State/[facility] Co de Phone Number [facility] [address] [place] [address] from Last 3 Months or Most Recently Relevant to Health Maintenance Insurance [facility] [address] [id number] [facility] [address] [address] [facility] [address] [address] [facility] [address] [address] [facility] Advance Directives For more information, please contact: [phone] (9AM - 5PM [facility], Saturday-Saturday) * Full Code (Latest Code Status on File) Date Activated Date Inactivated Comments 11/09/2020 8:49 PM Question Answer Comments Code Status Confirmed With: Patient * Full Code (Presumed) Date Activated Date Inactivated Comments 10/03/2015 3:47 PM 10/06/2015 12:44 PM Care Teams Rn Occupational Health Relationship Specialty Start Date End Date Hemanth Atkins MD [address] [place] [address] [email or web address] PCP - General Family Medicine 01/08/19 Dorita Ruiz MD [email or web address] Radiation Oncology 07/11/15 Silvia Martin RN [address] [place] [phone] [email or web address] Registered Nurse 09/22/15 Oliva Lopez RN [address] [place] [phone] [email or web address] U Registered Nurse 09/22/15 Levi Jones MD [address] [place] [address] Department of Obstetrics [place] [address] [email or web address] u Gynecologic Oncology 09/22/15 Susana Fernandez MD [address] [place] [address] Department of Obstetric[place] [address] Gynecologic Oncology 10/27/15 Vinita Dumont NP [address] [place] [address] Referring Physician Family Medicine 03/02/16 Additional Source Comments The information contained in this document represents components of the legal health record. It is not the complete legal health record.[facility]
--- OUTSIDE RECORDS SUMMARY | 2025-09-06 10:11 | XMS_ITS ---
Author Organization [facility] Address [address] [place] [address] Care Team Providers Care Urology Physician Assistant Name Role Phone Mirian Richey MD Primary Care Provider [phone] Active Problems Problem Noted Date Diagnosed Date Abdominal pain 04/21/2019 Serum potassium elevated 01/09/2019 Elevated serum creatinine 01/09/2019 Acute renal failure (ARF) 01/09/2019 Malignant neoplasm of cervix 05/06/2018 Overview (05/06/2018): Added automatically from request for surgery [id number] Dyspareunia in female 09/11/2017 Hypomagnesemia 10/26/2015 Impaired [...]
== END 2025-09-06 09:18 | disposition home or self-care (01) ==
LOC: HO.HGS 08:57
PROVIDERS: Visit Provider Surgery
DX: K81.0 Acute cholecystitis (principal)
CPT/HCPCS: 99024

== ENCOUNTER 2025-09-23 12:54 | Outpatient (AMB) | payer OTHER, SELFPAY ==
[2025-09-23 12:59] VITALS: BP 128/88; PULSE 85; TEMP 36.3; O2SAT 95; BMI 29.9
--- NOTE | 2025-09-23 12:59 | A.OFFPC_ITS ---
Vital Signs 09/23/25 12:59 Height 5 ft 3 in Weight 169 lb BMI 29.9 BP 128/88 Blood Pressure Location Rt brachial Position Sitting Pulse 85 Pulse Source Pulse Oximeter Temp 97.3 F Temp Source Temporal Artery Scan Pulse Oximetry (%) 95 Oxygen Delivery Method Room Air Intake Visit Reasons: Severe pain Flatwork Finisher Hand Required: No Accompanied by: Spouse Allergies No Known Allergies Allergy (Verified 09/23/25 12:59) Medication List - Last Reconciled 09/23/25 by Hilaria Carias MD amlodipine 5 mg PO DAILY bupropion HCl 100 mg PO BID chlorthalidone 25 mg PO DAILY cholecalciferol (vitamin D3) 25 mcg PO DAILY docusate sodium (Colace) 100 mg PO BID PRN oxybutynin chloride ER 10 mg PO DAILY oxycodone 5 mg PO Q4H PRN rosuvastatin 40 mg PO DAILY Tobacco use date assessed: 07/16/25 Dental Screening Dental Screen Date: 07/16/25 Did you have a dental visit in the last 12 months?: No Did you have a dental problem in the last 6 months where you did not have access to dental care?: No Was dental information given to patient?: Patient has dentist HPI HPI Comments History of Present Illness Details Patient is a 64 year old female presenting with abdominal pain. Chantel nickerson underwent cholecystectomy on 08/27/2025 that was laparoscopy converted to open cholecystectomy. States that pain started a week ago, sharp shooting like pain, constant, mostly in the right abdomen (upper > lower), 7-8/10, associated with new onset constipation and reduced flatulence. Pain aggravated by movement and alleviated when sitting still. She reports numbness around the surgical site. Last bowel movement this morning. Use Colace few times since the surgery. Denies fever, chills, nausea, vomiting, or diarrhea. Reports being on oxycodone for years since her cervical cancer diagnosis. [facility] Medical History Acute cholecystitis Cervical cancer Impaired fasting glucose Renal failure syndrome Chronic kidney disease, stage 3 Essential hypertension Retinal artery occlusion Mixed hyperlipidemia Surgical History Hx of cholecystectomy (08/27/25) Social History Household Members: Spouse and Children Housing: House Do you presently have visiting nurse or other home services: No Patient Tobacco Use Status: Never used Tobacco e-Cigarette/Vaping Use: Never Used Second Hand Smoke Exposure: No service: No Current occupational status: employed Cognitive needs: No Hearing needs: No Vision needs: Yes Questionnaire PHQ-9 Over the last 2 weeks, how often have you been bothered by any of the following problems? 1. Little interest or pleasure in doing things: not at all 2. Feeling down, depressed, or hopeless: not at all 3. Trouble falling or staying asleep, or sleeping too much: not at all 4. Feeling tired or having little energy: not at all 5. Poor appetite or overeating: not at all 6. Feeling bad about yourself - or that you are a failure or have let yourself or your family down: not at all 7. Trouble concentrating on things, such as reading the newspaper or watching television: not at all 8. Moving or speaking so slowly that other people could have noticed. Or the opposite - being so fidgety or restless that you have been moving around a lot more than usual: not at all 9. Thoughts that you would be better off or of hurting yourself in some way: not at all Total score: 0 Depression Screening Interpretation: Negative Depression Screening Done: Yes Source: Developed by Drs. Nigel Ramirez, Jaz Bass, Mannie Zimmerman and colleagues, with an educational pool from [employer]. Thrive Questionnaire Date Thrive assessed: 12/25/24 I am a: Patient What is your living situation today?: I have a steady place to live Within the past 12 months, did the food you bought not last and you didn't have the money to get more?: Never true Within the past 12 months, did you worry whether your food would run out before you got money to buy more?: Never true Do you have trouble paying for medicines?: No Do you have trouble getting transportation to medical appointments?: No Do you have trouble paying your heating and electricity bill?: No Do you have trouble taking care of your child, family member or friend?: No Do you have trouble with day-to-day activities such as bathing, preparing meals, shopping, managing finances, etc.?: No Are you currently unemployed and looking for a job?: No Are you interested in more education?: No Please select the resources that you would like help with: None Currently or been in a relationship where the following occur: No concerns reported THRIVE Score: 0 AUDIT C Alcohol Use Questionnaire (AUDIT-C) 1. How often do you have a drink containing alcohol?: 2-3 times a week 2. How many drinks containing alcohol do you have on a typical day when you are drinking?: 1 or 2 3. How often do you have six or more drinks on one occasion?: Never Total Score: 3 LIBORIO-7 AMB Questionnaire LIBORIO-7 Date LIBORIO - 7 assessed: 12/25/24 Feeling nervous, anxious, or on edge: 0 = Not at all Not being able to stop or control worryin = Not at all Worrying too much about different things: 0 = Not at all Trouble relaxin = Not at all Being so restless that it is hard to sit still: 0 = Not at all Becoming easily annoyed or irritable: 0 = Not at all Feeling afraid as if something awful might happen: 0 = Not at all Total LIBORIO-7 score (0-4 normal; 5-9 mild; 10-14 moderate; 15-21 severe): 0 Source: Developed by Drs. Nigel Ramirez, Jaz Bass, Mannie Zimmerman and colleagues, with an educational pool from [employer]. Physical exam (Primary Care) Vital Signs: Last Vital Signs Temp 97.3 F 09/23/25 12:59 Pulse 85 09/23/25 12:59 BP 128/88 09/23/25 12:59 Pulse Ox 95 09/23/25 12:59 Oxygen Delivery Method Room Air 09/23/25 12:59 General: Well-appearing, alert, oriented ?3, in no acute distress. Cardiovascular: RRR, S1-S2 appreciated, no murmurs, rubs or gallops. Respiratory: Lungs clear to auscultation bilaterally, no wheezes, rales or rhonchi. Abdomen: Soft, nondistended, Normoactive bowel sounds. Tenderness upon palpation of the right upper quadrant. BMI result Body Mass Index 29.9 Tobacco/Smoking Status: Tobacco use Status Tobacco use date assessed 07/16/25 09/23/25 13:03 Patient Tobacco Use Status Never used Tobacco 09/23/25 13:03 e-Cigarette/Vaping Use Never Used 09/23/25 13:03 PHQ-9: PHQ-9 Score PHQ-9: Total score 0 09/23/25 13:03 Depression Screening Interpretation: Negative Thrive Assessment: Date of Thrive Assessment Date Thrive assessed 12/25/24 09/23/25 13:03 Currently or been in a relationship where the following occur: No concerns reported Coding Level of Care Code Est Pt Level 3 (08775) Diagnoses Right upper quadrant abdominal pain R10.11 Abdominal location: right upper quadrant Assessment & Plan Assessment & Plan (1) Abdominal pain: Code(s): R10.9 - Unspecified abdominal pain Category: Medical Qualifiers: Abdominal location: right upper quadrant Qualified Code(s): R10.11 - Right upper quadrant pain Plan: Patient presenting with abdominal pain. Patient underwent cholecystectomy on 08/27/2025 that was laparoscopy converted to open cholecystectomy. Pain x1 week, sharp shooting like pain, constant, mostly in the right abdomen (upper > lower), 7-8/10, associated with new onset constipation and reduced flatulence. Pain aggravated by movement and alleviated when sitting still. Reports numbness around the surgical site. Last bowel movement this morning. Used Colace few times since the surgery. Denies fever, chills, nausea, vomiting, or diarrhea. Reports being on oxycodone for years since her cervical cancer diagnosis. - obtain CT abdomen/pelvis to further evaluate - may take naproxen 500 mg BID prn pain. avoid taking with other NSAIDS. may use tylenol. take with food and plenrty of water. - use colace daily prn constipation Orders: Orders CT abdomen pelvis wo IV con Today G89.18 - Other acute postprocedural pain, R10.84 - Generalized abdominal pain Medications: New naproxen 500 mg PO BID PRN 20 tabs 0RF pain
--- OUTSIDE RECORDS SUMMARY | 2025-09-23 15:52 | XMS_ITS ---
Author Organization [facility] Address [address] [place] [address] Care Team Providers Care First Beater Name Role Phone Mirian Richey MD Primary Care Provider [phone] Active Problems Problem Noted Date Diagnosed Date Abdominal pain 04/21/2019 Serum potassium elevated 01/09/2019 Elevated serum creatinine 01/09/2019 Acute renal failure (ARF) 01/09/2019 Malignant neoplasm of cervix 05/06/2018 Overview (05/06/2018): Added automatically from request for surgery [id number] Dyspareunia in female 09/11/2017 Hypomagnesemia 10/26/2015 Impaired [...]
--- OUTSIDE RECORDS SUMMARY | 2025-09-23 15:52 | XMS_ITS | Clinical Summary ---
Author Organization [facility] Address [address] [place] [address] Care Team Providers Care Hand Laster Name Role Phone Mirian Richey MD Primary Care Provider [phone]- [phone] Allergies No known active allergies Medications FLUoxetine [...] (05/06/2018): Added automatically from request for surgery [id number] Dyspareunia in female 09/11/2017 Hypomagnesemia 10/26/2015 Impaired renal function 10/26/2015 Pre-op testing 08/31/2015 Cancer of cervix 07/29/2015 Cancer Staging:Clinical stage from 06/17/2015:FIGO Stage IIIB- Signed by Chelly White MD on 09/11/2017 Bilateral hydronephrosis 07/29/2015 Encounters Date Type Department Care Team Description 07/20/2025 Refill [facility] [address] [place] [phone] Tractor Mechanic Helper: Priscilla Saez NP from Last 3 Months [...] Description 12/09/2025 3:30 PM EST Office Visit [facility] MISSION PLANNER Oncology [address] [place] [phone] Tractor Mechanic Helper: Chelly Teixeira MD [address] [place] [address] 04/05/2026 10:15 AM EDT Appointment [facility] Ultrasound [address] [place] [address] Health Maintenance Due Date Last Done Comments [...] this topic Medical Devices Implanted Type Area Shade Bander Device Identifier Shelf Expiration Date Model / Serial / Lot Stent Ureteral Firm Hydroplus Coating 7fr 26cm Percuflex Plus - [id number] Implanted:Qty: 1 on 10/09/2017 by Crissy Pierce MD at [facility] Stent Ureter [employer] 01/28/2020 175-273 / / [id number] Stent Ureteral Firm Hydroplus Coating 6fr 26cm Percuflex Plus - [id number] Implanted:Qty: 1 on 03/20/2018 by Mirian Richey MD at [facility] Stent Left: Ureter [employer] 09/10/2020 175-263 / / [id number] Stent Ureteral Firm Hydroplus Coating 6fr 26cm Percuflex Plus - [id number] Implanted:Qty: 1 on 03/20/2018 by Mirian Richey MD at [facility] Stent Right: Ureter [employer] 09/10/2020 175-263 / / [id number] Stent Ureteral Firm Hydroplus Coating 6fr 26cm Percuflex Plus - [id number] Implanted:Qty: 1 on 07/02/2018 by Mirian Richey MD at [facility] Stent [employer] 04/09/2021 175-263 / / [id number] Stent Ureteral Firm Hydroplus Coating 6fr 26cm Percuflex Plus - [id number] Implanted:Qty: 1 on 07/02/2018 by Mirian Richey MD at [facility] Stent [employer] 03/25/2021 175-263 / / [id number] Stent Ureteral Firm Hydroplus Coating 6fr 26cm Percuflex Plus - [id number] - [id number] Implanted:Qty: 1 on 10/31/2018 by Mirian Richey MD at [facility] Stent Left: Ureter [employer] 09/01/2021 175-263 / [id number] / [id number] Stent Ureteral Firm Hydroplus Coating 6fr 26cm Percuflex Plus - [id number] - [id number] Implanted:Qty: 1 on 10/31/2018 by Mirian Richey MD at [facility] Stent Right: Ureter [employer] 09/01/2021 175-263 / [id number] / [id number] Stent Ureteral Firm Hydroplus Coating 6fr 26cm Percuflex Plus - [id number] Implanted:Qty: 1 on 01/10/2019 by Golden Perry MD at [facility] Stent Right: Ureter [employer] 08/03/2021 175-263 / / [id number] Stent Ureteral Firm Hydroplus Coating 6fr 26cm Percuflex Plus - [id number] Implanted:Qty: 1 on 01/10/2019 by Golden Perry MD at [facility] Stent Left: Ureter [employer] 08/03/2021 175-263 / / [id number] Stent Ureteral Firm Hydroplus Coating 6fr 26cm Percuflex Plus - [id number] - [id number] Implanted:Qty: 1 on 04/09/2019 by Mirian Richey MD at [facility] Stent [employer] 02/01/2022 175-263 / [id number] / Stent Ureteral Firm Hydroplus Coating 6fr 26cm Percuflex Plus - [id number] Implanted:Qty: 1 on 04/16/2019 by Mirian Richey MD at [facility] Stent Left: Ureter [employer] 02/08/2022 175-263 / / [id number] Stent Ureteral Firm Hydroplus Coating 6fr 26cm Percuflex Plus - [id number] Implanted:Qty: 1 on 04/16/2019 by Mirian Richey MD at [facility] Stent Right: Ureter [employer] 02/01/2022 175-263 / / [id number] Procedures * Due to [place] [employer] law, this organization might not be sharing negative HIV tests. Procedure Name Priority Date/Time Associated Diagnosis Comments PAP W/HPV, CONVERSION Routine 07/15/2017 10:42 AM EDT from Last 3 Months or Most Recently Relevant to Health Maintenance Results * Due to [place] [employer] law, this organization might not be sharing negative HIV tests. * Pap w/HPV (07/15/2017 10:42 AM EDT) Path Procedure TPGS (768947) 1 HPVHR(092971) 1 Edited by: [id number] - 1043 MAHAMED [id number] - 1241 TRISTEN [id number] - 1447 [facility] Specimen Labeled As: 1 CERVICAL/ENDOCERVI LM CYTO MATERIAL - Edited by: [id number] - 1043 ENRRIQUE [facility] Additional Test Information Specimens were tested for high risk HPV using the FDA approved Digene Hybrid Capture II kit, in the Diagnostic Molecular Oncology Lab at [facility]. This test can detect HPV [...] abnormality. We endorse the recommendations of the [place] Society for Colposcopy and Cervical Pathology for [...] high complexity clinical laboratory testing. Edited by: [id number] - 1447 [facility] [id number] - 145 [facility] [id number] - 5 [facility] Diagnosis ThinPrep Pap Test Adequacy: Specimen processed and examined but unsatisfactory for evaluation of epithelial cell abnormalities because of scant epithelial cellularity and obscuring blood. This Pap test could not be examined by the ThinPrep Imaging System, [employer], [place], [place], and required a full manual screening. This case was screened and diagnosed by the Cytology Laboratory at [facility], [place] - High risk HPV DNA subtypes: NEGATIVE Edited by: [id number] - 1447 [facility] [id number] - 145 [facility] [id number] - 1604 [facility] [id number] - 1701 [facility] Gynecologic Clinical Data Specimen source:, THINPREP (CERVICAL AND ENDOCERVICAL) [facility] Gynecologic Clinical Data First date of LMP:, NOT GIVEN [facility] Pathology Codes Client Order Code:, TPHS3 [facility] Pathology Codes Bill Type:, 3RD CONSTITUTION PARTY BILLING [facility] Completed Report [id number] HPV, HIGH RISK TYPES 1 [facility] Marker 1 MDNEG,MD NEGATIVE [facility] Marker 2 TITO DURANANAYA [facility] Marker 3 OMRPT,MOLECULAR REPEAT [facility] Marker 4 RIM,RECEIVED IN MOLECULAR [facility] Marker 5 STQ,SENT TO [facility] Marker 6 UNSAT,Unsatisfacto ry [facility] Cc Results To HALLIE Queen [facility] [id number] MACIEL Goyal [facility] [employer] [id number] [facility] Signature REPORT SIGNED: PAMELA SOLER 08/01/17 [facility] Sign Out Audit PAMELA SOLER [id number] [place] [place] [id number] 1725 [facility] Cytology / Unknown 7 10:42 AM EDT 07/16/2017 10:42 AM EDT us Susana Fernandez MD LAB HISTORICAL RESULTS Fin al Result Performing Organization Address City/State/[facility] Co de Phone Number [facility] [address] [place] [address] from Last 3 Months or Most Recently Relevant to Health Maintenance Insurance Advance Directives Documents on File Type Date Recorded Patient Furnace Checker Expl anation Health Care Proxy 01/10/2019 8:18 AM 2018 Health Care Proxy 08/08/2017 1:34 PM Health Care Proxy 08/08/2017 8:14 AM Health Care Proxy 01/09/2017 12:00 AM Heal th Care Proxy Healthcare Agents on File Name Relationship Healthcare Agent Relationshi p Communication Leon Jean Baptiste Spouse Next of Kin [phone] ( Home) Care Teams Hand Laster Relationship Specialty Start Date End Date Mirian Richey MD [address] [place] [address] PCP - General Urology 01/31/24
--- OUTSIDE RECORDS SUMMARY | 2025-09-23 15:52 | XMS_ITS | Encounter Summary ---
Author Organization [facility] Address [address] [place] [address] Care Team Providers Care Pilot Plant Supervisor Name Role Phone Mirian Richey MD Primary Care Provider +1- [phone] Encounter Details Date Type Department Care Team (Late st Contact Info) Description 07/08/2020 Orders Only [facility] Interventional Radiology [address] [place] [phone] Finn Manley MD [address] [place] [address] Social History Tobacco Use Types Packs/Day Years [...] Description 12/09/2025 3:30 PM EST Office Visit [facility] CHEMICAL WASTE MANAGEMENT TECHNICIAN Oncology [address] [place] [address] Chiseler Head: Chelly Teixeira MD [address] [place] [address] 04/05/2026 10:15 AM EDT Appointment [facility] Ultrasound [address] [place] [address] documented as of this encounter Visit Diagnoses Not on filedocumented in this encounter Care Teams Pilot Plant Supervisor Relationship Specialty Start Date End Date Mirian Richey MD [address] [place] [address] PCP - General Urology 01/31/24 documented as of this encounter
--- OUTSIDE RECORDS SUMMARY | 2025-09-23 15:52 | XMS_ITS | Encounter Summary ---
Author Organization [facility] Address [address] [place] [address] Care Team Providers Care Milk Powder Grinder Name Role Phone Mirian Richey MD Primary Care Provider +1- [phone] Encounter Details Date Type Department Care Team (Late st Contact Info) Description 07/27/2020 Orders Only [facility] Nuclear Medicine [address] [place] [phone] Alfredo Cedeno MD PhD [address] [place] [address] Social History Tobacco Use Types Packs/Day Years [...] Description 12/09/2025 3:30 PM EST Office Visit [facility] DIRECTOR OF LEADERSHIP DEVELOPMENT Oncology [address] [place] [address] Base Filler: Chelly Teixeira MD [address] [place] [address] 04/05/2026 10:15 AM EDT Appointment [facility] Ultrasound [address] [place] [address] documented as of this encounter Visit Diagnoses Not on filedocumented in this encounter Care Teams Milk Powder Grinder Relationship Specialty Start Date End Date Mirian Richey MD [address] [place] [address] PCP - General Urology 01/31/24 documented as of this encounter
== END 2025-09-23 13:55 | disposition home or self-care (01) ==
LOC: HO.HMCH 12:55
PROVIDERS: PCP Student in an Organized Health Care Education/Training Program; Visit Provider Student in an Organized Health Care Education/Training Program
DX: R10.11 Right upper quadrant pain (principal)

== ENCOUNTER 2025-10-11 09:02 | Outpatient (AMB) | payer OTHER, SELFPAY ==
--- NOTE | 2025-10-11 09:06 | A.OFFVIS_ITS ---
Vital Signs 10/11/25 09:09 Height 5 ft 3 in Weight 170 lb BMI 30.1 BP 132/78 Blood Pressure Location Lt brachial Position Sitting Pulse 112 H Intake Visit Reasons: 1mth follow up post cholecystectomy Intake Note: Patient is seen in office for one month follow up visit, post cholecystectomy. Pt c/o: admits to minimal discomfort on incision on the RUQ Analysis Engineer Required: No Accompanied by: Self / Same As Patient Allergies No Known Allergies Allergy (Verified 10/11/25 09:11) Medication List - Last Reconciled 10/11/25 by Leon Humphreys MD amlodipine 5 mg PO DAILY bupropion HCl 100 mg PO BID chlorthalidone 25 mg PO DAILY cholecalciferol (vitamin D3) 25 mcg PO DAILY docusate sodium (Colace) 100 mg PO BID PRN naproxen 500 mg PO BID PRN oxybutynin chloride ER 10 mg PO DAILY rosuvastatin 40 mg PO DAILY HPI Comments Details: 64-year-old female patient returning 1 month following laparoscopic converted to open cholecystectomy for acute cholecystitis due to cholelithiasis. She has some soreness in the right upper quadrant at the incision but generally feels much improved. She denies any further nausea, vomiting, fever or chills. Her appetite is much improved as well. She had some problems with the bowels but this is much improved now as well. She feels ready to return to work without restrictions. She plans on returning to work as of 10/18/2025. [facility] Medical History Acute cholecystitis Cervical cancer Impaired fasting glucose Renal failure syndrome Chronic kidney disease, stage 3 Essential hypertension Retinal artery occlusion Mixed hyperlipidemia Surgical History Hx of cholecystectomy (08/27/25) Social History Household Members: Spouse and Children Housing: House Do you presently have visiting nurse or other home services: No Patient Tobacco Use Status: Never used Tobacco e-Cigarette/Vaping Use: Never Used Second Hand Smoke Exposure: No service: No Current occupational status: employed Cognitive needs: No Hearing needs: No Vision needs: Yes Review of Systems Const All systems reviewed & are unremarkable except as noted in HPI and below Physical Exam Vital Signs: Last Vital Signs Pulse 112 H 11/24/25 09:09 BP 132/78 10/11/25 09:09 BMI result Body Mass Index 30.1 Const General: comfortable Nutritional Appearance: well nourished Orientation/consciousness: patient oriented x3 Limitations: no limitations Resp Effort & Inspection: normal respiratory effort GI Other: Abdominal incision right subcostal, clean, dry, intact. No hernias noted with Valsalva maneuvers. Additional trocar incisions are clean and intact as well. Abdomen is otherwise soft and nondistended. Neuro General: patient oriented x3 Assessment & Plan Assessment & Plan (1) Acute cholecystitis: Code(s): K81.0 - Acute cholecystitis Category: Medical Plan 64-year-old female patient status post laparoscopic converted to open cholecystectomy for acute cholecystitis. She is now much improved and feels ready to return to full activity. Examination does reveal her incision to be well healed with no evidence of hernia. She may return to normal activity as of 10/18/2025. She should follow up as needed. Coding Level of Care Code Global (59219) Diagnoses Acute cholecystitis K81.0
[2025-10-11 09:09] VITALS: BP 132/78; PULSE 112; BMI 30.1
--- OUTSIDE RECORDS SUMMARY | 2025-10-11 09:52 | XMS_ITS | Encounter Summary ---
Author Organization [facility] Address [address] [facility] [address] [place] [address] Phone Care Team Providers Care Computing Consultant Name Role Phone Dorita Ruiz MD Unavailable [email or web address] Silvia Martin RN Unavailable [phone] Oliva Lopez RN Unavailable [phone] Levi Jones MD Unavailable [phone] Susana Fernandez MD Unavailable [phone] Vinita Dumont NP Unavailable [phone] Hemanth Atkins MD Primary Care Provider [phone]- [phone] Reason for Referral * MRI/CAT Scan - Closed Specialty Diagnoses / Procedures Referred By Contac t Referred To Contact Radiology Diagnoses Pelvic and perineal pain Procedures CT Abdomen/Pelvis CHG CT SCAN,ABDOMENT AND PELVIS,W CONTRAST Lenore Posadas PA Phone: tel: fax: mailto:[email or web address] Referral ID Status Reason Start Date Expiration Date Visits Re quested Visits Authorized [id number] Closed 02/05/2023 04/06/2023 1 1 Encounter Details Date Type Department Care Team (Latest Contact Info) Description 02/05/2023 Transcribe Orders Virtual Department 30 [place] [address] Lenore Posadas PA [address] [place] [address] [email or web address] Pelvic and perineal pain (Primary Dx) Social [...] pain documented in this encounter Care Teams Computing Consultant Relationship Specialty Start Date End Date Hemanth Atkins MD [address] [place] [address] [email or web address] PCP - General Family Medicine 01/08/19 Dorita Ruiz MD [email or web address] Radiation Oncology 07/11/15 Silvia Martin RN [address] [place] [phone] [email or web address] Registered Nurse 09/22/15 Oliva Lopez RN [address] [place] [phone] [email or web address] U Registered Nurse 09/22/15 Levi Jones MD [address] [place] [address] Department of Obstetric[place] [address] [email or web address] u Gynecologic Oncology 09/22/15 Susana Fernandez MD [address] [place] [address] Department of Obstetric[place] [address] Gynecologic Oncology 10/27/15 Vinita Dumont NP [address] [place] [address] Referring Physician Family Medicine 03/02/16 documented as of this encounter Additional Source Comments The information contained in this document represents components of the legal health record. It is not the complete legal health record.[facility]
--- OUTSIDE RECORDS SUMMARY | 2025-10-11 09:52 | XMS_ITS | Encounter Summary ---
Author Organization [facility] Address [address] [facility] [address] [place] [address] Phone Care Team Providers Care Community Development Aide Name Role Phone Dorita Ruiz MD Unavailable [email or web address] Silvia Martin RN Unavailable [phone] Oliva Lopez RN Unavailable [phone] Levi Jones MD Unavailable [phone] Susana Fernandez MD Unavailable [phone] Vinita Dumont NP Unavailable [phone] Hemanth Atkins MD Primary Care Provider + [phone] Encounter Details Date Type Department Care Team (Late st Contact Info) Description 11/10/2020 Procedure Pass Non-Invasive Cardiology 30 [place] [address] Social History Tobacco Use Types Packs/Day Years [...] filedocumented in this encounter Care Teams Community Development Aide Relationship Specialty Start Date End Date Hemanth Atkins MD [address] [place] [address] [email or web address] PCP - General Family Medicine 01/08/19 Dorita Ruiz MD [email or web address] Radiation Oncology 07/11/15 Silvia Martin RN [address] [place] [phone] [email or web address]@[email or web address] Registered Nurse 09/22/15 Oliva Lopez RN [address] [place] [phone] [email or web address]. U Registered Nurse 09/22/15 Levi Jones MD [address] [place] [address] Department of Obstetrics [place] [address] [email or web address] u Gynecologic Oncology 09/22/15 Susana Fernandez MD [address] [place] [address] Department of Obstetrics [place] [address] Gynecologic Oncology 10/27/15 Vinita Dumont NP [address] [place] [address] Referring Physician Family Medicine 03/02/16 documented as of this encounter Additional Source Comments The information contained in this document represents components of the legal health record. It is not the complete legal health record.[facility]
--- OUTSIDE RECORDS SUMMARY | 2025-10-11 09:53 | XMS_ITS | Encounter Summary ---
Author Organization [facility] Address [address] [facility] [address] [place] [address] Phone Care Team Providers Care Professional Services Specialist Name Role Phone Dorita Ruiz MD Unavailable [email or web address] Silvia Martin RN Unavailable [phone] Oliva Lopez RN Unavailable [phone] Levi Jones MD Unavailable [phone] Susana Fernandez MD Unavailable [phone] Vinita Dumont NP Unavailable [phone] Hemanth Atkins MD Primary Care Provider + [phone] Encounter Details Date Type Department Care Team (Late st Contact Info) Description 11/09/2020 Procedure Pass [facility], Ct Scan - [address] [address] Social History Tobacco Use Types Packs/Day Years [...] 11/09/2020 2:30 PM Abdi Denson RN * [place] Suicide Severity Rating Scale (Screener/Recent Self-Report) Question [...] on filedocumented in this encounter Care Teams Professional Services Specialist Relationship Specialty Start Date End Date Hemanth Atkins MD [address] [place] [address] [email or web address] PCP - General Family Medicine 01/08/19 Dorita Ruiz MD [email or web address] Radiation Oncology 07/11/15 Silvia Martin RN [address] [place] [phone] KERA@[email or web address] Registered Nurse 09/22/15 Oliva Lopez RN [address] [place] [phone] [email or web address]. U Registered Nurse 09/22/15 Levi Jones MD [address] [place] [address] Department of Obstetric[place] [address] [email or web address] u Gynecologic Oncology 09/22/15 Susana Fernandez MD [address] [place] [address] Department of Obstetric[place] [address] Gynecologic Oncology 10/27/15 Vinita Dumont NP [address] [place] [address] Referring Physician Family Medicine 03/02/16 documented as of this encounter Additional Source Comments The information contained in this document represents components of the legal health record. It is not the complete legal health record.[facility]
--- OUTSIDE RECORDS SUMMARY | 2025-10-11 09:53 | XMS_ITS | Encounter Summary ---
Author Organization [facility] Address [address] [place] [address] Care Team Providers Care Mediator Name Role Phone Mirian Richey MD Primary Care Provider [phone] Encounter Details Date Type Department Care Team (Late st Contact Info) Description 07/27/2020 Orders Only [facility] Nuclear Medicine [address] [place] [address] Alfredo Cedeno MD PhD [address] [place] [address] Social History Tobacco Use Types Packs/Day Years [...] Description 12/09/2025 3:30 PM EST Office Visit [facility]INGER Oncology [address] [place] [address] Transplanter: Chelly Teixeira MD [address] [place] [address] 04/05/2026 10:15 AM EDT Appointment [facility] Ultrasound [address] [place] [address] documented as of this encounter Visit Diagnoses Not on filedocumented in this encounter Care Teams Mediator Relationship Specialty Start Date End Date Mirian Richey MD [address] [place] [address] PCP - General Urology 01/31/24 documented as of this encounter
--- OUTSIDE RECORDS SUMMARY | 2025-10-11 09:53 | XMS_ITS | Encounter Summary ---
Author Organization [facility] Address [address] [facility] [address] [place] [address] Phone Care Team Providers Care Home Office Claim Specialist Name Role Phone Dorita Ruiz MD Unavailable [email or web address] Silvia Martin RN Unavailable [phone] Oliva Lopez RN Unavailable [phone] Levi Jones MD Unavailable [phone] Susana Fernandez MD Unavailable [phone] Vinita Dumont NP Unavailable [phone] Hemanth Atkins MD Primary Care Provider + [phone] Encounter Details Date Type Department Care Team (Late st Contact Info) Description 02/05/2023 Procedure Pass [facility], Ct Scan - [address] [address] Social History Tobacco Use Types Packs/Day Years [...] on filedocumented in this encounter Care Teams Home Office Claim Specialist Relationship Specialty Start Date End Date Hemanth Atkins MD [address] [place] [address] [email or web address] PCP - General Family Medicine 01/08/19 Dorita Ruiz MD [email or web address] Radiation Oncology 07/11/15 Silvia Martin RN [address] [place] [phone] [email or web address]@[email or web address] Registered Nurse 09/22/15 Oliva Lopez RN [address] [place] [phone] [email or web address]. U Registered Nurse 09/22/15 Levi Jones MD [address] [place] [address] Department of Obstetrics [place] [address] [email or web address] u Gynecologic Oncology 09/22/15 Susana Fernandez MD [address] [place] [address] Department of Obstetrics [place] [address] Gynecologic Oncology 10/27/15 Vinita Dumont NP [address] [place] [address] Referring Physician Family Medicine 03/02/16 documented as of this encounter Additional Source Comments The information contained in this document represents components of the legal health record. It is not the complete legal health record.[facility]
--- OUTSIDE RECORDS SUMMARY | 2025-10-11 09:54 | XMS_ITS | Encounter Summary ---
Author Organization [facility] Address [address] [facility] [address] [place] [address] Phone Care Team Providers Care Processing Spec Name Role Phone Vinita Dumont NP Primary Care Provider [phone] Dorita Ruiz MD Unavailable [email or web address] Silvia Martin RN Unavailable [phone] Oliva Lopez RN Unavailable [phone] Levi Jones MD Unavailable [phone] Susana Fernandez MD Unavailable [phone] Vinita Dumont COIN MACHINE OPERATOR Unavailable [phone] Hemanth Atkins MD Primary Care Provider [phone] Encounter Details Date Type Department Care Team (Latest Contact Info) Description 12/24/2017 Ancillary Orders [facility] External Provider Virtual Department 30 [place] [address] Mirian Richey MD [address] [place] [address] Malignant neoplasm of cervix, unspecified site; Hydronephrosis, [...] 10/14/2017. POS [id number] Mirian Colette Richey MD [facility] RENAL Final Result documented in this encounter Visit Diagnoses Diagnosis Malignant neoplasm of cervix, unspecified site Hydronephrosis, unspecified hydronephrosis type Malignant neoplasm of cervix, unspecified site Hydronephrosis, unspecified hydronephrosis type documented in this encounter Care Teams Processing Spec Relationship Specialty Start Date End Date Vinita Dumont NP [address] [place] [address] PCP - General Family Medicine 07/01/15 01/07/19 Hemanth Atkins MD [address] [place] [address] [email or web address] PCP - General Family Medicine 01/08/19 Dorita Ruiz MD [email or web address] Radiation Oncology 07/11/15 Silvia Martin, JANNA [address] [place] [phone] [email or web address] Registered Nurse 09/22/15 Oliva Lopez RN [address] [place] [phone] [email or web address] U Registered Nurse 09/22/15 Levi Jones MD [address] [place] [address] Department of Obstetrics [place] [address] [email or web address] u Gynecologic Oncology 09/22/15 Susana Fernandez MD [address] [place] [address] Department of Obstetrics [place] [address] Gynecologic Oncology 10/27/15 Vinita Dumont NP [address] [place] [address] Referring Physician Family Medicine 03/02/16 documented as of this encounter Additional Source Comments The information contained in this document represents components of the legal health record. It is not the complete legal health record.[facility]
--- OUTSIDE RECORDS SUMMARY | 2025-10-11 09:54 | XMS_ITS | Encounter Summary ---
Author Organization [facility] Address [address] [facility] [address] [place] [address] Phone Care Team Providers Care Auctioneer Tobacco Name Role Phone Vinita Dumont NP Primary Care Provider [phone] Dorita Ruiz MD Unavailable [email or web address] Silvia Martin RN Unavailable [phone] Oliva Lopez RN Unavailable [phone] Levi Jones MD Unavailable [phone] Susana Fernandez MD Unavailable [phone] Vinita Dumont OUTSIDE MACHINIST Unavailable [phone] Hemanth Atkins MD Primary Care Provider [phone]- [phone] Encounter Details Date Type Department Care Team (Late st Contact Info) Description 03/14/2018 Ancillary Orders Virtual Department 30 [place] [address] Mirian Richey MD 33 [place] [address] Other hydronephrosis Social History Tobacco Use Types [...] hydronephrosis documented in this encounter Care Teams Auctioneer Tobacco Relationship Specialty Start Date End Date Vinita Dumont NP [address] [place] [address] PCP - General Family Medicine 07/01/15 01/07/19 Hemanth Atkins MD [address] [place] [address] [email or web address] PCP - General Family Medicine 01/08/19 Dorita Ruiz MD [email or web address] Radiation Oncology 07/11/15 Silvia Martin, RN [address] [place] [phone] [email or web address] Registered Nurse 09/22/15 Oliva Lopez RN [address] [place] [phone] [email or web address] U Registered Nurse 09/22/15 Levi Jones MD [address] [place] [address] Department of Obstetrics [place] [address] [email or web address] u Gynecologic Oncology 09/22/15 Susana Fernandez MD [address] [place] [address] Department of Obstetrics [place] [address] Gynecologic Oncology 10/27/15 Vinita Dumont NP [address] [place] [address] Referring Physician Family Medicine 03/02/16 documented as of this encounter Additional Source Comments The information contained in this document represents components of the legal health record. It is not the complete legal health record.[facility]
--- OUTSIDE RECORDS SUMMARY | 2025-10-11 09:54 | XMS_ITS | Encounter Summary ---
Author Organization [facility] Address [address] [facility] [address] [place] [address] Phone Care Team Providers Care Curator Name Role Phone Dorita Ruiz MD Unavailable [email or web address] Silvia Martin RN Unavailable [phone] Oliva Lopez RN Unavailable [phone] Levi Jones MD Unavailable [phone] Susana Fernandez MD Unavailable [phone] Vinita Dumont NP Unavailable [phone] Hemanth Atkins MD Primary Care Provider [phone]- [phone] Encounter Details Date Type Department Care Team (Late st Contact Info) Description 11/09/2020 Procedure Pass [facility] [address] [place] [address] Social History Tobacco Use Types Packs/Day Years [...] 11/09/2020 2:30 PM Abdi Denson, JANNA * [place] Suicide Severity Rating Scale (Screener/Recent Self-Report) Question [...] on filedocumented in this encounter Care Teams Curator Relationship Specialty Start Date End Date Hemanth Atkins MD [address] [place] [address] [email or web address] PCP - General Family Medicine 01/08/19 Dorita Ruiz MD [email or web address] Radiation Oncology 07/11/15 Silvia Martin RN [address] [place] [phone] [email or web address]@[email or web address] Registered Nurse 09/22/15 Oliva Lopez RN [address] [place] [phone] [email or web address]. U Registered Nurse 09/22/15 Levi Jones MD [address] [place] [address] Department of Obstetrics [place] [address] [email or web address] u Gynecologic Oncology 09/22/15 Susana Fernandez MD [address] [place] [address] Department of Obstetrics [place] [address] Gynecologic Oncology 10/27/15 Vinita Dumont NP [address] [place] [address] Referring Physician Family Medicine 03/02/16 documented as of this encounter Additional Source Comments The information contained in this document represents components of the legal health record. It is not the complete legal health record.[facility]
--- OUTSIDE RECORDS SUMMARY | 2025-10-11 09:54 | XMS_ITS | Encounter Summary ---
Author Organization [facility] Address [address] [facility] [address] [place] [address] Phone Care Team Providers Care Junior Data Analyst Name Role Phone Vinita Dumont NP Primary Care Provider [phone] Dorita Ruiz MD Unavailable [email or web address] Silvia Martin RN Unavailable [phone] Oliva Lopez RN Unavailable [phone] Levi Jones MD Unavailable [phone] Susana Fernandez MD Unavailable [phone] Vinita Dumont INSTRUCTIONAL ASSISTANT Unavailable [phone] Hemanth Atkins MD Primary Care Provider + [phone] Encounter Details Date Type Department Care Team (Latest Contact Info) Description 03/03/2018 Ancillary Orders Virtual Department 30 [place] [address] Mirian Richey MD [address] [place] [address] Hydronephrosis, unspecified hydronephrosis type Social History Tobacco [...] type documented in this encounter Care Teams Junior Data Analyst Relationship Specialty Start Date End Date Vinita Dumont NP [address] [place] [address] PCP - General Family Medicine 07/01/15 01/07/19 Hemanth Atkins MD [address] [place] [address] [email or web address] PCP - General Family Medicine 01/08/19 Dorita Ruiz MD [email or web address] Radiation Oncology 07/11/15 Silvia Martin RN [address] [place] [phone] KERA@[email or web address] Registered Nurse 09/22/15 Oliva Lopez RN [address] [place] [phone] [email or web address] U Registered Nurse 09/22/15 Leiv Jones MD [address] [place] [address] Department of Obstetric[place] [address] [email or web address] u Gynecologic Oncology 09/22/15 Susana Fernandez MD [address] [place] [address] Department of Obstetrics [place] [address] Gynecologic Oncology 10/27/15 Vinita Dumont NP [address] [place] [address] Referring Physician Family Medicine 03/02/16 documented as of this encounter Additional Source Comments The information contained in this document represents components of the legal health record. It is not the complete legal health record.[facility]
--- OUTSIDE RECORDS SUMMARY | 2025-10-11 09:54 | XMS_ITS | Encounter Summary ---
Author Organization [facility] Address [address] [facility] [address] [place] [address] Phone Care Team Providers Care Coin Teller Name Role Phone Dorita Ruiz MD Unavailable [email or web address] Silvia Martin RN Unavailable [phone] Oliva Lopez RN Unavailable [phone] Levi Jones MD Unavailable [phone] Susana Fernandez MD Unavailable [phone] Vinita Dumont NP Unavailable [phone] Hemanth Atkins MD Primary Care Provider + [phone] Encounter Details Date Type Department Care Team (Latest Contact Info) Description 01/08/2019 Ancillary Orders Virtual Department 30 [place] [address] Mirian Richey MD [address] [place] [address] Hydronephrosis, unspecified hydronephrosis type Social History Tobacco [...] significantly smaller than the LEFT. POS - [id number] Narrative 10/29/2019 4:57 PM EST EXAM: US [...] significantly smaller than the LEFT. POS - [id number] Mirian Richey MD [facility] RENAL Final Result documented in this encounter Visit Diagnoses Diagnosis Hydronephrosis, unspecified hydronephrosis type Hydronephrosis, unspecified hydronephrosis type documented in this encounter Care Teams Coin Teller Relationship Specialty Start Date End Date Hemanth Atkins MD [address] [place] [address] [email or web address] PCP - General Family Medicine 01/08/19 Dorita Ruiz MD [email or web address] Radiation Oncology 07/11/15 Silvia Martin RN [address] [place] [phone] [email or web address]@[email or web address] Registered Nurse 09/22/15 Oliva Lopez RN [address] [place] [phone] [email or web address] U Registered Nurse 09/22/15 Levi Jones MD [address] [place] [address] Department of Obstetrics [place] [address] [email or web address] u Gynecologic Oncology 09/22/15 Susana Fernandez MD [address] [place] [address] Department of Obstetrics [place] [address] Gynecologic Oncology 10/27/15 Vinita Dumont NP [address] [place] [address] Referring Physician Family Medicine 03/02/16 documented as of this encounter Additional Source Comments The information contained in this document represents components of the legal health record. It is not the complete legal health record.[facility]
--- OUTSIDE RECORDS SUMMARY | 2025-10-11 09:54 | XMS_ITS | Encounter Summary ---
Author Organization [facility] Address [address] [facility] [address] [place] [address] Phone Care Team Providers Care It Application Support Analyst Name Role Phone Vinita Dumont NP Primary Care Provider [phone] Dorita Ruiz MD Unavailable [email or web address] Silvia Martin RN Unavailable [phone] Oliva Lopez RN Unavailable [phone] Levi Jones MD Unavailable [phone] Susana Fernandez MD Unavailable [phone] Vinita Dumont AVIATION ELECTRICIAN Unavailable [phone] Hemanth Atkins MD Primary Care Provider + [phone] Encounter Details Date Type Department Care Team (Latest Contact Info) Description 10/09/2017 Ancillary Orders Virtual Department [address] [place] [address] Mirian Richey MD [address] [place] [address] Hydronephrosis, unspecified hydronephrosis type Social History Tobacco [...] in place. POS [id number] Mirian Richey MD [facility] RENAL Final Result documented in this encounter Visit Diagnoses Diagnosis Hydronephrosis, unspecified hydronephrosis type Hydronephrosis, unspecified hydronephrosis type documented in this encounter Care Teams It Application Support Analyst Relationship Specialty Start Date End Date Vinita Dumont NP [address] [place] [address] PCP - General Family Medicine 07/01/15 01/07/19 Hemanth Atkins MD [address] [place] [address] [email or web address] PCP - General Family Medicine 01/08/19 Dorita Ruiz MD [email or web address] Radiation Oncology 07/11/15 Silvia Martin RN [address] [place] [phone] [email or web address] Registered Nurse 09/22/15 Oliva Lopez RN [address] [place] [phone] [email or web address] U Registered Nurse 09/22/15 Levi Jones MD [address] [place] [address] Department of Obstetric[place] [address] [email or web address] Gynecologic Oncology 09/22/15 Susana Fernandez MD [address] [place] [address] Department of Obstetric[place] [address] Gynecologic Oncology 10/27/15 Vinita Dumont NP [address] [place] [address] Referring Physician Family Medicine 03/02/16 documented as of this encounter Additional Source Comments The information contained in this document represents components of the legal health record. It is not the complete legal health record.[facility]
--- OUTSIDE RECORDS SUMMARY | 2025-10-11 09:54 | XMS_ITS | Encounter Summary ---
Author Organization [facility] Address [address] [facility] [address] [place] [address] Phone Care Team Providers Care Art Conservator Name Role Phone Vinita Dumont NP Primary Care Provider [phone] Dorita Ruiz MD Unavailable [email or web address] Silvia Martin RN Unavailable [phone] Oliva Lopez RN Unavailable [phone] Levi Jones MD Unavailable [phone] Susana Fernandez MD Unavailable [phone] Vinita Dumont TELEVISION ACTOR Unavailable [phone] Hemanth Atkins MD Primary Care Provider [phone] Reason for Referral * Outpatient Procedure - Closed Specialty Diagnoses / Procedures Referred By Contac t Referred To Contact Radiology Diagnoses Hydronephrosis, unspecified hydronephrosis type Procedures NM Renal Study with Mirian Akins MD Phone: tel: fax: Referral ID Status Reason Start Date Expiration Date Visits Re quested Visits Authorized [id number] Closed 10/21/2017 10/21/2018 1 1 Encounter Details Date Type Department Care Team (Latest Contact Info) Description 10/21/2017 Ancillary Orders Virtual Department 30 [place] [address] Richey, Mirian Alvarenga MD [address] [place] [address] Hydronephrosis, unspecified hydronephrosis type Social History Tobacco [...] type documented in this encounter Care Teams Art Conservator Relationship Specialty Start Date End Date Vinita Dumont NP [address] [place] [address] PCP - General Family Medicine 07/01/15 01/07/19 Hemanth Atkins MD [address] [place] [address] [email or web address] PCP - General Family Medicine 01/08/19 Dorita Ruiz MD [email or web address] Radiation Oncology 07/11/15 Silvia Martin, RN [address] [place] [phone] [email or web address] Registered Nurse 09/22/15 Oliva Lopez RN [address] [place] [phone] [email or web address] U Registered Nurse 09/22/15 Levi Jones MD [address] [place] [address] Department of Obstetrics [place] [address] [email or web address] Gynecologic Oncology 09/22/15 Susana Fernandez MD [address] [place] [address] Department of Obstetrics [place] [address] Gynecologic Oncology 10/27/15 Vinita Dumont NP [address] [place] [address] Referring Physician Family Medicine 03/02/16 documented as of this encounter Additional Source Comments The information contained in this document represents components of the legal health record. It is not the complete legal health record.[facility]
--- OUTSIDE RECORDS SUMMARY | 2025-10-11 09:54 | XMS_ITS | Encounter Summary ---
Author Organization [facility] Address [address] [place] [address] Care Team Providers Care Child Welfare Caseworker Name Role Phone Mirian Richey MD Primary Care Provider [phone] Encounter Details Date Type Department Care Team (Late st Contact Info) Description 07/08/2020 Orders Only [facility] Interventional Radiology [address] [place] [address] Finn Manley MD [address] [place] [address] Social History Tobacco Use Types Packs/Day Years [...] Description 12/09/2025 3:30 PM EST Office Visit [facility] BOOK SEWER Oncology [address] [place] [address] Fitting Room Supervisor: Chelly Teixeira MD [address] [place] [address] 04/05/2026 10:15 AM EDT Appointment [facility] Ultrasound [address] [place] [address] documented as of this encounter Visit Diagnoses Not on filedocumented in this encounter Care Teams Child Welfare Caseworker Relationship Specialty Start Date End Date Mirian Richey MD [address] [place] [address] PCP - General Urology 01/31/24 documented as of this encounter
--- OUTSIDE RECORDS SUMMARY | 2025-10-11 09:55 | XMS_ITS ---
Author Organization [facility] Address [address] [place] [address] Care Team Providers Care Strike Out Machine Operator Name Role Phone Mirian Richey MD Primary Care Provider [phone] Active Problems Problem Noted Date Diagnosed Date Abdominal pain 04/21/2019 Serum potassium elevated 01/09/2019 Elevated serum creatinine 01/09/2019 Acute renal failure (ARF) 01/09/2019 Malignant neoplasm of cervix 05/06/2018 Overview (05/06/2018): Added automatically from request for surgery [id number] Dyspareunia in female 09/11/2017 Hypomagnesemia 10/26/2015 Impaired [...]
--- OUTSIDE RECORDS SUMMARY | 2025-10-11 09:55 | XMS_ITS | Clinical Summary ---
Author Organization [facility] Address [address] [place] [address] Care Team Providers Care Returned Goods Repairer Name Role Phone Mirian Richey MD Primary Care Provider [phone] Allergies No known active allergies Medications FLUoxetine [...] (05/06/2018): Added automatically from request for surgery [id number] Dyspareunia in female 09/11/2017 Hypomagnesemia 10/26/2015 Impaired renal function 10/26/2015 Pre-op testing 08/31/2015 Cancer of cervix 07/29/2015 Cancer Staging:Clinical stage from 06/17/2015:FIGO Stage IIIB- Signed by Chelly White MD on 09/11/2017 Bilateral hydronephrosis 07/29/2015 Encounters Date Type Department Care Team Description 07/20/2025 Refill [facility] [address] [place] [address] Nuclear Design Engineer: Priscilla Saez NP from Last 3 Months [...] Description 12/09/2025 3:30 PM EST Office Visit [facility] ACCOUNTS PAYABLE PAYROLL COORDINATOR Oncology [address] [place] [address] Nuclear Design Engineer: Chelly Teixeira MD [address] [place] [address] 04/05/2026 10:15 AM EDT Appointment [facility] Ultrasound [address] [place] [address] Health Maintenance Due Date Last Done Comments [...] Annual Screening 11/18/2024 Influenza Vaccine (#1) 2025 COVID-19 Vaccine ( - 2024-2 6 season) 2025 11/28/2021, 02/25/2021, 02/04/2021 RSV Vaccine (60+ years old a nd patients) (1 - 1-dose 75+ series) 2036 Hepatitis B Vaccines Aged Out No long er eligible based on patient's age to complete this topic Medical Devices Implanted Type Area Geospatial Imagery Intelligence Analyst Device Identifier Shelf Expiration Date Model / Serial / Lot Stent Ureteral Firm Hydroplus Coating 7fr 26cm Percuflex Plus - [id number] Implanted:Qty: 1 on 10/09/2017 by Crissy Pierce MD at [facility] Stent Ureter [employer] 01/28/2020 175-273 / / [id number] Stent Ureteral Firm Hydroplus Coating 6fr 26cm Percuflex Plus - [id number] Implanted:Qty: 1 on 03/20/2018 by Mirian Richey MD at [facility] Stent Left: Ureter [employer] 09/10/2020 175-263 / / [id number] Stent Ureteral Firm [employer] Coating 6fr 26cm Percuflex Plus - [id number] Implanted:Qty: 1 on 03/20/2018 by Mirian Richey MD at [facility] Stent Right: Ureter [employer] 09/10/2020 175-263 / / [id number] Stent Ureteral Firm [employer] Coating 6fr 26cm Percuflex Plus - [id number] Implanted:Qty: 1 on 07/02/2018 by Mirian Richey MD at [facility] Stent [employer] 04/09/2021 175-263 / / [id number] Stent Ureteral Firm Hydroplus Coating 6fr 26cm Percuflex Plus - [id number] Implanted:Qty: 1 on 07/02/2018 by Mirian Richey MD at [facility] Stent [employer] 03/25/2021 175-263 / / [id number] Stent Ureteral Firm [employer] Coating 6fr 26cm Percuflex Plus - [id number] - [id number] Implanted:Qty: 1 on 10/31/2018 by Mirian Richey MD at [facility] Stent Left: Ureter [employer] 09/01/2021 175-263 / [id number] / [id number] Stent Ureteral Firm [employer] Coating 6fr 26cm Percuflex Plus - [id number] - [id number] Implanted:Qty: 1 on 10/31/2018 by Mirian Richey MD at [facility] Stent Right: Ureter [employer] 09/01/2021 175-263 / [id number] / [id number] Stent Ureteral Firm Hydroplus Coating 6fr 26cm Percuflex Plus - [id number] Implanted:Qty: 1 on 01/10/2019 by Golden Perry MD at [facility] Stent Right: Ureter [employer] 08/03/2021 175-263 / / [id number] Stent Ureteral Firm Hydroplus Coating 6fr 26cm Percuflex Plus - [id number] Implanted:Qty: 1 on 01/10/2019 by Golden Perry MD at [facility] Stent Left: Ureter [employer] 08/03/2021 175-263 / / [id number] Stent Ureteral Firm Hydroplus Coating 6fr 26cm Percuflex Plus - [id number] - [id number] Implanted:Qty: 1 on 04/09/2019 by Mirian Richey MD at [facility] Stent [employer] 02/01/2022 175-263 / [id number] / Stent Ureteral Firm Hydroplus Coating 6fr 26cm Percuflex Plus - [id number] Implanted:Qty: 1 on 04/16/2019 by Mirian Richey MD at [facility] Stent Left: Ureter [employer] 02/08/2022 175-263 / / [id number] Stent Ureteral Firm Hydroplus Coating 6fr 26cm Percuflex Plus - [id number] Implanted:Qty: 1 on 04/16/2019 by Mirian Richey MD at [facility] Stent Right: Ureter [employer] 02/01/2022 175-263 / / [id number] Procedures * Due to [place] law, this organization might not be sharing negative HIV tests. Procedure Name Priority Date/Time Associated Diagnosis Comments PAP W/HPV, CONVERSION Routine 07/15/2017 10:42 AM EDT from Last 3 Months or Most Recently Relevant to Health Maintenance Results * Due to [place] law, this organization might not be sharing negative HIV tests. * Pap w/HPV (07/15/2017 10:42 AM EDT) Path Procedure TPGS (315086) 1 HPVHR(194822) 1 Edited by: [id number] - 1043 MAHAMED [id number] - 1241 TRISTEN [id number] - 1447 [facility] ANATOMIC PATHOLOGY - [facility] Specimen Labeled As: 1 CERVICAL/ENDOCERVI LM CYTO MATERIAL - Edited by: [id number] - 1043 ENRRIQUE [facility] ANATOMIC PATHOLOGY - [facility] Additional Test Information Specimens were tested for high risk HPV using the FDA approved Digene Hybrid Capture II kit, in the Diagnostic Molecular Oncology Lab at [facility]. This test can detect HPV high risk [...] abnormality. We endorse the recommendations of the [place] Society for Colposcopy and Cervical Pathology for [...] high complexity clinical laboratory testing. Edited by: [id number] - 1447 [facility] [id number] - 145 [facility] [id number] - 5 [facility] ANATOMIC [facility]OLOG[facility] - [facility] Diagnosis ThinPrep Pap Test Adequacy: Specimen processed and examined but unsatisfactory for evaluation of epithelial cell abnormalities because of scant epithelial cellularity and obscuring blood. This Pap test could not be examined by the ThinPrep Imaging System, [employer], [place], [place], and required a full manual screening. This case was screened and diagnosed by the Cytology Laboratory at [place], [place] - High risk HPV DNA subtypes: NEGATIVE Edited by: [id number] - 1447 [facility] [id number] - 145 [facility] [id number] - 1604 [facility] [id number] - 1701 [facility] ANATOMIC PATHOLOGY - [facility] Gynecologic Clinical Data Specimen source:, THINPREP (CERVICAL AND ENDOCERVICAL) [facility]ATOMIC [facility]OLOG[facility] - [facility] Gynecologic Clinical Data First date of LMP:, NOT GIVEN [facility]ATOM[facility]OLOG[facility] Pathology Codes Client Order Code:, TPHS3 [facility]ATOM[facility] Pathology Codes Bill Type:, 3RD REPUBL[employer] BILLING [facility]ATOMIC [facility]OLOG[facility] - [facility] Completed Report [id number] HPV, HIGH RISK TYPES 1 [facility]ATOM[facility]OLOG[facility] Marker 1 MDNEG,MD NEGATIVE [facility] ANATOMIC PATHOLOGY - [facility] Marker 2 TITO DURANANAYA [facility] ANATOMIC PATHOLOGY - [facility] Marker 3 OMRPT,MOLECULAR REPEAT [facility]ATOM[facility] PATHOLOG[facility] - [facility] Marker 4 RIM,RECEIVED IN MOLECULAR [facility] ANATOMIC PATHOLOGY - [facility] Marker 5 STQ,SENT TO [facility] ANATOMIC PATHOLOGY - [facility] Marker 6 UNSAT,Unsatisfacto ry [facility]AT[facility] Cc Results To HALLIE Queen ACCOUNTS PAYABLE PAYROLL COORDINATOR [phone] MACIEL Goyal ACCOUNTS PAYABLE PAYROLL COORDINATOR [id number] [facility]ATOM[facility] Signature REPORT SIGNED: PAMELA SOLER 08/01/17 [facility] Sign Out Audit PAMELA SOLER [id number] [place] [place] [id number] 1725 [facility]ATOM[facility] - [facility] Cytology / Unknown 7 10:42 AM EDT 07/16/2017 10:42 AM EDT us Susana Fernandez MD LAB HISTORICAL RESULTS Fin al Result Performing Organization Address City/State/[facility] Co de Phone Number [facility]ATOMIC PATHOLOG[facility] - [facility] [address] [place] [address] from Last 3 Months or Most Recently Relevant to Health Maintenance Insurance Advance Directives Documents on File Type Date Recorded Patient Soldering Machine Tender Expl anation Health Care Proxy 01/10/2019 8:18 AM 2018 Health Care Proxy 08/08/2017 1:34 PM Health Care Proxy 08/08/2017 8:14 AM Health Care Proxy 01/09/2017 12:00 AM Heal th Care Proxy Healthcare Agents on File Name Relationship Healthcare Agent Relationshi p Communication Leon Jean Baptiste Spouse Next of Kin [phone] ( Home) Care Teams Returned Goods Repairer Relationship Specialty Start Date End Date Mirian Richey MD [address] [place] [address] PCP - General Urology 01/31/24
--- OUTSIDE RECORDS SUMMARY | 2025-10-11 09:55 | XMS_ITS | Encounter Summary ---
Author Organization [facility] Address [address] [facility] [address] [place] [address] Phone Care Team Providers Care Teller Coordinator Name Role Phone Vinita Dumont NP Primary Care Provider [phone] Dorita Ruiz MD Unavailable [email or web address] Silvia Martin RN Unavailable [phone] Oliva Lopez RN Unavailable [phone] Levi Jones MD Unavailable [phone] Susana Fernandez MD Unavailable [phone] Vinita Dumont STARS ANALYTICAL LEAD Unavailable [phone] Hemanth Atkins MD Primary Care Provider [phone] Encounter Details Date Type Department Care Team (Late st Contact Info) Description 09/27/2015 Transcribe Orders [facility] [address] [place] [address] Princess Olmedo [address] [place] [address] [email or web address] Social History Tobacco Use Types Packs/Day [...] on filedocumented in this encounter Care Teams Teller Coordinator Relationship Specialty Start Date End Date Vinita Dumont NP [address] [place] [address] PCP - General Family Medicine 07/01/15 01/07/19 Hemanth Atkins MD [address] [place] [address] [email or web address] PCP - General Family Medicine 01/08/19 Dorita Ruiz MD [email or web address] Radiation Oncology 07/11/15 Silvia Martin RN [address] [place] [phone] [email or web address] Registered Nurse 09/22/15 Oliva Lopez RN [address] [place] [phone] [email or web address] U Registered Nurse 09/22/15 Levi Jones MD [address] [place] [address] Department of Obstetrics [place] [address] [email or web address] u Gynecologic Oncology 09/22/15 Susana Fernandez MD [address] [place] [address] Department of Obstetrics [place] [address] Gynecologic Oncology 10/27/15 Vinita Dumont NP [address] [place] [address] Referring Physician Family Medicine 03/02/16 documented as of this encounter Additional Source Comments The information contained in this document represents components of the legal health record. It is not the complete legal health record.[facility]
--- OUTSIDE RECORDS SUMMARY | 2025-10-11 09:55 | XMS_ITS | Encounter Summary ---
Author Organization [facility] Address [address] [facility] [address] [place] [address] Phone Care Team Providers Care Envelope Folder Name Role Phone Vinita Dumont NP Primary Care Provider [phone] Dorita Ruiz MD Unavailable [email or web address] Silvia Martin RN Unavailable [phone] Oliva Lopez RN Unavailable [phone] Levi Jones MD Unavailable [phone] Susana Fernandez MD Unavailable [phone] Vinita Dumont SENIOR ACCOUNTANT CPA Unavailable [phone] Hemanth Atkins MD Primary Care Provider [phone] Encounter Details Date Type Department Care Team (Late st Contact Info) Description 07/29/2015 Transcribe Orders [facility] [address] [place] [address] Ryanne Lee [email or web address] Social History Tobacco Use Types Packs/Day [...] on filedocumented in this encounter Care Teams Envelope Folder Relationship Specialty Start Date End Date Vinita Dumont NP [address] [place] [address] PCP - General Family Medicine 07/01/15 01/07/19 Hemanth Atkins MD [address] [place] [address] [email or web address] PCP - General Family Medicine 01/08/19 Dorita Ruiz MD [email or web address] Radiation Oncology 07/11/15 Silvia Martin RN [address] [place] [phone] [email or web address] Registered Nurse 09/22/15 Oliva Lopez RN [address] [place] [phone] [email or web address] Registered Nurse 09/22/15 Levi Jones MD [address] [place] [address] Department of Obstetrics [place] [address] [email or web address]. u Gynecologic Oncology 09/22/15 Susana Fernandez MD [address] [place] [address] Department of Obstetrics [place] [address] Gynecologic Oncology 10/27/15 Vinita Dumont NP [address] [place] [address] Referring Physician Family Medicine 03/02/16 documented as of this encounter Additional Source Comments The information contained in this document represents components of the legal health record. It is not the complete legal health record.[facility]
== END 2025-10-11 09:17 | disposition home or self-care (01) ==
LOC: HO.HGS 09:03
PROVIDERS: Visit Provider Surgery
DX: K81.0 Acute cholecystitis (principal)
CPT/HCPCS: 99024